=== PATIENT | female | born 1975 | race Caucasian/White ===

== ENCOUNTER 2017-10-25 08:17 | Emergency (ER) | payer OTHER ==
--- NOTE | 2017-10-25 08:56 | ED ---
General Adult HPI - General Chief complaint: Skin/Abscess/Foreign Body Stated complaint: Breast abscess Time Seen by Provider: 10/25/17 08:45 Source: patient, RN notes reviewed Mode of arrival: ambulatory Limitations: no limitations - History of Present Illness Initial comments: Patient's a 42-year-old female who presents emergency room today with a chief complaint of a right-sided breast abscess that began approximately 2 weeks ago. She states has become more swollen and painful. Denies any drainage or discharge. Does admit that she had something similar on the left breast. Years ago had to have it drained. Patient denies any other complaints or symptoms. Patient denies any recent fever, chills, shortness of breath, chest pain, back pain, abdominal pain, nausea or vomiting, headaches or visual changes , or any other complaints. - Related Data Home Medications Medication Instructions Recorded Confirmed Ibuprofen [Motrin Ib] 200 - 800 mg PO Q6H PRN 10/25/17 10/25/17 Melatonin 3 mg PO HS PRN 10/25/17 10/25/17 Previous Rx's Medication Instructions Recorded Sulfamethox-Tmp 800-160Mg [Bactrim 1 tab PO Q12HR #28 tab 10/25/17 DS 800-160 mg] Allergies Allergy/AdvReac Type Severity Reaction Status Date / Time cephalexin [From Keflex] Allergy Rash/Hives Verified 10/25/17 08:41 Review of Systems ROS Statement: Those systems with pertinent positive or pertinent negative responses have been documented in the HPI. ROS Other: All systems not noted in ROS Statement are negative. Past Medical History Past Medical History: No Reported History History of Any Multi-Drug Resistant Organisms: None Reported Past Surgical History: No Surgical Hx Reported Past Psychological History: No Psychological Hx Reported Smoking Status: Current every day smoker Past Alcohol Use History: Daily Past Drug Use History: None Reported General Exam - General Exam Comments Initial Comments: General: The patient is awake and alert, in no distress, and does not appear acutely ill. Eye: Pupils are equal, round and reactive to light, extra-ocular movements are intact. No nystagmus. There is normal conjunctiva bilaterally. No signs of icterus. Ears, nose, mouth and throat: There are moist mucous membranes and no oral lesions. Neck: The neck is supple, there is no tenderness or JVD. Musculoskeletal: Normal ROM, no tenderness. Strength 5/5. Sensation intact. Pulses equal bilaterally 2+. Neurological: A&O x 3. CN II-XII intact, There are no obvious motor or sensory deficits. Coordination appears grossly intact. Speech is normal. Skin: Patient does have large abscess to the right breast around the areola site. There is increased firmness on palpation and redness and erythema. Locally tender. Measures approximately 4-5 cm across. Psychiatric: Cooperative, appropriate mood & affect, normal judgment. Limitations: no limitations Course Vital Signs 10/25/17 10/25/17 08:30 11:05 Temperature 98.5 F 99.0 F Pulse Rate 105 H 100 Respiratory 18 20 Rate Blood Pressure 187/77 168/75 O2 Sat by Pulse 99 99 Oximetry Procedures - Procedures Initial comment: [employer] Noelle was present for procedure.Procedure: Incision and drainage The skin overlying the abscess was prepped with Betadine, and anesthetized with 1% lidocaine without epinephrine. A #11 scalpel was then used to incise the abscess. Large amount purulent material was then extracted from the lesion. Wound culture obtained. Small amount of iodoform packing gauze was placed. Gauze dressing placed on top, The patient tolerated the procedure well. Medical Decision Making - Medical Decision Making Patient's ultrasound did reveal a 3.5 cm abscess. It was discussed with the patient about draining here versus following up with a specialist tomorrow. Patient stated that she was comfortable with us performing this procedure here. Small incision was made and a large amount of purulent drainage was removed. Patient will be started on antibiotics. She is advised follow-up with the surgeon or return here to the emergency room if symptoms increase worsen. Advised to have packing gauze removed in 2 days. Patient states understanding and is in agreement. - Lab Data Result diagrams: 10/25/17 09:26 10/25/17 09:26 Lab Results 10/25/17 10/25/17 Range/Units 09:26 09:26 WBC 12.0 H (3.8-10.6) k/uL RBC 4.08 (3.80-5.40) m/uL Hgb 12.7 (11.4-16.0) gm/dL Hct 38.3 (34.0-46.0) % MCV 94.0 (80.0-100.0) fL MCH 31.1 (25.0-35.0) pg MCHC 33.1 (31.0-37.0) g/dL RDW 12.3 (11.5-15.5) % Plt Count 199 (150-450) k/uL Neutrophils % 79 % Lymphocytes % 16 % Monocytes % 3 % Eosinophils % 1 % Basophils % 0 % Neutrophils # 9.5 H (1.3-7.7) k/uL Lymphocytes # 1.9 (1.0-4.8) k/uL Monocytes # 0.3 (0-1.0) k/uL Eosinophils # 0.1 (0-0.7) k/uL Basophils # 0.0 (0-0.2) k/uL Sodium 137 (137-145) mmol/L Potassium 4.2 (3.5-5.1) mmol/L Chloride 105 (98-107) mmol/L Carbon Dioxide 24 (22-30) mmol/L Anion Gap 8 mmol/L BUN 14 (7-17) mg/dL Creatinine 0.66 (0.52-1.04) mg/dL Est GFR (MDRD) Af Amer >60 (>60 ml/min/1.73 sqM) Est GFR (MDRD) Non-Af >60 (>60 ml/min/1.73 sqM) Glucose 274 H (74-99) mg/dL Calcium 8.9 (8.4-10.2) mg/dL Total Bilirubin 0.3 (0.2-1.3) mg/dL AST 14 (14-36) U/L ALT 19 (9-52) U/L Alkaline Phosphatase 144 H (38-126) U/L Total Protein 6.2 L (6.3-8.2) g/dL Albumin 3.4 L (3.5-5.0) g/dL Disposition Clinical Impression: Breast abscess Disposition: HOME SELF-CARE Condition: Good Instructions: Abscess (ED) Additional Instructions: Please have packing gauze removed in 2 days as discussed. Please follow-up the surgeon or return here to the emergency room if any symptoms increase or worsen or for any other concerns. Please continue antibiotics as prescribed. Prescriptions: Sulfamethox-Tmp 800-160Mg [Bactrim DS 800-160 mg] 1 tab PO Q12HR #28 tab Referrals: None,Stated [Primary Care Provider] - 1-2 days Katy Dubois MD [STAFF PHYSICIAN] - 1-2 days Time of Disposition: 12:11
[2017-10-25 09:34] LABS: Basophils % (A) 0 %; Eosinophils # (A) 0.1 k/uL (0-0.7); Eosinophils % (A) 1 %; HCT 38.3 % (34.0-46.0); HGB 12.7 gm/dL (11.4-16.0); Lymphocytes # (A) 1.9 k/uL (1.0-4.8); Lymphocytes % (A) 16 %; MCH 31.1 pg (25.0-35.0); MCHC 33.1 g/dL (31.0-37.0); Mean Platelet Volume 8.9; Monocytes # (A) 0.3 k/uL (0-1.0); Monocytes % (A) 3 %; Neutrophils # (A) 9.5 k/uL (1.3-7.7); Neutrophils % (A) 79 %; Platelet Count 199 k/uL (150-450); RBC 4.08 m/uL (3.80-5.40); RDW 12.3 % (11.5-15.5)
[2017-10-25] MEDS ORDERED: SODIUM CHLORIDE 0.9% 1,000 ML IV STA (09:43)
[2017-10-25 09:45] LABS: ALT 19 U/L (9-52); AST 14 U/L (14-36); Albumin 3.4 g/dL (3.5-5.0); Alkaline Phosphatase 144 U/L (38-126); Anion Gap 8 mmol/L; Blood Urea Nitrogen 14 mg/dL (7-17); Calcium 8.9 mg/dL (8.4-10.2); Carbon Dioxide 24 mmol/L (22-30); Chloride 105 mmol/L (98-107); Glucose 274 mg/dL (74-99); Potassium 4.2 mmol/L (3.5-5.1); Sodium 137 mmol/L (137-145); Total Bilirubin 0.3 mg/dL (0.2-1.3); Total Protein 6.2 g/dL (6.3-8.2)
--- NOTE | 2017-10-25 10:50 | USB ---
Reason for exam: clinical finding. US Breast Limited RT Right breast ultrasound demonstrates a 5.2 x 5.3 x 3.4cm irregular, mixed lesion at 11 o'clock, complex area likely reflecting abscess. ASSESSMENT: Probably benign, BI-RAD 3 RECOMMENDATION: Clinical management of the right breast. (ultrasound guided drainage can be performed ; consider short term follow up US after treatment) GISSELD
[2017-10-25 11:07] VITALS: BP 168/75; PULSE 100; RESP 20; TEMP 99
== END 2017-10-25 12:29 | disposition home or self-care (01) ==
LOC: EC 08:17
DX: N61.1 Abscess of the breast and nipple (principal); F17.200 Nicotine dependence, unspecified, uncomplicated; Z88.1 Allergy status to other antibiotic agents
CPT/HCPCS: 10060; 36415; 80053; 85025; 87040; 87070; 87077; 87186; 87205; 96360; 99283

== ENCOUNTER 2019-04-15 18:27 | Emergency (ER) | payer OTHER ==
[2019-04-15 18:46] VITALS: RESP 18
[2019-04-15] MEDS ORDERED: MORPHINE SULFATE 4 MG/ML SYRINGE IV STA (19:17)
--- NOTE | 2019-04-15 19:24 | ED ---
Abdominal Pain HPI - General Chief Complaint: Abdominal Pain Stated Complaint: Left sided flank pain Time Seen by Provider: 04/15/19 18:50 Source: patient Mode of arrival: ambulatory Limitations: no limitations - History of Present Illness MD Complaint: abdominal pain Onset/Timin -: hour(s) Location: LUQ, LLQ Radiation: none Migration to: no migration Severity: severe Quality: other (twisting) Consistency: colicky Improves With: nothing Worsens With: nothing Associated Symptoms: denies other symptoms - Related Data LMP (females 10-50): last week Patient : No Home Medications Medication Instructions Recorded Confirmed Ibuprofen [Motrin Ib] 200 - 800 mg PO Q6H PRN 10/25/17 04/15/19 Previous Rx's Medication Instructions Recorded Levofloxacin 750 mg PO DAILY #5 tablet 04/15/19 metFORMIN HCL [Glucophage] 500 mg PO BID #14 tab 04/15/19 Allergies Allergy/AdvReac Type Severity Reaction Status Date / Time cephalexin [From Keflex] Allergy Rash/Hives Verified 04/15/19 19:28 Review of Systems ROS Statement: Those systems with pertinent positive or pertinent negative responses have been documented in the HPI. ROS Other: All systems not noted in ROS Statement are negative. Constitutional: Denies: fever, chills Respiratory: Denies: cough, dyspnea Cardiovascular: Denies: chest pain, palpitations, edema, syncope Gastrointestinal: Reports: abdominal pain. Denies: nausea, vomiting, diarrhea, constipation, melena, hematochezia Genitourinary: Denies: dysuria, frequency, hematuria, discharge, abnormal menses Musculoskeletal: Denies: back pain Skin: Denies: rash Neurological: Denies: headache Past Medical History Past Medical History: No Reported History History of Any Multi-Drug Resistant Organisms: None Reported Past Surgical History: No Surgical Hx Reported Past Psychological History: No Psychological Hx Reported Smoking Status: Current every day smoker Past Alcohol Use History: Daily Past Drug Use History: None Reported General Exam Limitations: no limitations General appearance: alert, in no apparent distress Head exam: Present: atraumatic, normocephalic Eye exam: Present: normal appearance. Absent: scleral icterus, conjunctival injection Respiratory exam: Present: normal lung sounds bilaterally. Absent: respiratory distress, wheezes, rales, rhonchi, stridor Cardiovascular Exam: Present: normal rhythm, tachycardia (Rate 104 bpm at my exam), normal heart sounds. Absent: systolic murmur, diastolic murmur, rubs, gallop GI/Abdominal exam: Present: soft, tenderness, hypoactive bowel sounds. Absent: distended, guarding, rebound, rigid, mass, pulsatile mass, hernia Extremities exam: Present: normal inspection, normal capillary refill. Absent: pedal edema, calf tenderness Back exam: Present: normal inspection. Absent: CVA tenderness (R), CVA tenderness (L) Neurological exam: Present: alert Skin exam: Present: warm, dry, intact, normal color. Absent: rash Course Vital Signs 04/15/19 04/15/19 04/15/19 18:44 19:55 20:47 Temperature 98.3 F 99.0 F Pulse Rate 110 H 115 H 116 H Respiratory 18 18 18 Rate Blood Pressure 163/74 184/92 166/83 O2 Sat by Pulse 99 99 98 Oximetry 04/15/19 04/15/19 04/15/19 22:13 23:10 23:12 Temperature 99.7 F H 102.9 F H 100.8 F H Pulse Rate 119 H 130 H Respiratory 18 18 Rate Blood Pressure 164/82 184/86 O2 Sat by Pulse 100 95 Oximetry Medical Decision Making - Medical Decision Making Patient's 43-year-old woman presenting with flank pain and found to have urinary tract infection. She also has hyperglycemia without history of diabetes in the past. She does have strong family history however. I discussed with the patient admission to have further course of antibiotics as well as diabetes training and treatment. Patient at this point is refusing to stay, stating that she definitely will return if she is not feeling better, or if her symptoms do not completely resolve. She does understand need for further follow-up related to her conditions - Lab Data Result diagrams: 04/15/19 18:55 04/15/19 18:55 Lab Results 04/15/19 04/15/19 04/15/19 Range/Units 18:55 18:55 18:55 WBC 10.5 (3.8-10.6) k/uL RBC 4.57 (3.80-5.40) m/uL Hgb 13.5 (11.4-16.0) gm/dL Hct 41.6 (34.0-46.0) % MCV 91.1 (80.0-100.0) fL MCH 29.5 (25.0-35.0) pg MCHC 32.4 (31.0-37.0) g/dL RDW 13.9 (11.5-15.5) % Plt Count 142 L (150-450) k/uL Neutrophils % 78 % Lymphocytes % 16 % Monocytes % 3 % Eosinophils % 1 % Basophils % 0 % Neutrophils # 8.3 H (1.3-7.7) k/uL Lymphocytes # 1.7 (1.0-4.8) k/uL Monocytes # 0.3 (0-1.0) k/uL Eosinophils # 0.1 (0-0.7) k/uL Basophils # 0.0 (0-0.2) k/uL Sodium 134 L (137-145) mmol/L Potassium 4.5 (3.5-5.1) mmol/L Chloride 102 (98-107) mmol/L Carbon Dioxide 17 L (22-30) mmol/L Anion Gap 15 mmol/L BUN 16 (7-17) mg/dL Creatinine 0.77 (0.52-1.04) mg/dL Est GFR (CKD-EPI)AfAm >90 (>60 ml/min/1.73 sqM) Est GFR (CKD-EPI)NonAf >90 (>60 ml/min/1.73 sqM) Glucose 326 H (74-99) mg/dL Calcium 9.0 (8.4-10.2) mg/dL Total Bilirubin 0.4 (0.2-1.3) mg/dL AST 18 (14-36) U/L ALT 18 (9-52) U/L Alkaline Phosphatase 129 H (38-126) U/L Total Protein 7.7 (6.3-8.2) g/dL Albumin 4.3 (3.5-5.0) g/dL Amylase 48 (30-110) U/L Lipase 80 (23-300) U/L Urine Color Urine Appearance (Clear) Urine pH (5.0-8.0) Ur Specific [place] (1.001-1.035) Urine Protein (Negative) Urine Glucose (UA) (Negative) Urine Ketones (Negative) Urine Blood (Negative) Urine Nitrite (Negative) Urine Bilirubin (Negative) Urine Urobilinogen (<2.0) mg/dL Ur Leukocyte Esterase (Negative) Urine RBC (0-5) /hpf Urine WBC (0-5) /hpf Ur Squamous Epith Cells (0-4) /hpf Urine Mucus (None) /hpf Urine HCG, Qual (Not Detectd) Acetone, Qual Negative (Negative) 04/15/19 04/15/19 Range/Units 19:38 19:38 WBC (3.8-10.6) k/uL RBC (3.80-5.40) m/uL Hgb (11.4-16.0) gm/dL Hct (34.0-46.0) % MCV (80.0-100.0) fL MCH (25.0-35.0) pg MCHC (31.0-37.0) g/dL RDW (11.5-15.5) % Plt Count (150-450) k/uL Neutrophils % % Lymphocytes % % Monocytes % % Eosinophils % % Basophils % % Neutrophils # (1.3-7.7) k/uL Lymphocytes # (1.0-4.8) k/uL Monocytes # (0-1.0) k/uL Eosinophils # (0-0.7) k/uL Basophils # (0-0.2) k/uL Sodium (137-145) mmol/L Potassium (3.5-5.1) mmol/L Chloride (98-107) mmol/L Carbon Dioxide (22-30) mmol/L Anion Gap mmol/L BUN (7-17) mg/dL Creatinine (0.52-1.04) mg/dL Est GFR (CKD-EPI)AfAm (>60 ml/min/1.73 sqM) Est GFR (CKD-EPI)NonAf (>60 ml/min/1.73 sqM) Glucose (74-99) mg/dL Calcium (8.4-10.2) mg/dL Total Bilirubin (0.2-1.3) mg/dL AST (14-36) U/L ALT (9-52) U/L Alkaline Phosphatase (38-126) U/L Total Protein (6.3-8.2) g/dL Albumin (3.5-5.0) g/dL Amylase (30-110) U/L Lipase (23-300) U/L Urine Color Light Yellow Urine Appearance Clear (Clear) Urine pH 6.0 (5.0-8.0) Ur Specific [place] 1.027 (1.001-1.035) Urine Protein Negative (Negative) Urine Glucose (UA) 4+ H (Negative) Urine Ketones Negative (Negative) Urine Blood Negative (Negative) Urine Nitrite Negative (Negative) Urine Bilirubin Negative (Negative) Urine Urobilinogen <2.0 (<2.0) mg/dL Ur Leukocyte Esterase Moderate H (Negative) Urine RBC 2 (0-5) /hpf Urine WBC 30 H (0-5) /hpf Ur Squamous Epith Cells 4 (0-4) /hpf Urine Mucus Rare H (None) /hpf Urine HCG, Qual Not Detected (Not Detectd) Acetone, Qual (Negative) Disposition Clinical Impression: Urinary tract infection, Hyperglycemia Disposition: Left Against Medical Advice Condition: Good Instructions (If sedation given, give patient instructions): Urinary Tract Infection in Women (ED), Diabetic Hyperglycemia (ED) Prescriptions: metFORMIN HCL [Glucophage] 500 mg PO BID #14 tab Levofloxacin 750 mg PO DAILY #5 tablet Is patient prescribed a controlled substance at d/c from ED?: No Referrals: None,Stated [Primary Care Provider] - 1-2 days Nhan Garcia MD [REFERRING] - 1-2 days
[2019-04-15 19:47] LABS: Basophils % (A) 0 %; Eosinophils # (A) 0.1 k/uL (0-0.7); Eosinophils % (A) 1 %; HCT 41.6 % (34.0-46.0); HGB 13.5 gm/dL (11.4-16.0); Lymphocytes # (A) 1.7 k/uL (1.0-4.8); Lymphocytes % (A) 16 %; MCH 29.5 pg (25.0-35.0); MCHC 32.4 g/dL (31.0-37.0); MCV 91.1 fL (80.0-100.0); Mean Platelet Volume 8.8; Monocytes # (A) 0.3 k/uL (0-1.0); Monocytes % (A) 3 %; Neutrophils # (A) 8.3 k/uL (1.3-7.7); Neutrophils % (A) 78 %; Platelet Count 142 k/uL (150-450); RBC 4.57 m/uL (3.80-5.40); RDW 13.9 % (11.5-15.5); WBC 10.5 k/uL (3.8-10.6)
[2019-04-15 19:56] LABS: ALT 18 U/L (9-52); AST 18 U/L (14-36); African American GFR (CKD) >90 (>60 ml/min/1.73 sqM); Albumin 4.3 g/dL (3.5-5.0); Alkaline Phosphatase 129 U/L (38-126); Amylase 48 U/L (30-110); Anion Gap 15 mmol/L; Blood Urea Nitrogen 16 mg/dL (7-17); Carbon Dioxide 17 mmol/L (22-30); Chloride 102 mmol/L (98-107); Glucose 326 mg/dL (74-99); Non-African American GFR(CKD) >90 (>60 ml/min/1.73 sqM); Potassium 4.5 mmol/L (3.5-5.1); Sodium 134 mmol/L (137-145); Total Bilirubin 0.4 mg/dL (0.2-1.3); Total Protein 7.7 g/dL (6.3-8.2)
[2019-04-15 19:58] LABS: Appearance,Urine Clear (Clear); Bilirubin,Urine Negative (Negative); Blood,Urine Negative (Negative); Color,Urine Light Yellow; Glucose,Urine (UA) 4+ (Negative); Ketones,Urine Negative (Negative); Leukocyte Esterase,Urine Moderate (Negative); Mucus,Urine Rare /hpf; Nitrite,Urine Negative (Negative); Protein,Urine Negative (Negative); RBC,Urine 2 /hpf (0-5); Specific Gravity,Urine 1.027 (1.001-1.035); Squamous Epithelial Cell,Urine 4 /hpf (0-4); Urobilinogen,Urine <2.0 mg/dL (<2.0); WBC,Urine 30 /hpf (0-5)
[2019-04-15] MEDS ORDERED: SODIUM CHLORIDE 0.9% 1,000 ML IV ONE ×2 (20:00→21:01)
--- NOTE | 2019-04-15 20:32 | CT ---
EXAMINATION TYPE: CT abdomen pelvis wo con DATE OF EXAM: 04/15/2019 COMPARISON: None HISTORY: Left flank pain. CT DLP: 455.3 mGycm Automated exposure control for dose reduction was used. TECHNIQUE: Helical acquisition of images was performed from the lung bases through the pelvis. FINDINGS: Lung bases are clear. There is no pleural effusion. There is diffuse fatty infiltration of the liver. Heart appears borderline enlarged. There is no pericardial effusion. Stomach appears normal. There i s no evidence of pancreatic mass. Bile ducts are not dilated. Kidneys have normal size. There is left-sided hydronephrosis and hydroureter. There is mild left-side d perinephric edema. There are phleboliths in the pelvis. I see no definite ureteral calculus. Bladde r is almost empty. Uterus is anteverted. There is no free fluid in the pelvis. There is no inguinal h ernia. There is no sign of thickened appendix. There is no mesenteric edema. There is no ascites or free air . Lumbar spine is intact. Bony pelvis is intact. IMPRESSION: LEFT-SIDED HYDRONEPHROSIS AND HYDROURETER. THIS COULD RELATE TO RECENTLY PASSED STONE. NO DEFINITE UR ETERAL CALCULUS SEEN. FATTY INFILTRATION OF THE LIVER.
[2019-04-15] MEDS ORDERED: LEVOFLOXACIN 750 MG TAB PO STA (21:00)
[2019-04-15] MEDS ORDERED: HYDROmorphone 0.5 MG/0.5 ML SYRINGE IVP STA (21:45)
[2019-04-15] MEDS ORDERED: ONDANSETRON 4 MG/2 ML VIAL IVP STA (23:13)
[2019-04-15 23:34] VITALS: PULSE 130
[2019-04-15 23:53] VITALS: BP 128/73; TEMP 101.9
[2019-04-15] MEDS ORDERED: ACETAMINOPHEN TAB 325 MG TAB PO STA (23:55)
== END 2019-04-16 00:05 | disposition left against medical advice (07) ==
LOC: EC 18:27
DX: N39.0 Urinary tract infection, site not specified (principal); R73.9 Hyperglycemia, unspecified; R00.0 Tachycardia, unspecified; F17.200 Nicotine dependence, unspecified, uncomplicated; Z88.1 Allergy status to other antibiotic agents; Z83.3 Family history of diabetes mellitus; Z53.20 Procedure and treatment not carried out because of patient's decision for unspecified reasons
CPT/HCPCS: 36415; 80053; 82150; 82009; 83690; 85025; 81001; 81025; 74176; 99284; 96374; 96375 ×2; 96361 ×4; J2270; J2405; J1170

== ENCOUNTER 2019-04-17 11:31 | Inpatient (IN) | payer OTHER ==
[2019-04-17] MEDS ORDERED: ONDANSETRON 4 MG/2 ML VIAL IVP STA (12:11)
--- NOTE | 2019-04-17 12:17 | ED ---
General Adult HPI - General Chief complaint: Recheck/Abnormal Lab/Rx Stated complaint: poss med reaction Time Seen by Provider: 04/17/19 12:03 Source: patient, family, RN notes reviewed, old records reviewed Mode of arrival: ambulatory Limitations: no limitations - History of Present Illness Initial comments: Patient is a pleasant 43-year-old female presenting to the emergency Department with complaints of nausea vomiting and not feeling well. Patient states onset of symptoms was yesterday after taking Levaquin. Patient has vomited 5 times today and probablyyesterday. Decreased oral intake. No constipation or diarrhea. No abdominal pain. Patient did have some side pain the other day and was diagnosed with urinary tract infection. Patient states blood sugar was elevated however this was a new thing for her. Patient does not monitor her blood sugar take medication for it. Patient has mild discomfort in her chest described as tightness and possibly some mild shortness of breath. No dysuria. No fevers. - Related Data Home Medications Medication Instructions Recorded Confirmed Ibuprofen [Motrin Ib] 200 - 800 mg PO Q6H PRN 10/25/17 04/17/19 Previous Rx's Medication Instructions Recorded Levofloxacin 750 mg PO DAILY #5 tablet 04/15/19 metFORMIN HCL [Glucophage] 500 mg PO BID #14 tab 04/15/19 Allergies Allergy/AdvReac Type Severity Reaction Status Date / Time cephalexin [From Keflex] Allergy Rash/Hives Verified 04/17/19 12:02 Review of Systems ROS Statement: Those systems with pertinent positive or pertinent negative responses have been documented in the HPI. ROS Other: All systems not noted in ROS Statement are negative. Constitutional: Denies: fever Eyes: Denies: eye pain ENT: Denies: ear pain Respiratory: Reports: as per HPI Cardiovascular: Reports: as per HPI Endocrine: Reports: fatigue Gastrointestinal: Reports: nausea, vomiting Genitourinary: Denies: dysuria Musculoskeletal: Denies: back pain Skin: Denies: rash Neurological: Denies: headache, confusion Past Medical History Past Medical History: No Reported History History of Any Multi-Drug Resistant Organisms: None Reported Past Surgical History: No Surgical Hx Reported Past Psychological History: No Psychological Hx Reported Smoking Status: Current every day smoker Past Alcohol Use History: Daily Past Drug Use History: None Reported General Exam Limitations: no limitations General appearance: alert Head exam: Present: atraumatic Eye exam: Present: normal appearance, PERRL ENT exam: Present: mucous membranes dry Neck exam: Present: normal inspection Respiratory exam: Present: normal lung sounds bilaterally Cardiovascular Exam: Present: tachycardia Expanded Peripheral pulses: 2+: Radial (R), Radial (L), Dorsalis Pedis (R), Dorsalis Pedis (L) GI/Abdominal exam: Present: soft. Absent: distended, tenderness, pulsatile mass Extremities exam: Present: normal inspection. Absent: pedal edema, calf tenderness Neurological exam: Present: alert Psychiatric exam: Present: normal affect, normal mood Skin exam: Present: normal color Course Vital Signs 04/17/19 04/17/19 04/17/19 11:39 11:51 12:00 Temperature 98.6 F Pulse Rate 140 H 124 H Respiratory 18 25 H Rate Blood Pressure 82/56 105/60 O2 Sat by Pulse 98 99 99 Oximetry 04/17/19 04/17/19 04/17/19 12:20 12:40 13:00 Temperature Pulse Rate 120 H 121 H 120 H Respiratory 20 26 H 20 Rate Blood Pressure 89/69 100/69 84/64 O2 Sat by Pulse 96 100 99 Oximetry 04/17/19 04/17/19 04/17/19 13:20 14:00 14:20 Temperature Pulse Rate 118 H 123 H 126 H Respiratory 20 21 18 Rate Blood Pressure 83/58 94/70 68/52 O2 Sat by Pulse 100 97 99 Oximetry 04/17/19 04/17/19 04/17/19 14:40 15:00 15:20 Temperature Pulse Rate 129 H 125 H 125 H Respiratory 18 19 22 Rate Blood Pressure 90/54 76/42 88/63 O2 Sat by Pulse 98 98 Oximetry - Reevaluation(s) Reevaluation #1: 04/17/19 14:19 There is concern for sepsis diagnosed at 1400. Patient has received IV fluid bolus and additional fluids have been ordered. Blood culture and lactic acid have been ordered. IV antibiotics will be added. 04/17/19 15:27 Case was discussed with Dr. Welch, who will admit. EKG Findings - EKG Comments: EKG Findings:: Sinus x-ray 132. NV 116. QRS 82. QT 328. QTC 485. Normal axis LVH. No acute ST change. Procedures - Sepsis Sepsis Focused Exam #1 Time Sepsis Criteria Met: 16:00 Sepsis Focused Exam Date: 04/17/19 Sepsis Focused Exam Time: 14:20 Sepsis Focused Exam Complete: Yes Vital Signs & RN Notes Reviewed: Yes Capillary Refill: < 2 Seconds: Fingers, Toes Peripheral Pulses: Normal: Radial (R), Radial (L) Skin Color: Normal for Patient Respiratory Exam: wheezes (Mild expiratory wheeze) Cardiovascular Exam: tachycardia Medical Decision Making - Medical Decision Making Patient reevaluated and resting in bed. Heart rate remains 123. Blood pressure 89 systolic. Patient updated on results and plan. Case was discussed in detail with Dr. Lomas who would like patient to come to the ICU and he will see her there. He does agree with holding on central line at this point secondary to thrombocytopenia and will consider this in the future if he Needs to. He does recommend starting peripheral pressor. He does recommend 2 more liters of IV fluid. - Lab Data Result diagrams: 04/17/19 11:58 04/17/19 11:58 Lab Results 04/17/19 04/17/19 04/17/19 Range/Units 11:58 11:58 11:58 WBC 5.2 (3.8-10.6) k/uL RBC 4.86 (3.80-5.40) m/uL Hgb 14.2 (11.4-16.0) gm/dL Hct 43.9 (34.0-46.0) % MCV 90.4 (80.0-100.0) fL MCH 29.3 (25.0-35.0) pg MCHC 32.4 (31.0-37.0) g/dL RDW 14.1 (11.5-15.5) % Plt Count 62 L D (150-450) k/uL Neutrophils % Not Reportable Neutrophils % (Manual) 65 % Band Neutrophils % 27 % Lymphocytes % Not Reportable Lymphocytes % (Manual) 6 % Monocytes % Not Reportable Monocytes % (Manual) 2 % Eosinophils % Not Reportable Basophils % Not Reportable Metamyelocytes % 1 % Myelocytes % 1 % Neutrophils # Not Reportable Neutrophils # (Manual) 4.70 (1.3-7.7) k/uL Lymphocytes # Not Reportable Lymphocytes # (Manual) 0.31 L (1.0-4.8) k/uL Monocytes # Not Reportable Monocytes # (Manual) 0.10 (0-1.0) k/uL Eosinophils # Not Reportable Basophils # Not Reportable Metamyelocytes # (Man) 0.05 H (0) k/uL Myelocytes # (Manual) 0.05 H (0) k/uL Nucleated RBCs 0 (0-0) /100 WBC Manual Slide Review Performed Toxic Granulation Present Toxic Vacuolation Present Dohle Bodies Present RBC Morphology Normal PT (9.0-12.0) sec INR (<1.2) APTT (22.0-30.0) sec Sodium 137 (137-145) mmol/L Potassium 3.5 (3.5-5.1) mmol/L Chloride 103 (98-107) mmol/L Carbon Dioxide 16 L (22-30) mmol/L Anion Gap 18 mmol/L BUN 20 H (7-17) mg/dL Creatinine 1.73 H (0.52-1.04) mg/dL Est GFR (CKD-EPI)AfAm 41 (>60 ml/min/1.73 sqM) Est GFR (CKD-EPI)NonAf 36 (>60 ml/min/1.73 sqM) Glucose 233 H (74-99) mg/dL Plasma Lactic Acid Reji (0.7-2.0) mmol/L Calcium 8.2 L (8.4-10.2) mg/dL Total Bilirubin 1.1 (0.2-1.3) mg/dL AST 27 (14-36) U/L ALT 23 (9-52) U/L Alkaline Phosphatase 313 H (38-126) U/L Creatine Kinase 46 (30-135) U/L CK-MB (CK-2) 1.3 (0.0-2.4) ng/mL Troponin I 0.013 (0.000-0.034) ng/mL Total Protein 6.5 (6.3-8.2) g/dL Albumin 3.3 L (3.5-5.0) g/dL Urine Color Urine Appearance (Clear) Urine pH (5.0-8.0) Ur Specific Belen (1.001-1.035) Urine Protein (Negative) Urine Glucose (UA) (Negative) Urine Ketones (Negative) Urine Blood (Negative) Urine Nitrite (Negative) Urine Bilirubin (Negative) Urine Urobilinogen (<2.0) mg/dL Ur Leukocyte Esterase (Negative) Urine RBC (0-5) /hpf Urine WBC (0-5) /hpf Ur Squamous Epith Cells (0-4) /hpf Amorphous Sediment (None) /hpf Urine Bacteria (None) /hpf Hyaline Casts (0-2) /lpf Urine Mucus (None) /hpf Acetone, Qual Negative (Negative) 04/17/19 04/17/19 04/17/19 Range/Units 11:58 11:58 13:10 WBC (3.8-10.6) k/uL RBC (3.80-5.40) m/uL Hgb (11.4-16.0) gm/dL Hct (34.0-46.0) % MCV (80.0-100.0) fL MCH (25.0-35.0) pg MCHC (31.0-37.0) g/dL RDW (11.5-15.5) % Plt Count (150-450) k/uL Neutrophils % Neutrophils % (Manual) % Band Neutrophils % % Lymphocytes % Lymphocytes % (Manual) % Monocytes % Monocytes % (Manual) % Eosinophils % Basophils % Metamyelocytes % % Myelocytes % % Neutrophils # Neutrophils # (Manual) (1.3-7.7) k/uL Lymphocytes # Lymphocytes # (Manual) (1.0-4.8) k/uL Monocytes # Monocytes # (Manual) (0-1.0) k/uL Eosinophils # Basophils # Metamyelocytes # (Man) (0) k/uL Myelocytes # (Manual) (0) k/uL Nucleated RBCs (0-0) /100 WBC Manual Slide Review Toxic Granulation Toxic Vacuolation Dohle Bodies RBC Morphology PT 11.4 (9.0-12.0) sec INR 1.1 (<1.2) APTT 26.1 (22.0-30.0) sec Sodium (137-145) mmol/L Potassium (3.5-5.1) mmol/L Chloride (98-107) mmol/L Carbon Dioxide (22-30) mmol/L Anion Gap mmol/L BUN (7-17) mg/dL Creatinine (0.52-1.04) mg/dL Est GFR (CKD-EPI)AfAm (>60 ml/min/1.73 sqM) Est GFR (CKD-EPI)NonAf (>60 ml/min/1.73 sqM) Glucose (74-99) mg/dL Plasma Lactic Acid Reji 4.7 H* (0.7-2.0) mmol/L Calcium (8.4-10.2) mg/dL Total Bilirubin (0.2-1.3) mg/dL AST (14-36) U/L ALT (9-52) U/L Alkaline Phosphatase (38-126) U/L Creatine Kinase (30-135) U/L CK-MB (CK-2) (0.0-2.4) ng/mL Troponin I (0.000-0.034) ng/mL Total Protein (6.3-8.2) g/dL Albumin (3.5-5.0) g/dL Urine Color Dark Brown Urine Appearance Turbid H (Clear) Urine pH 5.5 (5.0-8.0) Ur Specific Bel[place] 1.024 (1.001-1.035) Urine Protein 2+ H (Negative) Urine Glucose (UA) Trace H (Negative) Urine Ketones Negative (Negative) Urine Blood Moderate H (Negative) Urine Nitrite Positive H (Negative) Urine Bilirubin 1+ H (Negative) Urine Urobilinogen 3.0 (<2.0) mg/dL Ur Leukocyte Esterase Large H (Negative) Urine RBC 18 H (0-5) /hpf Urine WBC 27 H (0-5) /hpf Ur Squamous Epith Cells 45 H (0-4) /hpf Amorphous Sediment Rare H (None) /hpf Urine Bacteria Many H (None) /hpf Hyaline Casts 103 H (0-2) /lpf Urine Mucus Occasional H (None) /hpf Acetone, Qual (Negative) - Radiology Data Radiology results: image reviewed (Chest x-ray shows no acute process) Critical Care Time Critical Care Time: Yes Total Critical Care Time: 36 Disposition Clinical Impression: Septic shock, Urinary tract infection, Hyperglycemia, Thrombocytopenia Disposition: ADMITTED IP TO THIS HOSP Condition: Critical Is patient prescribed a controlled substance at d/c from ED?: No Referrals: None,Stated [Primary Care Provider] - 1-2 days Decision Time: 15:05
[2019-04-17] MEDS: SODIUM CHLORIDE 0.9% 500 ML 500 ML IV SCH ×4 (12:30→14:00)
[2019-04-17 12:33] LABS: ALT 23 U/L (9-52); AST 27 U/L (14-36); African American GFR (CKD) 41 (>60 ml/min/1.73 sqM); Albumin 3.3 g/dL (3.5-5.0); Alkaline Phosphatase 313 U/L (38-126); Anion Gap 18 mmol/L; Blood Urea Nitrogen 20 mg/dL (7-17); Calcium 8.2 mg/dL (8.4-10.2); Carbon Dioxide 16 mmol/L (22-30); Chloride 103 mmol/L (98-107); Creatine Kinase 46 U/L (30-135); Glucose 233 mg/dL (74-99); Non-African American GFR(CKD) 36 (>60 ml/min/1.73 sqM); Potassium 3.5 mmol/L (3.5-5.1); Sodium 137 mmol/L (137-145); Total Bilirubin 1.1 mg/dL (0.2-1.3); Total Protein 6.5 g/dL (6.3-8.2)
--- NOTE | 2019-04-17 12:35 | XR ---
EXAMINATION TYPE: XR chest 2V DATE OF EXAM: 04/17/2019 COMPARISON: NONE TECHNIQUE: PA and lateral views submitted. HISTORY: Weakness FINDINGS: The lungs are clear and there is no pneumothorax, pleural effusion, or focal pneumonia. Hypertrophi c change of the spine. IMPRESSION: 1. No acute process.
[2019-04-17 12:37] LABS: INR 1.1 (<1.2); Partial Thromboplastin Time 26.1 sec (22.0-30.0); Prothrombin Time 11.4 sec (9.0-12.0)
[2019-04-17 12:47] LABS: HCT 43.9 % (34.0-46.0); HGB 14.2 gm/dL (11.4-16.0); MCH 29.3 pg (25.0-35.0); MCHC 32.4 g/dL (31.0-37.0); MCV 90.4 fL (80.0-100.0); Mean Platelet Volume 10.7; RBC 4.86 m/uL (3.80-5.40); RDW 14.1 % (11.5-15.5); WBC 5.2 k/uL (3.8-10.6)
[2019-04-17 12:57] LABS: Creatine Kinase MB 1.3 ng/mL (0.0-2.4); Troponin I 0.013 ng/mL (0.000-0.034)
[2019-04-17 13:09] LABS: Band Neutrophils % 27 %; Lymphocytes # (M) 0.31 k/uL (1.0-4.8); Metamyelocytes # (M) 0.05 k/uL (0); Metamyelocytes % 1 %; Myelocytes # (M) 0.05 k/uL (0); Myelocytes % 1 %; Neutrophils % (M) 65 %; Nucleated Red Blood Cells 0 /100 WBC (0-0); Total Cells Counted 200; Toxic Vacuolation Present
[2019-04-17 13:10] LABS: Dohle Bodies Present; Toxic Granulation Present
[2019-04-17 13:12] LABS: Platelet Count 62 k/uL (150-450)
[2019-04-17 13:38] LABS: Amorphous Sediment,Urine Rare /hpf; Appearance,Urine Turbid (Clear); Bacteria,Urine Many /hpf; Bilirubin,Urine 1+ (Negative); Blood,Urine Moderate (Negative); Color,Urine Dark Brown; Glucose,Urine (UA) Trace (Negative); Hyaline Casts,Urine 103 /lpf (0-2); Ketones,Urine Negative (Negative); Leukocyte Esterase,Urine Large (Negative); Mucus,Urine Occasional /hpf; Nitrite,Urine Positive (Negative); PH, Urine 5.5 (5.0-8.0); Protein,Urine 2+ (Negative); RBC,Urine 18 /hpf (0-5); Specific Gravity,Urine 1.024 (1.001-1.035); Squamous Epithelial Cell,Urine 45 /hpf (0-4); WBC,Urine 27 /hpf (0-5)
[2019-04-17] MEDS: SODIUM CHLORIDE 0.9% 500 ML 500 ML IV STA ×2 (14:00→15:46)
[2019-04-17] MEDS ORDERED: SODIUM CHLORIDE 0.9% 1,000 ML IV STA ×2 (14:19)
[2019-04-17] MEDS ORDERED: PIPERACILLIN-TAZOBACTAM 3.375 GM in SODIUM CHLORIDE 0.9% 100 ML IVPB STA (14:20)
[2019-04-17] MEDS ORDERED: NALOXONE 0.4 MG/ML 1 ML VIAL IV PRN (14:21)
[2019-04-17] MEDS ORDERED: IPRATROPIUM-ALBUTEROL 3 ML NEB INHALATION STA (14:23)
[2019-04-17] MEDS: NOREPINEPHRINE 4 MG in SODIUM CHLORIDE 0.9% 250 ML IV SCH (15:10)
[2019-04-17 16:32] LABS: Glucose,Whole Blood 221 mg/dL (75-99)
--- NOTE | 2019-04-17 16:34 | P.CNPUL ---
History of Present Illness Consult date: 04/17/19 Requesting physician: Brian Landers Reason for consult: other (Critical care management) Chief complaint: Nausea, vomiting, abdominal pain History of present illness: This a very pleasant 43-year-old female patient with a history of chronic and ongoing tobacco dependence, daily alcohol use. She was recently or in the emergency room diagnosed with a urinary tract infection and found to have chana vated blood sugars. She was initiated on Levaquin and metformin on 04/15/2019. Computed tomography scan of the abdomen and pelvis at that time revealed a left- sided hydronephrosis and hydroureter with suspected recently passed stone. No definite ureteral calculus seen. Fatty infiltrate of the liver. She returned to the emergency room today with complaints of abdominal discomfort and nausea and vomiting. Chest x-ray shows no acute pulmonary process. Results revealed WBC 5.2. Hemoglobin 14.2. Platelet count 62,000. Creatinine 1.73. Bicarb 16. Lactic acid 4.7. Alk phos 313. Urine is turbid and dark brown with 2+ protein, positive nitrates and large WBCs. Acetone negative. Temperature 99.5 she is tachycardic in the 120s. Blood pressure 101/70. 100% O2 on room air. Follow- up lactic tone to 3.4. She has received 3 L of fluid resuscitation. Initiated on Zosyn. Requiring norepinephrine at 0.1 mcg/kg/m. She is seen today in consultation upon arrival in the intensive care unit. She is currently awake and alert in no acute distress. She does have some residual left-sided flank pain. Review of Systems Constitutional: Reports fever, Reports poor appetite, Reports weakness Eyes: denies blurred vision, denies decreased vision Ears: deny: decreased hearing Ears, nose, mouth and throat: Denies headache, Denies sore throat Cardiovascular: Reports rapid heart beat, Reports shortness of breath Respiratory: Reports dyspnea Gastrointestinal: Reports abdominal pain, Reports nausea, Reports vomiting Genitourinary: Reports as per HPI Musculoskeletal: Reports as per HPI Integumentary: Denies pruritus, Denies rash Neurological: Denies numbness, Denies weakness Psychiatric: Denies anxiety, Denies depression Endocrine: Reports high blood sugars Hematologic/Lymphatic: Reports as per HPI Allergic/Immunologic: Reports as per HPI Past Medical History Past Medical History: No Reported History History of Any Multi-Drug Resistant Organisms: None Reported Past Surgical History: No Surgical Hx Reported Past Psychological History: No Psychological Hx Reported Smoking Status: Current every day smoker Past Alcohol Use History: Daily Past Drug Use History: None Reported Medications and Allergies Home Medications Medication Instructions Recorded Confirmed Type Ibuprofen [Motrin Ib] 200 - 800 mg PO Q6H PRN 10/25/17 04/17/19 History Levofloxacin 750 mg PO DAILY #5 tablet 04/15/19 04/17/19 Rx metFORMIN HCL [Glucophage] 500 mg PO BID #14 tab 04/15/19 04/17/19 Rx Allergies Allergy/AdvReac Type Severity Reaction Status Date / Time cephalexin [From Keflex] Allergy Rash/Hives Verified 04/17/19 12:02 Physical Exam Vitals: Vital Signs Temp Pulse Resp BP Pulse Ox 04/17/19 16:04 120/74 04/17/19 16:02 126 H 16 04/17/19 15:55 129 H 20 04/17/19 15:35 99.5 F 126 H 17 101/70 100 04/17/19 15:20 125 H 22 88/63 98 04/17/19 15:00 125 H 19 76/42 04/17/19 14:40 129 H 18 90/54 98 04/17/19 14:20 126 H 18 68/52 99 04/17/19 14:00 123 H 21 94/70 97 04/17/19 13:20 118 H 20 83/58 100 04/17/19 13:00 120 H 20 84/64 99 04/17/19 12:40 121 H 26 H 100/69 100 04/17/19 12:20 120 H 20 89/69 96 04/17/19 12:00 124 H 25 H 105/60 99 04/17/19 11:51 99 04/17/19 11:39 98.6 F 140 H 18 82/56 98 Intake and Output 04/17/19 04/17/19 04/17/19 06:59 14:59 22:59 Intake Total 8.065 Balance 8.065 Intake: Intake, IV Titration 8.065 Amount Norepinephrine 4 mg In 8.065 Sodium Chloride 0.9% 250 ml @ 0.05 MCG/KG/MIN 12. 097 mls/hr IV .Q[facility] Rx#:[id number] Other: Weight 63.503 kg GENERAL EXAM: Alert, pleasant 43-year-old female patient, fairly comfortable in no apparent distress. On room air. HEAD: Normocephalic. EYES: Normal reaction of pupils, equal size. NOSE: Clear with pink turbinates. THROAT: No erythema or exudates. NECK: No masses, no JVD. CHEST: No chest wall deformity. LUNGS: Equal air entry with no crackles, wheeze, rhonchi or dullness. CVS: S1 and S2 normal with no audible murmur, regular rhythm. ABDOMEN: No hepatosplenomegaly, normal bowel sounds, no guarding or rigidity. SPINE: No scoliosis or deformity SKIN: No rashes CENTRAL NERVOUS SYSTEM: No focal deficits, tone is normal in all 4 extremities. EXTREMITIES: There is no peripheral edema. No clubbing, no cyanosis. Peripheral pulses are intact. Results - Laboratory Findings CBC and BMP: 04/17/19 11:58 04/17/19 11:58 PT/INR, D-dimer PT 11.4 sec (9.0-12.0) 04/17/19 11:58 INR 1.1 (<1.2) 04/17/19 11:58 Abnormal lab findings: Abnormal Labs 04/17/19 04/17/19 04/17/19 11:58 11:58 11:58 Plt Count 62 L D Lymphocytes # (Manual) 0.31 L Metamyelocytes # (Man) 0.05 H Myelocytes # (Manual) 0.05 H Carbon Dioxide 16 L BUN 20 H Creatinine 1.73 H Glucose 233 H Plasma Lactic Acid Reji 4.7 H* Calcium 8.2 L Alkaline Phosphatase 313 H Albumin 3.3 L Urine Appearance Urine Protein Urine Glucose (UA) Urine Blood Urine Nitrite Urine Bilirubin Ur Leukocyte Esterase Urine RBC Urine WBC Ur Squamous Epith Cells Amorphous Sediment Urine Bacteria Hyaline Casts Urine Mucus 04/17/19 13:10 Plt Count Lymphocytes # (Manual) Metamyelocytes # (Man) Myelocytes # (Manual) Carbon Dioxide BUN Creatinine Glucose Plasma Lactic Acid Reji Calcium Alkaline Phosphatase Albumin Urine Appearance Turbid H Urine Protein 2+ H Urine Glucose (UA) Trace H Urine Blood Moderate H Urine Nitrite Positive H Urine Bilirubin 1+ H Ur Leukocyte Esterase Large H Urine RBC 18 H Urine WBC 27 H Ur Squamous Epith Cells 45 H Amorphous Sediment Rare H Urine Bacteria Many H Hyaline Casts 103 H Urine Mucus Occasional H - Diagnostic Findings Chest x-ray: image reviewed (No acute pulmonary process) Assessment and Plan Assessment: Impression: #1 Acute urinary tract infection with secondary sepsis with lactic acidosis. Treated 2 days ago with Levaquin. #2 Hypotension secondary to above requiring pressor support. #3 Febrile illness secondary to above. #4 Tachycardia secondary to above. #5 Thrombocytopenia, suspect consumption. #6 Acute renal failure, creatinine 1.73. #7 Recent diagnosis of diabetes mellitus. Initiated on metformin 2 days ago. #8 Chronic and ongoing tobacco dependence. #9 Daily alcohol use. Plan: The patient was seen and evaluated by Dr. oLmas. Chest x-ray and labs reviewed. Repeat non contrast abdominal and pelvis CT with stone protocol. Await cultures. We'll provide adequate fluid resuscitation. Titrate down norepinephrine as tolerated. Continue antibiotics in the form of Zosyn. Blood cultures pending. IV Protonix. We will continue to monitor her closely here in the intensive care unit for now. I, the cosigning physician, performed a history & physical examination of the patient. Lungs sounds are clear. Maintaining good O2 saturations in the 90s on room air. I discussed the assessment and plan of care with my nurse practitioner, Grace Correa. I attest to the above note as dictated by her. Time with Patient: Greater than 30
[2019-04-17] MEDS ORDERED: SODIUM CHLORIDE 0.9% 1,000 ML IV SCH (16:45)
[2019-04-17] MEDS: PIPERACILLIN-TAZOBACTAM 3.375 GM in SODIUM CHLORIDE 0.9% 100 ML IVPB SCH (17:14)
--- NOTE | 2019-04-17 17:18 | P.HPIM ---
History of Present Illness H&P Date: 04/17/19 Chief Complaint: Generalized weakness 43-year-old female with no significant past medical history presents to the ED for generalized weakness and feeling unwell. Patient was recently seen to [facility] ED on 04/15/2019 for left-sided back pain and flank pain. CT of the abdomen and pelvis this was performed at that time showed left-sided hydronephrosis and hydroureter, possibly related to a passed stone. Patient left AMA on Levaquin for concerns of UTI with UA showing moderate leukocyte esterase. Patient states that she attempted to take the antibiotic the day after discharge. Patient reports multiple episodes of nonbilious nonbloody nausea and vomiting yesterday and today. Patient actually states that her left flank pain has gotten better, has no pain at this time. She has also experienced chills and 2 episodes of watery diarrhea this morning. Patient currently endorses a frontal headache. Patient denies any lower extremity edema, cough, chest pain, shortness of breath. Patient reports difficulty urinating but no dysuria, states that this is because she has not consumed too much water. She reports a decreased appetite. She denies any dizziness, numbness/weakness/tingling of the extremities. In the ED, patient was found to be septic with a heart rate at 140, T-max 99.5. CBC showed a low platelet count of 62. Coagulation panel was negative. CMP showed a bicarbonate of 16, BUN of 20, creatinine 1.73, glucose 233. Lactic ac id was 4.7. Urinalysis showed positive nitrite, large leukocyte esterase. Her blood pressure was as low as 68/52. Patient was started on pressors and was admitted to ICU for management of sepsis due to UTI, pulmonology consulted. Review of Systems Pertinent positives and negatives as discussed in HPI, a complete review of systems was performed and all other systems are negative. Past Medical History Past Medical History: No Reported History History of Any Multi-Drug Resistant Organisms: None Reported Past Surgical History: No Surgical Hx Reported Past Psychological History: No Psychological Hx Reported Smoking Status: Current every day smoker Past Alcohol Use History: Daily Past Drug Use History: None Reported Medications and Allergies Home Medications Medication Instructions Recorded Confirmed Type Ibuprofen [Motrin Ib] 200 - 800 mg PO Q6H PRN 10/25/17 04/17/19 History Levofloxacin 750 mg PO DAILY #5 tablet 04/15/19 04/17/19 Rx metFORMIN HCL [Glucophage] 500 mg PO BID #14 tab 04/15/19 04/17/19 Rx Allergies Allergy/AdvReac Type Severity Reaction Status Date / Time cephalexin [[facility] Allergy Rash/Hives Verified 04/17/19 12:02 Physical Exam Vitals: Vital Signs Temp Pulse Resp BP Pulse Ox 04/17/19 16:04 120/74 04/17/19 16:02 126 H 16 04/17/19 15:55 129 H 20 04/17/19 15:35 99.5 F 126 H 17 101/70 100 04/17/19 15:20 125 H 22 88/63 98 04/17/19 15:00 125 H 19 76/42 04/17/19 14:40 129 H 18 90/54 98 04/17/19 14:20 126 H 18 68/52 99 04/17/19 14:00 123 H 21 94/70 97 04/17/19 13:20 118 H 20 83/58 100 04/17/19 13:00 120 H 20 84/64 99 04/17/19 12:40 121 H 26 H 100/69 100 04/17/19 12:20 120 H 20 89/69 96 04/17/19 12:00 124 H 25 H 105/60 99 04/17/19 11:51 99 04/17/19 11:39 98.6 F 140 H 18 82/56 98 Intake and Output 04/17/19 04/17/19 04/17/19 06:59 14:59 22:59 Intake Total 8.065 Balance 8.065 Intake: Intake, IV Titration 8.065 Amount Norepinephrine 4 mg In 8.065 Sodium Chloride 0.9% 250 ml @ 0.05 MCG/KG/MIN 12. 097 mls/hr IV .Q21H [facility] Rx#:[id number] Other: Weight 63.503 kg General: [Appears toxic], [appears fatigued], [appears at stated age] Derm: [warm], [dry] Head: [atraumatic], [normocephalic], [symmetric] Eyes: [EOMI], [no lid lag], [anicteric sclera] Mouth: [no lip lesion], [mucus membranes moist] Cardiovascular: [S1S2 reg], [tachycardia], [positive DP pulse bilateral], Lungs: [CTA bilateral], [no rhonchi, no rales] , [no accessory muscle use] Abdominal: [soft], [ nontender to palpation], [no guarding], [no appreciable organomegaly] Ext: [no gross muscle atrophy], [no edema], [no contractures] Neuro: [ CN II-XI grossly intact], [no focal neuro deficits] Psych: [Alert], [oriented], [appropriate affect] Results CBC & Chem 7: 04/17/19 11:58 04/17/19 11:58 Labs: Abnormal Lab Results - Last 24 Hours (Table) 04/17/19 04/17/19 04/17/19 Range/Units 11:58 11:58 11:58 Plt Count 62 L D (150-450) k/uL Lymphocytes # (Manual) 0.31 L (1.0-4.8) k/uL Metamyelocytes # (Man) 0.05 H (0) k/uL Myelocytes # (Manual) 0.05 H (0) k/uL Carbon Dioxide 16 L (22-30) mmol/L BUN 20 H (7-17) mg/dL Creatinine 1.73 H (0.52-1.04) mg/dL Glucose 233 H (74-99) mg/dL Plasma Lactic Acid Reji 4.7 H* (0.7-2.0) mmol/L Calcium 8.2 L (8.4-10.2) mg/dL Alkaline Phosphatase 313 H (38-126) U/L Albumin 3.3 L (3.5-5.0) g/dL Urine Appearance (Clear) Urine Protein (Negative) Urine Glucose (UA) (Negative) Urine Blood (Negative) Urine Nitrite (Negative) Urine Bilirubin (Negative) Ur Leukocyte Esterase (Negative) Urine RBC (0-5) /hpf Urine WBC (0-5) /hpf Ur Squamous Epith Cells (0-4) /hpf Amorphous Sediment (None) /hpf Urine Bacteria (None) /hpf Hyaline Casts (0-2) /lpf Urine Mucus (None) /hpf 04/17/19 04/17/19 Range/Units 13:10 15:42 Plt Count (150-450) k/uL Lymphocytes # (Manual) (1.0-4.8) k/uL Metamyelocytes # (Man) (0) k/uL Myelocytes # (Manual) (0) k/uL Carbon Dioxide (22-30) mmol/L BUN (7-17) mg/dL Creatinine (0.52-1.04) mg/dL Glucose (74-99) mg/dL Plasma Lactic Acid Reji 3.4 H* (0.7-2.0) mmol/L Calcium (8.4-10.2) mg/dL Alkaline Phosphatase (38-126) U/L Albumin (3.5-5.0) g/dL Urine Appearance Turbid H (Clear) Urine Protein 2+ H (Negative) Urine Glucose (UA) Trace H (Negative) Urine Blood Moderate H (Negative) Urine Nitrite Positive H (Negative) Urine Bilirubin 1+ H (Negative) Ur Leukocyte Esterase Large H (Negative) Urine RBC 18 H (0-5) /hpf Urine WBC 27 H (0-5) /hpf Ur Squamous Epith Cells 45 H (0-4) /hpf Amorphous Sediment Rare H (None) /hpf Urine Bacteria Many H (None) /hpf Hyaline Casts 103 H (0-2) /lpf Urine Mucus Occasional H (None) /hpf Thrombosis Risk Factor Assmnt - Choose All That Apply Each Factor Represents 1 point: Age 41-60 years, Obesity (BMI >25) Thrombosis Risk Factor Assessment Total Risk Factor Score: 2 Thrombosis Risk Factor Assessment Level: Low Risk Assessment and Plan Assessment: Sepsis possibly secondary to UTI Lactic acidosis Acute kidney injury Thrombocytopenia Hyperglycemia T-max 99.5. Heart rate as high as 140. BP as low as 68/52. UA shows positive leukocyte esterase and nitrite. Lactic acid 3.4. Plans: Start Zosyn for broad- spectrum antibiotic. Tylenol as needed for fever. Levophed to maintain MAP greater than 65. Continue normal saline at 100 mL/h. Follow urine culture. Follow blood culture. Follow repeat lactic acid. Telemetry monitoring. Follow repeat computed tomography scan. Follow ICU consultation. Lactic acid 4.7 to 3.4. Possibly related to sepsis, also dehydration. Plans: Management as above. Follow repeat lactic acid. BUN 20, creatinine 1.73. Likely secondary to dehydration. Plans: Continue IVF as above. Repeat BMP in the AM. Platelet count 62. Platelet count was 142 on 04/15/2019. Unknown etiology. Plans: Monitor for signs of bleeding. Repeat CBC. Avoid anticoagulation. [id number] glucose 313. Plans: Insulin sliding scale. Regular Accu-Cheks. Hypoglycemic precautions. DVT prophylaxis: [SCD boots] Discussed with: [Patient and family] Anticipated discharge: [Home] Anticipated discharge place: [2-3 days] A total of [45] minutes was spent on the care of this complex patient more than 50% of the time was spent in counseling and care coordination. Patient names Jose Miguel the decision maker in the case that she can make decisions for herself. Patient reiterates wanting to remain full code at this time.
[2019-04-17] MEDS: SODIUM CHLORIDE 0.9% 1,000 ML IV SCH (17:29)
[2019-04-17] MEDS: INSULIN ASPART (NovoLOG) 100 UNIT/ML VIAL SQ SCH ×2 (17:29→20:00)
[2019-04-17] MEDS: POTASSIUM CHLORIDE 10 MEQ in WATER FOR INJECTION 1 100ML.BAG IVPB SCH ×4 (17:32→21:55)
--- NOTE | 2019-04-17 18:39 | CT ---
EXAMINATION TYPE: CT abdomen pelvis wo con DATE OF EXAM: 04/17/2019 COMPARISON: 04/15/2019 HISTORY: Abdominal pain CT DLP: 575.4 mGycm Automated exposure control for dose reduction was used. TECHNIQUE: Helical acquisition of images was performed from the lung bases through the pelvis. FINDINGS: There is mild interstitial density at the lung bases. There is no pleural effusion. Heart size is nor mal. There is low-attenuation throughout the liver. Spleen appears normal. There is no pancreatic mass. Bi le ducts are not dilated. Gallbladder has normal size. There is no adrenal mass. Kidneys have normal size. There is left side mild hydronephrosis. I see no definite ureteral calculus. There is no retroperitoneal adenopathy. There is minimal fluid in the paracolic gutters. Uterus is anteverted. There is no sign of a bowel ob struction. There is no free air. There is no mesenteric edema. Appendix is not seen. There is no sign of thickened appendix. Lumbar spine is intact. Bony pelvis is intact. IMPRESSION: FATTY INFILTRATION OF THE LIVER. THERE IS NEW MINIMAL SUBSEGMENTAL ATELECTASIS AND INTERSTITIAL INFIL TRATE AT THE LUNG BASES COMPARED TO LAST EXAM. THERE IS NEW MILD ASCITES FLUID COMPARED TO LAST EXAM. MILD LEFT-SIDED HYDRONEPHROSIS AND HYDROURETER UNCHANGED. NO DEFINITE URETERAL CALCULUS SEEN. LEFT S JAVED PERINEPHRIC MILD EDEMA UNCHANGED.
[2019-04-17] MEDS: IPRATROPIUM-ALBUTEROL 3 ML NEB INHALATION PRN (19:04)
[2019-04-17 19:55] LABS: Glucose,Whole Blood 234 mg/dL (75-99)
[2019-04-18] MEDS ORDERED: SODIUM CHLORIDE 0.9% 1,000 ML IV ONE (00:07)
[2019-04-18] MEDS: SODIUM CHLORIDE 0.9% 1,000 ML IV SCH ×2 (00:19→07:04)
[2019-04-18] MEDS: MORPHINE SULFATE 4 MG/ML SYRINGE IVP PRN ×2 (00:19→06:18)
[2019-04-18 04:29] LABS: Basophils # (A) 0.1 k/uL (0-0.2); Basophils % (A) 1 %; Eosinophils % (A) 0 %; HCT 39.4 % (34.0-46.0); HGB 12.1 gm/dL (11.4-16.0); Hypochromasia Moderate; Lymphocytes # (A) 0.7 k/uL (1.0-4.8); Lymphocytes % (A) 7 %; MCH 29.9 pg (25.0-35.0); MCHC 30.8 g/dL (31.0-37.0); MCV 96.9 fL (80.0-100.0); Mean Platelet Volume 12.4; Monocytes # (A) 0.3 k/uL (0-1.0); Monocytes % (A) 3 %; Neutrophils # (A) 9.2 k/uL (1.3-7.7); Neutrophils % (A) 88 %; Platelet Count 41 k/uL (150-450); RBC 4.07 m/uL (3.80-5.40); RDW 14.2 % (11.5-15.5); WBC 10.4 k/uL (3.8-10.6)
[2019-04-18 04:40] LABS: Albumin 2.7 g/dL (3.5-5.0); Potassium 5.7 mmol/L (3.5-5.1); Total Bilirubin 1.7 mg/dL (0.2-1.3); Total Protein 5.6 g/dL (6.3-8.2)
[2019-04-18 04:41] LABS: Large Platelets Present; Poikilocytosis (M) Present
[2019-04-18 05:11] LABS: Calcium 6.3 mg/dL (8.4-10.2)
[2019-04-18] MEDS: ONDANSETRON 4 MG/2 ML VIAL IVP PRN ×3 (06:18→20:49)
[2019-04-18] MEDS ORDERED: SODIUM CHLORIDE 0.45% 1,000 ML with SODIUM BICARB (1 MEQ/ML) 150 ML IV SCH ×2 (06:30)
[2019-04-18] MEDS ORDERED: VANCOMYCIN IV PER PHARMACY 1 EACH MISC MISCELLANE PRN (06:34)
[2019-04-18] MEDS ORDERED: SODIUM BICARB 8.4% 50 ML SYR (1 MEQ/ML) IV STA (06:38)
[2019-04-18 06:48] LABS: Glucose,Whole Blood 217 mg/dL (75-99)
[2019-04-18] MEDS: INSULIN ASPART (NovoLOG) 100 UNIT/ML VIAL SQ SCH ×4 (06:50→20:52)
[2019-04-18] MEDS ORDERED: VANCOMYCIN 1,500 MG in SODIUM CHLORIDE 0.9% 250 ML IVPB ONE (07:00)
[2019-04-18] MEDS: DEXTROSE 5% IN WATER 1,000 ML with SODIUM BICARB (1 MEQ/ML) 150 ML IV SCH ×3 (07:40→22:16)
--- NOTE | 2019-04-18 07:43 | P.PN ---
Subjective Progress Note Date: 04/18/19 This a very pleasant 43-year-old female patient with a history of chronic and ongoing tobacco dependence, daily alcohol use. She was recently or in the emergency room diagnosed with a urinary tract infection and found to have elevated blood sugars. She was initiated on Levaquin and metformin on 2018. Computed tomography scan of the abdomen and pelvis at that time revealed a left-sided hydronephrosis and hydroureter with suspected recently passed stone. No definite ureteral calculus seen. Fatty infiltrate of the liver. She returned to the emergency room today with complaints of abdominal discomfort and nausea and vomiting. Chest x-ray shows no acute pulmonary process. Results revealed WBC 5.2. Hemoglobin 14.2. Platelet count 62,000. Creatinine 1.73. Bicarb 16. Lactic acid 4.7. Alk phos 313. Urine is turbid and dark brown with 2+ protein, positive nitrates and large WBCs. Acetone negative. Temperature 99.5 she is tachycardic in the 120s. Blood pressure 101/70. 100% O2 on room air. Follow-up lactic tone to 3.4. She has received 3 L of fluid resuscitation. Initiated on Zosyn. Requiring norepinephrine at 0.1 mcg/kg/m. She is seen today in consultation upon arrival in the intensive care unit. She is currently awake and alert in no acute distress. She does have some residual left-sided flank pain. On 04/18/2019 the patient remains critically ill. I was concerned of an ongoing urine checked infection. I saw the patient ICU yesterday and I covered her with IV Zosyn. Cultures were sent. A repeat CAT scan of the abdomen was done along with the CAT scan of the pelvis without contrast. This was done utilizing the stone protocol. There was fatty infiltration of the liver. There was new minimal segment V changes in the lung bases bilaterally. There was a new mild ascites compared to the previous film and there was a mild left-sided hydronephrosis and hydroureter that was unchanged compared to the previous evaluation and a previous CAT scan that was done on 04/15/2019. There was no ureteric calculus seen. There was left-sided perinephric mild edema that remains unchanged. Overnight the patient continued to be hypotensive. She is still pressor dependent. She has developed worsening in acidosis. Serum bicarbonate this morning is down to 7. Lactic acid level peaked at 6.8 is currently down to 4.6. The patient was given additional liter of IV fluids and she has been more than 5 L positive over the past 24 hours. The UA was noted. Blood cultures of been sent. Urine cultures of been sent. She is developing a shock liver picture with elevation in the AST and ALP. Her creatinine is still abnormal with a creatinine level of 1.69. There is no further drop in the platelet count down to 1 and the patient's white cell count is at 10.4 with significant bandemia. As such the patient is still quite septic. Clinically she is cold and clammy with diminished pulses in all 4 extremities. She remains tachycardic and she is in sinus tachycardia with a heart rate of 120. She is still having some pain/tenderness in the left lower quadrant/left flank area. test from 2 days ago was within normal limits. Objective - Vital Signs Vital signs: Vital Signs Temp 98.5 F 04/18/19 04:00 Pulse 123 H 04/18/19 06:00 Resp 21 04/18/19 06:00 BP 98/80 04/18/19 06:00 Pulse Ox 97 04/18/19 06:00 Intake & Output 04/17/19 04/18/19 04/18/19 18:59 06:59 18:59 Intake Total 6989.853 0401.826 Output Total 203 245 Balance 3634.756 0452.826 Weight 63.503 kg 72.7 kg Intake: IV 2599 .9 2399 Potassium Chloride 10 meq 200 In Water For Injection 1 100ml.bag @ 100 mls/hr IVPB Q1HR [facility] Rx#: [id number] Intake, IV Titration 1377.424 57.826 Amount Norepinephrine 4 mg In 77.424 57.826 Sodium Chloride 0.9% 250 ml @ 0.05 MCG/KG/MIN 12. 097 mls/hr IV .Q21H [facility] Rx#:[id number] Piperacillin-Tazobactam 3 100 .375 gm In Sodium Chloride 0.9% 100 ml @ 25 mls/hr IVPB Q8HR [facility] Rx# :[id number] Potassium Chloride 10 meq 200 In Water For Injection 1 100ml.bag @ 100 mls/hr IVPB Q1HR [facility] Rx#: [id number] Sodium Chloride 0.9% 1, 1000 000 ml @ 150 mls/hr IV . Q6H40M [facility] Rx#:[id number] Oral 120 Output: Urine 200 245 Stool 3 Other: Voiding Method Toilet Bedside Commode - Exam GENERAL EXAM: Alert, pleasant 43-year-old female patient, fairly comfortable in no apparent distress. On room air. The patient is awake and alert and following commands and answering questions appropriately. HEAD: Normocephalic. EYES: Normal reaction of pupils, equal size. NOSE: Clear with pink turbinates. THROAT: No erythema or exudates. NECK: No masses, no JVD. CHEST: No chest wall deformity. LUNGS: Equal air entry with no crackles, wheeze, rhonchi or dullness. CVS: S1 and S2 normal with no audible murmur, regular rhythm. The patient diminished pulses in lower extremities bilaterally. She is quite cold and clammy. ABDOMEN: No hepatosplenomegaly, normal bowel sounds, no guarding or rigidity. The patient has ongoing tenderness in her left lower quadrant. There is also some tenderness in the left flank area. SPINE: No scoliosis or deformity SKIN: No rashes CENTRAL NERVOUS SYSTEM: No focal deficits, tone is normal in all 4 extremities. EXTREMITIES: There is no peripheral edema. No clubbing, no cyanosis. Peripheral pulses are are diminished bilaterally. - Labs CBC & Chem 7: 04/18/19 04:04 04/18/19 04:04 Labs: Abnormal Lab Results - Last 24 Hours (Table) 04/17/19 04/17/19 04/17/19 Range/Units 11:58 11:58 11:58 MCHC (31.0-37.0) g/dL Plt Count 62 L D (150-450) k/uL Neutrophils # (1.3-7.7) k/uL Lymphocytes # (1.0-4.8) k/uL Lymphocytes # (Manual) 0.31 L (1.0-4.8) k/uL Metamyelocytes # (Man) 0.05 H (0) k/uL Myelocytes # (Manual) 0.05 H (0) k/uL Sodium (137-145) mmol/L Potassium (3.5-5.1) mmol/L Chloride (98-107) mmol/L Carbon Dioxide 16 L (22-30) mmol/L BUN 20 H (7-17) mg/dL Creatinine 1.73 H (0.52-1.04) mg/dL Glucose 233 H (74-99) mg/dL POC Glucose (mg/dL) (75-99) mg/dL Plasma Lactic Acid Reji 4.7 H* (0.7-2.0) mmol/L Calcium 8.2 L (8.4-10.2) mg/dL Total Bilirubin (0.2-1.3) mg/dL AST (14-36) U/L ALT (9-52) U/L Alkaline Phosphatase 313 H (38-126) U/L Total Protein (6.3-8.2) g/dL Albumin 3.3 L (3.5-5.0) g/dL Urine Appearance (Clear) Urine Protein (Negative) Urine Glucose (UA) (Negative) Urine Blood (Negative) Urine Nitrite (Negative) Urine Bilirubin (Negative) Ur Leukocyte Esterase (Negative) Urine RBC (0-5) /hpf Urine WBC (0-5) /hpf Ur Squamous Epith Cells (0-4) /hpf Amorphous Sediment (None) /hpf Urine Bacteria (None) /hpf Hyaline Casts (0-2) /lpf Urine Mucus (None) /hpf 04/17/19 04/17/19 04/17/19 Range/Units 13:10 15:42 16:29 MCHC (31.0-37.0) g/dL Plt Count (150-450) k/uL Neutrophils # (1.3-7.7) k/uL Lymphocytes # (1.0-4.8) k/uL Lymphocytes # (Manual) (1.0-4.8) k/uL Metamyelocytes # (Man) (0) k/uL Myelocytes # (Manual) (0) k/uL Sodium (137-145) mmol/L Potassium (3.5-5.1) mmol/L Chloride (98-107) mmol/L Carbon Dioxide (22-30) mmol/L BUN (7-17) mg/dL Creatinine (0.52-1.04) mg/dL Glucose (74-99) mg/dL POC Glucose (mg/dL) 221 H (75-99) mg/dL Plasma Lactic Acid Reji 3.4 H* (0.7-2.0) mmol/L Calcium (8.4-10.2) mg/dL Total Bilirubin (0.2-1.3) mg/dL AST (14-36) U/L ALT (9-52) U/L Alkaline Phosphatase (38-126) U/L Total Protein (6.3-8.2) g/dL Albumin (3.5-5.0) g/dL Urine Appearance Turbid H (Clear) Urine Protein 2+ H (Negative) Urine Glucose (UA) Trace H (Negative) Urine Blood Moderate H (Negative) Urine Nitrite Positive H (Negative) Urine Bilirubin 1+ H (Negative) Ur Leukocyte Esterase Large H (Negative) Urine RBC 18 H (0-5) /hpf Urine WBC 27 H (0-5) /hpf Ur Squamous Epith Cells 45 H (0-4) /hpf Amorphous Sediment Rare H (None) /hpf Urine Bacteria Many H (None) /hpf Hyaline Casts 103 H (0-2) /lpf Urine Mucus Occasional H (None) /hpf 04/17/19 04/17/19 04/17/19 Range/Units 19:51 19:54 23:33 MCHC (31.0-37.0) g/dL Plt Count (150-450) k/uL Neutrophils # (1.3-7.7) k/uL Lymphocytes # (1.0-4.8) k/uL Lymphocytes # (Manual) (1.0-4.8) k/uL Metamyelocytes # (Man) (0) k/uL Myelocytes # (Manual) (0) k/uL Sodium (137-145) mmol/L Potassium (3.5-5.1) mmol/L Chloride (98-107) mmol/L Carbon Dioxide (22-30) mmol/L BUN (7-17) mg/dL Creatinine (0.52-1.04) mg/dL Glucose (74-99) mg/dL POC Glucose (mg/dL) 234 H (75-99) mg/dL Plasma Lactic Acid Reji 6.8 H* 6.7 H* (0.7-2.0) mmol/L Calcium (8.4-10.2) mg/dL Total Bilirubin (0.2-1.3) mg/dL AST (14-36) U/L ALT (9-52) U/L Alkaline Phosphatase (38-126) U/L Total Protein (6.3-8.2) g/dL Albumin (3.5-5.0) g/dL Urine Appearance (Clear) Urine Protein (Negative) Urine Glucose (UA) (Negative) Urine Blood (Negative) Urine Nitrite (Negative) Urine Bilirubin (Negative) Ur Leukocyte Esterase (Negative) Urine RBC (0-5) /hpf Urine WBC (0-5) /hpf Ur Squamous Epith Cells (0-4) /hpf Amorphous Sediment (None) /hpf Urine Bacteria (None) /hpf Hyaline Casts (0-2) /lpf Urine Mucus (None) /hpf 04/18/19 04/18/19 04/18/19 Range/Units 01:07 04:04 04:04 MCHC 30.8 L (31.0-37.0) g/dL Plt Count 41 L (150-450) k/uL Neutrophils # 9.2 H (1.3-7.7) k/uL Lymphocytes # 0.7 L (1.0-4.8) k/uL Lymphocytes # (Manual) (1.0-4.8) k/uL Metamyelocytes # (Man) (0) k/uL Myelocytes # (Manual) (0) k/uL Sodium 135 L (137-145) mmol/L Potassium 5.6 H 5.7 H (3.5-5.1) mmol/L Chloride 113 H (98-107) mmol/L Carbon Dioxide 7 L* (22-30) mmol/L BUN 23 H (7-17) mg/dL Creatinine 1.69 H (0.52-1.04) mg/dL Glucose 210 H (74-99) mg/dL POC Glucose (mg/dL) (75-99) mg/dL Plasma Lactic Acid Reji (0.7-2.0) mmol/L Calcium 6.3 L* (8.4-10.2) mg/dL Total Bilirubin 1.7 H (0.2-1.3) mg/dL AST 2384 H (14-36) U/L ALT 661 H (9-52) U/L Alkaline Phosphatase 155 H (38-126) U/L Total Protein 5.6 L (6.3-8.2) g/dL Albumin 2.7 L (3.5-5.0) g/dL Urine Appearance (Clear) Urine Protein (Negative) Urine Glucose (UA) (Negative) Urine Blood (Negative) Urine Nitrite (Negative) Urine Bilirubin (Negative) Ur Leukocyte Esterase (Negative) Urine RBC (0-5) /hpf Urine WBC (0-5) /hpf Ur Squamous Epith Cells (0-4) /hpf Amorphous Sediment (None) /hpf Urine Bacteria (None) /hpf Hyaline Casts (0-2) /lpf Urine Mucus (None) /hpf 04/18/19 04/18/19 Range/Units 04:04 06:35 MCHC (31.0-37.0) g/dL Plt Count (150-450) k/uL Neutrophils # (1.3-7.7) k/uL Lymphocytes # (1.0-4.8) k/uL Lymphocytes # (Manual) (1.0-4.8) k/uL Metamyelocytes # (Man) (0) k/uL Myelocytes # (Manual) (0) k/uL Sodium (137-145) mmol/L Potassium (3.5-5.1) mmol/L Chloride (98-107) mmol/L Carbon Dioxide (22-30) mmol/L BUN (7-17) mg/dL Creatinine (0.52-1.04) mg/dL Glucose (74-99) mg/dL POC Glucose (mg/dL) 217 H (75-99) mg/dL Plasma Lactic Acid Reji 4.6 H* (0.7-2.0) mmol/L Calcium (8.4-10.2) mg/dL Total Bilirubin (0.2-1.3) mg/dL AST (14-36) U/L ALT (9-52) U/L Alkaline Phosphatase (38-126) U/L Total Protein (6.3-8.2) g/dL Albumin (3.5-5.0) g/dL Urine Appearance (Clear) Urine Protein (Negative) Urine Glucose (UA) (Negative) Urine Blood (Negative) Urine Nitrite (Negative) Urine Bilirubin (Negative) Ur Leukocyte Esterase (Negative) Urine RBC (0-5) /hpf Urine WBC (0-5) /hpf Ur Squamous Epith Cells (0-4) /hpf Amorphous Sediment (None) /hpf Urine Bacteria (None) /hpf Hyaline Casts (0-2) /lpf Urine Mucus (None) /hpf Microbiology - Last 24 Hours (Table) 04/17/19 15:02 Blood Culture - Final Blood 04/17/19 13:10 Urine Culture - Preliminary Urine,Voided Assessment and Plan Plan: #1 septic shock which is still suspected to be related to an underlying urinary source. The patient has been treated with Levaquin on outpatient basis for 2 days without any improvement. The patient comes in with septic shock, leukocytosis, bandemia, hypotension and acute lactic acidosis. She is currently on pressors. She was being covered with IV Zosyn. Unfortunately not a whole lot of improvement over the past 24 hours. A repeat CAT scan of the abdomen and pelvis was done and showed ongoing hydronephrosis and hydroureter and some per inephric stranding involving left kidney. Suspect pyelonephritis. The patient continues to have tenderness in the left lower quadrant area. Cultures still negative for now. #2 septic shock with secondary Hypotension secondary to above requiring pressor support. #3 Febrile illness secondary to above. #4 Tachycardia secondary to above. #5 Thrombocytopenia, suspect consumption. No clear DIC type of picture. The patient's correlation profile was normal at a time of admission this needs to be repeated to rule out underlying DIC. Clearly there is TTP type of picture and the patient is not having any intravascular hemolysis and a drop in hemoglobin is most likely dilutional. #6 Acute renal failure, secondary to above. There is also component of hydroureter and hydronephrosis without evidence of any kidney stones. #7 Recent diagnosis of diabetes mellitus. #8 Chronic and ongoing tobacco dependence. #9 Daily alcohol use. #10 severe anion gap metabolic acidosis. #11 CVA lactic acidosis. #12 abnormal LFTs, consider shock liver secondary to sepsis/hypotension Plan The patient will be switched to a bicarb infusion. The bicarb will be started 150 mEq at the rate of 150 mL an hour. We'll give 2 A of sodium bicarbonate immediately special with an underlying hyperkalemia. We will going to monitor the hemodynamic state continue pressors. Consult urology. Continue Zosyn. Add vancomycin. Urine cultures. Blood cultures. Pressors for hemodynamic support. Ultrasound the kidneys. Ultrasound the gallbladder. Check amylase pH check lipase. Check LDH. Repeat coagulation profile. Keep the patient intensive care unit. The patient is critically ill. We'll consult with urology with we'll continue to follow make further recommendations based on her progress.
[2019-04-18] MEDS ORDERED: DEXTROSE 5% IN WATER 1,000 ML with SODIUM BICARB (1 MEQ/ML) 150 ML IV SCH (08:00)
--- NOTE | 2019-04-18 08:11 | US ---
EXAMINATION TYPE: US kidneys/renal and bladder DATE OF EXAM: 04/18/2019 COMPARISON: CT dated 04/17/2019 CLINICAL HISTORY: hydronephrosis. EXAM MEASUREMENTS: Right Kidney: 11.8 x 4.4 x 5.6 cm Left Kidney: 12.1 x 5.9 x 4.9 cm Right Kidney: No hydronephrosis or masses seen Left Kidney: lobular contour at upper pole as there is focal scarring and cortical retraction, mild h ydronephrosis noted. Bladder: not well distended Bilateral Jets seen: No There is no evidence for hydronephrosis on the right. No nephrolithiasis is seen. No masses are kai ntified. The urinary bladder is incompletely distended. Bilateral ureteral jets are not seen. Incidentally noted hyperechoic echotexture of the liver, likely related to hepatic steatosis. IMPRESSION: 1. Persistent mild left hydronephrosis. 2. Incidentally noted hepatic steatosis.
--- NOTE | 2019-04-18 08:13 | US ---
EXAMINATION TYPE: US gallbladder DATE OF EXAM: 04/18/2019 COMPARISON: CT dated 04/17/2019 CLINICAL HISTORY: abnormal LFT. EXAM MEASUREMENTS: Liver Length: 22.8 cm Gallbladder Wall: 0.4 cm CBD: 0.5 cm Right Kidney: 11.9 x 4.1 x 5.8 cm Pancreas: not seen due to midline bowel gas Liver: There is increased echogenicity of the hepatic parenchyma with diminished visualization of th e portal triads most commonly relating to hepatic steatosis and limiting evaluation for underlying he patic masses. There is possible focal fatty sparing around the gallbladder fossa with curvilinear are a of hypoechogenicity. Gallbladder: no stones seen, area around gallbladder appears hypoechoic and irregular. Evidence for sonographic Briones's sign: patient was tender all over CBD: wnl Right Kidney: No hydronephrosis or masses seen IMPRESSION: 1. Mild gallbladder wall thickening and abnormal echotexture of the adjacent liver likely related to focal fatty sparing or may be sequela of cholecystitis. HIDA scan and correlation with serum laborato ry values and clinical exam is recommended. 2. Sonographic findings most commonly related to hepatic steatosis. Correlate with liver function bailee t results.
[2019-04-18] MEDS ORDERED: SODIUM CHLORIDE 0.9% 500 ML 500 ML IV ONE ×3 (08:42→19:23)
[2019-04-18 08:45] LABS: INR 1.3 (<1.2); Partial Thromboplastin Time 29.2 sec (22.0-30.0)
[2019-04-18 09:02] LABS: Amylase 32 U/L (30-110)
[2019-04-18] MEDS: PIPERACILLIN-TAZOBACTAM 3.375 GM in SODIUM CHLORIDE 0.9% 100 ML IVPB SCH ×2 (09:12→15:27)
[2019-04-18] MEDS: PANTOPRAZOLE 40 MG/10 ML VIAL IV SCH (09:15)
[2019-04-18] MEDS: NOREPINEPHRINE 4 MG in SODIUM CHLORIDE 0.9% 250 ML IV SCH ×2 (09:32→17:57)
[2019-04-18 09:37] LABS: LDH 13555 U/L (313-618)
--- NOTE | 2019-04-18 09:58 | P.NPCON ---
History of Present Illness - Reason for Consult acute renal failure - History of Present Illness Reason for consultation: Acute kidney injury History of present illness: Patient is a 43-year-old female seen in consultation for acute kidney injury. Patient's baseline creatinine is near 1 and was 1.73 yesterday. It is stable at 1.69 today. Patient presented to the hospital with vomiting and diarrhea which began on Wednesday. Oral intake has been poor. Additionally the patient states she's been taking ibuprofen 2-3 times daily. Patient is noted to be extremely acidotic with a bicarb level of 7 today. She has received over 5 L of normal saline bolus for hypotension. She is also on about 7 mics of Levophed at this time. Urine output the last few hours has been minimal. Patient does have history of diabetes and is maintained on metformin. She is currently maintained on a sodium bicarbonate drip running at 150 mL an hour. She is on antibiotics for presumed UTI. Denies hematuria or dysuria. Denies family history of renal disease. Vital signs are stable. Currently on vasopressors. General: The patient appeared well nourished and normally developed. HEENT: Head exam is unremarkable. Neck is without jugular venous distension. LUNGS: Lungs are clear to auscultation and percussion. Breath sounds decreased. HEART: Rate and Rhythm are regular. First and second heart sounds normal. No murmurs, rubs or gallops. ABDOMEN: Abdominal exam reveals normal bowel sounds. Non-tender and non-d istended. No evidence of peritonitis. EXTREMITITES: No clubbing, cyanosis, or edema. Past Medical History Past Medical History: No Reported History History of Any Multi-Drug Resistant Organisms: None Reported Past Surgical History: No Surgical Hx Reported Past Psychological History: No Psychological Hx Reported Smoking Status: Current every day smoker Past Alcohol Use History: Daily Past Drug Use History: None Reported Medications and Allergies Home Medications Medication Instructions Recorded Confirmed Type Ibuprofen [Motrin Ib] 200 - 800 mg PO Q6H PRN 10/25/17 04/17/19 History Levofloxacin 750 mg PO DAILY #5 tablet 04/15/19 04/17/19 Rx metFORMIN HCL [Glucophage] 500 mg PO BID #14 tab 04/15/19 04/17/19 Rx Allergies Allergy/AdvReac Type Severity Reaction Status Date / Time cephalexin [From Keflex] Allergy Rash/Hives Verified 04/17/19 12:02 Physical Exam Vitals: Vital Signs Temp Pulse Resp BP Pulse Ox 04/18/19 09:15 116 H 28 H 104/67 04/18/19 09:00 114 H 24 84/50 93 L 04/18/19 08:45 87/71 94 L 04/18/19 08:30 120 H 28 H 75/37 93 L 04/18/19 08:15 121 H 0 L 150/139 96 04/18/19 08:00 118 H 28 H 81/63 94 L 04/18/19 07:45 118 H 25 H 87/65 95 04/18/19 07:41 96 04/18/19 07:30 123 H 20 80/42 86 L 04/18/19 07:15 122 H 22 92/71 96 04/18/19 07:00 122 H 25 H 80/66 98 04/18/19 06:45 118 H 23 96/62 94 L 04/18/19 06:30 120 H 23 105/69 96 04/18/19 06:15 122 H 23 97/70 96 04/18/19 06:00 123 H 21 98/80 97 04/18/19 05:45 124 H 20 96 04/18/19 05:30 121 H 16 92/76 95 04/18/19 05:15 120 H 30 H 94/74 96 04/18/19 05:00 120 H 28 H 101/69 96 04/18/19 04:45 123 H 20 96/57 95 04/18/19 04:30 123 H 21 84/61 95 04/18/19 04:15 124 H 20 94/77 97 04/18/19 04:00 98.5 F 124 H 25 H 89/66 93 L 04/18/19 03:45 124 H 23 90/70 95 04/18/19 03:30 124 H 22 87/69 94 L 04/18/19 03:15 124 H 24 89/55 96 04/18/19 03:00 129 H 22 85/72 95 04/18/19 02:45 126 H 23 89/65 93 L 04/18/19 02:30 126 H 20 89/68 94 L 04/18/19 02:15 125 H 22 97/65 94 L 04/18/19 02:00 125 H 20 90/55 91 L 04/18/19 01:45 126 H 24 94/64 93 L 04/18/19 01:30 126 H 23 88/65 92 L 04/18/19 01:15 128 H 20 100/70 95 04/18/19 01:00 129 H 24 96/73 93 L 04/18/19 00:45 130 H 22 91/67 92 L 04/18/19 00:30 128 H 20 91/75 97 04/18/19 00:15 137 H 20 98/76 97 04/18/19 00:00 98.4 F 130 H 22 101/74 96 04/17/19 23:56 135 H 16 101/74 96 04/17/19 23:45 141 H 22 117/68 96 04/17/19 23:30 135 H 27 H 107/65 95 04/17/19 23:15 135 H 16 128/87 96 04/17/19 23:00 142 H 14 119/90 96 04/17/19 22:45 138 H 22 111/78 97 04/17/19 22:30 137 H 14 109/80 96 04/17/19 22:15 137 H 18 94/82 97 04/17/19 22:00 140 H 22 114/68 98 04/17/19 21:45 137 H 23 96 04/17/19 21:30 141 H 20 94/82 97 04/17/19 21:15 134 H 17 94/73 98 04/17/19 21:00 137 H 22 96/67 04/17/19 20:45 134 H 10 L 95/76 97 04/17/19 20:30 138 H 27 H 95/76 04/17/19 20:15 135 H 12 95/76 97 04/17/19 20:00 134 H 30 H 109/83 96 04/17/19 19:45 138 H 22 110/58 04/17/19 19:30 138 H 33 H 110/58 04/17/19 19:15 131 H 24 110/58 97 04/17/19 19:14 126 H 04/17/19 19:04 124 H 98 04/17/19 19:00 129 H 33 H 103/75 95 04/17/19 18:30 135 H 11 L 103/75 04/17/19 18:00 134 H 20 114/77 04/17/19 17:30 129 H 22 114/77 96 04/17/19 17:00 129 H 32 H 127/81 96 04/17/19 16:30 125 H 30 H 116/82 99 04/17/19 16:04 120/74 04/17/19 16:02 126 H 16 04/17/19 16:00 98.9 F 124 H 25 H 88/68 100 04/17/19 15:55 129 H 20 04/17/19 15:35 99.5 F 126 H 17 101/70 100 04/17/19 15:30 129 H 22 84/66 04/17/19 15:20 125 H 22 88/63 98 04/17/19 15:00 125 H 19 76/42 04/17/19 14:40 129 H 18 90/54 98 04/17/19 14:20 126 H 18 68/52 99 04/17/19 14:00 123 H 21 94/70 97 04/17/19 13:20 118 H 20 83/58 100 04/17/19 13:00 120 H 20 84/64 99 04/17/19 12:40 121 H 26 H 100/69 100 04/17/19 12:20 120 H 20 89/69 96 04/17/19 12:00 124 H 25 H 105/60 99 04/17/19 11:51 99 04/17/19 11:39 98.6 F 140 H 18 82/56 98 Intake and Output 04/17/19 04/18/19 04/18/19 22:59 06:59 14:59 Intake Total 2181.055 6066.849 2455.75 Output Total 318 130 15 Balance 2666.678 1955.195 1053.75 Intake: IV 650 1949 850 Potassium Chloride 10 meq 200 In Water For Injection 1 100ml.bag @ 100 mls/hr IVPB Q1HR [facility] Rx#: [id number] Sodium Chloride 0.9% 1, 0 000 ml @ 999 mls/hr IV . Q1H1M [facility] Rx#:[id number] Sodium Chloride 0.9% 500 500 ml 500 ml @ 1000 mls/hr IV Q35M [facility] Rx#:[id number] bicarb 450 1949 350 Intake, IV Titration 1411.055 24.195 118.75 Amount Norepinephrine 4 mg In 111.055 24.195 118.75 Sodium Chloride 0.9% 250 ml @ 0.05 MCG/KG/MIN 12. 097 mls/hr IV .Q21H [facility] Rx#:[id number] Piperacillin-Tazobactam 3 100 .375 gm In Sodium Chloride 0.9% 100 ml @ 25 mls/hr IVPB Q8HR [facility] Rx# :[id number] Potassium Chloride 10 meq 200 In Water For Injection 1 100ml.bag @ 100 mls/hr IVPB Q1HR [facility] Rx#: [id number] Sodium Chloride 0.9% 1, 1000 000 ml @ 150 mls/hr IV . Q6H40M [facility] Rx#:[id number] Oral 120 Blood Product 100 Output: Urine 315 130 15 Stool 3 Other: Voiding Method Bedside Commode Bedside Commode Weight 72.7 kg 72.7 kg Results - Lab Results Most recent lab results Calcium 6.3 mg/dL (8.4-10.2) L* 04/18/19 04:04 04/18/19 04:04 04/18/19 04:04 Assessment and Plan Plan: Assessment: 1. Acute kidney injury secondary to ATN secondary to hypotension, nonsteroidals and sepsis. Baseline creatinine is 1 and is 1.69 today. Mild left-sided hydronephrosis noted on kidney ultrasound. 2. Hyperkalemia secondary to acute kidney injury and metabolic acidosis. 3. Metabolic acidosis secondary to acute kidney injury and IV fluids. 4. Septic shock most likely secondary to UTI. 5. Hypotension secondary to sepsis maintained on Levophed. Plan: Maintain D5 with 3 A of bicarb running at 150 mL an hour. 10 units of IV insulin with an amp of D50 now. Repeat potassium level this evening. Wean vasopressors. Avoid nephrotoxins. Follow-up cultures. Monitor vancomycin levels. Continue to monitor renal function and urine output. Thank you for the consultation. I will continue to follow the patient with you during her hospital stay.
[2019-04-18] MEDS ORDERED: INSULIN REGULAR 100 UNIT/ML VIAL IV ONE (10:09)
[2019-04-18 10:36] LABS: Glucose,Whole Blood 147 mg/dL (75-99)
[2019-04-18] MEDS ORDERED: DEXTROSE 50% SYRINGE 50 ML IVP STA (10:51)
[2019-04-18] MEDS: IPRATROPIUM-ALBUTEROL 3 ML NEB INHALATION PRN ×3 (11:10→19:15)
[2019-04-18 11:49] LABS: Glucose,Whole Blood 168 mg/dL (75-99)
[2019-04-18 12:46] LABS: Hemoglobin A1C 10.5 % (4.0-6.0)
[2019-04-18 12:49] LABS: Albumin 2.5 g/dL (3.5-5.0); Ammonia <9 umol/L (<30); Potassium 4.4 mmol/L (3.5-5.1); Total Bilirubin 2.2 mg/dL (0.2-1.3)
[2019-04-18] MEDS ORDERED: PROMETHAZINE INJ 6.25 MG in SODIUM CHLORIDE 0.9% 50 ML IVPB PRN (12:49)
[2019-04-18 13:07] LABS: Calcium 5.7 mg/dL (8.4-10.2); Potassium 4.7 mmol/L (3.5-5.1)
[2019-04-18 13:08] LABS: Lactic Acid, Venous 5.1 mmol/L (0.7-2.0)
--- NOTE | 2019-04-18 13:49 | P.PN ---
Subjective Progress Note Date: 04/18/19 (delayed charting seen at 10 am) Principal diagnosis: fatigue, nausea, or vomiting Patient is a 43-year-old female with no significant past medical history who presented to the ER with complaints of vomiting, diarrhea, and fatigue. She initially was seen in the ER on 04/15/19 for left sided back pain and flank pain. She is on have a urinary tract infection was started on Levaquin. She also was found to have left-sided hydronephrosis with hydroureter possibly related to past don't. It appears that the patient left AMA from the emergency department. On arrival to the emergency department on 04/17 she was found have a heart rate of 140 and a blood pressure of 82/56. Laboratory analysis showed no white blood cell count or platelet count of 62, creatinine of 1.73, glucose 233, lactic acid of 4.7, alk phos of 313. Her urine showed many hyaline casts as well as 27 white blood cell, was nitrate positive and had large leukocyte esterase. Her acetone was negative. C. diff was negative. She underwent a repeat CT abdomen and pelvis which were fatty infiltration of the liver with new minimal subsegmental atelectasis and interstitial infiltrate at the lung bases, mild ascites, mild left-sided hydronephrosis with hydroureter as well as left-sided perinephric edema. She was started on broad-spectrum antibiotics and IV fluids. Her blood pressure remained low and she required norepinephrine. She was subsequently admitted to the ICU. Critical care was c onsulted. On the morning after admission she had an elevated creatinine of 1.69 as well as an elevated potassium of 5.7. She continued to be significantly acidotic. She was given 2 amps of bicarbonate and started on a sodium bicarbonate drip. She was also found to have elevated liver enzymes. Patient seen and examined at bedside. She continues to be nauseous and has some vomiting. She has had diarrhea approximately once an hour overnight with no signs of blood. She denies any chest pain or shortness of breath. She is feeling slightly better than yesterday. She denies any travel to foreign countries, recent ill exposures, or any unusual behavior. She denies trying any unusual foods or eating out at a different restaurant. She denies any sick contacts. Objective - Vital Signs Vital signs: Vital Signs Temp 98.5 F 04/18/19 04:00 Pulse 116 H 04/18/19 13:00 Resp 12 04/18/19 13:00 BP 115/71 04/18/19 13:00 Pulse Ox 93 L 04/18/19 13:00 Intake & Output 04/17/19 04/18/19 04/18/19 18:59 06:59 18:59 Intake Total 7514.422 5600.826 2048.75 Output Total 203 245 45 Balance 4495.420 0069.826 2003.75 Weight 63.503 kg 72.7 kg 72.7 kg Intake: IV 2599 1830 Potassium Chloride 10 meq 200 In Water For Injection 1 100ml.bag @ 100 mls/hr IVPB Q1HR [facility] Rx#: [id number] Sodium Chloride 0.9% 1, 10 000 ml @ 999 mls/hr IV . Q1H1M [facility] Rx#:[id number] Sodium Chloride 0.9% 500 1020 ml 500 ml @ 1000 mls/hr IV Q35M [facility] Rx#:[id number] bicarb 2399 800 Intake, IV Titration 1377.424 57.826 118.75 Amount Norepinephrine 4 mg In 77.424 57.826 118.75 Sodium Chloride 0.9% 250 ml @ 0.05 MCG/KG/MIN 12. 097 mls/hr IV .Q21H [facility] Rx#:[id number] Piperacillin-Tazobactam 3 100 .375 gm In Sodium Chloride 0.9% 100 ml @ 25 mls/hr IVPB Q8HR [facility] Rx# :[id number] Potassium Chloride 10 meq 200 In Water For Injection 1 100ml.bag @ 100 mls/hr IVPB Q1HR [facility] Rx#: [id number] Sodium Chloride 0.9% 1, 1000 000 ml @ 150 mls/hr IV . Q6H40M [facility] Rx#:[id number] Oral 120 Blood Product 100 Output: Urine 200 245 45 Stool 3 Other: Voiding Method Toilet Bedside Commode Bedside Commode - Exam General: ill-appearing, mild distress, actively vomiting, appears at stated age Derm: warm, dry Head: atraumatic, normocephalic, symmetric Eyes: EOMI, no lid lag, anicteric sclera Mouth: no lip lesion, mucous membranes dry Cardiovascular: S1S2 tachycardia, no murmur, positive posterior tibial pulse bilateral, Lungs: CTA bilateral, no rhonchi, no rales , no accessory muscle use Abdominal: soft, nontender to palpation, no guarding, no appreciable organomegaly Ext: no gross muscle atrophy, no edema, no contractures Neuro: CN II-XI grossly intact, no focal neuro deficits Psych: Alert, oriented, appropriate affect - Labs CBC & Chem 7: 04/18/19 04:04 04/18/19 12:04 Labs: Abnormal Lab Results - Last 24 Hours (Table) 04/17/19 04/17/19 04/17/19 Range/Units 13:10 15:42 16:29 MCHC (31.0-37.0) g/dL Plt Count (150-450) k/uL Neutrophils # (1.3-7.7) k/uL Lymphocytes # (1.0-4.8) k/uL PT (9.0-12.0) sec INR (<1.2) Sodium (137-145) mmol/L Potassium (3.5-5.1) mmol/L Chloride (98-107) mmol/L Carbon Dioxide (22-30) mmol/L BUN (7-17) mg/dL Creatinine (0.52-1.04) mg/dL Glucose (74-99) mg/dL POC Glucose (mg/dL) 221 H (75-99) mg/dL Hemoglobin A1c (4.0-6.0) % Plasma Lactic Acid Reji 3.4 H* (0.7-2.0) mmol/L Calcium (8.4-10.2) mg/dL Total Bilirubin (0.2-1.3) mg/dL AST (14-36) U/L ALT (9-52) U/L Alkaline Phosphatase (38-126) U/L Lactate Dehydrogenase (313-618) U/L Total Protein (6.3-8.2) g/dL Albumin (3.5-5.0) g/dL Urine Appearance Turbid H (Clear) Urine Protein 2+ H (Negative) Urine Glucose (UA) Trace H (Negative) Urine Blood Moderate H (Negative) Urine Nitrite Positive H (Negative) Urine Bilirubin 1+ H (Negative) Ur Leukocyte Esterase Large H (Negative) Urine RBC 18 H (0-5) /hpf Urine WBC 27 H (0-5) /hpf Ur Squamous Epith Cells 45 H (0-4) /hpf Amorphous Sediment Rare H (None) /hpf Urine Bacteria Many H (None) /hpf Hyaline Casts 103 H (0-2) /lpf Urine Mucus Occasional H (None) /hpf 04/17/19 04/17/19 04/17/19 Range/Units 19:51 19:54 23:33 MCHC (31.0-37.0) g/dL Plt Count (150-450) k/uL Neutrophils # (1.3-7.7) k/uL Lymphocytes # (1.0-4.8) k/uL PT (9.0-12.0) sec INR (<1.2) Sodium (137-145) mmol/L Potassium (3.5-5.1) mmol/L Chloride (98-107) mmol/L Carbon Dioxide (22-30) mmol/L BUN (7-17) mg/dL Creatinine (0.52-1.04) mg/dL Glucose (74-99) mg/dL POC Glucose (mg/dL) 234 H (75-99) mg/dL Hemoglobin A1c (4.0-6.0) % Plasma Lactic Acid Reji 6.8 H* 6.7 H* (0.7-2.0) mmol/L Calcium (8.4-10.2) mg/dL Total Bilirubin (0.2-1.3) mg/dL AST (14-36) U/L ALT (9-52) U/L Alkaline Phosphatase (38-126) U/L Lactate Dehydrogenase (313-618) U/L Total Protein (6.3-8.2) g/dL Albumin (3.5-5.0) g/dL Urine Appearance (Clear) Urine Protein (Negative) Urine Glucose (UA) (Negative) Urine Blood (Negative) Urine Nitrite (Negative) Urine Bilirubin (Negative) Ur Leukocyte Esterase (Negative) Urine RBC (0-5) /hpf Urine WBC (0-5) /hpf Ur Squamous Epith Cells (0-4) /hpf Amorphous Sediment (None) /hpf Urine Bacteria (None) /hpf Hyaline Casts (0-2) /lpf Urine Mucus (None) /hpf 04/18/19 04/18/19 04/18/19 Range/Units 01:07 04:04 04:04 MCHC 30.8 L (31.0-37.0) g/dL Plt Count 41 L (150-450) k/uL Neutrophils # 9.2 H (1.3-7.7) k/uL Lymphocytes # 0.7 L (1.0-4.8) k/uL PT (9.0-12.0) sec INR (<1.2) Sodium 135 L (137-145) mmol/L Potassium 5.6 H 5.7 H (3.5-5.1) mmol/L Chloride 113 H (98-107) mmol/L Carbon Dioxide 7 L* (22-30) mmol/L BUN 23 H (7-17) mg/dL Creatinine 1.69 H (0.52-1.04) mg/dL Glucose 210 H (74-99) mg/dL POC Glucose (mg/dL) (75-99) mg/dL Hemoglobin A1c (4.0-6.0) % Plasma Lactic Acid Reji (0.7-2.0) mmol/L Calcium 6.3 L* (8.4-10.2) mg/dL Total Bilirubin 1.7 H (0.2-1.3) mg/dL AST 2384 H (14-36) U/L ALT 661 H (9-52) U/L Alkaline Phosphatase 155 H (38-126) U/L Lactate Dehydrogenase (313-618) U/L Total Protein 5.6 L (6.3-8.2) g/dL Albumin 2.7 L (3.5-5.0) g/dL Urine Appearance (Clear) Urine Protein (Negative) Urine Glucose (UA) (Negative) Urine Blood (Negative) Urine Nitrite (Negative) Urine Bilirubin (Negative) Ur Leukocyte Esterase (Negative) Urine RBC (0-5) /hpf Urine WBC (0-5) /hpf Ur Squamous Epith Cells (0-4) /hpf Amorphous Sediment (None) /hpf Urine Bacteria (None) /hpf Hyaline Casts (0-2) /lpf Urine Mucus (None) /hpf 04/18/19 04/18/19 04/18/19 Range/Units 04:04 04:04 06:35 MCHC (31.0-37.0) g/dL Plt Count (150-450) k/uL Neutrophils # (1.3-7.7) k/uL Lymphocytes # (1.0-4.8) k/uL PT (9.0-12.0) sec INR (<1.2) Sodium (137-145) mmol/L Potassium (3.5-5.1) mmol/L Chloride (98-107) mmol/L Carbon Dioxide (22-30) mmol/L BUN (7-17) mg/dL Creatinine (0.52-1.04) mg/dL Glucose (74-99) mg/dL POC Glucose (mg/dL) 217 H (75-99) mg/dL Hemoglobin A1c 10.5 H (4.0-6.0) % Plasma Lactic Acid Reji 4.6 H* (0.7-2.0) mmol/L Calcium (8.4-10.2) mg/dL Total Bilirubin (0.2-1.3) mg/dL AST (14-36) U/L ALT (9-52) U/L Alkaline Phosphatase (38-126) U/L Lactate Dehydrogenase (313-618) U/L Total Protein (6.3-8.2) g/dL Albumin (3.5-5.0) g/dL Urine Appearance (Clear) Urine Protein (Negative) Urine Glucose (UA) (Negative) Urine Blood (Negative) Urine Nitrite (Negative) Urine Bilirubin (Negative) Ur Leukocyte Esterase (Negative) Urine RBC (0-5) /hpf Urine WBC (0-5) /hpf Ur Squamous Epith Cells (0-4) /hpf Amorphous Sediment (None) /hpf Urine Bacteria (None) /hpf Hyaline Casts (0-2) /lpf Urine Mucus (None) /hpf 04/18/19 04/18/19 04/18/19 Range/Units 08:15 08:15 08:15 MCHC (31.0-37.0) g/dL Plt Count (150-450) k/uL Neutrophils # (1.3-7.7) k/uL Lymphocytes # (1.0-4.8) k/uL PT 13.0 H (9.0-12.0) sec INR 1.3 H (<1.2) Sodium (137-145) mmol/L Potassium (3.5-5.1) mmol/L Chloride (98-107) mmol/L Carbon Dioxide (22-30) mmol/L BUN (7-17) mg/dL Creatinine (0.52-1.04) mg/dL Glucose (74-99) mg/dL POC Glucose (mg/dL) (75-99) mg/dL Hemoglobin A1c (4.0-6.0) % Plasma Lactic Acid Reji 6.2 H* (0.7-2.0) mmol/L Calcium (8.4-10.2) mg/dL Total Bilirubin (0.2-1.3) mg/dL AST (14-36) U/L ALT (9-52) U/L Alkaline Phosphatase (38-126) U/L Lactate Dehydrogenase 43994 H (313-618) U/L Total Protein (6.3-8.2) g/dL Albumin (3.5-5.0) g/dL Urine Appearance (Clear) Urine Protein (Negative) Urine Glucose (UA) (Negative) Urine Blood (Negative) Urine Nitrite (Negative) Urine Bilirubin (Negative) Ur Leukocyte Esterase (Negative) Urine RBC (0-5) /hpf Urine WBC (0-5) /hpf Ur Squamous Epith Cells (0-4) /hpf Amorphous Sediment (None) /hpf Urine Bacteria (None) /hpf Hyaline Casts (0-2) /lpf Urine Mucus (None) /hpf 04/18/19 04/18/19 04/18/19 Range/Units 10:35 11:46 12:04 MCHC (31.0-37.0) g/dL Plt Count (150-450) k/uL Neutrophils # (1.3-7.7) k/uL Lymphocytes # (1.0-4.8) k/uL PT (9.0-12.0) sec INR (<1.2) Sodium (137-145) mmol/L Potassium (3.5-5.1) mmol/L Chloride 112 H (98-107) mmol/L Carbon Dioxide 15 L (22-30) mmol/L BUN 28 H (7-17) mg/dL Creatinine 1.87 H (0.52-1.04) mg/dL Glucose 136 H (74-99) mg/dL POC Glucose (mg/dL) 147 H 168 H (75-99) mg/dL Hemoglobin A1c (4.0-6.0) % Plasma Lactic Acid Reji (0.7-2.0) mmol/L Calcium 5.7 L* (8.4-10.2) mg/dL Total Bilirubin 2.2 H (0.2-1.3) mg/dL AST (14-36) U/L ALT 1520 H (9-52) U/L Alkaline Phosphatase 131 H (38-126) U/L Lactate Dehydrogenase (313-618) U/L Total Protein 5.0 L (6.3-8.2) g/dL Albumin 2.5 L (3.5-5.0) g/dL Urine Appearance (Clear) Urine Protein (Negative) Urine Glucose (UA) (Negative) Urine Blood (Negative) Urine Nitrite (Negative) Urine Bilirubin (Negative) Ur Leukocyte Esterase (Negative) Urine RBC (0-5) /hpf Urine WBC (0-5) /hpf Ur Squamous Epith Cells (0-4) /hpf Amorphous Sediment (None) /hpf Urine Bacteria (None) /hpf Hyaline Casts (0-2) /lpf Urine Mucus (None) /hpf 04/18/19 04/18/19 Range/Units 12:04 12:04 MCHC (31.0-37.0) g/dL Plt Count (150-450) k/uL Neutrophils # (1.3-7.7) k/uL Lymphocytes # (1.0-4.8) k/uL PT (9.0-12.0) sec INR (<1.2) Sodium (137-145) mmol/L Potassium (3.5-5.1) mmol/L Chloride 112 H (98-107) mmol/L Carbon Dioxide 14 L (22-30) mmol/L BUN 28 H (7-17) mg/dL Creatinine 1.82 H (0.52-1.04) mg/dL Glucose 135 H (74-99) mg/dL POC Glucose (mg/dL) (75-99) mg/dL Hemoglobin A1c (4.0-6.0) % Plasma Lactic Acid Reji 5.1 H* (0.7-2.0) mmol/L Calcium 5.7 L* (8.4-10.2) mg/dL Total Bilirubin (0.2-1.3) mg/dL AST (14-36) U/L ALT (9-52) U/L Alkaline Phosphatase (38-126) U/L Lactate Dehydrogenase (313-618) U/L Total Protein (6.3-8.2) g/dL Albumin (3.5-5.0) g/dL Urine Appearance (Clear) Urine Protein (Negative) Urine Glucose (UA) (Negative) Urine Blood (Negative) Urine Nitrite (Negative) Urine Bilirubin (Negative) Ur Leukocyte Esterase (Negative) Urine RBC (0-5) /hpf Urine WBC (0-5) /hpf Ur Squamous Epith Cells (0-4) /hpf Amorphous Sediment (None) /hpf Urine Bacteria (None) /hpf Hyaline Casts (0-2) /lpf Urine Mucus (None) /hpf Microbiology - Last 24 Hours (Table) 04/17/19 15:02 Blood Culture Gram Stain - Preliminary Blood Blood Culture - Preliminary Escherichia coli 04/17/19 15:02 Blood Culture - Final Blood 04/17/19 13:10 Urine Culture - Preliminary Urine,Voided Assessment and Plan Assessment: Pyelonephritis with hydronephrosis, E. coli bacteremia, and septic shock, present on admission, not catheter associated -Continue with Zosyn and IV fluids -Wean the Levophed as able -Await urine culture -Blood cultures with E. 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 Hyperglycemia -Undetermined if secondary to stress of infection or underlying diabetes -Await hemoglobin A1c -Continue with sliding scale insulin and blood sugars -Hold oral metformin DVT prophylaxis: Heparin Discussed with: Patient, family, nursing Anticipated discharge: 3-[address]: home A total of 35 minutes was spent on the care of this complex patient more than 50% of the time was spent in counseling and care coordination.
[2019-04-18 14:11] LABS: Calcium 5.7 mg/dL (8.4-10.2)
[2019-04-18] MEDS ORDERED: CALCIUM GLUCONATE 2 GM in SODIUM CHLORIDE 0.9% 100 ML IVPB ONE (15:00)
--- NOTE | 2019-04-18 15:12 | P.GSCN ---
History of Present Illness Consult date: 04/18/19 History of present illness: This is a pleasant 43-year-old female who I was asked to see for left hydronephrosis, mild. She is in the ICU with urinary tract infection with sepsis and hypotension. Her problem began last week and she wouldn't she developed significant left lower quadrant and low back pain. She was seen in the emergency room and suspected to have a kidney stone or have passed a kidney stone. It was recommended that she come in the hospital but she declined. She returned to the hospital 24 hours later febrile hypotensive and in a situation consistent with urinary tract infection with sepsis. A computed tomography scan which was done over the weekend did not identify any stones however she did have some hydronephrosis on the left side. It was suspected that she probably passed a stone. By the time I'm seeing her and her status is improved. Her pain is improving. Her lower urinary tract symptoms have disappeared. She has no history of stones. She denies gross hematuria. She did have an uncle with stones. There is no previous urologic or abdominal surgery. She was not on any medications prior to this hospitalization. Review of Systems All systems: negative - Constitutional Denies fever, Denies weight loss - EENT Eyes: denies blurred vision Ears, nose, mouth and throat: Denies dysphagia - Cardiovascular Denies chest pain, Denies shortness of breath - Respiratory Denies cough, Denies 7 - Gastrointestinal Reports as per HPI - Genitourinary Genitourinary: Denies dysuria, Denies hematuria - Integumentary Denies rash, Denies unusual bruising - Neurological Denies headaches, Denies syncope - Hematologic/Lymphatic Denies easy bleeding, Denies easy bruising Past Medical History Past Medical History: No Reported History History of Any Multi-Drug Resistant Organisms: None Reported Past Surgical History: No Surgical Hx Reported Past Psychological History: No Psychological Hx Reported Smoking Status: Current every day smoker Past Alcohol Use History: Daily Past Drug Use History: None Reported Medications and Allergies Home Medications Medication Instructions Recorded Confirmed Type Ibuprofen [Motrin Ib] 200 - 800 mg PO Q6H PRN 10/25/17 04/17/19 History Levofloxacin 750 mg PO DAILY #5 tablet 04/15/19 04/17/19 Rx metFORMIN HCL [Glucophage] 500 mg PO BID #14 tab 04/15/19 04/17/19 Rx Allergies Allergy/AdvReac Type Severity Reaction Status Date / Time cephalexin [From Keflex] Allergy Rash/Hives Verified 04/17/19 12:02 Surgical - Exam Vital Signs Temp Pulse Resp BP Pulse Ox 98.6 F 140 H 18 82/56 98 04/17/19 11:39 04/17/19 11:39 04/17/19 11:39 04/17/19 11:39 04/17/19 11:39 - General well developed, well nourished, no distress - Eyes PERRL - ENT no hearing loss - Neck trachea midline - Respiratory normal expansion, normal respiratory effort - Cardiovascular Rhythm: regular - Abdomen Abdomen: soft, non tender - Integumentary no rash, no growths - Neurologic normal coordination - Musculoskeletal normal posture - Psychiatric oriented to time, oriented to person, oriented to place, speech is normal, memory intact Results - Labs 04/18/19 04:04 04/18/19 12:04 Abnormal Lab Results - Last 24 Hours (Table) 04/17/19 04/17/19 04/17/19 Range/Units 15:42 16:29 19:51 MCHC (31.0-37.0) g/dL Plt Count (150-450) k/uL Neutrophils # (1.3-7.7) k/uL Lymphocytes # (1.0-4.8) k/uL PT (9.0-12.0) sec INR (<1.2) Sodium (137-145) mmol/L Potassium (3.5-5.1) mmol/L Chloride (98-107) mmol/L Carbon Dioxide (22-30) mmol/L BUN (7-17) mg/dL Creatinine (0.52-1.04) mg/dL Glucose (74-99) mg/dL POC Glucose (mg/dL) 221 H (75-99) mg/dL Hemoglobin A1c (4.0-6.0) % Plasma Lactic Acid Reji 3.4 H* 6.8 H* (0.7-2.0) mmol/L Calcium (8.4-10.2) mg/dL Total Bilirubin (0.2-1.3) mg/dL AST (14-36) U/L ALT (9-52) U/L Alkaline Phosphatase (38-126) U/L Lactate Dehydrogenase (313-618) U/L Total Protein (6.3-8.2) g/dL Albumin (3.5-5.0) g/dL 04/17/19 04/17/19 04/18/19 Range/Units 19:54 23:33 01:07 MCHC (31.0-37.0) g/dL Plt Count (150-450) k/uL Neutrophils # (1.3-7.7) k/uL Lymphocytes # (1.0-4.8) k/uL PT (9.0-12.0) sec INR (<1.2) Sodium (137-145) mmol/L Potassium 5.6 H (3.5-5.1) mmol/L Chloride (98-107) mmol/L Carbon Dioxide (22-30) mmol/L BUN (7-17) mg/dL Creatinine (0.52-1.04) mg/dL Glucose (74-99) mg/dL POC Glucose (mg/dL) 234 H (75-99) mg/dL Hemoglobin A1c (4.0-6.0) % Plasma Lactic Acid Reji 6.7 H* (0.7-2.0) mmol/L Calcium (8.4-10.2) mg/dL Total Bilirubin (0.2-1.3) mg/dL AST (14-36) U/L ALT (9-52) U/L Alkaline Phosphatase (38-126) U/L Lactate Dehydrogenase (313-618) U/L Total Protein (6.3-8.2) g/dL Albumin (3.5-5.0) g/dL 04/18/19 04/18/19 04/18/19 Range/Units 04:04 04:04 04:04 MCHC 30.8 L (31.0-37.0) g/dL Plt Count 41 L (150-450) k/uL Neutrophils # 9.2 H (1.3-7.7) k/uL Lymphocytes # 0.7 L (1.0-4.8) k/uL PT (9.0-12.0) sec INR (<1.2) Sodium 135 L (137-145) mmol/L Potassium 5.7 H (3.5-5.1) mmol/L Chloride 113 H (98-107) mmol/L Carbon Dioxide 7 L* (22-30) mmol/L BUN 23 H (7-17) mg/dL Creatinine 1.69 H (0.52-1.04) mg/dL Glucose 210 H (74-99) mg/dL POC Glucose (mg/dL) (75-99) mg/dL Hemoglobin A1c 10.5 H (4.0-6.0) % Plasma Lactic Acid Reji (0.7-2.0) mmol/L Calcium 6.3 L* (8.4-10.2) mg/dL Total Bilirubin 1.7 H (0.2-1.3) mg/dL AST 2384 H (14-36) U/L ALT 661 H (9-52) U/L Alkaline Phosphatase 155 H (38-126) U/L Lactate Dehydrogenase (313-618) U/L Total Protein 5.6 L (6.3-8.2) g/dL Albumin 2.7 L (3.5-5.0) g/dL 04/18/19 04/18/19 04/18/19 Range/Units 04:04 06:35 08:15 MCHC (31.0-37.0) g/dL Plt Count (150-450) k/uL Neutrophils # (1.3-7.7) k/uL Lymphocytes # (1.0-4.8) k/uL PT (9.0-12.0) sec INR (<1.2) Sodium (137-145) mmol/L Potassium (3.5-5.1) mmol/L Chloride (98-107) mmol/L Carbon Dioxide (22-30) mmol/L BUN (7-17) mg/dL Creatinine (0.52-1.04) mg/dL Glucose (74-99) mg/dL POC Glucose (mg/dL) 217 H (75-99) mg/dL Hemoglobin A1c (4.0-6.0) % Plasma Lactic Acid Reji 4.6 H* (0.7-2.0) mmol/L Calcium (8.4-10.2) mg/dL Total Bilirubin (0.2-1.3) mg/dL AST (14-36) U/L ALT (9-52) U/L Alkaline Phosphatase (38-126) U/L Lactate Dehydrogenase 86954 H (313-618) U/L Total Protein (6.3-8.2) g/dL Albumin (3.5-5.0) g/dL 04/18/19 04/18/19 04/18/19 Range/Units 08:15 08:15 10:35 MCHC (31.0-37.0) g/dL Plt Count (150-450) k/uL Neutrophils # (1.3-7.7) k/uL Lymphocytes # (1.0-4.8) k/uL PT 13.0 H (9.0-12.0) sec INR 1.3 H (<1.2) Sodium (137-145) mmol/L Potassium (3.5-5.1) mmol/L Chloride (98-107) mmol/L Carbon Dioxide (22-30) mmol/L BUN (7-17) mg/dL Creatinine (0.52-1.04) mg/dL Glucose (74-99) mg/dL POC Glucose (mg/dL) 147 H (75-99) mg/dL Hemoglobin A1c (4.0-6.0) % Plasma Lactic Acid Reji 6.2 H* (0.7-2.0) mmol/L Calcium (8.4-10.2) mg/dL Total Bilirubin (0.2-1.3) mg/dL AST (14-36) U/L ALT (9-52) U/L Alkaline Phosphatase (38-126) U/L Lactate Dehydrogenase (313-618) U/L Total Protein (6.3-8.2) g/dL Albumin (3.5-5.0) g/dL 04/18/19 04/18/19 04/18/19 Range/Units 11:46 12:04 12:04 MCHC (31.0-37.0) g/dL Plt Count (150-450) k/uL Neutrophils # (1.3-7.7) k/uL Lymphocytes # (1.0-4.8) k/uL PT (9.0-12.0) sec INR (<1.2) Sodium (137-145) mmol/L Potassium (3.5-5.1) mmol/L Chloride 112 H 112 H (98-107) mmol/L Carbon Dioxide 15 L 14 L (22-30) mmol/L BUN 28 H 28 H (7-17) mg/dL Creatinine 1.87 H 1.82 H (0.52-1.04) mg/dL Glucose 136 H 135 H (74-99) mg/dL POC Glucose (mg/dL) 168 H (75-99) mg/dL Hemoglobin A1c (4.0-6.0) % Plasma Lactic Acid Reji (0.7-2.0) mmol/L Calcium 5.7 L* 5.7 L* (8.4-10.2) mg/dL Total Bilirubin 2.2 H (0.2-1.3) mg/dL AST 5796 H (14-36) U/L ALT 1520 H (9-52) U/L Alkaline Phosphatase 131 H (38-126) U/L Lactate Dehydrogenase (313-618) U/L Total Protein 5.0 L (6.3-8.2) g/dL Albumin 2.5 L (3.5-5.0) g/dL 04/18/19 Range/Units 12:04 MCHC (31.0-37.0) g/dL Plt Count (150-450) k/uL Neutrophils # (1.3-7.7) k/uL Lymphocytes # (1.0-4.8) k/uL PT (9.0-12.0) sec INR (<1.2) Sodium (137-145) mmol/L Potassium (3.5-5.1) mmol/L Chloride (98-107) mmol/L Carbon Dioxide (22-30) mmol/L BUN (7-17) mg/dL Creatinine (0.52-1.04) mg/dL Glucose (74-99) mg/dL POC Glucose (mg/dL) (75-99) mg/dL Hemoglobin A1c (4.0-6.0) % Plasma Lactic Acid Reji 5.1 H* (0.7-2.0) mmol/L Calcium (8.4-10.2) mg/dL Total Bilirubin (0.2-1.3) mg/dL AST (14-36) U/L ALT (9-52) U/L Alkaline Phosphatase (38-126) U/L Lactate Dehydrogenase (313-618) U/L Total Protein (6.3-8.2) g/dL Albumin (3.5-5.0) g/dL Microbiology - Last 24 Hours (Table) 04/17/19 15:02 Blood Culture Gram Stain - Preliminary Blood Blood Culture - Preliminary Escherichia coli 04/17/19 15:02 Blood Culture - Final Blood 04/17/19 13:10 Urine Culture - Preliminary Urine,Voided Diabetes panel 04/18/19 04/18/19 04/18/19 Range/Units 01:07 04:04 04:04 Sodium 135 L (137-145) mmol/L Potassium 5.6 H 5.7 H (3.5-5.1) mmol/L Chloride 113 H (98-107) mmol/L Carbon Dioxide 7 L* (22-30) mmol/L BUN 23 H (7-17) mg/dL Creatinine 1.69 H (0.52-1.04) mg/dL Glucose 210 H (74-99) mg/dL Hemoglobin A1c 10.5 H (4.0-6.0) % Calcium 6.3 L* (8.4-10.2) mg/dL AST 2384 H (14-36) U/L ALT 661 H (9-52) U/L Alkaline Phosphatase 155 H (38-126) U/L Total Protein 5.6 L (6.3-8.2) g/dL Albumin 2.7 L (3.5-5.0) g/dL 04/18/19 04/18/19 Range/Units 12:04 12:04 Sodium 139 139 (137-145) mmol/L Potassium 4.4 4.7 (3.5-5.1) mmol/L Chloride 112 H 112 H (98-107) mmol/L Carbon Dioxide 15 L 14 L (22-30) mmol/L BUN 28 H 28 H (7-17) mg/dL Creatinine 1.87 H 1.82 H (0.52-1.04) mg/dL Glucose 136 H 135 H (74-99) mg/dL Hemoglobin A1c (4.0-6.0) % Calcium 5.7 L* 5.7 L* (8.4-10.2) mg/dL AST 5796 H (14-36) U/L ALT 1520 H (9-52) U/L Alkaline Phosphatase 131 H (38-126) U/L Total Protein 5.0 L (6.3-8.2) g/dL Albumin 2.5 L (3.5-5.0) g/dL Calcium panel 04/18/19 04/18/19 04/18/19 Range/Units 04:04 12:04 12:04 Calcium 6.3 L* 5.7 L* 5.7 L* (8.4-10.2) mg/dL Albumin 2.7 L 2.5 L (3.5-5.0) g/dL Pituitary panel 04/18/19 04/18/19 04/18/19 Range/Units 01:07 04:04 12:04 Sodium 135 L 139 (137-145) mmol/L Potassium 5.6 H 5.7 H 4.4 (3.5-5.1) mmol/L Chloride 113 H 112 H (98-107) mmol/L Carbon Dioxide 7 L* 15 L (22-30) mmol/L BUN 23 H 28 H (7-17) mg/dL Creatinine 1.69 H 1.87 H (0.52-1.04) mg/dL Glucose 210 H 136 H (74-99) mg/dL Calcium 6.3 L* 5.7 L* (8.4-10.2) mg/dL 04/18/19 Range/Units 12:04 Sodium 139 (137-145) mmol/L Potassium 4.7 (3.5-5.1) mmol/L Chloride 112 H (98-107) mmol/L Carbon Dioxide 14 L (22-30) mmol/L BUN 28 H (7-17) mg/dL Creatinine 1.82 H (0.52-1.04) mg/dL Glucose 135 H (74-99) mg/dL Calcium 5.7 L* (8.4-10.2) mg/dL Adrenal panel 04/18/19 04/18/19 04/18/19 Range/Units 01:07 04:04 12:04 Sodium 135 L 139 (137-145) mmol/L Potassium 5.6 H 5.7 H 4.4 (3.5-5.1) mmol/L Chloride 113 H 112 H (98-107) mmol/L Carbon Dioxide 7 L* 15 L (22-30) mmol/L BUN 23 H 28 H (7-17) mg/dL Creatinine 1.69 H 1.87 H (0.52-1.04) mg/dL Glucose 210 H 136 H (74-99) mg/dL Calcium 6.3 L* 5.7 L* (8.4-10.2) mg/dL Total Bilirubin 1.7 H 2.2 H (0.2-1.3) mg/dL AST 2384 H 5796 H (14-36) U/L ALT 661 H 1520 H (9-52) U/L Alkaline Phosphatase 155 H 131 H (38-126) U/L Total Protein 5.6 L 5.0 L (6.3-8.2) g/dL Albumin 2.7 L 2.5 L (3.5-5.0) g/dL 04/18/19 Range/Units 12:04 Sodium 139 (137-145) mmol/L Potassium 4.7 (3.5-5.1) mmol/L Chloride 112 H (98-107) mmol/L Carbon Dioxide 14 L (22-30) mmol/L BUN 28 H (7-17) mg/dL Creatinine 1.82 H (0.52-1.04) mg/dL Glucose 135 H (74-99) mg/dL Calcium 5.7 L* (8.4-10.2) mg/dL Total Bilirubin (0.2-1.3) mg/dL AST (14-36) U/L ALT (9-52) U/L Alkaline Phosphatase (38-126) U/L Total Protein (6.3-8.2) g/dL Albumin (3.5-5.0) g/dL - Imaging CT scan - abdomen: report reviewed, image reviewed CT scan - pelvis: report reviewed, image reviewed Assessment and Plan Assessment: Impression: Urinary tract infection with sepsis, hypotension. Mild left hydronephrosis probably secondary to passed ureteral calculus. Recommendations: From urologic standpoint there is nothing that I would do at this point in time. I would continue with IV antibiotics and ICU support. In the future as an outpatient she will need cystoscopy to rule out intravesical pathology however.
[2019-04-18] MEDS: HEPARIN SODIUM,PORCINE 5,000 UNIT/ML 1 ML VIAL SQ SCH (15:23)
--- NOTE | 2019-04-18 15:33 | P.PCN ---
Date of Procedure: 04/18/19 Preoperative Diagnosis: Urine retention Postoperative Diagnosis: Same secondary to urethral stricture Procedure(s) Performed: Dilation of urethral stricture with filiforms and followers, difficult catheterization Surgeon: Nito Sunshine Indications for Procedure: The patient is in the hospital frequent falls. He has not been able to urinate. His residuals over 365 mL over 2 hours ago. He still unable to urinate. The nursing staffs unable to pass a catheter. A TURP by Dr. Menchaca Description of Procedure: Patient is prepped and draped sterilely. I attempted pass a 16-Lao Cerrato catheter but meet resistance in the bulbar urethra. Attempt a 14-Lao coud- tip catheter and also meet resistance. I then used filiforms and followers. With a 4-Lao spiral filiform and followers [id number] unable to dilate the urethra. I cannot pass 18-Lao follower into the bladder. I remove the filiforms and followers and then pass a 14-Lao coud-tip catheter into the bladder with clear urine return other than some small clots created from the dilation. Catheter should remain in place for approximately one week.
[2019-04-18 16:18] LABS: Glucose,Whole Blood 129 mg/dL (75-99)
[2019-04-18] MEDS ORDERED: Magnesium Replacement Protocol 1 EACH MISC MISCELLANE PRN (18:59)
[2019-04-18 20:04] LABS: Hepatitis A Antibody IgM Non-Reactive (Non-Reactive); Hepatitis B Core IgM Non-Reactive (Non-Reactive); Hepatitis B Surface Antigen Non-Reactive (Non-Reactive); Hepatitis C IgG Antibody Non-Reactive (Non-Reactive)
[2019-04-18 20:14] LABS: Glucose,Whole Blood 157 mg/dL (75-99)
[2019-04-18] MEDS: MAGNESIUM SULFATE-D5W PMX 1 GM in DEXTROSE/WATER 1 100ML.BAG IVPB SCH ×2 (20:49→22:16)
[2019-04-19] MEDS: PIPERACILLIN-TAZOBACTAM 3.375 GM in SODIUM CHLORIDE 0.9% 100 ML IVPB SCH ×2 (01:08→08:06)
[2019-04-19] MEDS: HEPARIN SODIUM,PORCINE 5,000 UNIT/ML 1 ML VIAL SQ SCH ×4 (01:09→23:04)
[2019-04-19 03:25] LABS: Anisocytosis Slight; Basophils % (A) 0 %; Eosinophils # (A) 0.1 k/uL (0-0.7); Eosinophils % (A) 1 %; HCT 32.1 % (34.0-46.0); HGB 10.5 gm/dL (11.4-16.0); Lymphocytes # (A) 1.1 k/uL (1.0-4.8); Lymphocytes % (A) 13 %; MCH 30.5 pg (25.0-35.0); MCHC 32.6 g/dL (31.0-37.0); MCV 93.6 fL (80.0-100.0); Mean Platelet Volume 11.9; Monocytes # (A) 0.4 k/uL (0-1.0); Monocytes % (A) 4 %; Neutrophils # (A) 7.1 k/uL (1.3-7.7); Neutrophils % (A) 80 %; RBC 3.43 m/uL (3.80-5.40); RDW 16.1 % (11.5-15.5); WBC 8.8 k/uL (3.8-10.6)
[2019-04-19 03:26] LABS: Platelet Count 25 k/uL (150-450)
[2019-04-19 03:34] LABS: Ammonia <9 umol/L (<30)
[2019-04-19 03:35] LABS: Lactic Acid, Venous 4.8 mmol/L (0.7-2.0)
[2019-04-19 03:36] LABS: INR 1.3 (<1.2); Partial Thromboplastin Time 26.9 sec (22.0-30.0); Prothrombin Time 13.3 sec (9.0-12.0)
[2019-04-19 03:57] LABS: Large Platelets Present
[2019-04-19 04:11] LABS: Albumin 2.4 g/dL (3.5-5.0); Magnesium 1.8 mg/dL (1.6-2.3); Potassium 3.6 mmol/L (3.5-5.1); Total Protein 4.8 g/dL (6.3-8.2)
[2019-04-19] MEDS: MORPHINE SULFATE 4 MG/ML SYRINGE IVP PRN ×4 (06:01→22:18)
[2019-04-19] MEDS: ONDANSETRON 4 MG/2 ML VIAL IVP PRN (06:01)
[2019-04-19] MEDS ORDERED: CALCIUM GLUCONATE 2 GM in SODIUM CHLORIDE 0.9% 100 ML IVPB ONE (07:00)
[2019-04-19] MEDS ORDERED: VANCOMYCIN 1,500 MG in SODIUM CHLORIDE 0.9% 250 ML IVPB SCH (07:00)
[2019-04-19] MEDS: INSULIN ASPART (NovoLOG) 100 UNIT/ML VIAL SQ SCH ×4 (07:10→20:35)
[2019-04-19 07:12] LABS: Glucose,Whole Blood 289 mg/dL (75-99)
[2019-04-19] MEDS: IPRATROPIUM-ALBUTEROL 3 ML NEB INHALATION PRN ×2 (07:58→11:30)
[2019-04-19] MEDS: PANTOPRAZOLE 40 MG/10 ML VIAL IV SCH (08:05)
[2019-04-19] MEDS: DEXTROSE 5% IN WATER 1,000 ML with SODIUM BICARB (1 MEQ/ML) 150 ML IV SCH ×3 (08:07→23:08)
--- NOTE | 2019-04-19 09:56 | P.CONS ---
History of Present Illness - Reason for Consult Consult date: 04/19/19 E. coli bacteremia - History of Present Illness This is a 43-year-old female presented initially to [facility] emergency center on April 15 and was diagnosed with UTI and new diagnosis of diabetes and placed on metformin as well as Levaquin. She had presented with a fever of 102.9, tachycardia up to 1:30, blood pressure elevated. She did have a normal white count at that time but no platelet count was 142, blood sugar was 326, CO2 17. Urinalysis was clear leukoesterase moderate, wbc's 30. HCG not detected. CAT scan of the abdomen and pelvis without contrast showed a left- sided hydronephrosis and hydroureter could be related to recently passed stone. No definite ureteral calculus seen. Fatty infiltration of the liver. Patient was discharged home although it she was encouraged to stay in the hospital but she refused. She says currently developed nausea and vomiting and returned to [facility] emergency center on April 17. The patient was again tachycardic up to 140 with a blood pressure of 82/56. Patient was started on IV fluids and blood culture was ordered and patient was started on Zosyn. Repeat lab work revealed a normal white count of 5.2, platelet count of 62, CO2 16, BUN 20, creatinine 1.73, blood sugar 233. A repeat urinalysis was dark brown, turbid, blood moderate, nitrate positive, leukoesterase large, squamous cells 45. Chest x-ray showed no acute process. Patient was admitted into the intensive care unit for septic shock, UTI, hyperglycemia and thrombocytopenia and started on norepinephrine. Patient has had a significant rise in liver f unction tests with today's value of total bilirubin 3, AST 3371, ALT 1724, alkaline phosphatase 133. LDH came back 13,555, albumin 2.4. C. difficile toxin was negative. Acute hepatitis panel negative. Urine culture was not obtained on her initial ER visit on April 15. Urine culture from April 17 is been finalized with contamination. Blood culture is positive for E. coli and sensitivity is pending. Patient remains in the intensive care unit. She is off vasopressor. She states she feels better from yesterday. Pain is gone but she continues to have some nausea and vomiting. Patient is followed by Dr. Lomas for intensive care management and Dr. Sunshine for the mild left hydronephrosis probably secondary to passed ureteral calculus. No plan for any surgical interventions and continue IV antibiotics. Patient may need cystoscopy to rule out intravesical pathology as an outpatient. Dr. Brooks is following for acute kidney injury secondary to ATN secondary to hypotension nonsteroidals and sepsis along with hyperkalemia and metabolic acidosis. Patient is currently on a bicarb drip. Patient denies having any urinary tract infection in the past. Review of Systems Constitutional: Reports fatigue, Reports lethargy, Reports poor appetite, Reports weakness, Denies chills, Denies fever Ears, nose, mouth and throat: Denies dysphagia, Denies nasal congestion, Denies nasal discharge, Denies vertigo Cardiovascular: Denies dyspnea on exertion, Denies edema, Denies leg edema, Denies lightheadedness, Denies syncope Respiratory: Denies cough with sputum, Denies dyspnea, Denies excessive sputum, Denies hemoptysis, Denies home oxygen, Denies wheezing Gastrointestinal: Reports abdominal pain, Reports loss of appetite, Reports nausea, Reports vomiting Genitourinary: Reports dysuria, Denies urgency Musculoskeletal: Denies frequent falls, Denies gait dysfunction, Denies myalgias Integumentary: Denies pruritus, Denies rash, Denies wounds Neurological: Denies aphasia, Denies change in mentation, Denies gait dysfunction, Denies numbness, Denies seizures, Denies weakness Psychiatric: Denies anxiety, Denies depression Past Medical History Past Medical History: No Reported History, Diabetes Mellitus History of Any Multi-Drug Resistant Organisms: None Reported Past Surgical History: No Surgical Hx Reported Past Psychological History: No Psychological Hx Reported Smoking Status: Current every day smoker Past Alcohol Use History: Daily Additional Past Alcohol Use History / Comment(s): Patient is a smoker of 2 packs per day since she was 18 years of age. She uses marijuana occasionally. She drinks 3-4 cans of beer per day. She lives with her boyfriend and daughter. She denies any recent travel. 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 Past Drug Use History: None Reported Medications and Allergies Home Medications Medication Instructions Recorded Confirmed Type Ibuprofen [Motrin Ib] 200 - 800 mg PO Q6H PRN 10/25/17 04/17/19 History Levofloxacin 750 mg PO DAILY #5 tablet 04/15/19 04/17/19 Rx metFORMIN HCL [Glucophage] 500 mg PO BID #14 tab 04/15/19 04/17/19 Rx Allergies Allergy/AdvReac Type Severity Reaction Status Date / Time cephalexin [From Keflex] Allergy Rash/Hives Verified 04/17/19 12:02 Physical Exam Vitals: Vital Signs Temp Pulse Resp BP Pulse Ox 04/19/19 08:17 106 H 04/19/19 07:58 105 H 04/19/19 07:00 108 H 5 L 98/56 96 04/19/19 06:00 109 H 12 109/64 94 L 04/19/19 05:00 107 H 10 L 109/57 91 L 04/19/19 04:00 99.0 F 112 H 20 120/58 94 L 04/19/19 03:00 112 H 18 123/68 93 L 04/19/19 02:00 115 H 24 116/70 94 L 04/19/19 01:00 116 H 25 H 89/56 92 L 04/19/19 00:00 98.4 F 114 H 24 109/73 97 04/18/19 23:04 117 H 23 109/73 89 L 04/18/19 23:00 120 H 22 113/71 92 L 04/18/19 22:45 122 H 22 113/71 91 L 04/18/19 22:30 123 H 8 L 113/71 91 L 04/18/19 22:15 123 H 8 L 113/71 90 L 04/18/19 22:00 124 H 8 L 108/66 94 L 04/18/19 21:45 121 H 29 H 108/66 94 L 04/18/19 21:30 117 H 10 L 108/66 94 L 04/18/19 21:15 118 H 25 H 108/66 89 L 04/18/19 21:00 123 H 9 L 104/64 92 L 04/18/19 20:45 128 H 12 104/64 89 L 04/18/19 20:30 124 H 7 L 116/62 88 L 04/18/19 20:15 123 H 13 116/62 92 L 04/18/19 20:00 98.2 F 122 H 14 116/62 94 L 04/18/19 19:45 123 H 12 116/62 92 L 08/13/19 19:25 118 H 04/18/19 19:15 116 H 04/18/19 19:00 122 H 24 116/62 95 04/18/19 18:15 122 H 20 95 04/18/19 18:00 122 H 15 119/71 93 L 04/18/19 17:45 125 H 12 131/106 94 L 04/18/19 17:30 124 H 10 L 133/80 93 L 04/18/19 17:15 120 H 13 119/76 93 L 04/18/19 17:00 118 H 24 113/59 92 L 04/18/19 16:45 120 H 18 98/66 92 L 04/18/19 16:30 118 H 20 170/80 93 L 04/18/19 16:15 117 H 12 99/77 91 L 04/18/19 16:00 98.1 F 118 H 22 116/67 93 L 04/18/19 15:51 112 H 04/18/19 15:45 111 H 10 L 119/70 93 L 04/18/19 15:38 114 H 97 04/18/19 15:36 0 L 04/18/19 15:30 116 H 10 L 106/63 92 L 04/18/19 15:15 116 H 0 L 128/71 94 L 04/18/19 15:00 118 H 36 H 118/67 92 L 04/18/19 14:45 118 H 28 H 103/62 93 L 04/18/19 14:30 117 H 25 H 91/62 93 L 04/18/19 14:15 116 H 23 102/61 93 L 04/18/19 14:00 116 H 22 92/60 93 L 04/18/19 13:45 116 H 24 98/82 93 L 04/18/19 13:30 116 H 20 93 L 04/18/19 13:15 120 H 15 116/96 96 04/18/19 13:00 116 H 12 115/71 93 L 04/18/19 12:45 120 H 15 100/68 94 L 04/18/19 12:30 117 H 15 119/66 96 04/18/19 12:15 117 H 16 128/84 94 L 04/18/19 12:00 118 H 15 94/66 93 L 04/18/19 11:45 114 H 21 100/76 92 L 04/18/19 11:40 15 04/18/19 11:30 113 H 23 104/70 93 L 04/18/19 11:24 115 H 04/18/19 11:15 114 H 20 106/33 98 04/18/19 11:11 114 H 04/18/19 11:00 112 H 21 103/71 95 04/18/19 10:45 114 H 24 110/73 95 04/18/19 10:30 116 H 20 104/77 93 L 04/18/19 10:15 112 H 26 H 89/68 94 L 04/18/19 10:00 116 H 20 90/48 93 L 04/18/19 09:45 117 H 12 93 L 04/18/19 09:30 118 H 20 127/104 94 L 04/18/19 09:15 116 H 28 H 104/67 Intake and Output 04/18/19 04/19/19 04/19/19 22:59 06:59 14:59 Intake Total 0175.201 4492 150 Output Total 119 200 25 Balance 1774.153 950 125 Intake: IV 1640 1150 150 Calcium Gluconate 2 gm In 100 Sodium Chloride 0.9% 100 ml @ 100 mls/hr IVPB ONCE ONE Rx#:[id number] Piperacillin-Tazobactam 3 100 .375 gm In Sodium Chloride 0.9% 100 ml @ 25 mls/hr IVPB Q8HR REPLACED BY [facility] Rx# :[id number] Sodium Chloride 0.9% 10ml 40 hr Sodium Chloride 0.9% 500 500 ml 500 ml @ 1000 mls/hr IV Q35M REPLACED BY [facility] Rx#:[id number] bicarb 900 1150 150 Intake, IV Titration 153.153 Amount Norepinephrine 4 mg In 153.153 Sodium Chloride 0.9% 250 ml @ 0.05 MCG/KG/MIN 12. 097 mls/hr IV .Q21H REPLACED BY [facility] Rx#:[id number] Oral 100 Output: Urine 118 200 25 Stool 1 Other: Voiding Method Indwelling Catheter Indwelling Catheter Indwelling Catheter # Bowel Movements 1 Weight 82.2 kg Gen: This is a obese 43-year-old female. She is resting in the ICU bed and appears to be comfortable and in no acute distress. HEENT: Head is atraumatic, normocephalic. Pupils equal, round. Sclerae is anicteric. NECK: Supple. No JVD. No lymphadenopathy. No thyromegaly. LUNGS: Clear to auscultation. No wheezes or rhonchi. No intercostal retractions. HEART: Regular rate and rhythm. No murmur. ABDOMEN: Soft. Bowel sounds are present. No masses. Generalized tenderness most severe at the epigastric area. EXTREMITIES: No pedal edema. No calf tenderness. Dorsalis pedis +2 bilaterally. NEUROLOGICAL: Patient is awake, alert and oriented x3. Cranial nerves 2 through 12 are grossly intact. Results Results: Laboratory Results WBC 8.8 k/uL (3.8-10.6) 04/19/19 03:10 RBC 3.43 m/uL (3.80-5.40) L 04/19/19 03:10 Hgb 10.5 gm/dL (11.4-16.0) L 04/19/19 03:10 Hct 32.1 % (34.0-46.0) L 04/19/19 03:10 MCV 93.6 fL (80.0-100.0) 04/19/19 03:10 MCH 30.5 pg (25.0-35.0) 04/19/19 03:10 MCHC 32.6 g/dL (31.0-37.0) 04/19/19 03:10 RDW 16.1 % (11.5-15.5) H 04/19/19 03:10 Plt Count 25 k/uL (150-450) L 04/19/19 03:10 Neutrophils % 80 % 04/19/19 03:10 Neutrophils % (Manual) 65 % 04/17/19 11:58 Band Neutrophils % 27 % 04/17/19 11:58 Lymphocytes % 13 % 04/19/19 03:10 Lymphocytes % (Manual) 6 % 04/17/19 11:58 Monocytes % 4 % 04/19/19 03:10 Monocytes % (Manual) 2 % 04/17/19 11:58 Eosinophils % 1 % 04/19/19 03:10 Basophils % 0 % 04/19/19 03:10 Metamyelocytes % 1 % 04/17/19 11:58 Myelocytes % 1 % 04/17/19 11:58 Neutrophils # 7.1 k/uL (1.3-7.7) 04/19/19 03:10 Neutrophils # (Manual) 4.70 k/uL (1.3-7.7) 04/17/19 11:58 Lymphocytes # 1.1 k/uL (1.0-4.8) 04/19/19 03:10 Lymphocytes # (Manual) 0.31 k/uL (1.0-4.8) L 04/17/19 11:58 Monocytes # 0.4 k/uL (0-1.0) 04/19/19 03:10 Monocytes # (Manual) 0.10 k/uL (0-1.0) 04/17/19 11:58 Eosinophils # 0.1 k/uL (0-0.7) 04/19/19 03:10 Basophils # 0.0 k/uL (0-0.2) 04/19/19 03:10 Metamyelocytes # (Man) 0.05 k/uL (0) H 04/17/19 11:58 Myelocytes # (Manual) 0.05 k/uL (0) H 04/17/19 11:58 Nucleated RBCs 0 /100 WBC (0-0) 04/17/19 11:58 Manual Slide Review Performed 04/19/19 03:10 Toxic Granulation Present 04/17/19 11:58 Toxic Vacuolation Present 04/17/19 11:58 Dohle Bodies Present 04/17/19 11:58 Large Platelets Present 04/19/19 03:10 RBC Morphology Normal 04/17/19 11:58 Hypochromasia Moderate 04/18/19 04:04 Poikilocytosis (manual Present 04/18/19 04:04 Anisocytosis Slight 04/19/19 03:10 PT 13.3 sec (9.0-12.0) H 04/19/19 03:10 INR 1.3 (<1.2) H 04/19/19 03:10 APTT 26.9 sec (22.0-30.0) 04/19/19 03:10 Sodium 135 mmol/L (137-145) L 04/19/19 03:10 Potassium 3.6 mmol/L (3.5-5.1) 04/19/19 03:10 Chloride 102 mmol/L (98-107) 04/19/19 03:10 Carbon Dioxide 16 mmol/L (22-30) L 04/19/19 03:10 Anion Gap 17 mmol/L 04/19/19 03:10 BUN 33 mg/dL (7-17) H 04/19/19 03:10 Creatinine 2.11 mg/dL (0.52-1.04) H 04/19/19 03:10 Est GFR (CKD-EPI)AfAm 33 (>60 ml/min/1.73 sqM) 04/19/19 03:10 Est GFR (CKD-EPI)NonAf 28 (>60 ml/min/1.73 sqM) 04/19/19 03:10 Glucose 244 mg/dL (74-99) H 04/19/19 03:10 POC Glucose (mg/dL) 289 mg/dL (75-99) H 04/19/19 07:00 POC Glu [employer] ID Sindi Rhodes 04/19/19 07:[address] Glu mg/dL 255 04/18/19 04:04 Hemoglobin A1c 10.5 % (4.0-6.0) H 04/18/19 04:04 Lactic Ac Sepsis Rflx Y 04/19/19 03:36 Plasma Lactic Acid Reji 4.8 mmol/L (0.7-2.0) H* 04/19/19 03:10 Calcium 6.0 mg/dL (8.4-10.2) L* 04/19/19 03:10 Magnesium 1.8 mg/dL (1.6-2.3) 04/19/19 03:10 Total Bilirubin 3.0 mg/dL (0.2-1.3) H 04/19/19 03:10 AST 3371 U/L (14-36) H 04/19/19 03:10 ALT 1724 U/L (9-52) H 04/19/19 03:10 Alkaline Phosphatase 133 U/L (38-126) H 04/19/19 03:10 Ammonia <9 umol/L (<30) 04/19/19 03:10 Lactate Dehydrogenase 45284 U/L (313-618) H 04/18/19 08:15 Creatine Kinase 46 U/L (30-135) 04/17/19 11:58 CK-MB (CK-2) 1.3 ng/mL (0.0-2.4) 04/17/19 11:58 Troponin I 0.013 ng/mL (0.000-0.034) 04/17/19 11:58 Total Protein 4.8 g/dL (6.3-8.2) L 04/19/19 03:10 Albumin 2.4 g/dL (3.5-5.0) L 04/19/19 03:10 Amylase 32 U/L (30-110) 04/18/19 08:15 Lipase 60 U/L (23-300) 04/18/19 08:15 Urine Color Dark Brown 04/17/19 13:10 Urine Appearance Turbid (Clear) H 04/17/19 13:10 Urine pH 5.5 (5.0-8.0) 04/17/19 13:10 Ur Specific Tracy 1.024 (1.001-1.035) 04/17/19 13:10 Urine Protein 2+ (Negative) H 04/17/19 13:10 Urine Glucose (UA) Trace (Negative) H 04/17/19 13:10 Urine Ketones Negative (Negative) 04/17/19 13:10 Urine Blood Moderate (Negative) H 04/17/19 13:10 Urine Nitrite Positive (Negative) H 04/17/19 13:10 Urine Bilirubin 1+ (Negative) H 04/17/19 13:10 Urine Urobilinogen 3.0 mg/dL (<2.0) 04/17/19 13:10 Ur Leukocyte Esterase Large (Negative) H 04/17/19 13:10 Urine RBC 18 /hpf (0-5) H 04/17/19 13:10 Urine WBC 27 /hpf (0-5) H 04/17/19 13:10 Ur Squamous Epith Cells 45 /hpf (0-4) H 04/17/19 13:10 Amorphous Sediment Rare /hpf (None) H 04/17/19 13:10 Urine Bacteria Many /hpf (None) H 04/17/19 13:10 Hyaline Casts 103 /lpf (0-2) H 04/17/19 13:10 Urine Mucus Occasional /hpf (None) H 04/17/19 13:10 Acetone, Qual Negative (Negative) 04/17/19 11:58 C. difficile (EIA) Intrp Negative (Negative) 04/17/19 18:40 Hepatitis A IgM Ab Non-Reactive (Non-Reactive) 04/18/19 12:04 Hep Bs Antigen Non-Reactive (Non-Reactive) 04/18/19 12:04 Hep B Core IgM Ab Non-Reactive (Non-Reactive) 04/18/19 12:04 Hep C IgG Ab Non-Reactive (Non-Reactive) 04/18/19 12:04 CBC & Chem 7: 04/19/19 03:10 04/19/19 03:10 Labs: Abnormal Lab Results - Last 24 Hours (Table) 04/18/19 04/18/19 04/18/19 Range/Units 04:04 08:15 08:15 RBC (3.80-5.40) m/uL Hgb (11.4-16.0) gm/dL Hct (34.0-46.0) % RDW (11.5-15.5) % Plt Count (150-450) k/uL PT (9.0-12.0) sec INR (<1.2) Sodium (137-145) mmol/L Chloride (98-107) mmol/L Carbon Dioxide (22-30) mmol/L BUN (7-17) mg/dL Creatinine (0.52-1.04) mg/dL Glucose (74-99) mg/dL POC Glucose (mg/dL) (75-99) mg/dL Hemoglobin A1c 10.5 H (4.0-6.0) % Plasma Lactic Acid Reji 6.2 H* (0.7-2.0) mmol/L Calcium (8.4-10.2) mg/dL Magnesium (1.6-2.3) mg/dL Total Bilirubin (0.2-1.3) mg/dL AST (14-36) U/L ALT (9-52) U/L Alkaline Phosphatase (38-126) U/L Lactate Dehydrogenase 57877 H (313-618) U/L Total Protein (6.3-8.2) g/dL Albumin (3.5-5.0) g/dL 04/18/19 04/18/19 04/18/19 Range/Units 10:35 11:46 12:04 RBC (3.80-5.40) m/uL Hgb (11.4-16.0) gm/dL Hct (34.0-46.0) % RDW (11.5-15.5) % Plt Count (150-450) k/uL PT (9.0-12.0) sec INR (<1.2) Sodium (137-145) mmol/L Chloride 112 H (98-107) mmol/L Carbon Dioxide 15 L (22-30) mmol/L BUN 28 H (7-17) mg/dL Creatinine 1.87 H (0.52-1.04) mg/dL Glucose 136 H (74-99) mg/dL POC Glucose (mg/dL) 147 H 168 H (75-99) mg/dL Hemoglobin A1c (4.0-6.0) % Plasma Lactic Acid Reji (0.7-2.0) mmol/L Calcium 5.7 L* (8.4-10.2) mg/dL Magnesium (1.6-2.3) mg/dL Total Bilirubin 2.2 H (0.2-1.3) mg/dL AST 5796 H (14-36) U/L ALT 1520 H (9-52) U/L Alkaline Phosphatase 131 H (38-126) U/L Lactate Dehydrogenase (313-618) U/L Total Protein 5.0 L (6.3-8.2) g/dL Albumin 2.5 L (3.5-5.0) g/dL 04/18/19 04/18/19 04/18/19 Range/Units 12:04 12:04 14:05 RBC (3.80-5.40) m/uL Hgb (11.4-16.0) gm/dL Hct (34.0-46.0) % RDW (11.5-15.5) % Plt Count (150-450) k/uL PT (9.0-12.0) sec INR (<1.2) Sodium (137-145) mmol/L Chloride 112 H (98-107) mmol/L Carbon Dioxide 14 L (22-30) mmol/L BUN 28 H (7-17) mg/dL Creatinine 1.82 H (0.52-1.04) mg/dL Glucose 135 H (74-99) mg/dL POC Glucose (mg/dL) (75-99) mg/dL Hemoglobin A1c (4.0-6.0) % Plasma Lactic Acid Reji 5.1 H* (0.7-2.0) mmol/L Calcium 5.7 L* (8.4-10.2) mg/dL Magnesium 1.5 L (1.6-2.3) mg/dL Total Bilirubin (0.2-1.3) mg/dL AST (14-36) U/L ALT (9-52) U/L Alkaline Phosphatase (38-126) U/L Lactate Dehydrogenase (313-618) U/L Total Protein (6.3-8.2) g/dL Albumin (3.5-5.0) g/dL 04/18/19 04/18/19 04/18/19 Range/Units 16:06 18:05 20:13 RBC (3.80-5.40) m/uL Hgb (11.4-16.0) gm/dL Hct (34.0-46.0) % RDW (11.5-15.5) % Plt Count (150-450) k/uL PT (9.0-12.0) sec INR (<1.2) Sodium (137-145) mmol/L Chloride (98-107) mmol/L Carbon Dioxide (22-30) mmol/L BUN (7-17) mg/dL Creatinine (0.52-1.04) mg/dL Glucose (74-99) mg/dL POC Glucose (mg/dL) 129 H 157 H (75-99) mg/dL Hemoglobin A1c (4.0-6.0) % Plasma Lactic Acid Reji 7.2 H* (0.7-2.0) mmol/L Calcium (8.4-10.2) mg/dL Magnesium (1.6-2.3) mg/dL Total Bilirubin (0.2-1.3) mg/dL AST (14-36) U/L ALT (9-52) U/L Alkaline Phosphatase (38-126) U/L Lactate Dehydrogenase (313-618) U/L Total Protein (6.3-8.2) g/dL Albumin (3.5-5.0) g/dL 04/18/19 04/19/19 04/19/19 Range/Units 22:00 03:10 03:10 RBC 3.43 L (3.80-5.40) m/uL Hgb 10.5 L (11.4-16.0) gm/dL Hct 32.1 L (34.0-46.0) % RDW 16.1 H (11.5-15.5) % Plt Count 25 L (150-450) k/uL PT (9.0-12.0) sec INR (<1.2) Sodium 135 L (137-145) mmol/L Chloride (98-107) mmol/L Carbon Dioxide 16 L (22-30) mmol/L BUN 33 H (7-17) mg/dL Creatinine 2.11 H (0.52-1.04) mg/dL Glucose 244 H (74-99) mg/dL POC Glucose (mg/dL) (75-99) mg/dL Hemoglobin A1c (4.0-6.0) % Plasma Lactic Acid Reji 6.0 H* (0.7-2.0) mmol/L Calcium 6.0 L* (8.4-10.2) mg/dL Magnesium (1.6-2.3) mg/dL Total Bilirubin 3.0 H (0.2-1.3) mg/dL AST 3371 H (14-36) U/L ALT 1724 H (9-52) U/L Alkaline Phosphatase 133 H (38-126) U/L Lactate Dehydrogenase (313-618) U/L Total Protein 4.8 L (6.3-8.2) g/dL Albumin 2.4 L (3.5-5.0) g/dL 04/19/19 04/19/19 04/19/19 Range/Units 03:10 03:10 07:00 RBC (3.80-5.40) m/uL Hgb (11.4-16.0) gm/dL Hct (34.0-46.0) % RDW (11.5-15.5) % Plt Count (150-450) k/uL PT 13.3 H (9.0-12.0) sec INR 1.3 H (<1.2) Sodium (137-145) mmol/L Chloride (98-107) mmol/L Carbon Dioxide (22-30) mmol/L BUN (7-17) mg/dL Creatinine (0.52-1.04) mg/dL Glucose (74-99) mg/dL POC Glucose (mg/dL) 289 H (75-99) mg/dL Hemoglobin A1c (4.0-6.0) % Plasma Lactic Acid Reji 4.8 H* (0.7-2.0) mmol/L Calcium (8.4-10.2) mg/dL Magnesium (1.6-2.3) mg/dL Total Bilirubin (0.2-1.3) mg/dL AST (14-36) U/L ALT (9-52) U/L Alkaline Phosphatase (38-126) U/L Lactate Dehydrogenase (313-618) U/L Total Protein (6.3-8.2) g/dL Albumin (3.5-5.0) g/dL Microbiology - Last 24 Hours (Table) 04/17/19 13:10 Urine Culture - Final Urine,Voided 04/17/19 15:02 Blood Culture Gram Stain - Preliminary Blood Blood Culture - Preliminary Escherichia coli 04/17/19 15:02 Blood Culture - Final Blood Assessment and Plan Plan: This is a 43-year-old female who presented to the [facility] with sepsis, septic shock, urinary tract infection probably related to past kidney stone, mild hydronephrosis, lactic acidosis, thrombocytopenia, acute renal failure, shock liver. Patient is currently off vasopressors. She is on IV Zosyn and initial blood culture is positive for E. coli and sensitivity is pending. Urine culture has been finalized with skin contamination. Continue supportive care. Further recommendations as patient progresses. The above dictated assessment and findings were discussed with Dr. Alvarez. The impression and plan of care have been directed as dictated. Arlin Andrade nurse practitioner acting as scribe for Dr. Alvarez.
--- NOTE | 2019-04-19 10:45 | PN ---
PROGRESS NOTE Patient is seen for followup for acute kidney injury. Patient was admitted to the hospital for generalized weakness, history of vomiting and diarrhea. Patient was also quite hypotensive and severely acidotic on initial admission. She was on Levophed, which is now discontinued. She has received about 7 L of fluid. The patient was also recently started on metformin prior to admission. Her CO2 was 7 on initial admission. Urine output has been poor most of yesterday. However, it seems to have picked up now to about 30-40 mL/hour. Overall, patient states she is feeling better. She is maintained on a bicarb drip at 150 mL/hour. Serum creatinine is at 2.1, which is up from 1.8 yesterday. Prior creatinine on 04/15/2019 was 0.7 mg/dL. Patient was also found to have left hydronephrosis and hydroureter. She was evaluated by Urology and at this time, there is no plan for any surgical intervention. She is maintained on antibiotics. A Cerrato catheter was placed. Blood cultures were positive for E. coli. Urine culture showed mixed growth. Patient is maintained on ceftriaxone. PHYSICAL EXAMINATION: On examination today, blood pressure was 100/62, heart rate 108 per minute. She is afebrile. Examination of the heart S1, S2. Examination of the lungs, bilateral breath sounds are heard. Abdomen is soft, nontender. Examination of the lower extremities shows edema trace bilaterally, upper and lower extremities. [employer] exam grossly intact. LABS: Show sodium of 135, potassium 3.6, CO2 is 16, BUN 33, serum creatinine 2.1. Lactic acid was 4.8, calcium 6.0, hemoglobin 10.5 g/dL, ALT 1724, AST 3371, which are decreasing. ALT is actually higher. ASSESSMENT: 1. Acute kidney injury, acute tubular necrosis secondary to hypotension and sepsis, currently improving, although creatinine is higher today. Patient's urine output has picked up. I will hold off on renal replacement therapy for now. Continue with the IV bicarb. 2. Severe metabolic acidosis and anion gap which is multifactorial secondary to lactic acidosis, renal failure, as well as possibly a component of lactic acidosis from metformin. Lactic acid is down to 4.8. Continue with the bicarb drip for now. 3. Gram-negative bacteremia. Source is the urinary tract infection. Current urine culture did not grow any specific organism. However, patient was treated with Levaquin for about 2 days prior to admission. 4. Recent diagnosis of diabetes, started on metformin. 5. Thrombocytopenia, most likely consumptive from sepsis. 6. Left hydronephrosis, most likely related to recent passage of stone to be followed up as outpatient. Patient has been evaluated by Urology. PLAN: Continue IV antibiotics. Continue IV bicarb. Repeat labs in a.m. Avoid any nephrotoxic agents and encourage increased oral intake. MMODL / IJN: [id number] /
[2019-04-19] MEDS ORDERED: ACETAMINOPHEN IV (For NPO) 1,000 MG in EMPTY BAG 1 BAG IVPB PRN (11:43)
[2019-04-19] MEDS: NOREPINEPHRINE 4 MG in SODIUM CHLORIDE 0.9% 250 ML IV SCH (12:03)
[2019-04-19 12:09] LABS: Glucose,Whole Blood 317 mg/dL (75-99)
[2019-04-19] MEDS: INSULIN DETEMIR (LEVEMIR) 100 UNIT/ML SYR SQ SCH (15:02)
--- NOTE | 2019-04-19 15:20 | P.PN ---
Subjective Progress Note Date: 04/19/19 This a very pleasant 43-year-old female patient with a history of chronic and ongoing tobacco dependence, daily alcohol use. She was recently or in the emergency room diagnosed with a urinary tract infection and found to have elevated blood sugars. She was initiated on Levaquin and metformin on 2018. Computed tomography scan of the abdomen and pelvis at that time revealed a left-sided hydronephrosis and hydroureter with suspected recently passed stone. No definite ureteral calculus seen. Fatty infiltrate of the liver. She returned to the emergency room today with complaints of abdominal discomfort and nausea and vomiting. Chest x-ray shows no acute pulmonary process. Results revealed WBC 5.2. Hemoglobin 14.2. Platelet count 62,000. Creatinine 1.73. Bicarb 16. Lactic acid 4.7. Alk phos 313. Urine is turbid and dark brown with 2+ protein, positive nitrates and large WBCs. Acetone negative. Temperature 99.5 she is tachycardic in the 120s. Blood pressure 101/70. 100% O2 on room air. Follow-up lactic tone to 3.4. She has received 3 L of fluid resuscitation. Initiated on Zosyn. Requiring norepinephrine at 0.1 mcg/kg/m. She is seen today in consultation upon arrival in the intensive care unit. She is currently awake and alert in no acute distress. She does have some residual left-sided flank pain. On 04/18/2019 the patient remains critically ill. I was concerned of an ongoing urine checked infection. I saw the patient ICU yesterday and I covered her with IV Zosyn. Cultures were sent. A repeat CAT scan of the abdomen was done along with the CAT scan of the pelvis without contrast. This was done utilizing the stone protocol. There was fatty infiltration of the liver. There was new minimal segment V changes in the lung bases bilaterally. There was a new mild ascites compared to the previous film and there was a mild left-sided hydronephrosis and hydroureter that was unchanged compared to the previous evaluation and a previous CAT scan that was done on 04/15/2019. There was no ureteric calculus seen. There was left-sided perinephric mild edema that remains unchanged. Overnight the patient continued to be hypotensive. She is still pressor dependent. She has developed worsening in acidosis. Serum bicarbonate this morning is down to 7. Lactic acid level peaked at 6.8 is currently down to 4.6. The patient was given additional liter of IV fluids and she has been more than 5 L positive over the past 24 hours. The UA was noted. Blood cultures of been sent. Urine cultures of been sent. She is developing a shock liver picture with elevation in the AST and ALP. Her creatinine is still abnormal with a creatinine level of 1.69. There is no further drop in the platelet count down to 1 and the patient's white cell count is at 10.4 with significant bandemia. As such the patient is still quite septic. Clinically she is cold and clammy with diminished pulses in all 4 extremities. She remains tachycardic and she is in sinus tachycardia with a heart rate of 120. She is still having some pain/tenderness in the left lower quadrant/left flank area. test from 2 days ago was within normal limits. On 04/19/2019 the patient is still being seen on a follow-up. The patient is slightly better compared to yesterday. Patient this morning is awake and alert. The patient is off pressors. The blood culture came back positive for E. coli and the patient was switched to 2 g of Rocephin. She is producing adequate amount of urine output. She was seen by urology regarding the hydronephrosis and hydroureter. The advice was to do an outpatient cystoscopy at a later stage. Otherwise, the patient's metabolic acidosis improving. The serum bicarb is up to 16. She still has gap of 17. She has a lower lactic acid level of 4.8. She is in a shock liver and the LFTs are gradually improving. The patient has developed some increased edema both in upper and lower extremities as the patient is been aggressively resuscitated IV fluids. Total protein is lower at 4.8 with an albumin of 2.4. Glucose at 317 on today's evaluation. As for the platelet counts, it is up to 25 and the patient has a mild component of DIC with some mild coagulopathy. Creatinine is up to 2.1 and the patient has a net fluid balance of +5 L for yesterday and 3.7 L 4 the day before. Objective - Vital Signs Vital signs: Vital Signs Temp 97.6 F 04/19/19 12:00 Pulse 107 H 04/19/19 14:00 Resp 16 04/19/19 14:00 BP 103/59 08/14/19 14:00 Pulse Ox 91 L 04/19/19 14:00 Intake & Output 04/18/19 04/19/19 04/19/19 18:59 06:59 18:59 Intake Total 3301.903 2110 1850 Output Total 119 270 165 Balance 3182.903 1840 1685 Weight 72.7 kg 82.2 kg Intake: IV 2830 2110 1650 Calcium Gluconate 2 gm In 100 100 Sodium Chloride 0.9% 100 ml @ 100 mls/hr IVPB ONCE ONE Rx#:[id number] Piperacillin-Tazobactam 3 100 100 .375 gm In Sodium Chloride 0.9% 100 ml @ 25 mls/hr IVPB Q8HR [facility] Rx# :[id number] Sodium Chloride 0.9% 1, 10 000 ml @ 999 mls/hr IV . Q1H1M ONE Rx#:[id number] Sodium Chloride 0.9% 10ml 50 10 80 hr Sodium Chloride 0.9% 500 1020 500 ml 500 ml @ 1000 mls/hr IV Q35M [facility] Rx#:[id number] bicarb 1550 1600 1320 cefTRIAXone 2 gm In 50 Sodium Chloride 0.9% 50 ml @ 100 mls/hr IVPB Q24HR [facility] Rx#:[id number] Intake, IV Titration 271.903 Amount Norepinephrine 4 mg In 271.903 Sodium Chloride 0.9% 250 ml @ 0.05 MCG/KG/MIN 12. 097 mls/hr IV .Q21H [facility] Rx#:[id number] Oral 100 200 Blood Product 100 Output: Urine 118 270 165 Stool 1 Other: Voiding Method Indwelling Catheter Indwelling Catheter Indwelling Catheter # Bowel Movements 1 - Exam GENERAL EXAM: Alert, pleasant 43-year-old female patient, fairly comfortable in no apparent distress. On room air. The patient is awake and alert and following commands and answering questions appropriately. HEAD: Normocephalic. EYES: Normal reaction of pupils, equal size. NOSE: Clear with pink turbinates. THROAT: No erythema or exudates. NECK: No masses, no JVD. CHEST: No chest wall deformity. LUNGS: Equal air entry with no crackles, wheeze, rhonchi or dullness. There is diminished breath sounds at lung bases especially in the right lung base CVS: S1 and S2 normal with no audible murmur, regular rhythm. The patient diminished pulses in lower extremities bilaterally. She is quite cold and cl mckinley. ABDOMEN: No hepatosplenomegaly, normal bowel sounds, no guarding or rigidity. The patient has minimal tenderness in her left lower quadrant. There is also minimal tenderness in the left flank area. SPINE: No scoliosis or deformity SKIN: No rashes CENTRAL NERVOUS SYSTEM: No focal deficits, tone is normal in all 4 extremities. EXTREMITIES: There is increase in peripheral edema bilaterally. No clubbing, no cyanosis. Peripheral pulses are are diminished bilaterally. - Labs CBC & Chem 7: 04/19/19 03:10 04/19/19 03:10 Labs: Abnormal Lab Results - Last 24 Hours (Table) 04/18/19 04/18/19 04/18/19 Range/Units 14:05 16:06 18:05 RBC (3.80-5.40) m/uL Hgb (11.4-16.0) gm/dL Hct (34.0-46.0) % RDW (11.5-15.5) % Plt Count (150-450) k/uL PT (9.0-12.0) sec INR (<1.2) Sodium (137-145) mmol/L Carbon Dioxide (22-30) mmol/L BUN (7-17) mg/dL Creatinine (0.52-1.04) mg/dL Glucose (74-99) mg/dL POC Glucose (mg/dL) 129 H (75-99) mg/dL Plasma Lactic Acid Reji 7.2 H* (0.7-2.0) mmol/L Calcium (8.4-10.2) mg/dL Magnesium 1.5 L (1.6-2.3) mg/dL Total Bilirubin (0.2-1.3) mg/dL AST (14-36) U/L ALT (9-52) U/L Alkaline Phosphatase (38-126) U/L Total Protein (6.3-8.2) g/dL Albumin (3.5-5.0) g/dL 04/18/19 04/18/19 04/19/19 Range/Units 20:13 22:00 03:10 RBC 3.43 L (3.80-5.40) m/uL Hgb 10.5 L (11.4-16.0) gm/dL Hct 32.1 L (34.0-46.0) % RDW 16.1 H (11.5-15.5) % Plt Count 25 L (150-450) k/uL PT (9.0-12.0) sec INR (<1.2) Sodium (137-145) mmol/L Carbon Dioxide (22-30) mmol/L BUN (7-17) mg/dL Creatinine (0.52-1.04) mg/dL Glucose (74-99) mg/dL POC Glucose (mg/dL) 157 H (75-99) mg/dL Plasma Lactic Acid Reji 6.0 H* (0.7-2.0) mmol/L Calcium (8.4-10.2) mg/dL Magnesium (1.6-2.3) mg/dL Total Bilirubin (0.2-1.3) mg/dL AST (14-36) U/L ALT (9-52) U/L Alkaline Phosphatase (38-126) U/L Total Protein (6.3-8.2) g/dL Albumin (3.5-5.0) g/dL 04/19/19 04/19/19 04/19/19 Range/Units 03:10 03:10 03:10 RBC (3.80-5.40) m/uL Hgb (11.4-16.0) gm/dL Hct (34.0-46.0) % RDW (11.5-15.5) % Plt Count (150-450) k/uL PT 13.3 H (9.0-12.0) sec INR 1.3 H (<1.2) Sodium 135 L (137-145) mmol/L Carbon Dioxide 16 L (22-30) mmol/L BUN 33 H (7-17) mg/dL Creatinine 2.11 H (0.52-1.04) mg/dL Glucose 244 H (74-99) mg/dL POC Glucose (mg/dL) (75-99) mg/dL Plasma Lactic Acid Reji 4.8 H* (0.7-2.0) mmol/L Calcium 6.0 L* (8.4-10.2) mg/dL Magnesium (1.6-2.3) mg/dL Total Bilirubin 3.0 H (0.2-1.3) mg/dL AST 3371 H (14-36) U/L ALT 1724 H (9-52) U/L Alkaline Phosphatase 133 H (38-126) U/L Total Protein 4.8 L (6.3-8.2) g/dL Albumin 2.4 L (3.5-5.0) g/dL 04/19/19 04/19/19 Range/Units 07:00 11:57 RBC (3.80-5.40) m/uL Hgb (11.4-16.0) gm/dL Hct (34.0-46.0) % RDW (11.5-15.5) % Plt Count (150-450) k/uL PT (9.0-12.0) sec INR (<1.2) Sodium (137-145) mmol/L Carbon Dioxide (22-30) mmol/L BUN (7-17) mg/dL Creatinine (0.52-1.04) mg/dL Glucose (74-99) mg/dL POC Glucose (mg/dL) 289 H 317 H (75-99) mg/dL Plasma Lactic Acid Reji (0.7-2.0) mmol/L Calcium (8.4-10.2) mg/dL Magnesium (1.6-2.3) mg/dL Total Bilirubin (0.2-1.3) mg/dL AST (14-36) U/L ALT (9-52) U/L Alkaline Phosphatase (38-126) U/L Total Protein (6.3-8.2) g/dL Albumin (3.5-5.0) g/dL Microbiology - Last 24 Hours (Table) 04/17/19 15:02 Blood Culture Gram Stain - Final Blood Blood Culture - Final Escherichia coli 04/17/19 13:10 Urine Culture - Final Urine,Voided Assessment and Plan Plan: #1 septic shock which is still suspected to be related to an underlying urinary source. The patient has E. coli in the blood and the patient was switched to 2 g of Rocephin. Hemodynamically improved. Aggressively resuscitated IV fluids. Currently off pressors. #2 septic shock with secondary to above. #3 Febrile illness secondary to above. #4 Tachycardia secondary to above, improving #5 Thrombocytopenia, suspect consumption, with a mild DIC type of picture #6 Acute renal failure, secondary to above. There is also component of hydroureter and hydronephrosis without evidence of any kidney stones. Non oliguric renal failure the patient's creatinine is at 2.1 #7 Recent diagnosis of diabetes mellitus. The patient was started on Levemir 10 units on a daily basis along with a scale #8 Chronic and ongoing tobacco dependence. #9 Daily alcohol use. #10 severe anion gap metabolic acidosis, improving #11 lactic acidosis, improving #12 abnormal LFTs, consider shock liver secondary to sepsis/hypotension, improving Plan The patient is looking better. Continue IV antibiotics and switch to 2 g of Rocephin. No pressors for now. Continue IV fluids. Monitor LFTs. Monitor renal function. Monitor platelet count. Monitor metabolic acidosis. No pressors for now. Blood sugar should be under better control with initiation of Levemir. Continue bicarbonate infusion for 24 hours. We'll continue to follow. The patient will be kept in ICU. Use incentive spirometer. Deep breathing. Repeat chest x-ray in the morning. We'll follow.
[2019-04-19] MEDS: NICOTINE 21MG/24HR PATCH TRANSDERM SCH (15:34)
--- NOTE | 2019-04-19 16:12 | P.PN ---
Subjective Progress Note Date: 04/19/19 (Delayed charting Patient seen at 10 am) Principal diagnosis: fatigue, nausea, or vomiting Patient is a 43-year-old female with no significant past medical history who presented to the ER with complaints of vomiting, diarrhea, and fatigue. She initially was seen in the ER on 04/15/19 for left sided back pain and flank pain. She is on have a urinary tract infection was started on Levaquin. She also was found to have left-sided hydronephrosis with hydroureter possibly related to past don't. It appears that the patient left AMA from the emergency department. On arrival to the emergency department on 04/17 she was found have a heart rate of 140 and a blood pressure of 82/56. Laboratory analysis showed no white blood cell count or platelet count of 62, creatinine of 1.73, glucose 233, lactic acid of 4.7, alk phos of 313. Her urine showed many hyaline casts as well as 27 white blood cell, was nitrate positive and had large leukocyte esterase. Her acetone was negative. C. diff was negative. She underwent a repeat CT abdomen and pelvis which were fatty infiltration of the liver with new minimal subsegmental atelectasis and interstitial infiltrate at the lung bases, mild ascites, mild left-sided hydronephrosis with hydroureter as well as left-sided perinephric edema. She was started on broad-spectrum antibiotics and IV fluids. Her blood pressure remained low and she required norepinephrine. She was subsequently admitted to the ICU. Critical care was consulted. On the morning after admission she had an elevated creatinine of 1.69 as well as an elevated potassium of 5.7. She continued to be significantly acidotic. She was given 2 amps of bicarbonate and started on a sodium bicarbonate drip. She was also found to have elevated liver enzymes. Her levophed was able to be weaned on 04/18/19. She was found to have E coli bacteremia and antibiotics transitioned to rocephin. ID was consulted. Her platelets continued to decrease. Her Cr continued to worsen but liver enzymes started to improve. Her HgB dropped likely due to aggressive fluid resuscitation. Her vomiting resolved on 04/18 and she was started on a diet on 04/19. Patient seen and examined at bedside. No chest pain, SOB, nause or vomiting. Diarrhea had decreased. No abdominal pain. Fatigue is getting better. Objective - Vital Signs Vital signs: Vital Signs Temp 97.6 F 04/19/19 12:00 Pulse 109 H 04/19/19 15:00 Resp 12 04/19/19 15:00 BP 100/75 04/19/19 15:00 Pulse Ox 91 L 04/19/19 14:00 Intake & Output 04/18/19 04/19/19 04/19/19 18:59 06:59 18:59 Intake Total 3301.903 2110 1850 Output Total 119 270 255 Balance 3182.903 1840 1595 Weight 72.7 kg 82.2 kg Intake: IV 2830 2110 1650 Calcium Gluconate 2 gm In 100 100 Sodium Chloride 0.9% 100 ml @ 100 mls/hr IVPB ONCE ONE Rx#:[id number] Piperacillin-Tazobactam 3 100 100 .375 gm In Sodium Chloride 0.9% 100 ml @ 25 mls/hr IVPB Q8HR [facility] Rx# :[id number] Sodium Chloride 0.9% 1, 10 000 ml @ 999 mls/hr IV . Q1H1M ONE Rx#:[id number] Sodium Chloride 0.9% 10ml 50 10 80 hr Sodium Chloride 0.9% 500 1020 500 ml 500 ml @ 1000 mls/hr IV Q35M [facility] Rx#:[id number] bicarb 1550 1600 1320 cefTRIAXone 2 gm In 50 Sodium Chloride 0.9% 50 ml @ 100 mls/hr IVPB Q24HR [facility] Rx#:[id number] Intake, IV Titration 271.903 Amount Norepinephrine 4 mg In 271.903 Sodium Chloride 0.9% 250 ml @ 0.05 MCG/KG/MIN 12. 097 mls/hr IV .Q21H [facility] Rx#:[id number] Oral 100 200 Blood Product 100 Output: Urine 118 270 255 Stool 1 Other: Voiding Method Indwelling Catheter Indwelling Catheter Indwelling Catheter # Bowel Movements 1 - Exam General: ill-appearing, no distress, actively vomiting, appears at stated age Derm: warm, dry Head: atraumatic, normocephalic, symmetric Eyes: EOMI, no lid lag, anicteric sclera Mouth: no lip lesion, mucous membranes dry Cardiovascular: S1S2 tachycardia, no murmur, positive posterior tibial pulse bilateral, Lungs: decreased breath sounds bilateral, no rhonchi, no rales , no accessory muscle use Abdominal: soft, nontender to palpation, no guarding, no appreciable organomegaly Ext: no gross muscle atrophy, 1+ edema, no contractures Neuro: CN II-XI grossly intact, no focal neuro deficits Psych: Alert, oriented, appropriate affect - Labs CBC & Chem 7: 04/19/19 03:10 04/19/19 03:10 Labs: Abnormal Lab Results - Last 24 Hours (Table) 04/18/19 04/18/19 04/18/19 Range/Units 14:05 16:06 18:05 RBC (3.80-5.40) m/uL Hgb (11.4-16.0) gm/dL Hct (34.0-46.0) % RDW (11.5-15.5) % Plt Count (150-450) k/uL PT (9.0-12.0) sec INR (<1.2) Sodium (137-145) mmol/L Carbon Dioxide (22-30) mmol/L BUN (7-17) mg/dL Creatinine (0.52-1.04) mg/dL Glucose (74-99) mg/dL POC Glucose (mg/dL) 129 H (75-99) mg/dL Plasma Lactic Acid Reji 7.2 H* (0.7-2.0) mmol/L Calcium (8.4-10.2) mg/dL Magnesium 1.5 L (1.6-2.3) mg/dL Total Bilirubin (0.2-1.3) mg/dL AST (14-36) U/L ALT (9-52) U/L Alkaline Phosphatase (38-126) U/L Total Protein (6.3-8.2) g/dL Albumin (3.5-5.0) g/dL 04/18/19 04/18/19 04/19/19 Range/Units 20:13 22:00 03:10 RBC 3.43 L (3.80-5.40) m/uL Hgb 10.5 L (11.4-16.0) gm/dL Hct 32.1 L (34.0-46.0) % RDW 16.1 H (11.5-15.5) % Plt Count 25 L (150-450) k/uL PT (9.0-12.0) sec INR (<1.2) Sodium (137-145) mmol/L Carbon Dioxide (22-30) mmol/L BUN (7-17) mg/dL Creatinine (0.52-1.04) mg/dL Glucose (74-99) mg/dL POC Glucose (mg/dL) 157 H (75-99) mg/dL Plasma Lactic Acid Reji 6.0 H* (0.7-2.0) mmol/L Calcium (8.4-10.2) mg/dL Magnesium (1.6-2.3) mg/dL Total Bilirubin (0.2-1.3) mg/dL AST (14-36) U/L ALT (9-52) U/L Alkaline Phosphatase (38-126) U/L Total Protein (6.3-8.2) g/dL Albumin (3.5-5.0) g/dL 04/19/19 04/19/19 04/19/19 Range/Units 03:10 03:10 03:10 RBC (3.80-5.40) m/uL Hgb (11.4-16.0) gm/dL Hct (34.0-46.0) % RDW (11.5-15.5) % Plt Count (150-450) k/uL PT 13.3 H (9.0-12.0) sec INR 1.3 H (<1.2) Sodium 135 L (137-145) mmol/L Carbon Dioxide 16 L (22-30) mmol/L BUN 33 H (7-17) mg/dL Creatinine 2.11 H (0.52-1.04) mg/dL Glucose 244 H (74-99) mg/dL POC Glucose (mg/dL) (75-99) mg/dL Plasma Lactic Acid Reji 4.8 H* (0.7-2.0) mmol/L Calcium 6.0 L* (8.4-10.2) mg/dL Magnesium (1.6-2.3) mg/dL Total Bilirubin 3.0 H (0.2-1.3) mg/dL AST 3371 H (14-36) U/L ALT 1724 H (9-52) U/L Alkaline Phosphatase 133 H (38-126) U/L Total Protein 4.8 L (6.3-8.2) g/dL Albumin 2.4 L (3.5-5.0) g/dL 04/19/19 04/19/19 Range/Units 07:00 11:57 RBC (3.80-5.40) m/uL Hgb (11.4-16.0) gm/dL Hct (34.0-46.0) % RDW (11.5-15.5) % Plt Count (150-450) k/uL PT (9.0-12.0) sec INR (<1.2) Sodium (137-145) mmol/L Carbon Dioxide (22-30) mmol/L BUN (7-17) mg/dL Creatinine (0.52-1.04) mg/dL Glucose (74-99) mg/dL POC Glucose (mg/dL) 289 H 317 H (75-99) mg/dL Plasma Lactic Acid Reji (0.7-2.0) mmol/L Calcium (8.4-10.2) mg/dL Magnesium (1.6-2.3) mg/dL Total Bilirubin (0.2-1.3) mg/dL AST (14-36) U/L ALT (9-52) U/L Alkaline Phosphatase (38-126) U/L Total Protein (6.3-8.2) g/dL Albumin (3.5-5.0) g/dL Microbiology - Last 24 Hours (Table) 04/17/19 15:02 Blood Culture Gram Stain - Final Blood Blood Culture - Final Escherichia coli 04/17/19 13:10 Urine Culture - Final Urine,Voided Assessment and Plan Assessment: Pyelonephritis with hydronephrosis, E. coli bacteremia, and septic shock, present on admission, not catheter associated -Rocephin -IV fluids -Await urine culture -Blood cultures with E. 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 New onset diabetes with A1C 10.5 -Continue with sliding scale insulin add levemir - follow BS - Hold oral metformin - consult conservation educator, no insurance will start orals on discharge and will need free meter. Hyperkalemia, resolved DVT prophylaxis: Heparin Discussed with: Patient, family, nursing Anticipated discharge: 3-[address]: home A total of 35 minutes was spent on the care of this complex patient more than 50% of the time was spent in counseling and care coordination.
[2019-04-19 17:30] LABS: Glucose,Whole Blood 325 mg/dL (75-99)
[2019-04-19] MEDS ORDERED: INSULIN ASPART (NovoLOG) 100 UNIT/ML VIAL SQ ONE (18:19)
[2019-04-19 20:39] LABS: Glucose,Whole Blood 283 mg/dL (75-99)
[2019-04-19 21:29] LABS: Magnesium 1.8 mg/dL (1.6-2.3); Potassium 2.8 mmol/L (3.5-5.1)
[2019-04-19 22:17] LABS: Calcium 6.2 mg/dL (8.4-10.2)
--- NOTE | 2019-04-19 22:23 | P.CON ---
Consult Note - . Consult date: 04/19/19 Assessment/Plan:: This is a 43-year-old female presented initially to [facility] emergency center on April 15 and was diagnosed with UTI and new diagnosis of diabetes and placed on metformin as well as Levaquin. She had presented with a fever of 102.9, tachycardia up to 1:30, blood pressure elevated. She did have a normal white count at that time but no platelet count was 142, blood sugar was 326, CO2 17. Urinalysis was clear leukoesterase moderate, wbc's 30. HCG not detected. CAT scan of the abdomen and pelvis without contrast showed a left- sided hydronephrosis and hydroureter could be related to recently passed stone. No definite ureteral calculus seen. Fatty infiltration of the liver. Patient was discharged home although it she was encouraged to stay in the hospital but she refused. She says currently developed nausea and vomiting and returned to [facility] emergency center on April 17. The patient was again tachycardic up to 140 with a blood pressure of 82/56. Patient was started on IV fluids and blood culture was ordered and patient was started on Zosyn. Repeat lab work revealed a normal white count of 5.2, platelet count of 62, CO2 16, BUN 20, creatinine 1.73, blood sugar 233. A repeat urinalysis was dark brown, turbid, blood moderate, nitrate positive, leukoesterase large, squamous cells 45. Chest x-ray showed no acute process. Patient was admitted into the intensive care unit for septic shock, UTI, hyperglycemia and thrombocytopenia and started on norepinephrine. Patient has had a significant rise in liver function tests with today's value of total bilirubin 3, AST 3371, ALT 1724, alkaline phosphatase 133. LDH came back 13,555, albumin 2.4. C. difficile toxin was negative. Acute hepatitis panel negative. Urine culture was not obtained on her initial ER visit on April 15. Urine culture from April 17 is been finalized with contamination. Blood culture is positive for E. coli and sensitivity is pending. Patient remains in the intensive care unit. She is off vasopressor. She states she feels better from yesterday. Pain is gone but she continues to have some nausea and vomiting. Patient is followed by Dr. Lomas for intensive care management and Dr. Sunshine for the mild left hydronephrosis probably secondary to passed ureteral calculus. No plan for any surgical interventions and continue IV antibiotics. Patient may need cystoscopy to rule out intravesical pathology as an outpatient. Dr. Brooks is following for acute kidney injury secondary to ATN secondary to hypotension nonsteroidals and sepsis along with hyperkalemia and metabolic acidosis. Patient is currently on a bicarb drip. Patient denies having any urinary tract infection in the past. Please see the consult note as dictated by nurse practitioner Mrs. Arlin Andrade. 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 Presents to Hospital acutely ill with evidence of sepsis with evidence of the elevated lactic acid and source of infection from her urinary system with left-sided hydronephrosis and possible recently passed stone. As noted she has evidence the markedly elevated AST ALT and LDH. Gram-negative bacilli are found in the blood culture in with a significant thrombocytopenia antibiotic therapy is transitioned from piperacillin tazobactam to Rocephin. The sepsis is likely generating the significant thrombocytopenia is likely worsened by the piperacillin effect. There is concerns that her gallbladder is somewhat abnormal and this is discussed with the hospitalist and HIDA scan is requested. If this is markedly abnormal will consider some further alteration of antibiotic therapy. Fortunately the patient is having some improvement after her resuscitation. I with evaluation, assessment and plan as dictated by nurse practitioner Mrs. Arlin Andrade.
[2019-04-19] MEDS ORDERED: POTASSIUM CHLORIDE ER 20 MEQ TAB.ER PO STA (22:48)
[2019-04-19] MEDS ORDERED: CALCIUM GLUCONATE 1 GM in SODIUM CHLORIDE 0.9% 100 ML IVPB ONE (22:50)
[2019-04-19] MEDS: SODIUM CHLORIDE 0.9% 1,000 ML IV SCH (23:04)
[2019-04-20] MEDS: MORPHINE SULFATE 4 MG/ML SYRINGE IVP PRN (02:21)
[2019-04-20] MEDS: ONDANSETRON 4 MG/2 ML VIAL IVP PRN ×2 (02:23→11:04)
[2019-04-20 05:59] LABS: Basophils % (A) 0 %; Eosinophils # (A) 0.1 k/uL (0-0.7); Eosinophils % (A) 1 %; HCT 32.9 % (34.0-46.0); Lymphocytes # (A) 1.4 k/uL (1.0-4.8); Lymphocytes % (A) 15 %; MCH 30.2 pg (25.0-35.0); MCHC 33.3 g/dL (31.0-37.0); MCV 90.6 fL (80.0-100.0); Mean Platelet Volume 13.4; Monocytes # (A) 0.4 k/uL (0-1.0); Monocytes % (A) 5 %; Neutrophils # (A) 6.8 k/uL (1.3-7.7); Neutrophils % (A) 76 %; RBC 3.63 m/uL (3.80-5.40); RDW 15.5 % (11.5-15.5); WBC 8.9 k/uL (3.8-10.6)
[2019-04-20] MEDS: NOREPINEPHRINE 4 MG in SODIUM CHLORIDE 0.9% 250 ML IV SCH (06:00)
[2019-04-20 06:04] LABS: Platelet Count 25 k/uL (150-450)
[2019-04-20 06:12] LABS: Calcium 6.6 mg/dL (8.4-10.2); Magnesium 1.9 mg/dL (1.6-2.3); Potassium 3.4 mmol/L (3.5-5.1)
[2019-04-20] MEDS: INSULIN ASPART (NovoLOG) 100 UNIT/ML VIAL SQ SCH ×4 (06:59→21:05)
[2019-04-20 07:06] LABS: Glucose,Whole Blood 165 mg/dL (75-99)
[2019-04-20] MEDS: INSULIN DETEMIR (LEVEMIR) 100 UNIT/ML SYR SQ SCH (07:15)
[2019-04-20 08:06] LABS: Total Bilirubin 4.6 mg/dL (0.2-1.3)
[2019-04-20] MEDS: HEPARIN SODIUM,PORCINE 5,000 UNIT/ML 1 ML VIAL SQ SCH ×3 (08:48→19:51)
[2019-04-20] MEDS: NICOTINE 21MG/24HR PATCH TRANSDERM SCH (08:54)
[2019-04-20] MEDS: PANTOPRAZOLE 40 MG/10 ML VIAL IV SCH (08:54)
[2019-04-20] MEDS: SODIUM CHLORIDE 0.9% 1,000 ML IV SCH ×2 (08:55→20:00)
[2019-04-20] MEDS ORDERED: FUROSEMIDE 10 MG/ML 4 ML VIAL IV STA (10:18)
--- NOTE | 2019-04-20 10:40 | P.PN ---
Subjective Progress Note Date: 04/20/19 This a very pleasant 43-year-old female patient with a history of chronic and ongoing tobacco dependence, daily alcohol use. She was recently or in the emergency room diagnosed with a urinary tract infection and found to have elevated blood sugars. She was initiated on Levaquin and metformin on 2018. Computed tomography scan of the abdomen and pelvis at that time revealed a left-sided hydronephrosis and hydroureter with suspected recently passed stone. No definite ureteral calculus seen. Fatty infiltrate of the liver. She returned to the emergency room today with complaints of abdominal discomfort and nausea and vomiting. Chest x-ray shows no acute pulmonary process. Results revealed WBC 5.2. Hemoglobin 14.2. Platelet count 62,000. Creatinine 1.73. Bicarb 16. Lactic acid 4.7. Alk phos 313. Urine is turbid and dark brown with 2+ protein, positive nitrates and large WBCs. Acetone negative. Temperature 99.5 she is tachycardic in the 120s. Blood pressure 101/70. 100% O2 on room air. Follow-up lactic tone to 3.4. She has received 3 L of fluid resuscitation. Initiated on Zosyn. Requiring norepinephrine at 0.1 mcg/kg/m. She is seen today in consultation upon arrival in the intensive care unit. She is currently awake and alert in no acute distress. She does have some residual left-sided flank pain. On 04/18/2019 the patient remains critically ill. I was concerned of an ongoing urine checked infection. I saw the patient ICU yesterday and I covered her with IV Zosyn. Cultures were sent. A repeat CAT scan of the abdomen was done along with the CAT scan of the pelvis without contrast. This was done utilizing the stone protocol. There was fatty infiltration of the liver. There was new minimal segment V changes in the lung bases bilaterally. There was a new mild ascites compared to the previous film and there was a mild left-sided hydronephrosis and hydroureter that was unchanged compared to the previous evaluation and a previous CAT scan that was done on 04/15/2019. There was no ureteric calculus seen. There was left-sided perinephric mild edema that remains unchanged. Overnight the patient continued to be hypotensive. She is still pressor dependent. She has developed worsening in acidosis. Serum bicarbonate this morning is down to 7. Lactic acid level peaked at 6.8 is currently down to 4.6. The patient was given additional liter of IV fluids and she has been more than 5 L positive over the past 24 hours. The UA was noted. Blood cultures of been sent. Urine cultures of been sent. She is developing a shock liver picture with elevation in the AST and ALP. Her creatinine is still abnormal with a creatinine level of 1.69. There is no further drop in the platelet count down to 1 and the patient's white cell count is at 10.4 with significant bandemia. As such the patient is still quite septic. Clinically she is cold and clammy with diminished pulses in all 4 extremities. She remains tachycardic and she is in sinus tachycardia with a heart rate of 120. She is still having some pain/tenderness in the left lower quadrant/left flank area. test from 2 days ago was within normal limits. On 04/19/2019 the patient is still being seen on a follow-up. The patient is slightly better compared to yesterday. Patient this morning is awake and alert. The patient is off pressors. The blood culture came back positive for E. coli and the patient was switched to 2 g of Rocephin. She is producing adequate amount of urine output. She was seen by urology regarding the hydronephrosis and hydroureter. The advice was to do an outpatient cystoscopy at a later stage. Otherwise, the patient's metabolic acidosis improving. The serum bicarb is up to 16. She still has gap of 17. She has a lower lactic acid level of 4.8. She is in a shock liver and the LFTs are gradually improving. The patient has developed some increased edema both in upper and lower extremities as the patient is been aggressively resuscitated IV fluids. Total protein is lower at 4.8 with an albumin of 2.4. Glucose at 317 on today's evaluation. As for the platelet counts, it is up to 25 and the patient has a mild component of DIC with some mild coagulopathy. Creatinine is up to 2.1 and the patient has a net fluid balance of +5 L for yesterday and 3.7 L 4 the day before. On 04/20/2019 I'm seeing this patient for a follow-up in the intensive care unit. The patient is looking well. She is able to sit up on a chair. She is hemodynamically stable. She is on IV Rocephin regarding the E. coli septicemia. Abdominal pain is pretty much subsided. There is a concern for cholecystitis and a HIDA scan will be ordered within next 24 hours. LFTs are essentially improving. She is developing some increased edema in the upper and lower extremities. She'll be given a dose of Lasix on today's evaluation. The patient otherwise is doing well. No altered mentation. Platelet counts are still low. She shows no signs of any bleeding. She is afebrile. She is hemodynamically stable. Kidney function is improving and the creatinine is down to 1.85. Patient was taken off the bicarb drip and the patient was restrained normal state rate of 100 mL an hour. She was also placed on today's of oxygen by nasal cannula to maintain a saturation above 90%. Objective - Vital Signs Vital signs: Vital Signs Temp 98.2 F 04/20/19 08:00 Pulse 99 04/20/19 09:00 Resp 18 04/20/19 09:00 BP 106/69 04/20/19 09:00 Pulse Ox 92 L 04/20/19 09:00 Intake & Output 04/19/19 04/20/19 04/20/19 18:59 06:59 18:59 Intake Total 2320 1450 350 Output Total 320 245 65 Balance 2000 1205 285 Weight 84.4 kg Intake: IV 2120 1350 350 0.9 @100 900 300 Calcium Gluconate 2 gm In 100 Sodium Chloride 0.9% 100 ml @ 100 mls/hr IVPB ONCE ONE Rx#:[id number] Piperacillin-Tazobactam 3 100 .375 gm In Sodium Chloride 0.9% 100 ml @ 25 mls/hr IVPB Q8HR [facility] Rx# :[id number] Sodium Chloride 0.9% 10ml 100 hr bicarb 1770 450 cefTRIAXone 2 gm In 50 50 Sodium Chloride 0.9% 50 ml @ 100 mls/hr IVPB Q24HR [facility] Rx#:[id number] Oral 200 100 Output: Urine 320 245 65 Other: Voiding Method Indwelling Catheter Indwelling Catheter Indwelling Catheter - Exam GENERAL EXAM: Alert, pleasant 43-year-old female patient, fairly comfortable in no apparent distress. On room air. The patient is awake and alert and following commands and answering questions appropriately. HEAD: Normocephalic. EYES: Normal reaction of pupils, equal size. NOSE: Clear with pink turbinates. THROAT: No erythema or exudates. NECK: No masses, no JVD. CHEST: No chest wall deformity. LUNGS: Equal air entry with no crackles, wheeze, rhonchi or dullness. There is diminished breath sounds at lung bases especially in the right lung base CVS: S1 and S2 normal with no audible murmur, regular rhythm. The patient diminished pulses in lower extremities bilaterally. She is quite cold and clammy. ABDOMEN: No hepatosplenomegaly, normal bowel sounds, no guarding or rigidity. The patient has minimal tenderness in her left lower quadrant. There is also minimal tenderness in the left flank area. SPINE: No scoliosis or deformity SKIN: No rashes CENTRAL NERVOUS SYSTEM: No focal deficits, tone is normal in all 4 extremities. EXTREMITIES: There is increase in peripheral edema bilaterally. No clubbing, no cyanosis. Peripheral pulses are are diminished bilaterally. - Labs CBC & Chem 7: 04/20/19 05:44 04/20/19 05:44 Labs: Abnormal Lab Results - Last 24 Hours (Table) 04/19/19 04/19/19 04/19/19 Range/Units 11:57 17:18 20:23 RBC (3.80-5.40) m/uL Hgb (11.4-16.0) gm/dL Hct (34.0-46.0) % Plt Count (150-450) k/uL Sodium 131 L (137-145) mmol/L Potassium 2.8 L (3.5-5.1) mmol/L Chloride 95 L (98-107) mmol/L BUN 33 H (7-17) mg/dL Creatinine 1.96 H (0.52-1.04) mg/dL Glucose 275 H (74-99) mg/dL POC Glucose (mg/dL) 317 H 325 H (75-99) mg/dL Calcium 6.2 L* (8.4-10.2) mg/dL Total Bilirubin (0.2-1.3) mg/dL AST (14-36) U/L ALT (9-52) U/L Alkaline Phosphatase (38-126) U/L 04/19/19 04/20/19 04/20/19 Range/Units 20:28 05:44 05:44 RBC 3.63 L (3.80-5.40) m/uL Hgb 11.0 L (11.4-16.0) gm/dL Hct 32.9 L (34.0-46.0) % Plt Count 25 L (150-450) k/uL Sodium 134 L (137-145) mmol/L Potassium 3.4 L (3.5-5.1) mmol/L Chloride (98-107) mmol/L BUN 31 H (7-17) mg/dL Creatinine 1.85 H (0.52-1.04) mg/dL Glucose 160 H (74-99) mg/dL POC Glucose (mg/dL) 283 H (75-99) mg/dL Calcium 6.6 L (8.4-10.2) mg/dL Total Bilirubin (0.2-1.3) mg/dL AST (14-36) U/L ALT (9-52) U/L Alkaline Phosphatase (38-126) U/L 04/20/19 04/20/19 Range/Units 05:45 06:56 RBC (3.80-5.40) m/uL Hgb (11.4-16.0) gm/dL Hct (34.0-46.0) % Plt Count (150-450) k/uL Sodium (137-145) mmol/L Potassium (3.5-5.1) mmol/L Chloride (98-107) mmol/L BUN (7-17) mg/dL Creatinine (0.52-1.04) mg/dL Glucose (74-99) mg/dL POC Glucose (mg/dL) 165 H (75-99) mg/dL Calcium (8.4-10.2) mg/dL Total Bilirubin 4.6 H (0.2-1.3) mg/dL AST 1224 H (14-36) U/L ALT 1209 H (9-52) U/L Alkaline Phosphatase 131 H (38-126) U/L Microbiology - Last 24 Hours (Table) 04/17/19 15:02 Blood Culture Gram Stain - Final Blood Blood Culture - Final Escherichia coli Assessment and Plan Plan: #1 septic shock which is still suspected to be related to an underlying urinary source. The patient has E. coli in the blood and the patient was switched to 2 g of Rocephin. Hemodynamically improved. Aggressively resuscitated IV fluids. Currently off pressors. There is concern of acute cholecystitis based on the previous imaging and a HIDA scan has been ordered. #2 septic shock with secondary to above. The patient is currently hemodynamically stable. #3 Febrile illness secondary to above. #4 Tachycardia secondary to above, improving #5 Thrombocytopenia, suspect consumption, with a mild DIC type of picture. The platelet count is stable for now. #6 Acute renal failure, secondary to above. There is also component of hydroureter and hydronephrosis without evidence of any kidney stones. Nonoliguric renal failure the patient's creatinine is improving for now. #7 Recent diagnosis of diabetes mellitus. The patient was started on Levemir 10 units on a daily basis along with a scale #8 Chronic and ongoing tobacco dependence. #9 Daily alcohol use. #10 severe anion gap metabolic acidosis, improving #11 lactic acidosis, improving #12 abnormal LFTs, consider shock liver secondary to sepsis/hypotension, improving Plan Continue IV Rocephin. Switch this patient to a normal saline infusion. Stop the bicarb infusion. Proceed with a HIDA scan. Given a dose of Lasix 40 mg IV push. Continue normal saline infusion. Keep the patient ICU for 24 hours. Diabetic education. She is on Levemir 10 units along with ascites Coverage. ID is on the case. We'll follow.
[2019-04-20] MEDS ORDERED: POTASSIUM CHLORIDE ER 10 MEQ TAB.ER.PRT PO STA (11:27)
[2019-04-20 12:10] LABS: Glucose,Whole Blood 135 mg/dL (75-99)
--- NOTE | 2019-04-20 16:37 | PN ---
PROGRESS NOTE Patient is seen for followup for acute kidney injury. She has had good urine output, which is now at about 40 to 70 mL/hour. Patient received IV Lasix this morning. She is maintained on IV fluids at about 150 mL/hour. IV bicarb was discontinued yesterday and currently she is on normal saline. Overall, patient states she is feeling slightly better today. On examination this morning, blood pressure was 104/72, heart rate 101 per minute. She is afebrile. EXAMINATION OF THE HEART: S1 and S2. EXAMINATION OF LUNGS: Bilateral breath sounds are heard. ABDOMEN: Soft, non-tender. Examination of lower extremities shows edema 1+, upper and lower extremities. PIPE CHANGER exam is grossly intact. Labs show sodium 134, potassium 3.4, chloride 98, BUN 31, serum creatinine 1.85. ALT 1209, AST 1224, which is decreasing. Hemoglobin of 11.0 g/dL. ASSESSMENT: 1. Acute kidney injury, acute tubular necrosis, slowly improving. 2. Hypokalemia, status post cautious replacement, slightly improved today. Will replace again cautiously. 3. Metabolic acidosis, currently resolved. Patient is off of bicarb. 4. Third spacing and interstitial edema, status post IV Lasix today. We will likely repeat another dose of Lasix in a.m. I will also decrease the IV fluids. Patient is encouraged to increase oral intake as well. 5. Hypocalcemia with severe nutrition vitamin D deficiency. Start patient on vitamin D supplementation. PLAN: Start vitamin D. Decrease IV fluids. Agree with Lasix. Repeat labs in a.m. Continue to avoid nephrotoxic agents. MMODL / IJN: [id number] /
[2019-04-20 17:08] LABS: Glucose,Whole Blood 148 mg/dL (75-99)
--- NOTE | 2019-04-20 17:16 | P.PN ---
Subjective Progress Note Date: 04/20/19 (dealyed charting patient seen at 0900) Principal diagnosis: fatigue, nausea, and vomiting Patient is a 43-year-old female with no significant past medical history who presented to the ER with complaints of vomiting, diarrhea, and fatigue. She initially was seen in the ER on 04/15/19 for left sided back pain and flank pain. She is on have a urinary tract infection was started on Levaquin. She also was found to have left-sided hydronephrosis with hydroureter possibly related to recently passed stone. It appears that the patient left AMA from the emergency department. On arrival to the emergency department on 04/17 she was found have a heart rate of 140 and a blood pressure of 82/56. Laboratory analysis showed no white blood cell count or platelet count of 62, creatinine of 1.73, glucose 233, lactic acid of 4.7, alk phos of 313. Her urine showed many hyaline casts as well as 27 white blood cell, was nitrate positive and had large leukocyte esterase. Her acetone was negative. C. diff was negative. She underwent a repeat CT abdomen and pelvis which were fatty infiltration of the liver with new minimal subsegmental atelectasis and interstitial infiltrate at the lung bases, mild ascites, mild left-sided hydronephrosis with hydroureter as well as left-sided perinephric edema. She was started on broad-spectrum antibiotics and IV fluids. Her blood pressure remained low and she required norepinephrine. She was subsequently admitted to the ICU. Critical care was consulted. On the morning after admission she had an elevated creatinine of 1.69 as well as an elevated potassium of 5.7. She continued to be significantly acidotic. She was given 2 amps of bicarbonate and started on a sodium bicarbonate drip. She was also found to have elevated liver enzymes. Her levophed was able to be weaned on 04/18/19. She was found to have E coli bacteremia and antibiotics transitioned to rocephin. ID was consulted. Her platelets continued to decrease. Her Cr continued to worsen but liver enzymes started to improve. Her HgB dropped likely due to aggressive fluid resuscitation. Her vomiting resolved on 04/18 and she was started on a diet on 04/19. She continued to slowly improve. Patient seen and examined at bedside. Feeling tired today. No nausea or vomiting. No additional diarrhea. No chest pain or shortness of breath. Having significant lower extremity edema. Objective - Vital Signs Vital signs: Vital Signs Temp 98.2 F 04/20/19 16:00 Pulse 112 H 04/20/19 16:00 Resp 24 04/20/19 16:00 BP 114/77 04/20/19 16:00 Pulse Ox 95 04/20/19 16:00 Intake & Output 04/19/19 04/20/19 04/20/19 18:59 06:59 18:59 Intake Total 2320 1450 850 Output Total 320 245 540 Balance 1999 1205 310 Weight 84.4 kg 84.4 kg Intake: IV 2120 1350 850 0.9 @60 900 800 Calcium Gluconate 2 gm In 100 Sodium Chloride 0.9% 100 ml @ 100 mls/hr IVPB ONCE ONE Rx#:[id number] Piperacillin-Tazobactam 3 100 .375 gm In Sodium Chloride 0.9% 100 ml @ 25 mls/hr IVPB Q8HR [facility] Rx# :[id number] Sodium Chloride 0.9% 10ml 100 hr bicarb 1770 450 cefTRIAXone 2 gm In 50 50 Sodium Chloride 0.9% 50 ml @ 100 mls/hr IVPB Q24HR [facility] Rx#:[id number] Oral 200 100 Output: Urine 320 245 540 Other: Voiding Method Indwelling Catheter Indwelling Catheter Indwelling Catheter - Exam General: ill-appearing, no distress, actively vomiting, appears at stated age Derm: warm, dry Head: atraumatic, normocephalic, symmetric Eyes: EOMI, no lid lag, anicteric sclera Mouth: no lip lesion, mucous membranes dry Cardiovascular: S1S2 tachycardia, no murmur, positive posterior tibial pulse bilateral, Lungs: musical wheeze bilateral base, no rhonchi, no rales , no accessory muscle use Abdominal: soft, nontender to palpation, no guarding, no appreciable organomegaly Ext: no gross muscle atrophy, 2+ edema, no contractures Neuro: CN II-XI grossly intact, no focal neuro deficits Psych: Alert, oriented, appropriate affect - Labs CBC & Chem 7: 04/20/19 05:44 04/20/19 05:44 Labs: Abnormal Lab Results - Last 24 Hours (Table) 04/19/19 04/19/19 04/19/19 Range/Units 17:18 20:23 20:28 RBC (3.80-5.40) m/uL Hgb (11.4-16.0) gm/dL Hct (34.0-46.0) % Plt Count (150-450) k/uL Sodium 131 L (137-145) mmol/L Potassium 2.8 L (3.5-5.1) mmol/L Chloride 95 L (98-107) mmol/L BUN 33 H (7-17) mg/dL Creatinine 1.96 H (0.52-1.04) mg/dL Glucose 275 H (74-99) mg/dL POC Glucose (mg/dL) 325 H 283 H (75-99) mg/dL Calcium 6.2 L* (8.4-10.2) mg/dL Total Bilirubin (0.2-1.3) mg/dL AST (14-36) U/L ALT (9-52) U/L Alkaline Phosphatase (38-126) U/L Vitamin D 25-Hydroxy (30.0-100.0) ng/mL 04/20/19 04/20/19 04/20/19 Range/Units 05:44 05:44 05:44 RBC 3.63 L (3.80-5.40) m/uL Hgb 11.0 L (11.4-16.0) gm/dL Hct 32.9 L (34.0-46.0) % Plt Count 25 L (150-450) k/uL Sodium 134 L (137-145) mmol/L Potassium 3.4 L (3.5-5.1) mmol/L Chloride (98-107) mmol/L BUN 31 H (7-17) mg/dL Creatinine 1.85 H (0.52-1.04) mg/dL Glucose 160 H (74-99) mg/dL POC Glucose (mg/dL) (75-99) mg/dL Calcium 6.6 L (8.4-10.2) mg/dL Total Bilirubin (0.2-1.3) mg/dL AST (14-36) U/L ALT (9-52) U/L Alkaline Phosphatase (38-126) U/L Vitamin D 25-Hydroxy 6.5 L (30.0-100.0) ng/mL 08/15/19 08/15/19 08/15/19 Range/Units 05:45 06:56 12:00 RBC (3.80-5.40) m/uL Hgb (11.4-16.0) gm/dL Hct (34.0-46.0) % Plt Count (150-450) k/uL Sodium (137-145) mmol/L Potassium (3.5-5.1) mmol/L Chloride (98-107) mmol/L BUN (7-17) mg/dL Creatinine (0.52-1.04) mg/dL Glucose (74-99) mg/dL POC Glucose (mg/dL) 165 H 135 H (75-99) mg/dL Calcium (8.4-10.2) mg/dL Total Bilirubin 4.6 H (0.2-1.3) mg/dL AST 1224 H (14-36) U/L ALT 1209 H (9-52) U/L Alkaline Phosphatase 131 H (38-126) U/L Vitamin D 25-Hydroxy (30.0-100.0) ng/mL Microbiology - Last 24 Hours (Table) 04/19/19 08:45 Blood Culture - Preliminary Blood No Growth after 24 hours Assessment and Plan Assessment: Pyelonephritis with hydronephrosis, E. coli bacteremia, present on admission, not catheter associated -Rocephin -IV fluids -urine culture skin js -Blood cultures with E. 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 New onset diabetes with A1C 10.5 -Continue with sliding scale insulin, levemir - follow BS - Hold oral metformin - seen by dietitian and packaging associate, given free meter Hyperkalemia, resolved septic shock, resolved DVT prophylaxis: Heparin Discussed with: Patient, Dr. Lomas, nursing Anticipated discharge: 3-[address]: home A total of 30 minutes was spent on the care of this complex patient more than 50% of the time was spent in counseling and care coordination.
[2019-04-20] MEDS ORDERED: BENZONATATE 100 MG CAP PO PRN (18:16)
[2019-04-20] MEDS: IPRATROPIUM-ALBUTEROL 3 ML NEB INHALATION PRN (19:50)
[2019-04-20 20:49] LABS: Glucose,Whole Blood 125 mg/dL (75-99)
--- NOTE | 2019-04-20 23:33 | P.PN ---
Subjective Progress Note Date: 04/20/19 This is a 43-year-old female presented initially to [facility] emergency center on April 15 and was diagnosed with UTI and new diagnosis of diabetes and placed on metformin as well as Levaquin. She had presented with a fever of 102.9, tachycardia up to 1:30, blood pressure elevated. She did have a normal white count at that time but no platelet count was 142, blood sugar was 326, CO2 17. Urinalysis was clear leukoesterase moderate, wbc's 30. HCG not detected. CAT scan of the abdomen and pelvis without contrast showed a left- sided hydronephrosis and hydroureter could be related to recently passed stone. No definite ureteral calculus seen. Fatty infiltration of the liver. Patient was discharged home although it she was encouraged to stay in the hospital but she refused. She says currently developed nausea and vomiting and returned to [facility] emergency center on April 17. The patient was again tachycardic up to 140 with a blood pressure of 82/56. Patient was started on IV fluids and blood culture was ordered and patient was started on Zosyn. Repeat lab work revealed a normal white count of 5.2, platelet count of 62, CO2 16, BUN 20, creatinine 1.73, blood sugar 233. A repeat urinalysis was dark brown, turbid, blood moderate, nitrate positive, leukoesterase large, squamous cells 45. Chest x-ray showed no acute process. Patient was admitted into the intensive care unit for septic shock, UTI, hyperglycemia and thrombocytopenia and started on norepinephrine. Patient has had a significant rise in liver function tests with today's value of total bilirubin 3, AST 3371, ALT 1724, alkaline phosphatase 133. LDH came back 13,555, albumin 2.4. C. difficile toxin was negative. Acute hepatitis panel negative. Urine culture was not obta ined on her initial ER visit on April 15. Urine culture from April 17 is been finalized with contamination. Blood culture is positive for E. coli and sensitivity is pending. Patient remains in the intensive care unit. She is off vasopressor. She states she feels better from yesterday. Pain is gone but she continues to have some nausea and vomiting. Patient is followed by Dr. Lomas for intensive care management and Dr. Sunshine for the mild left hydronephrosis probably secondary to passed ureteral calculus. No plan for any surgical interventions and continue IV antibiotics. Patient may need cystoscopy to rule out intravesical pathology as an outpatient. Dr. Brooks is following for acute kidney injury secondary to ATN secondary to hypotension nonsteroidals and sepsis along with hyperkalemia and metabolic acidosis. Patient is currently on a bicarb drip. Patient denies having any urinary tract infection in the past. 04/20/2019 the patient continues to feel poorly with nausea, has had about 3 bouts of the small emesis throughout the day. She's been able to eat some food. Abdominal pain seems to be improved. She is still very uncomfortable Objective - Vital Signs Vital signs: Vital Signs Temp 99.1 F 04/20/19 20:00 Pulse 104 H 04/20/19 22:00 Resp 12 04/20/19 22:00 BP 106/69 04/20/19 22:00 Pulse Ox 89 L 04/20/19 22:00 Intake & Output 04/20/19 04/20/19 04/21/19 06:59 18:59 06:59 Intake Total 1450 970 240 Output Total 245 640 145 Balance 1205 330 95 Weight 84.4 kg 84.4 kg Intake: IV 1350 970 240 0.9 @60 900 920 240 bicarb 450 cefTRIAXone 2 gm In 50 Sodium Chloride 0.9% 50 ml @ 100 mls/hr IVPB Q24HR [facility] Rx#:[id number] Oral 100 Output: Urine 245 640 145 Other: Voiding Method Indwelling Catheter Indwelling Catheter Indwelling Catheter # Voids 30 - Exam Gen: This is a obese 43-year-old female. She is resting in the ICU bed and appears somewhat uncomfortable HEENT: Head is atraumatic, normocephalic. Pupils equal, round. Sclerae is icteric today. NECK: Supple. No JVD. No lymphadenopathy. No thyromegaly. LUNGS: Clear to auscultation. No wheezes or rhonchi. No intercostal retractions. HEART: Regular rate and rhythm. No murmur. ABDOMEN: Soft. Bowel sounds are present. No masses. Generalized tenderness most severe at the epigastric area. EXTREMITIES: No pedal edema. No calf tenderness. Dorsalis pedis +2 bilaterally. NEUROLOGICAL: Patient is awake, alert and oriented x3. - Labs CBC & Chem 7: 04/20/19 05:44 04/20/19 05:44 Labs: Abnormal Lab Results - Last 24 Hours (Table) 04/20/19 04/20/19 04/20/19 Range/Units 05:44 05:44 05:44 RBC 3.63 L (3.80-5.40) m/uL Hgb 11.0 L (11.4-16.0) gm/dL Hct 32.9 L (34.0-46.0) % Plt Count 25 L (150-450) k/uL Sodium 134 L (137-145) mmol/L Potassium 3.4 L (3.5-5.1) mmol/L BUN 31 H (7-17) mg/dL Creatinine 1.85 H (0.52-1.04) mg/dL Glucose 160 H (74-99) mg/dL POC Glucose (mg/dL) (75-99) mg/dL Calcium 6.6 L (8.4-10.2) mg/dL Total Bilirubin (0.2-1.3) mg/dL AST (14-36) U/L ALT (9-52) U/L Alkaline Phosphatase (38-126) U/L Vitamin D 25-Hydroxy 6.5 L (30.0-100.0) ng/mL 04/20/19 04/20/19 04/20/19 Range/Units 05:45 06:56 12:00 RBC (3.80-5.40) m/uL Hgb (11.4-16.0) gm/dL Hct (34.0-46.0) % Plt Count (150-450) k/uL Sodium (137-145) mmol/L Potassium (3.5-5.1) mmol/L BUN (7-17) mg/dL Creatinine (0.52-1.04) mg/dL Glucose (74-99) mg/dL POC Glucose (mg/dL) 165 H 135 H (75-99) mg/dL Calcium (8.4-10.2) mg/dL Total Bilirubin 4.6 H (0.2-1.3) mg/dL AST 1224 H (14-36) U/L ALT 1209 H (9-52) U/L Alkaline Phosphatase 131 H (38-126) U/L Vitamin D 25-Hydroxy (30.0-100.0) ng/mL 04/20/19 04/20/19 Range/Units 16:57 20:38 RBC (3.80-5.40) m/uL Hgb (11.4-16.0) gm/dL Hct (34.0-46.0) % Plt Count (150-450) k/uL Sodium (137-145) mmol/L Potassium (3.5-5.1) mmol/L BUN (7-17) mg/dL Creatinine (0.52-1.04) mg/dL Glucose (74-99) mg/dL POC Glucose (mg/dL) 148 H 125 H (75-99) mg/dL Calcium (8.4-10.2) mg/dL Total Bilirubin (0.2-1.3) mg/dL AST (14-36) U/L ALT (9-52) U/L Alkaline Phosphatase (38-126) U/L Vitamin D 25-Hydroxy (30.0-100.0) ng/mL Microbiology - Last 24 Hours (Table) 04/19/19 08:45 Blood Culture - Preliminary Blood No Growth after 24 hours Assessment and Plan (1) Urinary tract infection Narrative/Plan: This 43-year-old woman has a very significant past medical history in that 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 Presents to Hospital acutely ill with evidence of sepsis with evidence of the elevated lactic acid and source of infection from her urinary system with left-sided hydronephrosis and possible recently passed stone. As noted she has evidence the markedly elevated AST ALT and LDH. Gram-negative bacilli are found in the blood culture in with a significant thrombocytopenia antibiotic therapy is transitioned from piperacillin tazobactam to Rocephin. The sepsis is likely generating the significant thrombocytopenia is likely worsened by the piperacillin effect. There is concerns that her gallbladder is somewhat abnormal and this is discussed with the hospitalist and HIDA scan is requested. If this is markedly abnormal will consider some further alteration of antibiotic therapy. Fortunately the patient is having some improvement after her resuscitation. 04/20/2018 the patient is still feeling poorly. Nausea seems to be slightly improved condition able to ingest some food. The shock liver remains problematic. Bilirubin has increased and she is not having a mild level of jaundice. The patient's sepsis is being treated with Rocephin and seems to be responding well. Liver enzymes have decreased although bilirubin is still increasing hopefully peak and started coming down soon. No other sources of sepsis are seen in the urinary system at this time. She is off vasopressor therapy. HIDA scan is to be performed to evaluate cholecystitis, it could be acalculus cholecystitis . continue Rocephin for E. coli bacteremia from kidney source. Current Visit: Yes Status: Acute Code(s): N39.0 - URINARY TRACT INFECTION, SITE NOT SPECIFIED SNOMED Code(s): 95929167 (2) Septic shock Current Visit: Yes Status: Acute Code(s): A41.9 - SEPSIS, UNSPECIFIED ORGANISM; R65.21 - SEVERE SEPSIS WITH SEPTIC SHOCK SNOMED Code(s): 33264134 (3) Sepsis with acute liver failure and septic shock without hepatic coma Current Visit: Yes Status: Acute Code(s): A41.9 - SEPSIS, UNSPECIFIED ORGANISM; R65.21 - SEVERE SEPSIS WITH SEPTIC SHOCK; K72.00 - ACUTE AND SUBACUTE HEPATIC FAILURE WITHOUT COMA SNOMED Code(s): 144890386
[2019-04-21] MEDS: NOREPINEPHRINE 4 MG in SODIUM CHLORIDE 0.9% 250 ML IV SCH (03:02)
[2019-04-21 05:24] LABS: HCT 31.8 % (34.0-46.0); HGB 10.5 gm/dL (11.4-16.0); MCH 30.2 pg (25.0-35.0); MCV 91.7 fL (80.0-100.0); Mean Platelet Volume 13.5; RBC 3.47 m/uL (3.80-5.40); RDW 15.7 % (11.5-15.5); WBC 10.1 k/uL (3.8-10.6)
[2019-04-21 05:27] LABS: Platelet Count 36 k/uL (150-450)
[2019-04-21 05:45] LABS: Albumin 2.4 g/dL (3.5-5.0); Calcium 6.7 mg/dL (8.4-10.2); Potassium 3.2 mmol/L (3.5-5.1); Total Bilirubin 7.5 mg/dL (0.2-1.3); Total Protein 5.1 g/dL (6.3-8.2)
[2019-04-21 05:57] LABS: Band Neutrophils % 3 %; Lymphocytes # (M) 2.42 k/uL (1.0-4.8); Monocytes # (M) 0.61 k/uL (0-1.0); Neutrophils % (M) 67 %; Nucleated Red Blood Cells 0 /100 WBC (0-0); Total Cells Counted 100
[2019-04-21 05:58] LABS: Large Platelets Present
[2019-04-21] MEDS ORDERED: Potassium Replacement Protocol 1 EACH MISC MISCELLANE PRN (06:44)
[2019-04-21] MEDS: INSULIN ASPART (NovoLOG) 100 UNIT/ML VIAL SQ SCH ×4 (06:48→21:54)
[2019-04-21] MEDS: INSULIN DETEMIR (LEVEMIR) 100 UNIT/ML SYR SQ SCH (06:51)
[2019-04-21] MEDS: POTASSIUM CHLORIDE 10 MEQ in WATER FOR INJECTION 1 100ML.BAG IVPB SCH ×4 (06:51→13:08)
[2019-04-21 06:59] LABS: Glucose,Whole Blood 126 mg/dL (75-99)
--- NOTE | 2019-04-21 08:17 | XR ---
EXAMINATION TYPE: XR chest 1V portable DATE OF EXAM: 04/21/2019 COMPARISON: Prior chest x-ray 04/17/2019 HISTORY: Shortness of breath TECHNIQUE: Single frontal view of the chest is obtained. FINDINGS: The heart is enlarged. There are overlying cardiac leads. There is no pneumothorax or evid ent effusion. Patient is rotated. Questionable prominence of interstitium. IMPRESSION: Suspect cardiomegaly, correlate to exclude early interstitial edema
[2019-04-21] MEDS: NICOTINE 21MG/24HR PATCH TRANSDERM SCH (08:19)
[2019-04-21] MEDS: PANTOPRAZOLE 40 MG/10 ML VIAL IV SCH (08:20)
[2019-04-21] MEDS: HEPARIN SODIUM,PORCINE 5,000 UNIT/ML 1 ML VIAL SQ SCH ×2 (08:33→17:24)
--- NOTE | 2019-04-21 09:29 | P.PN ---
Subjective Progress Note Date: 04/21/19 This a very pleasant 43-year-old female patient with a history of chronic and ongoing tobacco dependence, daily alcohol use. She was recently or in the emergency room diagnosed with a urinary tract infection and found to have elevated blood sugars. She was initiated on Levaquin and metformin on 2018. Computed tomography scan of the abdomen and pelvis at that time revealed a left-sided hydronephrosis and hydroureter with suspected recently passed stone. No definite ureteral calculus seen. Fatty infiltrate of the liver. She returned to the emergency room today with complaints of abdominal discomfort and nausea and vomiting. Chest x-ray shows no acute pulmonary process. Results revealed WBC 5.2. Hemoglobin 14.2. Platelet count 62,000. Creatinine 1.73. Bicarb 16. Lactic acid 4.7. Alk phos 313. Urine is turbid and dark brown with 2+ protein, positive nitrates and large WBCs. Acetone negative. Temperature 99.5 she is tachycardic in the 120s. Blood pressure 101/70. 100% O2 on room air. Follow-up lactic tone to 3.4. She has received 3 L of fluid resuscitation. Initiated on Zosyn. Requiring norepinephrine at 0.1 mcg/kg/m. She is seen today in consultation upon arrival in the intensive care unit. She is currently awake and alert in no acute distress. She does have some residual left-sided flank pain. On 04/18/2019 the patient remains critically ill. I was concerned of an ongoing urine checked infection. I saw the patient ICU yesterday and I covered her with IV Zosyn. Cultures were sent. A repeat CAT scan of the abdomen was done along with the CAT scan of the pelvis without contrast. This was done utilizing the stone protocol. There was fatty infiltration of the liver. There was new minimal segment V changes in the lung bases bilaterally. There was a new mild ascites compared to the previous film and there was a mild left-sided hydronephrosis and hydroureter that was unchanged compared to the previous evaluation and a previous CAT scan that was done on 04/15/2019. There was no ureteric calculus seen. There was left-sided perinephric mild edema that remains unchanged. Overnight the patient continued to be hypotensive. She is still pressor dependent. She has developed worsening in acidosis. Serum bicarbonate this morning is down to 7. Lactic acid level peaked at 6.8 is currently down to 4.6. The patient was given additional liter of IV fluids and she has been more than 5 L positive over the past 24 hours. The UA was noted. Blood cultures of been sent. Urine cultures of been sent. She is developing a shock liver picture with elevation in the AST and ALP. Her creatinine is still abnormal with a creatinine level of 1.69. There is no further drop in the platelet count down to 1 and the patient's white cell count is at 10.4 with significant bandemia. As such the patient is still quite septic. Clinically she is cold and clammy with diminished pulses in all 4 extremities. She remains tachycardic and she is in sinus tachycardia with a heart rate of 120. She is still having some pain/tenderness in the left lower quadrant/left flank area. test from 2 days ago was within normal limits. On 04/19/2019 the patient is still being seen on a follow-up. The patient is slightly better compared to yesterday. Patient this morning is awake and alert. The patient is off pressors. The blood culture came back positive for E. coli and the patient was switched to 2 g of Rocephin. She is producing adequate amount of urine output. She was seen by urology regarding the hydronephrosis and hydroureter. The advice was to do an outpatient cystoscopy at a later stage. Otherwise, the patient's metabolic acidosis improving. The serum bicarb is up to 16. She still has gap of 17. She has a lower lactic acid level of 4.8. She is in a shock liver and the LFTs are gradually improving. The patient has developed some increased edema both in upper and lower extremities as the patient is been aggressively resuscitated IV fluids. Total protein is lower at 4.8 with an albumin of 2.4. Glucose at 317 on today's evaluation. As for the platelet counts, it is up to 25 and the patient has a mild component of DIC with some mild coagulopathy. Creatinine is up to 2.1 and the patient has a net fluid balance of +5 L for yesterday and 3.7 L 4 the day before. On 04/20/2019 I'm seeing this patient for a follow-up in the intensive care unit. The patient is looking well. She is able to sit up on a chair. She is hemodynamically stable. She is on IV Rocephin regarding the E. coli septicemia. Abdominal pain is pretty much subsided. There is a concern for cholecystitis and a HIDA scan will be ordered within next 24 hours. LFTs are essentially improving. She is developing some increased edema in the upper and lower extremities. She'll be given a dose of Lasix on today's evaluation. The patient otherwise is doing well. No altered mentation. Platelet counts are still low. She shows no signs of any bleeding. She is afebrile. She is hemodynamically stable. Kidney function is improving and the creatinine is down to 1.85. Patient was taken off the bicarb drip and the patient was restrained normal state rate of 100 mL an hour. She was also placed on today's of oxygen by nasal cannula to maintain a saturation above 90%. 04/21/2019, I'm seeing this patient for a follow-up. The patient is looking well. IV fluids have been cut down to 50 mL's an hour of normal saline. She is producing adequate urine output. She will benefit from another dose of diuretics as the patient remains quite swollen both in upper and lower extremity. No nausea. No vomiting. No abdominal pain. HIDA scan is to follow. Still on Rocephin regarding E. coli septicemia. No abdominal pain. Platelet counts are improving. Kidney function is improving. She is tolerating oral intake. She is still weak although her strength is gradually improving. There has been no other significant events overnight. Chest x-ray showing some mild four-vessel congestion. She is on 2 L of oxygen by nasal cannula. She is using incentive spirometer. Blood sugars under better control for now with Levemir 10 units and NovoLog sliding scale coverage. As for the liver function tests, there also improving. Potassium needs to be replaced at 3.2. Objective - Vital Signs Vital signs: Vital Signs Temp 98.2 F 04/21/19 04:00 Pulse 98 04/21/19 07:00 Resp 16 04/21/19 07:00 BP 110/71 04/21/19 07:00 Pulse Ox 91 L 04/21/19 07:00 Intake & Output 04/20/19 04/21/19 04/21/19 18:59 06:59 18:59 Intake Total 970 720 160 Output Total 640 423 Balance 330 297 160 Weight 84.4 kg 86.2 kg Intake: IV 970 720 60 0.9 @60 920 720 60 cefTRIAXone 2 gm In 50 Sodium Chloride 0.9% 50 ml @ 100 mls/hr IVPB Q24HR [facility] Rx#:[id number] Intake, IV Titration 100 Amount Potassium Chloride 10 meq 100 In Water For Injection 1 100ml.bag @ 100 mls/hr IVPB Q1HR [facility] Rx#: [id number] Output: Urine 640 420 Stool 3 Other: Voiding Method Indwelling Catheter Indwelling Catheter # Voids 40 - Exam GENERAL EXAM: Alert, pleasant 43-year-old female patient, fairly comfortable in no apparent distress. 2 L of oxygen nasal cannula. The patient is awake and alert and following commands and answering questions appropriately. HEAD: Normocephalic. EYES: Normal reaction of pupils, equal size. NOSE: Clear with pink turbinates. THROAT: No erythema or exudates. NECK: No masses, no JVD. CHEST: No chest wall deformity. LUNGS: Equal air entry with no crackles, wheeze, rhonchi or dullness. There is diminished breath sounds at lung bases especially in the right lung base CVS: S1 and S2 normal with no audible murmur, regular rhythm. The patient diminished pulses in lower extremities bilaterally. She is quite cold and clammy. ABDOMEN: No hepatosplenomegaly, normal bowel sounds, no guarding or rigidity. Abdominal exam revealed normal bowel sounds. The abdomen was soft, non-tender, and without masses, organomegaly, or appreciable enlargement of the abdominal aorta. SPINE: No scoliosis or deformity SKIN: No rashes CENTRAL NERVOUS SYSTEM: No focal deficits, tone is normal in all 4 extremities. EXTREMITIES: There is increase in peripheral edema bilaterally. No clubbing, no cyanosis. Peripheral pulses are are diminished bilaterally. - Labs CBC & Chem 7: 04/21/19 05:13 04/21/19 05:13 Labs: Abnormal Lab Results - Last 24 Hours (Table) 04/20/19 04/20/19 04/20/19 Range/Units 05:44 12:00 16:57 RBC (3.80-5.40) m/uL Hgb (11.4-16.0) gm/dL Hct (34.0-46.0) % RDW (11.5-15.5) % Plt Count (150-450) k/uL Sodium (137-145) mmol/L Potassium (3.5-5.1) mmol/L BUN (7-17) mg/dL Creatinine (0.52-1.04) mg/dL Glucose (74-99) mg/dL POC Glucose (mg/dL) 135 H 148 H (75-99) mg/dL Calcium (8.4-10.2) mg/dL Total Bilirubin (0.2-1.3) mg/dL AST (14-36) U/L ALT (9-52) U/L Alkaline Phosphatase (38-126) U/L Total Protein (6.3-8.2) g/dL Albumin (3.5-5.0) g/dL Vitamin D 25-Hydroxy 6.5 L (30.0-100.0) ng/mL 04/20/19 04/21/19 04/21/19 Range/Units 20:38 05:13 05:13 RBC 3.47 L (3.80-5.40) m/uL Hgb 10.5 L (11.4-16.0) gm/dL Hct 31.8 L (34.0-46.0) % RDW 15.7 H (11.5-15.5) % Plt Count 36 L (150-450) k/uL Sodium 134 L (137-145) mmol/L Potassium 3.2 L (3.5-5.1) mmol/L BUN 30 H (7-17) mg/dL Creatinine 1.60 H (0.52-1.04) mg/dL Glucose 131 H (74-99) mg/dL POC Glucose (mg/dL) 125 H (75-99) mg/dL Calcium 6.7 L (8.4-10.2) mg/dL Total Bilirubin 7.5 H (0.2-1.3) mg/dL AST 715 H (14-36) U/L ALT 887 H (9-52) U/L Alkaline Phosphatase 159 H (38-126) U/L Total Protein 5.1 L (6.3-8.2) g/dL Albumin 2.4 L (3.5-5.0) g/dL Vitamin D 25-Hydroxy (30.0-100.0) ng/mL 04/21/19 Range/Units 06:48 RBC (3.80-5.40) m/uL Hgb (11.4-16.0) gm/dL Hct (34.0-46.0) % RDW (11.5-15.5) % Plt Count (150-450) k/uL Sodium (137-145) mmol/L Potassium (3.5-5.1) mmol/L BUN (7-17) mg/dL Creatinine (0.52-1.04) mg/dL Glucose (74-99) mg/dL POC Glucose (mg/dL) 126 H (75-99) mg/dL Calcium (8.4-10.2) mg/dL Total Bilirubin (0.2-1.3) mg/dL AST (14-36) U/L ALT (9-52) U/L Alkaline Phosphatase (38-126) U/L Total Protein (6.3-8.2) g/dL Albumin (3.5-5.0) g/dL Vitamin D 25-Hydroxy (30.0-100.0) ng/mL Microbiology - Last 24 Hours (Table) 04/19/19 08:45 Blood Culture - Preliminary Blood No Growth after 24 hours Assessment and Plan Plan: #1 septic shock which is still suspected to be related to an underlying urinary source. The patient has E. coli in the blood and the patient was switched to 2 g of Rocephin. Hemodynamically improved. Aggressively resuscitated IV fluids. Currently off pressors. There is concern of acute cholecystitis based on the previous imaging and a HIDA scan has been ordered. The patient remains hemodynamically stable. HIDA scan is to follow. The patient remains still on R ocephin. #2 septic shock with secondary to above. The patient is currently hemodynamically stable. The patient is currently off pressors. #3 Febrile illness secondary to above. #4 Tachycardia secondary to above, improving #5 Thrombocytopenia, suspect consumption, with a mild DIC type of picture. The platelet count is improving #6 Acute renal failure, secondary to above. There is also component of hydroureter and hydronephrosis without evidence of any kidney stones. Nonoliguric renal failure the patient's creatinine is improving for now. #7 Recent diagnosis of diabetes mellitus. The patient was started on Levemir 10 units on a daily basis along with a scale #8 Chronic and ongoing tobacco dependence. #9 Daily alcohol use. #10 severe anion gap metabolic acidosis, improving #11 lactic acidosis, improving #12 abnormal LFTs, consider shock liver secondary to sepsis/hypotension, improving Plan Continue IV Rocephin. Switch this patient to a normal saline infusion. Manzanares running at 60 mL an hour. Given a dose of Lasix 40 mg IV push. Monitor renal function. Monitor LFTs. Monitor platelet count. Transfer this patient to the medical floor with telemetry. HIDA scan is to follow. This will be needed to complete the workup.
[2019-04-21] MEDS ORDERED: FUROSEMIDE 10 MG/ML 4 ML VIAL IV STA ×2 (09:30→09:36)
[2019-04-21 13:33] LABS: Glucose,Whole Blood 110 mg/dL (75-99)
--- NOTE | 2019-04-21 15:15 | NM ---
EXAMINATION TYPE: NM hepatobiliary wo EF DATE OF EXAM: 04/21/2019 COMPARISON: Ultrasound gallbladder 04/18/2019, CT abdomen pelvis 04/17/2019 HISTORY: Abdominal pain, abnormal ultrasound TECHNIQUE: After the intravenous administration of 4.28 mCi Tc 99m Mebrofenin hepatobiliary scintigra phy is performed. Immediate images post injection. FINDINGS: Immediate uptake is noted within the liver, persistent delayed uptake also present. Gallbladder is no t visualized despite delayed imaging to 2 hours. Small bowel uptake is noted on delayed imaging. IMPRESSION: Findings compatible with cholecystitis. There may be a component of underlying hepatocell ular disease.
[2019-04-21 16:47] LABS: Glucose,Whole Blood 95 mg/dL (75-99)
--- NOTE | 2019-04-21 18:01 | P.PN ---
Subjective Progress Note Date: 04/21/19 (Delayed charting seen at 2 PM) Principal diagnosis: fatigue, nausea, and vomiting Patient is a 43-year-old female with no significant past medical history who presented to the ER with complaints of vomiting, diarrhea, and fatigue. She initially was seen in the ER on 04/15/19 for left sided back pain and flank pain. She is on have a urinary tract infection was started on Levaquin. She also was found to have left-sided hydronephrosis with hydroureter possibly related to recently passed stone. It appears that the patient left AMA from the emergency department. On arrival to the emergency department on 04/17 she was found have a heart rate of 140 and a blood pressure of 82/56. Laboratory analysis showed no white blood cell count or platelet count of 62, creatinine of 1.73, glucose 233, lactic acid of 4.7, alk phos of 313. Her urine showed many hyaline casts as well as 27 white blood cell, was nitrate positive and had large leukocyte esterase. Her acetone was negative. C. diff was negative. She underwent a repeat CT abdomen and pelvis which were fatty infiltration of the liver with new minimal subsegmental atelectasis and interstitial infiltrate at the lung bases, mild ascites, mild left-sided hydronephrosis with hydroureter as well as left-sided perinephric edema. She was started on broad-spectrum antibiotics and IV fluids. Her blood pressure remained low and she required norepinephrine. She was subsequently admitted to the ICU. Critical care was consulted. On the morning after admission she had an elevated creatinine of 1.69 as well as an elevated potassium of 5.7. She continued to be significantly acidotic. She was given 2 amps of bicarbonate and started on a sodium bicarbonate drip. She was also found to have elevated liver enzymes. Her levophed was able to be weaned on 04/18/19. She was found to have E coli bacteremia and antibiotics transitioned to rocephin. ID was consulted. Her platelets continued to decrease. Her Cr continued to worsen but liver enzymes started to improve. Her HgB dropped likely due to aggressive fluid resuscitation. Her vomiting resolved on 04/18 and she was started on a diet on 04/19. She continued to slowly improve. Patient underwent a HIDA scan as "possible cholecystitis. He was seen by surgery who felt this was a false positive due to her acute illness. Patient seen and examined at bedside. Feeling overwhelmed with everything that is going on during her hospital stay. Still having lots lower extremity edema. No shortness of breath. No nausea. No vomiting. No continued diarrhea. Overall still feeling fatigued. Objective - Vital Signs Vital signs: Vital Signs Temp 97.9 F 04/21/19 15:00 Pulse 101 H 04/21/19 15:00 Resp 18 04/21/19 15:00 BP 129/77 04/21/19 15:00 Pulse Ox 93 L 04/21/19 15:00 Intake & Output 04/20/19 04/21/19 04/21/19 18:59 06:59 18:59 Intake Total 970 720 700 Output Total 201 020 5777 Balance 330 297 -1101 Weight 84.4 kg 86.2 kg Intake: IV 970 720 600 0.9 @60 920 720 600 cefTRIAXone 2 gm In 50 Sodium Chloride 0.9% 50 ml @ 100 mls/hr IVPB Q24HR [facility] Rx#:[id number] Intake, IV Titration 100 Amount Potassium Chloride 10 meq 100 In Water For Injection 1 100ml.bag @ 100 mls/hr IVPB Q1HR [facility] Rx#: [id number] Output: Urine 846 459 3368 Stool 3 1 Other: Voiding Method Indwelling Catheter Indwelling Catheter Indwelling Catheter # Voids 40 - Exam General: non toxic, no distress, actively vomiting, appears at stated age Derm: warm, dry Head: atraumatic, normocephalic, symmetric Eyes: EOMI, no lid lag, anicteric sclera Mouth: no lip lesion, mucous membranes dry Cardiovascular: S1S2 tachycardia, no murmur, positive posterior tibial pulse bilateral, Lungs: course bs b/l, no rhonchi, no rales , no accessory muscle use Abdominal: soft, nontender to palpation, no guarding, no appreciable organomegaly Ext: no gross muscle atrophy, 3+ edema, no contractures Neuro: CN II-XI grossly intact, no focal neuro deficits Psych: Alert, oriented, appropriate affect - Labs CBC & Chem 7: 04/21/19 05:13 04/21/19 05:13 Labs: Abnormal Lab Results - Last 24 Hours (Table) 04/20/19 04/21/19 04/21/19 Range/Units 20:38 05:13 05:13 RBC 3.47 L (3.80-5.40) m/uL Hgb 10.5 L (11.4-16.0) gm/dL Hct 31.8 L (34.0-46.0) % RDW 15.7 H (11.5-15.5) % Plt Count 36 L (150-450) k/uL Sodium 134 L (137-145) mmol/L Potassium 3.2 L (3.5-5.1) mmol/L BUN 30 H (7-17) mg/dL Creatinine 1.60 H (0.52-1.04) mg/dL Glucose 131 H (74-99) mg/dL POC Glucose (mg/dL) 125 H (75-99) mg/dL Calcium 6.7 L (8.4-10.2) mg/dL Total Bilirubin 7.5 H (0.2-1.3) mg/dL AST 715 H (14-36) U/L ALT 887 H (9-52) U/L Alkaline Phosphatase 159 H (38-126) U/L Total Protein 5.1 L (6.3-8.2) g/dL Albumin 2.4 L (3.5-5.0) g/dL 04/21/19 04/21/19 Range/Units 06:48 13:20 RBC (3.80-5.40) m/uL Hgb (11.4-16.0) gm/dL Hct (34.0-46.0) % RDW (11.5-15.5) % Plt Count (150-450) k/uL Sodium (137-145) mmol/L Potassium (3.5-5.1) mmol/L BUN (7-17) mg/dL Creatinine (0.52-1.04) mg/dL Glucose (74-99) mg/dL POC Glucose (mg/dL) 126 H 110 H (75-99) mg/dL Calcium (8.4-10.2) mg/dL Total Bilirubin (0.2-1.3) mg/dL AST (14-36) U/L ALT (9-52) U/L Alkaline Phosphatase (38-126) U/L Total Protein (6.3-8.2) g/dL Albumin (3.5-5.0) g/dL Microbiology - Last 24 Hours (Table) 04/19/19 08:45 Blood Culture - Preliminary Blood No Growth after 48 hours Assessment and Plan Assessment: Pyelonephritis with hydronephrosis, E. coli bacteremia, present on admission, not catheter associated -Rocephin -IV fluids completed -urine culture skin js -Blood cultures with E. 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 New onset diabetes with A1C 10.5 -Continue with sliding scale insulin, levemir - follow BS - Hold oral metformin - seen by dietitian and operations general agent, given free meter - likley metformin and glimiperide on discharge if liver/renal function improves. Hyperkalemia, resolved septic shock, resolved DVT prophylaxis: Heparin on hold due to low platelets Discussed with: Patient, Dr. Lomas, nursing Anticipated discharge: 2-[address]: home A total of 30 minutes was spent on the care of this complex patient more than 50% of the time was spent in counseling and care coordination.
--- NOTE | 2019-04-21 21:26 | P.GSCN ---
History of Present Illness Consult date: 04/21/19 History of present illness: This is a 43-year-old female initially presented to the hospital with urosepsis. She was treated in the ICU for septic shock. She was on pressors for an extended period of time. She also recently was diagnosed with diabetes. She states that her pain was on the left lower quadrant and it was a cramping pain. She states that pain is sense improved however she does still complain of some left lower quadrant pain. She denies any right upper quadrant pain she denies any midepigastric pain she denies any history of this before in the past. Patient had elevated LFTs and bilirubin and underwent HIDA scan which did not visualize gallbladder surgery was consulted secondary to concern for cholecystitis. Past Medical History Past Medical History: No Reported History, Diabetes Mellitus History of Any Multi-Drug Resistant Organisms: None Reported Past Surgical History: No Surgical Hx Reported Past Psychological History: No Psychological Hx Reported Smoking Status: Current every day smoker Past Alcohol Use History: Daily Additional Past Alcohol Use History / Comment(s): Patient is a smoker of 2 packs per day since she was 18 years of age. She uses marijuana occasionally. She drinks 3-4 cans of beer per day. She lives with her boyfriend and daughter. She denies any recent travel. 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 Past Drug Use History: None Reported Medications and Allergies Home Medications Medication Instructions Recorded Confirmed Type Ibuprofen [Motrin Ib] 200 - 800 mg PO Q6H PRN 10/25/17 04/17/19 History Levofloxacin 750 mg PO DAILY #5 tablet 04/15/19 04/17/19 Rx metFORMIN HCL [Glucophage] 500 mg PO BID #14 tab 04/15/19 04/17/19 Rx Allergies Allergy/AdvReac Type Severity Reaction Status Date / Time cephalexin [From Keflex] Allergy Rash/Hives Verified 04/17/19 12:02 Surgical - Exam Osteopathic Statement: *. No significant issues noted on an osteopathic structural exam other than those noted in the History and Physical/Consult. Vital Signs Temp Pulse Resp BP Pulse Ox 98.6 F 140 H 18 82/56 98 04/17/19 11:39 04/17/19 11:39 04/17/19 11:39 04/17/19 11:39 04/17/19 11:39 - General well developed, no distress - Eyes PERRL - Neck no masses, trachea midline - Respiratory normal expansion, normal respiratory effort - Cardiovascular Rhythm: regular - Abdomen No tenderness palpation negative Briones sign. No rebound rigidity or guarding Abdomen: soft, non tender - Neurologic normal coordination, normal sensation - Musculoskeletal normal gait - Psychiatric oriented to time, oriented to person, oriented to place Results - Labs 04/21/19 05:13 04/21/19 05:13 Abnormal Lab Results - Last 24 Hours (Table) 04/21/19 04/21/19 04/21/19 Range/Units 05:13 05:13 06:48 RBC 3.47 L (3.80-5.40) m/uL Hgb 10.5 L (11.4-16.0) gm/dL Hct 31.8 L (34.0-46.0) % RDW 15.7 H (11.5-15.5) % Plt Count 36 L (150-450) k/uL Sodium 134 L (137-145) mmol/L Potassium 3.2 L (3.5-5.1) mmol/L BUN 30 H (7-17) mg/dL Creatinine 1.60 H (0.52-1.04) mg/dL Glucose 131 H (74-99) mg/dL POC Glucose (mg/dL) 126 H (75-99) mg/dL Calcium 6.7 L (8.4-10.2) mg/dL Total Bilirubin 7.5 H (0.2-1.3) mg/dL AST 715 H (14-36) U/L ALT 887 H (9-52) U/L Alkaline Phosphatase 159 H (38-126) U/L Total Protein 5.1 L (6.3-8.2) g/dL Albumin 2.4 L (3.5-5.0) g/dL 04/21/19 Range/Units 13:20 RBC (3.80-5.40) m/uL Hgb (11.4-16.0) gm/dL Hct (34.0-46.0) % RDW (11.5-15.5) % Plt Count (150-450) k/uL Sodium (137-145) mmol/L Potassium (3.5-5.1) mmol/L BUN (7-17) mg/dL Creatinine (0.52-1.04) mg/dL Glucose (74-99) mg/dL POC Glucose (mg/dL) 110 H (75-99) mg/dL Calcium (8.4-10.2) mg/dL Total Bilirubin (0.2-1.3) mg/dL AST (14-36) U/L ALT (9-52) U/L Alkaline Phosphatase (38-126) U/L Total Protein (6.3-8.2) g/dL Albumin (3.5-5.0) g/dL Microbiology - Last 24 Hours (Table) 04/19/19 08:45 Blood Culture - Preliminary Blood No Growth after 48 hours Diabetes panel 04/21/19 Range/Units 05:13 Sodium 134 L (137-145) mmol/L Potassium 3.2 L (3.5-5.1) mmol/L Chloride 99 (98-107) mmol/L Carbon Dioxide 26 (22-30) mmol/L BUN 30 H (7-17) mg/dL Creatinine 1.60 H (0.52-1.04) mg/dL Glucose 131 H (74-99) mg/dL Calcium 6.7 L (8.4-10.2) mg/dL AST 715 H (14-36) U/L ALT 887 H (9-52) U/L Alkaline Phosphatase 159 H (38-126) U/L Total Protein 5.1 L (6.3-8.2) g/dL Albumin 2.4 L (3.5-5.0) g/dL Calcium panel 04/21/19 Range/Units 05:13 Calcium 6.7 L (8.4-10.2) mg/dL Albumin 2.4 L (3.5-5.0) g/dL Pituitary panel 04/21/19 Range/Units 05:13 Sodium 134 L (137-145) mmol/L Potassium 3.2 L (3.5-5.1) mmol/L Chloride 99 (98-107) mmol/L Carbon Dioxide 26 (22-30) mmol/L BUN 30 H (7-17) mg/dL Creatinine 1.60 H (0.52-1.04) mg/dL Glucose 131 H (74-99) mg/dL Calcium 6.7 L (8.4-10.2) mg/dL Adrenal panel 04/21/19 Range/Units 05:13 Sodium 134 L (137-145) mmol/L Potassium 3.2 L (3.5-5.1) mmol/L Chloride 99 (98-107) mmol/L Carbon Dioxide 26 (22-30) mmol/L BUN 30 H (7-17) mg/dL Creatinine 1.60 H (0.52-1.04) mg/dL Glucose 131 H (74-99) mg/dL Calcium 6.7 L (8.4-10.2) mg/dL Total Bilirubin 7.5 H (0.2-1.3) mg/dL AST 715 H (14-36) U/L ALT 887 H (9-52) U/L Alkaline Phosphatase 159 H (38-126) U/L Total Protein 5.1 L (6.3-8.2) g/dL Albumin 2.4 L (3.5-5.0) g/dL Assessment and Plan Assessment: Acute liver failure likely secondary to shock liver. Hyperbilirubinemia. Plan: Patient has markedly elevated bilirubin. She does not clinically have any symptoms consistent with acute cholecystitis. She denies any abdominal pain. Patient does have liver failure this is likely multifactorial. She does not routinely see a doctor she states that she drinks every day. She also likely has a component of shock liver. HIDA scan showed cholestasis likely secondary to her critical illness. Patient is a very poor surgical candidate with her liver failure. I recommend GI consultation secondary to hyperbilirubinemia and LFTs. No plans for acute surgical intervention at this time.
[2019-04-21 21:54] LABS: Glucose,Whole Blood 106 mg/dL (75-99)
[2019-04-21] MEDS: SODIUM CHLORIDE 0.9% 1,000 ML IV SCH (22:40)
--- NOTE | 2019-04-21 23:57 | P.PN ---
Subjective Progress Note Date: 04/21/19 This is a 43-year-old female presented initially to [facility] emergency center on April 15 and was diagnosed with UTI and new diagnosis of diabetes and placed on metformin as well as Levaquin. She had presented with a fever of 102.9, tachycardia up to 1:30, blood pressure elevated. She did have a normal white count at that time but no platelet count was 142, blood sugar was 326, CO2 17. Urinalysis was clear leukoesterase moderate, wbc's 30. HCG not detected. CAT scan of the abdomen and pelvis without contrast showed a left- sided hydronephrosis and hydroureter could be related to recently passed stone. No definite ureteral calculus seen. Fatty infiltration of the liver. Patient was discharged home although it she was encouraged to stay in the hospital but she refused. She says currently developed nausea and vomiting and returned to [facility] emergency center on April 17. The patient was again tachycardic up to 140 with a blood pressure of 82/56. Patient was started on IV fluids and blood culture was ordered and patient was started on Zosyn. Repeat lab work revealed a normal white count of 5.2, platelet count of 62, CO2 16, BUN 20, creatinine 1.73, blood sugar 233. A repeat urinalysis was dark brown, turbid, blood moderate, nitrate positive, leukoesterase large, squamous cells 45. Chest x-ray showed no acute process. Patient was admitted into the intensive care unit for septic shock, UTI, hyperglycemia and thrombocytopenia and started on norepinephrine. Patient has had a significant rise in liver function tests with today's value of total bilirubin 3, AST 3371, ALT 1724, alkaline phosphatase 133. LDH came back 13,555, albumin 2.4. C. difficile toxin was negative. Acute hepatitis panel negative. Urine culture was not obta ined on her initial ER visit on April 15. Urine culture from April 17 is been finalized with contamination. Blood culture is positive for E. coli and sensitivity is pending. Patient remains in the intensive care unit. She is off vasopressor. She states she feels better from yesterday. Pain is gone but she continues to have some nausea and vomiting. Patient is followed by Dr. Lomas for intensive care management and Dr. Sunshine for the mild left hydronephrosis probably secondary to passed ureteral calculus. No plan for any surgical interventions and continue IV antibiotics. Patient may need cystoscopy to rule out intravesical pathology as an outpatient. Dr. Brooks is following for acute kidney injury secondary to ATN secondary to hypotension nonsteroidals and sepsis along with hyperkalemia and metabolic acidosis. Patient is currently on a bicarb drip. Patient denies having any urinary tract infection in the past. 04/20/2019 the patient continues to feel poorly with nausea, has had about 3 bouts of the small emesis throughout the day. She's been able to eat some food. Abdominal pain seems to be improved. She is still very uncomfortable 04/21/2019 patient remains quite miserable. Some ongoing abdominal pain. More jaundiced with her bilirubin up to 7.5. Liver function tests are improving and creatinine is improved. Objective - Vital Signs Vital signs: Vital Signs Temp 97.7 F 04/21/19 21:00 Pulse 105 H 04/21/19 21:00 Resp 16 04/21/19 21:00 BP 124/82 04/21/19 21:00 Pulse Ox 96 04/21/19 21:00 Intake & Output 04/21/19 04/21/19 04/22/19 06:59 18:59 06:59 Intake Total 720 700 Output Total 423 1801 Balance 297 -1101 Weight 86.2 kg Intake: IV 720 600 0.9 @60 720 600 Intake, IV Titration 100 Amount Potassium Chloride 10 meq 100 In Water For Injection 1 100ml.bag @ 100 mls/hr IVPB [facility] Rx#: [id number] Output: Urine 420 1800 Stool 3 1 Other: Voiding Method Indwelling Catheter Indwelling Catheter # Voids 40 - Exam Gen: This is a obese 43-year-old female. She is resting in the ICU bed and appears somewhat uncomfortable HEENT: Head is atraumatic, normocephalic. Pupils equal, round. Sclerae is icteric today. NECK: Supple. No JVD. No lymphadenopathy. No thyromegaly. LUNGS: Clear to auscultation. No wheezes or rhonchi. No intercostal retractions. HEART: Regular rate and rhythm. No murmur. ABDOMEN: Soft. Bowel sounds are present. No masses. Generalized tenderness most severe at the epigastric area. EXTREMITIES: No pedal edema. No calf tenderness. Dorsalis pedis +2 bilaterally. NEUROLOGICAL: Patient is awake, alert and oriented x3. - Labs CBC & Chem 7: 04/21/19 05:13 04/21/19 05:13 Labs: Abnormal Lab Results - Last 24 Hours (Table) 04/21/19 04/21/19 04/21/19 Range/Units 05:13 05:13 06:48 RBC 3.47 L (3.80-5.40) m/uL Hgb 10.5 L (11.4-16.0) gm/dL Hct 31.8 L (34.0-46.0) % RDW 15.7 H (11.5-15.5) % Plt Count 36 L (150-450) k/uL Sodium 134 L (137-145) mmol/L Potassium 3.2 L (3.5-5.1) mmol/L BUN 30 H (7-17) mg/dL Creatinine 1.60 H (0.52-1.04) mg/dL Glucose 131 H (74-99) mg/dL POC Glucose (mg/dL) 126 H (75-99) mg/dL Calcium 6.7 L (8.4-10.2) mg/dL Total Bilirubin 7.5 H (0.2-1.3) mg/dL AST 715 H (14-36) U/L ALT 887 H (9-52) U/L Alkaline Phosphatase 159 H (38-126) U/L Total Protein 5.1 L (6.3-8.2) g/dL Albumin 2.4 L (3.5-5.0) g/dL 04/21/19 04/21/19 Range/Units 13:20 21:53 RBC (3.80-5.40) m/uL Hgb (11.4-16.0) gm/dL Hct (34.0-46.0) % RDW (11.5-15.5) % Plt Count (150-450) k/uL Sodium (137-145) mmol/L Potassium (3.5-5.1) mmol/L BUN (7-17) mg/dL Creatinine (0.52-1.04) mg/dL Glucose (74-99) mg/dL POC Glucose (mg/dL) 110 H 106 H (75-99) mg/dL Calcium (8.4-10.2) mg/dL Total Bilirubin (0.2-1.3) mg/dL AST (14-36) U/L ALT (9-52) U/L Alkaline Phosphatase (38-126) U/L Total Protein (6.3-8.2) g/dL Albumin (3.5-5.0) g/dL Microbiology - Last 24 Hours (Table) 04/19/19 08:45 Blood Culture - Preliminary Blood No Growth after 48 hours Laboratory Results WBC 10.1 k/uL (3.8-10.6) 04/21/19 05:13 RBC 3.47 m/uL (3.80-5.40) L 04/21/19 05:13 Hgb 10.5 gm/dL (11.4-16.0) L 04/21/19 05:13 Hct 31.8 % (34.0-46.0) L 04/21/19 05:13 MCV 91.7 fL (80.0-100.0) 04/21/19 05:13 MCH 30.2 pg (25.0-35.0) 04/21/19 05:13 MCHC 33.0 g/dL (31.0-37.0) 04/21/19 05:13 RDW 15.7 % (11.5-15.5) H 04/21/19 05:13 Plt Count 36 k/uL (150-450) L 04/21/19 05:13 Neutrophils % 76 % 04/20/19 05:44 Neutrophils % (Manual) 67 % 04/21/19 05:13 Band Neutrophils % 3 % 04/21/19 05:13 Lymphocytes % 15 % 04/20/19 05:44 Lymphocytes % (Manual) 24 % 04/21/19 05:13 Monocytes % 5 % 04/20/19 05:44 Monocytes % (Manual) 6 % 04/21/19 05:13 Eosinophils % 1 % 04/20/19 05:44 Basophils % 0 % 04/20/19 05:44 Metamyelocytes % 1 % 04/17/19 11:58 Myelocytes % 1 % 04/17/19 11:58 Neutrophils # 6.8 k/uL (1.3-7.7) 04/20/19 05:44 Neutrophils # (Manual) 7.00 k/uL (1.3-7.7) 04/21/19 05:13 Lymphocytes # 1.4 k/uL (1.0-4.8) 04/20/19 05:44 Lymphocytes # (Manual) 2.42 k/uL (1.0-4.8) 04/21/19 05:13 Monocytes # 0.4 k/uL (0-1.0) 04/20/19 05:44 Monocytes # (Manual) 0.61 k/uL (0-1.0) 04/21/19 05:13 Eosinophils # 0.1 k/uL (0-0.7) 04/20/19 05:44 Basophils # 0.0 k/uL (0-0.2) 04/20/19 05:44 Metamyelocytes # (Man) 0.05 k/uL (0) H 04/17/19 11:58 Myelocytes # (Manual) 0.05 k/uL (0) H 04/17/19 11:58 Nucleated RBCs 0 /100 WBC (0-0) 04/21/19 05:13 Manual Slide Review Performed 04/21/19 05:13 Toxic Granulation Present 04/17/19 11:58 Toxic Vacuolation Present 04/17/19 11:58 Dohle Bodies Present 04/17/19 11:58 Large Platelets Present 04/21/19 05:13 RBC Morphology Normal 04/17/19 11:58 Hypochromasia Moderate 04/18/19 04:04 Poikilocytosis (manual Present 04/18/19 04:04 Anisocytosis Slight 04/19/19 03:10 PT 13.3 sec (9.0-12.0) H 04/19/19 03:10 INR 1.3 (<1.2) H 04/19/19 03:10 APTT 26.9 sec (22.0-30.0) 04/19/19 03:10 Sodium 134 mmol/L (137-145) L 04/21/19 05:13 Potassium 3.2 mmol/L (3.5-5.1) L 04/21/19 05:13 Chloride 99 mmol/L (98-107) 04/21/19 05:13 Carbon Dioxide 26 mmol/L (22-30) 04/21/19 05:13 Anion Gap 9 mmol/L 04/21/19 05:13 BUN 30 mg/dL (7-17) H 04/21/19 05:13 Creatinine 1.60 mg/dL (0.52-1.04) H 04/21/19 05:13 Est GFR (CKD-EPI)AfAm 46 (>60 ml/min/1.73 sqM) 04/21/19 05:13 Est GFR (CKD-EPI)NonAf 40 (>60 ml/min/1.73 sqM) 04/21/19 05:13 Glucose 131 mg/dL (74-99) H 04/21/19 05:13 POC Glucose (mg/dL) 106 mg/dL (75-99) H 04/21/19 21:53 POC Glu Spa Coordinator ID Linnea Fernández 04/21/19 21:[address] Glu mg/dL 255 04/18/19 04:04 Hemoglobin A1c 10.5 % (4.0-6.0) H 04/18/19 04:04 Lactic Ac Sepsis Rflx Y 04/19/19 03:36 Plasma Lactic Acid Reji 4.8 mmol/L (0.7-2.0) H* 04/19/19 03:10 Calcium 6.7 mg/dL (8.4-10.2) L 04/21/19 05:13 Magnesium 1.9 mg/dL (1.6-2.3) 04/20/19 05:44 Total Bilirubin 7.5 mg/dL (0.2-1.3) H 04/21/19 05:13 AST 715 U/L (14-36) H 04/21/19 05:13 ALT 887 U/L (9-52) H 04/21/19 05:13 Alkaline Phosphatase 159 U/L (38-126) H 04/21/19 05:13 Ammonia <9 umol/L (<30) 04/19/19 03:10 Lactate Dehydrogenase 12797 U/L (313-618) H 04/18/19 08:15 Creatine Kinase 46 U/L (30-135) 04/17/19 11:58 CK-MB (CK-2) 1.3 ng/mL (0.0-2.4) 04/17/19 11:58 Troponin I 0.013 ng/mL (0.000-0.034) 04/17/19 11:58 Total Protein 5.1 g/dL (6.3-8.2) L 04/21/19 05:13 Albumin 2.4 g/dL (3.5-5.0) L 04/21/19 05:13 Amylase 32 U/L (30-110) 04/18/19 08:15 Lipase 60 U/L (23-300) 04/18/19 08:15 Vitamin D 25-Hydroxy 6.5 ng/mL (30.0-100.0) L 04/20/19 05:44 Urine Color Dark Brown 04/17/19 13:10 Urine Appearance Turbid (Clear) H 04/17/19 13:10 Urine pH 5.5 (5.0-8.0) 04/17/19 13:10 Ur Specific [place] 1.024 (1.001-1.035) 04/17/19 13:10 Urine Protein 2+ (Negative) H 04/17/19 13:10 Urine Glucose (UA) Trace (Negative) H 04/17/19 13:10 Urine Ketones Negative (Negative) 04/17/19 13:10 Urine Blood Moderate (Negative) H 04/17/19 13:10 Urine Nitrite Positive (Negative) H 04/17/19 13:10 Urine Bilirubin 1+ (Negative) H 04/17/19 13:10 Urine Urobilinogen 3.0 mg/dL (<2.0) 04/17/19 13:10 Ur Leukocyte Esterase Large (Negative) H 04/17/19 13:10 Urine RBC 18 /hpf (0-5) H 04/17/19 13:10 Urine WBC 27 /hpf (0-5) H 04/17/19 13:10 Ur Squamous Epith Cells 45 /hpf (0-4) H 04/17/19 13:10 Amorphous Sediment Rare /hpf (None) H 04/17/19 13:10 Urine Bacteria Many /hpf (None) H 04/17/19 13:10 Hyaline Casts 103 /lpf (0-2) H 04/17/19 13:10 Urine Mucus Occasional /hpf (None) H 04/17/19 13:10 Acetone, Qual Negative (Negative) 04/17/19 11:58 C. difficile (EIA) Intrp Negative (Negative) 04/17/19 18:40 Hepatitis A IgM Ab Non-Reactive (Non-Reactive) 04/18/19 12:04 Hep Bs Antigen Non-Reactive (Non-Reactive) 04/18/19 12:04 Hep B Core IgM Ab Non-Reactive (Non-Reactive) 04/18/19 12:04 Hep C IgG Ab Non-Reactive (Non-Reactive) 04/18/19 12:04 Microbiology 04/19/19 08:45 Blood Blood Culture - Preliminary No Growth after 48 hours 04/17/19 15:02 Blood Blood Culture Gram Stain - Final 04/17/19 15:02 Blood Blood Culture - Final Escherichia coli 04/17/19 13:10 Urine,Voided Urine Culture - Final 04/17/19 15:02 Blood Blood Culture - Final Assessment and Plan (1) Urinary tract infection Narrative/Plan: This 43-year-old woman has a very significant past medical history in that 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 Presents to Hospital acutely ill with evidence of sepsis with evidence of the elevated lactic acid and source of infection from her urinary system with left-sided hydronephrosis and possible recently passed stone. As noted she has evidence the markedly elevated AST ALT and LDH. Gram-negative bacilli are found in the blood culture in with a significant thrombocytopenia antibiotic therapy is transitioned from piperacillin tazobactam to Rocephin. The sepsis is likely generating the significant thrombocytopenia is likely worsened by the piperacillin effect. There is concerns that her gallbladder is somewhat abnormal and this is discussed with the hospitalist and HIDA scan is requested. If this is markedly abnormal will consider some further alteration of antibiotic therapy. Fortunately the patient is having some improvement after her resuscitation. 04/20/2018 the patient is still feeling poorly. Nausea seems to be slightly improved condition able to ingest some food. The shock liver remains problematic. Bilirubin has increased and she is not having a mild level of jaundice. The patient's sepsis is being treated with Rocephin and seems to be responding well. Liver enzymes have decreased although bilirubin is still increasing hopefully peak and started coming down soon. No other sources of sepsis are seen in the urinary system at this time. She is off vasopressor therapy. HIDA scan is to be performed to evaluate cholecystitis, it could be acalculus cholecystitis . continue Rocephin for E. coli bacteremia from kidney source. 04/21/2019 the patient remains ill, more jaundice with increasing total bilirubin. She has developed what appears to be in acute shock liver. HIDA scan has been performed as an abnormal and surgical consultation will be in process. The patient may require GI evaluation and evaluation of her biliary tract before any further surgical intervention is possible. Nausea persists but is improved. We will continue current antibiotic therapy monitoring for clearan ce of the E. coli bacteremia. Renal source of the bacteremia remains most probable however cannot completely rule out a biliary tract source. Continue current interventions prognosis remains somewhat poor. Current Visit: Yes Status: Acute Code(s): N39.0 - URINARY TRACT INFECTION, SITE NOT SPECIFIED SNOMED Code(s): 42874651 (2) Septic shock Current Visit: Yes Status: Acute Code(s): A41.9 - SEPSIS, UNSPECIFIED ORGANISM; R65.21 - SEVERE SEPSIS WITH SEPTIC SHOCK SNOMED Code(s): 62057821 (3) Sepsis with acute liver failure and septic shock without hepatic coma Current Visit: Yes Status: Acute Code(s): A41.9 - SEPSIS, UNSPECIFIED ORGANISM; R65.21 - SEVERE SEPSIS WITH SEPTIC SHOCK; K72.00 - ACUTE AND SUBACUTE HEPATIC FAILURE WITHOUT COMA SNOMED Code(s): 206469925
[2019-04-22] MEDS: MORPHINE SULFATE 2 MG/ML SYRINGE IVP PRN (03:09)
[2019-04-22 07:05] LABS: Glucose,Whole Blood 95 mg/dL (75-99)
[2019-04-22] MEDS: FUROSEMIDE 10 MG/ML 4 ML VIAL IV SCH (08:56)
[2019-04-22] MEDS: INSULIN DETEMIR (LEVEMIR) 100 UNIT/ML SYR SQ SCH (08:56)
[2019-04-22] MEDS: NICOTINE 21MG/24HR PATCH TRANSDERM SCH (08:57)
[2019-04-22] MEDS: INSULIN ASPART (NovoLOG) 100 UNIT/ML VIAL SQ SCH ×4 (08:57→21:08)
[2019-04-22] MEDS: PANTOPRAZOLE 40 MG/10 ML VIAL IV SCH (08:58)
--- NOTE | 2019-04-22 09:11 | P.PN ---
Subjective Patient is seen in follow for acute kidney injury. Creatinine peaked at 2.11 this admission and was down to 1.6 as of yesterday. Diet will be started today. No vomiting. Admits to good urine output. Complaining of swelling in her extremities. Vital signs are stable. General: The patient appeared well nourished and normally developed. HEENT: Head exam is unremarkable. Neck is without jugular venous distension. LUNGS: Lungs are clear to auscultation and percussion. Breath sounds decreased. HEART: Rate and Rhythm are regular. First and second heart sounds normal. No murmurs, rubs or gallops. ABDOMEN: Abdominal exam reveals normal bowel sounds. Non-tender and non- distended. No evidence of peritonitis. EXTREMITITES: 1+ edema. Objective - Vital Signs Vital signs: Vital Signs Temp 98.1 F 04/22/19 04:52 Pulse 101 H 04/22/19 04:52 Resp 16 04/22/19 04:52 BP 132/79 04/22/19 04:52 Pulse Ox 92 L 04/22/19 04:52 Intake & Output 04/21/19 04/22/19 04/22/19 18:59 06:59 18:59 Intake Total 700 480 Output Total 1801 Balance -1101 480 Intake: IV 600 480 0.9 @60 600 480 Intake, IV Titration 100 Amount Potassium Chloride 10 meq 100 In Water For Injection 1 100ml.bag @ 100 mls/hr IVPB Q[facility]HR [facility] Rx#: [id number] Output: Urine 1800 Stool 1 Other: Voiding Method Indwelling Catheter Toilet # Voids 40 2 1 - Labs CBC & Chem 7: 04/21/19 05:13 04/21/19 05:13 Labs: Abnormal Lab Results - Last 24 Hours (Table) 04/21/19 04/21/19 Range/Units 13:20 21:53 POC Glucose (mg/dL) 110 H 106 H (75-99) mg/dL Microbiology - Last 24 Hours (Table) 04/19/19 08:45 Blood Culture - Preliminary Blood No Growth after 48 hours Assessment and Plan Plan: Assessment: 1. Acute kidney injury secondary to ATN secondary to hypotension, nonsteroidals and sepsis. Baseline creatinine is 1 and peaked at 2.1 on this admission - 1.6 as of yesterday. Mild left-sided hydronephrosis noted on kidney ultrasound. 2. Hyperkalemia secondary to acute kidney injury and metabolic acidosis. Resolved. Patient was actually hypokalemic as of yesterday. 3. Metabolic acidosis secondary to acute kidney injury and IV fluids. Resolved. 4. E. coli bacteremia maintained on IV antibiotics. 5. Insulin-dependent diabetes mellitus. Plan: Hep-Lock IV fluids. Maintain Lasix 40 mg IV daily. Continue to monitor renal function and urine output. Repeat electrolytes in the morning.
[2019-04-22 09:25] LABS: Albumin 2.8 g/dL (3.5-5.0); Calcium 7.1 mg/dL (8.4-10.2); Potassium 5.9 mmol/L (3.5-5.1); Total Bilirubin 9.9 mg/dL (0.2-1.3); Total Protein 6.3 g/dL (6.3-8.2)
[2019-04-22 09:31] LABS: INR 1.3 (<1.2); Prothrombin Time 13.5 sec (9.0-12.0)
[2019-04-22 09:33] LABS: HCT 32.5 % (34.0-46.0); HGB 10.9 gm/dL (11.4-16.0); MCH 30.2 pg (25.0-35.0); MCHC 33.4 g/dL (31.0-37.0); MCV 90.5 fL (80.0-100.0); Mean Platelet Volume 14.5; RBC 3.59 m/uL (3.80-5.40); RDW 15.8 % (11.5-15.5); WBC 15.1 k/uL (3.8-10.6)
--- NOTE | 2019-04-22 10:24 | P.PN ---
Subjective Progress Note Date: 04/22/19 Principal diagnosis: Septic shock secondary to underlying urinary tract infection. This a very pleasant 43-year-old female patient with a history of chronic and ongoing tobacco dependence, daily alcohol use. She was recently or in the emergency room diagnosed with a urinary tract infection and found to have elevated blood sugars. She was initiated on Levaquin and metformin on 04/15/2019. Computed tomography scan of the abdomen and pelvis at that time revealed a left-sided hydronephrosis and hydroureter with suspected recently passed stone. No definite ureteral calculus seen. Fatty infiltrate of the liver. She returned to the emergency room today with complaints of abdominal discomfort and nausea and vomiting. Chest x-ray shows no acute pulmonary process. Results revealed WBC 5.2. Hemoglobin 14.2. Platelet count 62,000. Creatinine 1.73. Bicarb 16. Lactic acid 4.7. Alk phos 313. Urine is turbid and dark brown with 2+ protein, positive nitrates and large WBCs. Acetone negative. Temperature 99.5 she is tachycardic in the 120s. Blood pressure 101/70. 100% O2 on room air. Follow-up lactic tone to 3.4. She has received 3 L of fluid resuscitation. Initiated on Zosyn. Requiring norepinephrine at 0.1 mcg/kg/m. She is seen today in consultation upon arrival in the intensive care unit. She is currently awake and alert in no acute distress. She does have some residual left-sided flank pain. On 04/18/2019 the patient remains critically ill. I was concerned of an ongoing urine checked infection. I saw the patient ICU yesterday and I covered her with IV Zosyn. Cultures were sent. A repeat CAT scan of the abdomen was done along with the CAT scan of the pelvis without contrast. This was done utilizing the stone protocol. There was fatty infiltration of the liver. There was new minimal segment V changes in the lung bases bilaterally. There was a new mild ascites compared to the previous film and there was a mild left-sided hydrone phrosis and hydroureter that was unchanged compared to the previous evaluation and a previous CAT scan that was done on 04/15/2019. There was no ureteric calculus seen. There was left-sided perinephric mild edema that remains unchanged. Overnight the patient continued to be hypotensive. She is still pressor dependent. She has developed worsening in acidosis. Serum bicarbonate this morning is down to 7. Lactic acid level peaked at 6.8 is currently down to 4.6. The patient was given additional liter of IV fluids and she has been more than 5 L positive over the past 24 hours. The UA was noted. Blood cultures of been sent. Urine cultures of been sent. She is developing a shock liver picture with elevation in the AST and ALP. Her creatinine is still abnormal with a creatinine level of 1.69. There is no further drop in the platelet count down to 1 and the patient's white cell count is at 10.4 with significant bandemia. As such the patient is still quite septic. Clinically she is cold and clammy with diminished pulses in all 4 extremities. She remains tachycardic and she is in sinus tachycardia with a heart rate of 120. She is still having some pain/tenderness in the left lower quadrant/left flank area. test from 2 days ago was within normal limits. On 04/19/2019 the patient is still being seen on a follow-up. The patient is slightly better compared to yesterday. Patient this morning is awake and alert. The patient is off pressors. The blood culture came back positive for E. coli and the patient was switched to 2 g of Rocephin. She is producing adequate amount of urine output. She was seen by urology regarding the hydronephrosis and hydroureter. The advice was to do an outpatient cystoscopy at a later stage. Otherwise, the patient's metabolic acidosis improving. The serum bicarb is up to 16. She still has gap of 17. She has a lower lactic acid level of 4.8. She is in a shock liver and the LFTs are gradually improving. The patient has developed some increased edema both in upper and lower extremities as the patient is been aggressively resuscitated IV fluids. Total protein is lower at 4.8 with an albumin of 2.4. Glucose at 317 on today's evaluation. As for the platelet counts, it is up to 25 and the patient has a mild component of DIC with some mild coagulopathy. Creatinine is up to 2.1 and the patient has a net fluid balance of +5 L for yesterday and 3.7 L 4 the day before. On 04/20/2019 I'm seeing this patient for a follow-up in the intensive care unit. The patient is looking well. She is able to sit up on a chair. She is hemodynamically stable. She is on IV Rocephin regarding the E. coli septicemia. Abdominal pain is pretty much subsided. There is a concern for cholecystitis and a HIDA scan will be ordered within next 24 hours. LFTs are essentially improving. She is developing some increased edema in the upper and lower extremities. She'll be given a dose of Lasix on today's evaluation. The jh coronel otherwise is doing well. No altered mentation. Platelet counts are still low. She shows no signs of any bleeding. She is afebrile. She is hemodynamically stable. Kidney function is improving and the creatinine is down to 1.85. Patient was taken off the bicarb drip and the patient was restrained normal state rate of 100 mL an hour. She was also placed on today's of oxygen by nasal cannula to maintain a saturation above 90%. 04/21/2019, I'm seeing this patient for a follow-up. The patient is looking well. IV fluids have been cut down to 50 mL's an hour of normal saline. She is producing adequate urine output. She will benefit from another dose of diuretics as the patient remains quite swollen both in upper and lower extremity. No nausea. No vomiting. No abdominal pain. HIDA scan is to follow. Still on Rocephin regarding E. coli septicemia. No abdominal pain. Platelet counts are improving. Kidney function is improving. She is tolerating oral intake. She is still weak although her strength is gradually improving. There has been no other significant events overnight. Chest x-ray showing some mild four-vessel congestion. She is on 2 L of oxygen by nasal cannula. She is using incentive spirometer. Blood sugars under better control for now with Levemir 10 units and NovoLog sliding scale coverage. As for the liver function tests, there also improving. Potassium needs to be replaced at 3.2. The patient is seen today 04/22/2019 in follow-up on the regular medical floor. She is currently awake and alert in no acute distress. She's been up ambulating in her room without any worsening shortness of breath. She is maintaining good O2 saturations in the 90s on room air. She's been afebrile. Hemodynamically stable. Her lower extremity edema is improving. No nausea, vomiting. Soft bowel movements. Follow-up blood culture revealing no growth to date. White count 15.1. Sodium 134. Potassium 5.9. Creatinine 0.97. AST 512. ALT 581. Remains on ceftriaxone. Continued on IV diuretics. Objective - Vital Signs Vital signs: Vital Signs Temp 98.1 F 04/22/19 04:52 Pulse 101 H 04/22/19 04:52 Resp 16 04/22/19 04:52 BP 132/79 04/22/19 04:52 Pulse Ox 92 L 04/22/19 04:52 Intake & Output 04/21/19 04/22/19 04/22/19 18:59 06:59 18:59 Intake Total 700 480 Output Total 1801 Balance -1101 480 Intake: IV 600 480 0.9 @60 600 480 Intake, IV Titration 100 Amount Potassium Chloride 10 meq 100 In Water For Injection 1 100ml.bag @ 100 mls/hr IVPB Q1HR [facility] Rx#: [id number] Output: Urine 1800 Stool 1 Other: Voiding Method Indwelling Catheter Toilet # Voids 40 2 1 - Exam GENERAL EXAM: Alert, pleasant 43-year-old female patient, comfortable in no apparent distress. On room air. HEAD: Normocephalic. EYES: Normal reaction of pupils, equal size. NOSE: Clear with pink turbinates. THROAT: No erythema or exudates. NECK: No masses, no JVD. CHEST: No chest wall deformity. LUNGS: Equal air entry with no crackles, wheeze, rhonchi or dullness. There is diminished breath sounds at lung bases especially in the right lung base CVS: S1 and S2 normal with no audible murmur, regular rhythm. ABDOMEN: No hepatosplenomegaly, normal bowel sounds, no guarding or rigidity. Abdominal exam revealed normal bowel sounds. The abdomen was soft, non-tender, and without masses, organomegaly, or appreciable enlargement of the abdominal aorta. SPINE: No scoliosis or deformity SKIN: No rashes CENTRAL NERVOUS SYSTEM: No focal deficits, tone is normal in all 4 extremities. EXTREMITIES: There is increase in peripheral edema bilaterally. No clubbing, no cyanosis. Peripheral pulses are present bilaterally. - Labs CBC & Chem 7: 04/22/19 07:44 04/22/19 07:44 Labs: Abnormal Lab Results - Last 24 Hours (Table) 04/21/19 04/21/19 04/22/19 Range/Units 13:20 21:53 07:44 WBC (3.8-10.6) k/uL RBC (3.80-5.40) m/uL Hgb (11.4-16.0) gm/dL Hct (34.0-46.0) % RDW (11.5-15.5) % PT (9.0-12.0) sec INR (<1.2) Sodium 134 L (137-145) mmol/L Potassium 5.9 H (3.5-5.1) mmol/L BUN 25 H (7-17) mg/dL POC Glucose (mg/dL) 110 H 106 H (75-99) mg/dL Calcium 7.1 L (8.4-10.2) mg/dL Total Bilirubin 9.9 H (0.2-1.3) mg/dL AST 512 H (14-36) U/L ALT 581 H (9-52) U/L Alkaline Phosphatase 236 H (38-126) U/L Albumin 2.8 L (3.5-5.0) g/dL 04/22/19 04/22/19 Range/Units 07:44 07:44 WBC 15.1 H (3.8-10.6) k/uL RBC 3.59 L (3.80-5.40) m/uL Hgb 10.9 L (11.4-16.0) gm/dL Hct 32.5 L (34.0-46.0) % RDW 15.8 H (11.5-15.5) % PT 13.5 H (9.0-12.0) sec INR 1.3 H (<1.2) Sodium (137-145) mmol/L Potassium (3.5-5.1) mmol/L BUN (7-17) mg/dL POC Glucose (mg/dL) (75-99) mg/dL Calcium (8.4-10.2) mg/dL Total Bilirubin (0.2-1.3) mg/dL AST (14-36) U/L ALT (9-52) U/L Alkaline Phosphatase (38-126) U/L Albumin (3.5-5.0) g/dL Microbiology - Last 24 Hours (Table) 04/19/19 08:45 Blood Culture - Preliminary Blood No Growth after 48 hours Assessment and Plan Assessment: Impression: #1 Septic shock which is suspected to be related to an underlying urinary source. The patient has E. coli in the blood and the patient was switched to 2 g of Rocephin. #2 Hypotension secondary to above requiring pressor support. Recovered. #3 Febrile illness secondary to above. Recovered. #4 Tachycardia secondary to above. #5 Thrombocytopenia, suspect consumption. Improving. #6 Acute renal failure, creatinine 1.73. #7 Recent diagnosis of diabetes mellitus. Initiated on metformin 2 days ago. #8 Chronic and ongoing tobacco dependence. #9 Daily alcohol use. Plan: The patient was seen and evaluated by Dr. Lomas. She is currently stable from the pulmonary and critical care standpoint. Continue with her current treatment plan. Increase her activity as tolerated. We'll continue to follow. I, the cosigning physician, performed a history & physical examination of the patient. Lungs sounds diminished in the posterior bases. Maintaining good O2 saturations in the 90s on room air. I discussed the assessment and plan of care with my nurse practitioner, Grace Correa. I attest to the above note as dictated by her.
[2019-04-22] MEDS: SODIUM CHLORIDE 0.9% 1,000 ML IV SCH (10:49)
[2019-04-22 11:25] LABS: Glucose,Whole Blood 136 mg/dL (75-99)
[2019-04-22 12:02] LABS: Platelet Count 54 k/uL (150-450)
[2019-04-22 12:39] LABS: Bilirubin, Conjugated 5.2 mg/dL (0.0-0.3); Bilirubin, Delta 2.9 mg/dL (0.0-0.2); Bilirubin,Unconjugated 1.8 mg/dL (0.0-1.1)
--- NOTE | 2019-04-22 12:54 | P.PN ---
Subjective Progress Note Date: 04/22/19 Patient states she's feeling well today no complaints of abdominal pain no nausea vomiting she's tolerating a diet Objective - Vital Signs Vital signs: Vital Signs Temp 98.1 F 04/22/19 11:22 Pulse 99 04/22/19 11:22 Resp 20 04/22/19 11:22 BP 145/78 04/22/19 11:22 Pulse Ox 92 L 04/22/19 11:22 Intake & Output 04/21/19 04/22/19 04/22/19 18:59 06:59 18:59 Intake Total 700 480 Output Total 1801 Balance -1101 480 Intake: IV 600 480 0.9 @60 600 480 Intake, IV Titration 100 Amount Potassium Chloride 10 meq 100 In Water For Injection 1 100ml.bag @ 100 mls/hr IVPB Q1HR [facility] Rx#: [id number] Output: Urine 1800 Stool 1 Other: Voiding Method Indwelling Catheter Toilet Toilet # Voids 40 2 1 - Constitutional General appearance: Present: cooperative - Respiratory Details: Nonlabored - Cardiovascular Rhythm: regular - Gastrointestinal Gastrointestinal Comment(s): Soft nondistended nontender - Psychiatric Psychiatric: Present: A&O x's 3 - Labs CBC & Chem 7: 04/22/19 07:44 04/22/19 07:44 Labs: Abnormal Lab Results - Last 24 Hours (Table) 04/21/19 04/21/19 04/22/19 Range/Units 13:20 21:53 07:44 WBC (3.8-10.6) k/uL RBC (3.80-5.40) m/uL Hgb (11.4-16.0) gm/dL Hct (34.0-46.0) % RDW (11.5-15.5) % Plt Count (150-450) k/uL PT (9.0-12.0) sec INR (<1.2) Sodium 134 L (137-145) mmol/L Potassium 5.9 H (3.5-5.1) mmol/L BUN 25 H (7-17) mg/dL POC Glucose (mg/dL) 110 H 106 H (75-99) mg/dL Calcium 7.1 L (8.4-10.2) mg/dL Total Bilirubin 9.9 H (0.2-1.3) mg/dL Conjugated Bilirubin 5.2 H (0.0-0.3) mg/dL Unconjugated Bilirubin 1.8 H (0.0-1.1) mg/dL Delta Bilirubin 2.9 H (0.0-0.2) mg/dL AST 512 H (14-36) U/L ALT 581 H (9-52) U/L Alkaline Phosphatase 236 H (38-126) U/L Albumin 2.8 L (3.5-5.0) g/dL 04/22/19 04/22/19 04/22/19 Range/Units 07:44 07:44 11:24 WBC 15.1 H (3.8-10.6) k/uL RBC 3.59 L (3.80-5.40) m/uL Hgb 10.9 L (11.4-16.0) gm/dL Hct 32.5 L (34.0-46.0) % RDW 15.8 H (11.5-15.5) % Plt Count 54 L (150-450) k/uL PT 13.5 H (9.0-12.0) sec INR 1.3 H (<1.2) Sodium (137-145) mmol/L Potassium (3.5-5.1) mmol/L BUN (7-17) mg/dL POC Glucose (mg/dL) 136 H (75-99) mg/dL Calcium (8.4-10.2) mg/dL Total Bilirubin (0.2-1.3) mg/dL Conjugated Bilirubin (0.0-0.3) mg/dL Unconjugated Bilirubin (0.0-1.1) mg/dL Delta Bilirubin (0.0-0.2) mg/dL AST (14-36) U/L ALT (9-52) U/L Alkaline Phosphatase (38-126) U/L Albumin (3.5-5.0) g/dL Microbiology - Last 24 Hours (Table) 04/19/19 08:45 Blood Culture - Preliminary Blood No Growth after 72 hours Assessment and Plan Assessment: Acute liver failure likely secondary to shock liver. Hyperbilirubinemia. Plan: Patient starting a diet not complaining of any abdominal pain at this time. Her bilirubin continues to elevate this could be lagging behind as a component of shock liver and multifactorial liver failure. His bilirubin does not improve I would recommend GI consult for further evaluation.
[2019-04-22 14:00] LABS: Calcium 7.4 mg/dL (8.4-10.2); Potassium 3.9 mmol/L (3.5-5.1)
--- NOTE | 2019-04-22 16:03 | P.PN ---
Subjective Progress Note Date: 04/22/19 (dealyed charting patient seen at 1330) Principal diagnosis: fatigue, nausea, and vomiting Patient is a 43-year-old female with no significant past medical history who presented to the ER with complaints of vomiting, diarrhea, and fatigue. She initially was seen in the ER on 04/15/19 for left sided back pain and flank pain. She is on have a urinary tract infection was started on Levaquin. She also was found to have left-sided hydronephrosis with hydroureter possibly related to recently passed stone. It appears that the patient left AMA from the emergency department. On arrival to the emergency department on 04/17 she was found have a heart rate of 140 and a blood pressure of 82/56. Laboratory analysis showed no white blood cell count or platelet count of 62, creatinine of 1.73, glucose 233, lactic acid of 4.7, alk phos of 313. Her urine showed many hyaline casts as well as 27 white blood cell, was nitrate positive and had large leukocyte esterase. Her acetone was negative. C. diff was negative. She underwent a repeat CT abdomen and pelvis which were fatty infiltration of the liver with new minimal subsegmental atelectasis and interstitial infiltrate at the lung bases, mild ascites, mild left-sided hydronephrosis with hydroureter as well as left-sided perinephric edema. She was started on broad-spectrum antibiotics and IV fluids. Her blood pressure remained low and she required norepinephrine. She was subsequently admitted to the ICU. Critical care was consulted. On the morning after admission she had an elevated creatinine of 1.69 as well as an elevated potassium of 5.7. She continued to be significantly acidotic. She was given 2 amps of bicarbonate and started on a sodium bicarbonate drip. She was also found to have elevated liver enzymes. Her levophed was able to be weaned on 04/18/19. She was found to have E coli bacteremia and antibiotics transitioned to rocephin. ID was consulted. Her platelets continued to decrease. Her Cr continued to worsen but liver enzymes started to improve. Her HgB dropped likely due to aggressive fluid resuscitation. Her vomiting resolved on 04/18 and she was started on a diet on 04/19. She continued to slowly improve. Patient underwent a HIDA scan as "possible cholecystitis". He was seen by surgery who felt this was a false positive due to her acute illness. Her bilirubin continues to rise but liver enzymes are decreasing. Renal function improving. Patient seen and examined at bedside. Feeling a bit better today, walked around the halls this morning, swelling improving, no nausea, loose stool, no vomiting. Objective - Vital Signs Vital signs: Vital Signs Temp 98.1 F 04/22/19 11:22 Pulse 99 04/22/19 11:22 Resp 20 04/22/19 11:22 BP 145/78 04/22/19 11:22 Pulse Ox 92 L 04/22/19 11:22 Intake & Output 04/21/19 04/22/19 04/22/19 18:59 06:59 18:59 Intake Total 700 480 Output Total 1801 Balance -1101 480 Intake: IV 600 480 0.9 @60 600 480 Intake, IV Titration 100 Amount Potassium Chloride 10 meq 100 In Water For Injection 1 100ml.bag @ 100 mls/hr IVPB Q1HR [facility] Rx#: [id number] Output: Urine 1800 Stool 1 Other: Voiding Method Indwelling Catheter Toilet Toilet # Voids 40 2 2 - Exam General: non toxic, no distress, appears at stated age, obese Derm: warm, dry Head: atraumatic, normocephalic, symmetric Eyes: EOMI, no lid lag, anicteric sclera Mouth: no lip lesion, mucous membranes dry Cardiovascular: S1S2 tachycardia, no murmur, positive posterior tibial pulse bilateral, Lungs: Decreased bs bilateral, no rhonchi, no rales , no accessory muscle use Abdominal: soft, nontender to palpation, no guarding, no appreciable organomegaly Ext: no gross muscle atrophy, 2+ edema, no contractures Neuro: CN II-XI grossly intact, no focal neuro deficits Psych: Alert, oriented, appropriate affect - Labs CBC & Chem 7: 04/22/19 07:44 04/22/19 13:25 Labs: Abnormal Lab Results - Last 24 Hours (Table) 04/21/19 04/22/19 04/22/19 Range/Units 21:53 07:44 07:44 WBC (3.8-10.6) k/uL RBC (3.80-5.40) m/uL Hgb (11.4-16.0) gm/dL Hct (34.0-46.0) % RDW (11.5-15.5) % Plt Count (150-450) k/uL PT 13.5 H (9.0-12.0) sec INR 1.3 H (<1.2) Sodium 134 L (137-145) mmol/L Potassium 5.9 H (3.5-5.1) mmol/L BUN 25 H (7-17) mg/dL Glucose (74-99) mg/dL POC Glucose (mg/dL) 106 H (75-99) mg/dL Calcium 7.1 L (8.4-10.2) mg/dL Total Bilirubin 9.9 H (0.2-1.3) mg/dL Conjugated Bilirubin 5.2 H (0.0-0.3) mg/dL Unconjugated Bilirubin 1.8 H (0.0-1.1) mg/dL Delta Bilirubin 2.9 H (0.0-0.2) mg/dL AST 512 H (14-36) U/L ALT 581 H (9-52) U/L Alkaline Phosphatase 236 H (38-126) U/L Albumin 2.8 L (3.5-5.0) g/dL 04/22/19 04/22/19 04/22/19 Range/Units 07:44 11:24 13:25 WBC 15.1 H (3.8-10.6) k/uL RBC 3.59 L (3.80-5.40) m/uL Hgb 10.9 L (11.4-16.0) gm/dL Hct 32.5 L (34.0-46.0) % RDW 15.8 H (11.5-15.5) % Plt Count 54 L (150-450) k/uL PT (9.0-12.0) sec INR (<1.2) Sodium 133 L (137-145) mmol/L Potassium (3.5-5.1) mmol/L BUN 25 H (7-17) mg/dL Glucose 157 H (74-99) mg/dL POC Glucose (mg/dL) 136 H (75-99) mg/dL Calcium 7.4 L (8.4-10.2) mg/dL Total Bilirubin (0.2-1.3) mg/dL Conjugated Bilirubin (0.0-0.3) mg/dL Unconjugated Bilirubin (0.0-1.1) mg/dL Delta Bilirubin (0.0-0.2) mg/dL AST (14-36) U/L ALT (9-52) U/L Alkaline Phosphatase (38-126) U/L Albumin (3.5-5.0) g/dL Microbiology - Last 24 Hours (Table) 04/19/19 08:45 Blood Culture - Preliminary Blood No Growth after 72 hours Assessment and Plan Assessment: Pyelonephritis with hydronephrosis, E. coli bacteremia, present on admission, not catheter associated -Rocephin -IV fluids completed -urine culture skin js -Blood cultures with E. 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 - if bili increases again tomorrow consult GI Pulm edema due to need for IV fluids -lasix Acute kidney injury, likely secondary to ATN and hydronephrosis, improving -IV fluids completed -Avoid additional nephrotoxic agents -Nephrology recs appreciated -Renal ultrasound with persistent left sided hydronephrosis Thrombocytopenia, likely sepsis mediated with liver damage -Continue to follow CBC -improving slowly New onset diabetes with A1C 10.5 -Continue with sliding scale insulin, levemir - follow BS - Hold oral metformin - seen by dietitian and software educator, given free meter - likely metformin and glimiperide on discharge if liver/renal function improves. Hyperkalemia, resolved septic shock, resolved Lactic acidosis, secondary to sepsis, resolved Hypocalcemia with vit D deficiency, improved DVT prophylaxis: Heparin on hold due to low platelets Discussed with: Patient, nursing Anticipated discharge: 2-[address]: home A total of 30 minutes was spent on the care of this complex patient more than 50% of the time was spent in counseling and care coordination.
[2019-04-22] MEDS: HYDROcodone/APAP 5-325MG 1 EACH TAB PO PRN ×2 (17:06→23:21)
[2019-04-22 17:14] LABS: Glucose,Whole Blood 109 mg/dL (75-99)
[2019-04-22 21:07] LABS: Glucose,Whole Blood 127 mg/dL (75-99)
[2019-04-23 07:05] LABS: Glucose,Whole Blood 93 mg/dL (75-99)
[2019-04-23] MEDS: INSULIN ASPART (NovoLOG) 100 UNIT/ML VIAL SQ SCH ×4 (07:11→21:00)
[2019-04-23 07:53] LABS: ALT 420 U/L (9-52); AST 263 U/L (14-36); African American GFR (CKD) >90 (>60 ml/min/1.73 sqM); Albumin 2.4 g/dL (3.5-5.0); Alkaline Phosphatase 303 U/L (38-126); Anion Gap 10 mmol/L; Blood Urea Nitrogen 22 mg/dL (7-17); Calcium 7.3 mg/dL (8.4-10.2); Carbon Dioxide 25 mmol/L (22-30); Chloride 100 mmol/L (98-107); Glucose 96 mg/dL (74-99); Magnesium 1.7 mg/dL (1.6-2.3); Non-African American GFR(CKD) 83 (>60 ml/min/1.73 sqM); Potassium 3.4 mmol/L (3.5-5.1); Sodium 135 mmol/L (137-145); Total Bilirubin 8.8 mg/dL (0.2-1.3); Total Protein 5.5 g/dL (6.3-8.2)
[2019-04-23] MEDS: NICOTINE 21MG/24HR PATCH TRANSDERM SCH (08:01)
[2019-04-23] MEDS: INSULIN DETEMIR (LEVEMIR) 100 UNIT/ML SYR SQ SCH (08:01)
[2019-04-23] MEDS: PANTOPRAZOLE 40 MG TABLET PO SCH (08:01)
[2019-04-23] MEDS: FUROSEMIDE 10 MG/ML 4 ML VIAL IV SCH (08:01)
[2019-04-23 09:17] LABS: HCT 34.3 % (34.0-46.0); HGB 11.4 gm/dL (11.4-16.0); MCHC 33.3 g/dL (31.0-37.0); Mean Platelet Volume 13.7; RBC 3.81 m/uL (3.80-5.40); RDW 15.5 % (11.5-15.5); WBC 14.6 k/uL (3.8-10.6)
[2019-04-23 09:19] LABS: Platelet Count 58 k/uL (150-450)
--- NOTE | 2019-04-23 09:26 | P.PN ---
Subjective Patient is seen in follow for acute kidney injury. Creatinine peaked at 2.11 this admission and is now back to baseline. Edema improving. Maintain on IV Lasix. Vital signs are stable. General: The patient appeared well nourished and normally developed. HEENT: Head exam is unremarkable. Neck is without jugular venous distension. LUNGS: Lungs are clear to auscultation and percussion. Breath sounds decreased. HEART: Rate and Rhythm are regular. First and second heart sounds normal. No murmurs, rubs or gallops. ABDOMEN: Abdominal exam reveals normal bowel sounds. Non-tender and non- distended. No evidence of peritonitis. EXTREMITITES: 1+ edema. Objective - Vital Signs Vital signs: Vital Signs Temp 97.7 F 04/23/19 04:50 Pulse 95 04/23/19 04:50 Resp 16 04/23/19 04:50 BP 124/77 04/23/19 04:50 Pulse Ox 94 L 04/23/19 04:50 Intake & Output 04/22/19 04/23/19 04/23/19 18:59 06:59 18:59 Intake Total 590 Output Total 2 Balance 588 Intake: Oral 590 Output: Stool 2 Other: Voiding Method Toilet Toilet # Voids 2 3 - Labs CBC & Chem 7: 04/23/19 07:13 04/23/19 07:13 Labs: Abnormal Lab Results - Last 24 Hours (Table) 04/22/19 04/22/19 04/22/19 Range/Units 07:44 07:44 07:44 WBC 15.1 H (3.8-10.6) k/uL RBC 3.59 L (3.80-5.40) m/uL Hgb 10.9 L (11.4-16.0) gm/dL Hct 32.5 L (34.0-46.0) % RDW 15.8 H (11.5-15.5) % Plt Count 54 L (150-450) k/uL PT 13.5 H (9.0-12.0) sec INR 1.3 H (<1.2) Sodium 134 L (137-145) mmol/L Potassium 5.9 H (3.5-5.1) mmol/L BUN 25 H (7-17) mg/dL Glucose (74-99) mg/dL POC Glucose (mg/dL) (75-99) mg/dL Calcium 7.1 L (8.4-10.2) mg/dL Total Bilirubin 9.9 H (0.2-1.3) mg/dL Conjugated Bilirubin 5.2 H (0.0-0.3) mg/dL Unconjugated Bilirubin 1.8 H (0.0-1.1) mg/dL Delta Bilirubin 2.9 H (0.0-0.2) mg/dL AST 512 H (14-36) U/L ALT 581 H (9-52) U/L Alkaline Phosphatase 236 H (38-126) U/L Total Protein (6.3-8.2) g/dL Albumin 2.8 L (3.5-5.0) g/dL 04/22/19 04/22/19 04/22/19 Range/Units 11:24 13:25 17:13 WBC (3.8-10.6) k/uL RBC (3.80-5.40) m/uL Hgb (11.4-16.0) gm/dL Hct (34.0-46.0) % RDW (11.5-15.5) % Plt Count (150-450) k/uL PT (9.0-12.0) sec INR (<1.2) Sodium 133 L (137-145) mmol/L Potassium (3.5-5.1) mmol/L BUN 25 H (7-17) mg/dL Glucose 157 H (74-99) mg/dL POC Glucose (mg/dL) 136 H 109 H (75-99) mg/dL Calcium 7.4 L (8.4-10.2) mg/dL Total Bilirubin (0.2-1.3) mg/dL Conjugated Bilirubin (0.0-0.3) mg/dL Unconjugated Bilirubin (0.0-1.1) mg/dL Delta Bilirubin (0.0-0.2) mg/dL AST (14-36) U/L ALT (9-52) U/L Alkaline Phosphatase (38-126) U/L Total Protein (6.3-8.2) g/dL Albumin (3.5-5.0) g/dL 04/22/19 04/23/19 04/23/19 Range/Units 21:06 07:13 07:13 WBC 14.6 H (3.8-10.6) k/uL RBC (3.80-5.40) m/uL Hgb (11.4-16.0) gm/dL Hct (34.0-46.0) % RDW (11.5-15.5) % Plt Count 58 L (150-450) k/uL PT (9.0-12.0) sec INR (<1.2) Sodium 135 L (137-145) mmol/L Potassium 3.4 L (3.5-5.1) mmol/L BUN 22 H (7-17) mg/dL Glucose (74-99) mg/dL POC Glucose (mg/dL) 127 H (75-99) mg/dL Calcium 7.3 L (8.4-10.2) mg/dL Total Bilirubin 8.8 H (0.2-1.3) mg/dL Conjugated Bilirubin (0.0-0.3) mg/dL Unconjugated Bilirubin (0.0-1.1) mg/dL Delta Bilirubin (0.0-0.2) mg/dL AST 263 H (14-36) U/L ALT 420 H (9-52) U/L Alkaline Phosphatase 303 H (38-126) U/L Total Protein 5.5 L (6.3-8.2) g/dL Albumin 2.4 L (3.5-5.0) g/dL Microbiology - Last 24 Hours (Table) 04/19/19 08:45 Blood Culture - Preliminary Blood No Growth after 72 hours Assessment and Plan Plan: Assessment: 1. Acute kidney injury secondary to ATN secondary to hypotension, nonsteroidals and sepsis. Baseline creatinine is 1 and peaked at 2.11 this admission - 0.87 today. Mild left-sided hydronephrosis noted on kidney ultrasound. 2. Hyperkalemia secondary to acute kidney injury and metabolic acidosis. Resolved. Now hypokalemic from diuresis. 3. Metabolic acidosis secondary to acute kidney injury and IV fluids. Resolved. 4. E. coli bacteremia maintained on IV antibiotics. 5. Insulin-dependent diabetes mellitus. Plan: Maintain Lasix 40 mg IV daily. I will give her an additional dose this afternoon. Replace potassium. Continue to monitor renal function and urine output. Repeat electrolytes in the morning.
[2019-04-23] MEDS: POTASSIUM CHLORIDE ER 20 MEQ TAB.ER PO SCH ×6 (09:34→21:59)
[2019-04-23 09:51] VITALS: BMI 39.6
[2019-04-23] MEDS ORDERED: MAGNESIUM SULFATE-D5W PMX 1 GM in DEXTROSE/WATER 1 100ML.BAG IVPB ONE (10:00)
[2019-04-23 11:11] LABS: Glucose,Whole Blood 123 mg/dL (75-99)
--- NOTE | 2019-04-23 11:15 | P.PN ---
Subjective Progress Note Date: 04/23/19 Patient states she's feeling well today no complaints of abdominal pain no nausea vomiting she's tolerating a diet Objective - Vital Signs Vital signs: Vital Signs Temp 97.7 F 04/23/19 04:50 Pulse 95 04/23/19 04:50 Resp 16 04/23/19 04:50 BP 124/77 04/23/19 04:50 Pulse Ox 94 L 04/23/19 04:50 Intake & Output 04/22/19 04/23/19 04/23/19 18:59 06:59 18:59 Intake Total 590 Output Total 2 Balance 588 Weight 86.2 kg Intake: Oral 590 Output: Stool 2 Other: Voiding Method Toilet Toilet # Voids 2 3 - Constitutional General appearance: Present: cooperative - Respiratory Details: nonlabored - Cardiovascular Rhythm: regular - Gastrointestinal Gastrointestinal Comment(s): S/NT/ND - Psychiatric Psychiatric: Present: A&O x's 3 - Labs CBC & Chem 7: 04/23/19 07:13 04/23/19 07:13 Labs: Abnormal Lab Results - Last 24 Hours (Table) 04/22/19 04/22/19 04/22/19 Range/Units 07:44 07:44 11:24 WBC (3.8-10.6) k/uL Plt Count 54 L (150-450) k/uL Sodium 134 L (137-145) mmol/L Potassium 5.9 H (3.5-5.1) mmol/L BUN 25 H (7-17) mg/dL Glucose (74-99) mg/dL POC Glucose (mg/dL) 136 H (75-99) mg/dL Calcium 7.1 L (8.4-10.2) mg/dL Total Bilirubin 9.9 H (0.2-1.3) mg/dL Conjugated Bilirubin 5.2 H (0.0-0.3) mg/dL Unconjugated Bilirubin 1.8 H (0.0-1.1) mg/dL Delta Bilirubin 2.9 H (0.0-0.2) mg/dL AST 512 H (14-36) U/L ALT 581 H (9-52) U/L Alkaline Phosphatase 236 H (38-126) U/L Total Protein (6.3-8.2) g/dL Albumin 2.8 L (3.5-5.0) g/dL 04/22/19 04/22/19 04/22/19 Range/Units 13:25 17:13 21:06 WBC (3.8-10.6) k/uL Plt Count (150-450) k/uL Sodium 133 L (137-145) mmol/L Potassium (3.5-5.1) mmol/L BUN 25 H (7-17) mg/dL Glucose 157 H (74-99) mg/dL POC Glucose (mg/dL) 109 H 127 H (75-99) mg/dL Calcium 7.4 L (8.4-10.2) mg/dL Total Bilirubin (0.2-1.3) mg/dL Conjugated Bilirubin (0.0-0.3) mg/dL Unconjugated Bilirubin (0.0-1.1) mg/dL Delta Bilirubin (0.0-0.2) mg/dL AST (14-36) U/L ALT (9-52) U/L Alkaline Phosphatase (38-126) U/L Total Protein (6.3-8.2) g/dL Albumin (3.5-5.0) g/dL 04/23/19 04/23/19 04/23/19 Range/Units 07:13 07:13 11:07 WBC 14.6 H (3.8-10.6) k/uL Plt Count 58 L (150-450) k/uL Sodium 135 L (137-145) mmol/L Potassium 3.4 L (3.5-5.1) mmol/L BUN 22 H (7-17) mg/dL Glucose (74-99) mg/dL POC Glucose (mg/dL) 123 H (75-99) mg/dL Calcium 7.3 L (8.4-10.2) mg/dL Total Bilirubin 8.8 H (0.2-1.3) mg/dL Conjugated Bilirubin (0.0-0.3) mg/dL Unconjugated Bilirubin (0.0-1.1) mg/dL Delta Bilirubin (0.0-0.2) mg/dL AST 263 H (14-36) U/L ALT 420 H (9-52) U/L Alkaline Phosphatase 303 H (38-126) U/L Total Protein 5.5 L (6.3-8.2) g/dL Albumin 2.4 L (3.5-5.0) g/dL Microbiology - Last 24 Hours (Table) 04/19/19 08:45 Blood Culture - Preliminary Blood No Growth after 96 hours Assessment and Plan Assessment: Acute liver failure likely secondary to shock liver. Hyperbilirubinemia. Plan: Patient without abdominal pain. Tolerating diet. No plans for surgical intervention. Please contact me directly with any further concerns. If concerns about liver enzymes and biliruben persist I would recommend GI consultation.
--- NOTE | 2019-04-23 12:33 | P.PN ---
Subjective Progress Note Date: 04/23/19 This a very pleasant 43-year-old female patient with a history of chronic and ongoing tobacco dependence, daily alcohol use. She was recently or in the emergency room diagnosed with a urinary tract infection and found to have elevated blood sugars. She was initiated on Levaquin and metformin on 019. Computed tomography scan of the abdomen and pelvis at that time revealed a left-sided hydronephrosis and hydroureter with suspected recently passed stone. No definite ureteral calculus seen. Fatty infiltrate of the liver. She returned to the emergency room today with complaints of abdominal discomfort and nausea and vomiting. Chest x-ray shows no acute pulmonary process. Results revealed WBC 5.2. Hemoglobin 14.2. Platelet count 62,000. Creatinine 1.73. Bicarb 16. Lactic acid 4.7. Alk phos 313. Urine is turbid and dark brown with 2+ protein, positive nitrates and large WBCs. Acetone negative. Temperature 99.5 she is tachycardic in the 120s. Blood pressure 101/70. 100% O2 on room air. Follow-up lactic tone to 3.4. She has received 3 L of fluid resuscitation. Initiated on Zosyn. Requiring norepinephrine at 0.1 mcg/kg/m. She is seen today in consultation upon arrival in the intensive care unit. She is currently awake and alert in no acute distress. She does have some residual left-sided flank pain. On 04/18/2019 the patient remains critically ill. I was concerned of an ongoing urine checked infection. I saw the patient ICU yesterday and I covered her with IV Zosyn. Cultures were sent. A repeat CAT scan of the abdomen was done along with the CAT scan of the pelvis without contrast. This was done utilizing the stone protocol. There was fatty infiltration of the liver. There was new minimal segment V changes in the lung bases bilaterally. There was a new mild ascites compared to the previous film and there was a mild left-sided hydronephrosis and hydroureter that was unchanged compared to the previous evaluation and a previous CAT scan that was done on 04/15/2019. There was no ureteric calculus seen. There was left-sided perinephric mild edema that remains unchanged. Overnight the patient continued to be hypotensive. She is still pressor dependent. She has developed worsening in acidosis. Serum bicarbonate this morning is down to 7. Lactic acid level peaked at 6.8 is currently down to 4.6. The patient was given additional liter of IV fluids and she has been more than 5 L positive over the past 24 hours. The UA was noted. Blood cultures of been sent. Urine cultures of been sent. She is developing a shock liver picture with elevation in the AST and ALP. Her creatinine is still abnormal with a creatinine level of 1.69. There is no further drop in the platelet count down to 1 and the patient's white cell count is at 10.4 with significant bandemia. As such the patient is still quite septic. Clinically she is cold and clammy with diminished pulses in all 4 extremities. She remains tachycardic and she is in sinus tachycardia with a heart rate of 120. She is still having some pain/tenderness in the left lower quadrant/left flank area. test from 2 days ago was within normal limits. On 04/19/2019 the patient is still being seen on a follow-up. The patient is slightly better compared to yesterday. Patient this morning is awake and alert. The patient is off pressors. The blood culture came back positive for E. coli and the patient was switched to 2 g of Rocephin. She is producing adequate amount of urine output. She was seen by urology regarding the hydronephrosis and hydroureter. The advice was to do an outpatient cystoscopy at a later stage. Otherwise, the patient's metabolic acidosis improving. The serum bicarb is up to 16. She still has gap of 17. She has a lower lactic acid level of 4.8. She is in a shock liver and the LFTs are gradually improving. The patient has developed some increased edema both in upper and lower extremities as the patient is been aggressively resuscitated IV fluids. Total protein is lower at 4.8 with an albumin of 2.4. Glucose at 317 on today's evaluation. As for the platelet counts, it is up to 25 and the patient has a mild component of DIC with some mild coagulopathy. Creatinine is up to 2.1 and the patient has a net fluid balance of +5 L for yesterday and 3.7 L 4 the day before. On 04/20/2019 I'm seeing this patient for a follow-up in the intensive care unit. The patient is looking well. She is able to sit up on a chair. She is hemodynamically stable. She is on IV Rocephin regarding the E. coli septicemia. Abdominal pain is pretty much subsided. There is a concern for cholecystitis and a HIDA scan will be ordered within next 24 hours. LFTs are essentially improving. She is developing some increased edema in the upper and lower extremities. She'll be given a dose of Lasix on today's evaluation. The patient otherwise is doing well. No altered mentation. Platelet counts are still low. She shows no signs of any bleeding. She is afebrile. She is hemodynamically stable. Kidney function is improving and the creatinine is down to 1.85. Patient was taken off the bicarb drip and the patient was restrained normal state rate of 100 mL an hour. She was also placed on today's of oxygen by nasal cannula to maintain a saturation above 90%. 04/21/2019, I'm seeing this patient for a follow-up. The patient is looking well. IV fluids have been cut down to 50 mL's an hour of normal saline. She is producing adequate urine output. She will benefit from another dose of diuretics as the patient remains quite swollen both in upper and lower extremity. No nausea. No vomiting. No abdominal pain. HIDA scan is to follow. Still on Rocephin regarding E. coli septicemia. No abdominal pain. Platelet counts are improving. Kidney function is improving. She is tolerating oral intake. She is still weak although her strength is gradually improving. There has been no other significant events overnight. Chest x-ray showing some mild four-vessel congestion. She is on 2 L of oxygen by nasal cannula. She is using incentive spirometer. Blood sugars under better control for now with Levemir 10 units and NovoLog sliding scale coverage. As for the liver function tests, there also improving. Potassium needs to be replaced at 3.2. The patient is seen today 04/22/2019 in follow-up on the regular medical floor. She is currently awake and alert in no acute distress. She's been up ambulating in her room without any worsening shortness of breath. She is maintaining good O2 saturations in the 90s on room air. She's been afebrile. Hemodynamically stable. Her lower extremity edema is improving. No nausea, vomiting. Soft bowel movements. Follow-up blood culture revealing no growth to date. White count 15.1. Sodium 134. Potassium 5.9. Creatinine 0.97. AST 512. ALT 581. Remains on ceftriaxone. Continued on IV diuretics. On 04/23/2019, the patient is doing well. No complaints. She is improving. Hemodynamically stable on room air with pulse ox of 94%. Afebrile. The creatinine peaked at 2.1 is currently normalized down to 0.8. White cell count is at 14.6. Platelet count is up to 58,000. The patient is producing adequate amount of urine output. The patient is improving in terms of her edema in the patient is on IV Lasix. She was seen by general surgery. She has no nausea or vomiting. A HIDA scan was canceled. Sure enough, no plans for any surgical intervention as the patient's liver functions is also improving. The follow-up cultures are negative and the patient remains on IV Rocephin. Objective - Vital Signs Vital signs: Vital Signs Temp 98.0 F 04/23/19 11:42 Pulse 98 04/23/19 11:42 Resp 16 04/23/19 11:42 BP 145/83 04/23/19 11:42 Pulse Ox 93 L 04/23/19 11:42 Intake & Output 04/22/19 04/23/19 04/23/19 18:59 06:59 18:59 Intake Total 590 Output Total 2 Balance 588 Weight 86.2 kg Intake: Oral 590 Output: Stool 2 Other: Voiding Method Toilet Toilet # Voids 2 3 - Exam GENERAL EXAM: Alert, pleasant 43-year-old female patient, fairly comfortable in no apparent distress. The patient is awake and alert and following commands and answering questions appropriately. HEAD: Normocephalic. EYES: Normal reaction of pupils, equal size. NOSE: Clear with pink turbinates. THROAT: No erythema or exudates. NECK: No masses, no JVD. CHEST: No chest wall deformity. LUNGS: Equal air entry with no crackles, wheeze, rhonchi or dullness. There is diminished breath sounds at lung bases especially in the right lung base CVS: S1 and S2 normal with no audible murmur, regular rhythm. The patient diminished pulses in lower extremities bilaterally. She is quite cold and clammy. ABDOMEN: No hepatosplenomegaly, normal bowel sounds, no guarding or rigidity. Abdominal exam revealed normal bowel sounds. The abdomen was soft, non-tender, and without masses, organomegaly, or appreciable enlargement of the abdominal aorta. SPINE: No scoliosis or deformity SKIN: No rashes CENTRAL NERVOUS SYSTEM: No focal deficits, tone is normal in all 4 extremities. EXTREMITIES: There is increase in peripheral edema bilaterally. No clubbing, no cyanosis. Peripheral pulses are are diminished bilaterally. - Labs CBC & Chem 7: 04/23/19 07:13 04/23/19 07:13 Labs: Abnormal Lab Results - Last 24 Hours (Table) 04/22/19 04/22/19 04/22/19 Range/Units 07:44 13:25 17:13 WBC (3.8-10.6) k/uL Plt Count (150-450) k/uL Sodium 133 L (137-145) mmol/L Potassium (3.5-5.1) mmol/L BUN 25 H (7-17) mg/dL Glucose 157 H (74-99) mg/dL POC Glucose (mg/dL) 109 H (75-99) mg/dL Calcium 7.4 L (8.4-10.2) mg/dL Total Bilirubin (0.2-1.3) mg/dL Conjugated Bilirubin 5.2 H (0.0-0.3) mg/dL Unconjugated Bilirubin 1.8 H (0.0-1.1) mg/dL Delta Bilirubin 2.9 H (0.0-0.2) mg/dL AST (14-36) U/L ALT (9-52) U/L Alkaline Phosphatase (38-126) U/L Total Protein (6.3-8.2) g/dL Albumin (3.5-5.0) g/dL 04/22/19 04/23/19 04/23/19 Range/Units 21:06 07:13 07:13 WBC 14.6 H (3.8-10.6) k/uL Plt Count 58 L (150-450) k/uL Sodium 135 L (137-145) mmol/L Potassium 3.4 L (3.5-5.1) mmol/L BUN 22 H (7-17) mg/dL Glucose (74-99) mg/dL POC Glucose (mg/dL) 127 H (75-99) mg/dL Calcium 7.3 L (8.4-10.2) mg/dL Total Bilirubin 8.8 H (0.2-1.3) mg/dL Conjugated Bilirubin (0.0-0.3) mg/dL Unconjugated Bilirubin (0.0-1.1) mg/dL Delta Bilirubin (0.0-0.2) mg/dL AST 263 H (14-36) U/L ALT 420 H (9-52) U/L Alkaline Phosphatase 303 H (38-126) U/L Total Protein 5.5 L (6.3-8.2) g/dL Albumin 2.4 L (3.5-5.0) g/dL 04/23/19 Range/Units 11:07 WBC (3.8-10.6) k/uL Plt Count (150-450) k/uL Sodium (137-145) mmol/L Potassium (3.5-5.1) mmol/L BUN (7-17) mg/dL Glucose (74-99) mg/dL POC Glucose (mg/dL) 123 H (75-99) mg/dL Calcium (8.4-10.2) mg/dL Total Bilirubin (0.2-1.3) mg/dL Conjugated Bilirubin (0.0-0.3) mg/dL Unconjugated Bilirubin (0.0-1.1) mg/dL Delta Bilirubin (0.0-0.2) mg/dL AST (14-36) U/L ALT (9-52) U/L Alkaline Phosphatase (38-126) U/L Total Protein (6.3-8.2) g/dL Albumin (3.5-5.0) g/dL Microbiology - Last 24 Hours (Table) 04/19/19 08:45 Blood Culture - Preliminary Blood No Growth after 96 hours Assessment and Plan Plan: #1 septic shock which is still suspected to be related to an underlying urinary source. The patient has E. coli in the blood and the patient was switched to 2 g of Rocephin. Hemodynamically improved. #2 septic shock with secondary to above. The patient is currently hemodynamically stable. The patient is currently off pressors. #3 Febrile illness secondary to above. #4 Tachycardia secondary to above, improving and the patient's tachycardia is improved considerably. #5 Thrombocytopenia, suspect consumption, with a mild DIC type of picture. The platelet count is improving and the plated count is up to 58,000 #6 Acute renal failure, secondary to above. Renal function is normalized #7 Recent diagnosis of diabetes mellitus. The patient was started on Levemir 10 units on a daily basis along with a scale #8 Chronic and ongoing tobacco dependence. #9 Daily alcohol use. #10 severe anion gap metabolic acidosis, improving #11 lactic acidosis, improving #12 abnormal LFTs, consider shock liver secondary to sepsis/hypotension, improving Plan Continue IV Rocephin. Give the patient daily IV Lasix. Kept on IV fluids. Ambulate in the hallway. Monitor blood sugar. She is on Levemir insulin. Surgical input is appreciated.
--- NOTE | 2019-04-23 13:55 | P.PN ---
Subjective Progress Note Date: 04/23/19 (Delayed charting patient seen at 11:30) Principal diagnosis: fatigue, nausea, and vomiting Patient is a 43-year-old female with no significant past medical history who presented to the ER with complaints of vomiting, diarrhea, and fatigue. She initially was seen in the ER on 04/15/19 for left sided back pain and flank pain. She is on have a urinary tract infection was started on Levaquin. She also was found to have left-sided hydronephrosis with hydroureter possibly related to recently passed stone. It appears that the patient left AMA from the emergency department. On arrival to the emergency department on 04/17 she was found have a heart rate of 140 and a blood pressure of 82/56. Laboratory analysis showed no white blood cell count or platelet count of 62, creatinine of 1.73, glucose 233, lactic acid of 4.7, alk phos of 313. Her urine showed many hyaline casts as well as 27 white blood cell, was nitrate positive and had large leukocyte esterase. Her acetone was negative. C. diff was negative. She underwent a repeat CT abdomen and pelvis which were fatty infiltration of the liver with new minimal subsegmental atelectasis and interstitial infiltrate at the lung bases, mild ascites, mild left-sided hydronephrosis with hydroureter as well as left-sided perinephric edema. She was started on broad-spectrum antibiotics and IV fluids. Her blood pressure remained low and she required norepinephrine. She was subsequently admitted to the ICU. Critical care was consulted. On the morning after admission she had an elevated creatinine of 1.69 as well as an elevated potassium of 5.7. She continued to be significantly acidotic. She was given 2 amps of bicarbonate and started on a sodium bicarbonate drip. She was also found to have elevated liver enzymes. Her levophed was able to be weaned on 04/18/19. She was found to have E coli bacteremia and antibiotics transitioned to rocephin. ID was consulted. Her platelets continued to decrease. Her Cr continued to worsen but liver enzymes started to improve. Her HgB dropped likely due to aggressive fluid resuscitation. Her vomiting resolved on 04/18 and she was started on a diet on 04/19. She continued to slowly improve. Patient underwent a HIDA scan as "possible cholecystitis". He was seen by surgery who felt this was a false positive due to her acute illness. Her bilirubin continues to rise but liver enzymes are decreasing. Renal function improving. Patient is feeling better on a daily basis. However her white blood cell count has been increasing. Patient seen and examined at bedside. Feeling much better today. Still having some shortness of breath and lower extremity edema but improving. Known nausea or vomiting. Still some loose stools but no gean diarrhea. No chest pain. Having some belly pain. Objective - Vital Signs Vital signs: Vital Signs Temp 98.0 F 04/23/19 11:42 Pulse 98 04/23/19 11:42 Resp 16 04/23/19 11:42 BP 145/83 04/23/19 11:42 Pulse Ox 93 L 04/23/19 11:42 Intake & Output 04/22/19 04/23/19 04/23/19 18:59 06:59 18:59 Intake Total 590 Output Total 2 Balance 588 Weight 86.2 kg Intake: Oral 590 Output: Stool 2 Other: Voiding Method Toilet Toilet # Voids 2 3 - Exam General: non toxic, no distress, appears at stated age, obese Derm: Scleral icterus and jaundice, warm, dry Head: atraumatic, normocephalic, symmetric Eyes: EOMI, no lid lag, + icteric sclera Mouth: no lip lesion, mucous membranes dry Cardiovascular: S1S2 tachycardia, no murmur, positive posterior tibial pulse bilateral, Lungs: Decreased bs bilateral, no rhonchi, no rales , no accessory muscle use Abdominal: soft, + tender to palpation right upper quadrant, no guarding, no appreciable organomegaly Ext: no gross muscle atrophy, 2+ edema, no contractures Neuro: CN II-XI grossly intact, no focal neuro deficits Psych: Alert, oriented, appropriate affect - Labs CBC & Chem 7: 04/23/19 07:13 04/23/19 12:54 Labs: Abnormal Lab Results - Last 24 Hours (Table) 04/22/19 04/22/19 04/22/19 Range/Units 13:25 17:13 21:06 WBC (3.8-10.6) k/uL Plt Count (150-450) k/uL Sodium 133 L (137-145) mmol/L Potassium (3.5-5.1) mmol/L BUN 25 H (7-17) mg/dL Glucose 157 H (74-99) mg/dL POC Glucose (mg/dL) 109 H 127 H (75-99) mg/dL Calcium 7.4 L (8.4-10.2) mg/dL Total Bilirubin (0.2-1.3) mg/dL AST (14-36) U/L ALT (9-52) U/L Alkaline Phosphatase (38-126) U/L Total Protein (6.3-8.2) g/dL Albumin (3.5-5.0) g/dL 04/23/19 04/23/19 04/23/19 Range/Units 07:13 07:13 11:07 WBC 14.6 H (3.8-10.6) k/uL Plt Count 58 L (150-450) k/uL Sodium 135 L (137-145) mmol/L Potassium 3.4 L (3.5-5.1) mmol/L BUN 22 H (7-17) mg/dL Glucose (74-99) mg/dL POC Glucose (mg/dL) 123 H (75-99) mg/dL Calcium 7.3 L (8.4-10.2) mg/dL Total Bilirubin 8.8 H (0.2-1.3) mg/dL AST 263 H (14-36) U/L ALT 420 H (9-52) U/L Alkaline Phosphatase 303 H (38-126) U/L Total Protein 5.5 L (6.3-8.2) g/dL Albumin 2.4 L (3.5-5.0) g/dL Microbiology - Last 24 Hours (Table) 04/19/19 08:45 Blood Culture - Preliminary Blood No Growth after 96 hours Assessment and Plan Assessment: Pyelonephritis with hydronephrosis, E. coli bacteremia, present on admission, not catheter associated -Rocephin -IV fluids completed -urine culture skin js -Blood cultures with E. coli, repeat negative to date -ID recs appreciated -Urology recommendations appreciated: cystoscopy as outpatient Leukocytosis, worsening -Repeat blood cultures -Check urine -Check chest x-ray -Repeat CBC in a.m. Shock liver - improving as anticipated with increasing bili. Some concern that there could possibly be component of bile duct blockage. We'll consult GI. 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 Pulm edema due to need for IV fluids -Lasix daily -Monitor fluid status Thrombocytopenia, likely sepsis mediated with liver damage -Continue to follow CBC -improving slowly New onset diabetes with A1C 10.5 -Continue with sliding scale insulin, levemir - follow BS - Hold oral metformin - seen by dietitian and perinatal educator, given free meter - likely metformin and glimiperide on discharge if liver/renal function impro ves. Hyperkalemia, resolved septic shock, resolved Lactic acidosis, secondary to sepsis, resolved Hypocalcemia with vit D deficiency, improved Acute kidney injury, likely secondary to ATN and hydronephrosis, resolved DVT prophylaxis: Heparin on hold due to low platelets Discussed with: Patient, nursing Anticipated discharge: 2-[address]: home A total of 30 minutes was spent on the care of this complex patient more than 50% of the time was spent in counseling and care coordination.
[2019-04-23] MEDS ORDERED: FUROSEMIDE 10 MG/ML 4 ML VIAL IV ONE (15:00)
[2019-04-23 16:52] LABS: Appearance,Urine Clear (Clear); Bilirubin,Urine 1+ (Negative); Blood,Urine Moderate (Negative); Color,Urine Yellow; Glucose,Urine (UA) Negative (Negative); Hyaline Casts,Urine 3 /lpf (0-2); Ketones,Urine Negative (Negative); Leukocyte Esterase,Urine Moderate (Negative); Mucus,Urine Rare /hpf; Nitrite,Urine Negative (Negative); Protein,Urine Negative (Negative); RBC,Urine 21 /hpf (0-5); Squamous Epithelial Cell,Urine 7 /hpf (0-4); Urobilinogen,Urine <2.0 mg/dL (<2.0); WBC,Urine 34 /hpf (0-5)
[2019-04-23 17:11] LABS: Glucose,Whole Blood 88 mg/dL (75-99)
[2019-04-23] MEDS: HYDROcodone/APAP 5-325MG 1 EACH TAB PO PRN (18:19)
[2019-04-23 20:12] LABS: Glucose,Whole Blood 96 mg/dL (75-99)
[2019-04-24] MEDS: ONDANSETRON 4 MG/2 ML VIAL IVP PRN (00:13)
[2019-04-24] MEDS: MORPHINE SULFATE 2 MG/ML SYRINGE IVP PRN (00:17)
[2019-04-24 07:10] LABS: Glucose,Whole Blood 80 mg/dL (75-99)
--- NOTE | 2019-04-24 07:49 | P.CONS ---
History of Present Illness - Reason for Consult Consult date: 04/24/19 shock liver Requesting physician: Bernadette Nobles - Chief Complaint Weakness - History of Present Illness 43-year-old female newly diagnosed diabetic, admitted with generalized weakness nausea and nonbloody emesis with recent flank pain. Patient was evaluated in the emergency room earlier this month with left-sided back pain and flank pain CT report of left-sided hydronephrosis and hydroureter she left AMA on antibiotics in the form of Levaquin for possible UTI. Readmitted with continued complaints as before with decreased appetite and difficulty urinating. Admiss ion vital signs blood pressure systolic 60s. Heart rate 140. Platelet 62,000. White count 5.2. Hemoglobin 14.2. LFTs total bilirubin 1.1. AST 27. ALT 23. AP 313. Hepatitis screen nonreactive. C. diff negative. Serum acetone negative. Blood cultures E. coli. Prior to admission patient reports no history of known liver disorders however she does have a history of Tylenol induced hepatic injury greater than 10 years ago. The last few years she drinks 3-4 beers 3-4 days a week. Total bilirubin started to increase on 04/18/2019 at 1.7 and peaked at 9.9 2 days ago. Yesterday total bilirubin 8.8. AST as high as 5796 yesterday 263. ALT as high as 1724 yesterday 420. AP peaked at 303 yesterday. Lactic acid on admission 4.7 increased to 6.7 on 04/17/2019 most recent 4.8 on 04/19/2019. CT abdomen 04/17/2019 fatty infiltration of liver. Mild left-sided hydronephrosis and hydroureter unchanged. No definite ureteral calculus. Left side. Nephrotic mild edema unchanged. Gallbladder normal size. No pancreatic mass. Bile ducts nondilated. Spleen normal. Gallbladder ultrasound mild gallbladder wall thickening abnormal echotexture of the adjacent liver likely related to focal fatty sparing or may be a sequelae of cholecystitis. Hepatic steatosis. CBD 0.5 cm. No gallstones mentioned. HIDA scan findings compatible cholecystitis there may be a component of underl lakia hepatocellular disease. Patient has been evaluated by general surgery no surgical plans at this time. Review of Systems Constitutional: Denies fever, chills, sweats, weight gain, or loss. Generalized weakness. HEENT: Negative for migraines, blurred vision or loss, earaches, drainage, tinnitus, oral mucosal lesions, dysphagia, or odynophagia. CARDIAC: Negative for chest pain, arrhythmias, or palpitation. RESPIRATORY: Negative for shortness of breath, hemoptysis, cough, or sputum production. GI: See HPI for pertinent findings. : Negative for hematuria, urgency, frequency, polyuria, or dysuria. GYNc: Denies possibility of . Negative vaginal discharge. MUSCULOSKELETAL: Negative for muscle aches, swelling, arthritis, and arthralgias. NEUROLOGIC: Negative for stroke or TIA. ENDOCRINE: Negative for thyroid problems. SKIN: Negative for rash or itching. PSYCHIATRIC: Negative history for depression and anxiety Past Medical History Past Medical History: No Reported History, Diabetes Mellitus History of Any Multi-Drug Resistant Organisms: None Reported Past Surgical History: No Surgical Hx Reported Past Psychological History: No Psychological Hx Reported Smoking Status: Current every day smoker Past Alcohol Use History: Daily Additional Past Alcohol Use History / Comment(s): Patient is a smoker of 2 packs per day since she was 18 years of age. She uses marijuana occasionally. She drinks 3-4 cans of beer per day. She lives with her boyfriend and daughter. She denies any recent travel. She does [employer] mostly at [employer]. Past Drug Use History: None Reported Medications and Allergies Home Medications Medication Instructions Recorded Confirmed Type Ibuprofen [Motrin Ib] 200 - 800 mg PO Q6H PRN 10/25/17 04/17/19 History Levofloxacin 750 mg PO DAILY #5 tablet 04/15/19 04/17/19 Rx metFORMIN HCL [Glucophage] 500 mg PO BID #14 tab 04/15/19 04/17/19 Rx Allergies Allergy/AdvReac Type Severity Reaction Status Date / Time cephalexin [From Keflex] Allergy Rash/Hives Verified 04/17/19 12:02 Physical Exam Vitals: Vital Signs Temp Pulse Resp BP Pulse Ox 04/24/19 05:00 98.0 F 91 16 113/74 96 04/24/19 00:10 16 04/23/19 21:00 97.6 F 101 H 16 139/68 92 L 04/23/19 11:42 98.0 F 98 16 145/83 93 L Intake and Output 08/18/19 08/19/19 08/19/19 22:59 06:59 14:59 Intake Total 1420 590 Balance 1420 590 Intake: Oral 1420 590 Other: Voiding Method Toilet # Voids 1 2 General appearance: The patient is alert, oriented, in no acute distress. HET: Head is normocephalic and atraumatic. Pupils are equal and reactive. Oropharynx is clear without lesions. Neck: Supple without lymphadenopathy. Trachea midline. Heart: S1 S2. Regular rate and rhythm. Lungs: No crackles or wheezes are heard. Abdomen: Soft, nontender, nondistended with bowel sounds. No peritoneal signs. No palpable organomegaly or masses. Extremities: Normal skin color and turgor. No cyanosis, rash, ulceration, clubbing, or edema. Radial and pedal pulses are 2/4 bilaterally. Neurological: No focal deficits. Strength and sensation are grossly intact. Results CBC & Chem 7: 04/24/19 07:08 04/24/19 07:08 Labs: Abnormal Lab Results - Last 24 Hours (Table) 04/23/19 04/23/19 04/23/19 Range/Units 07:13 07:13 11:07 WBC 14.6 H (3.8-10.6) k/uL Plt Count 58 L (150-450) k/uL Sodium 135 L (137-145) mmol/L Potassium 3.4 L (3.5-5.1) mmol/L BUN 22 H (7-17) mg/dL POC Glucose (mg/dL) 123 H (75-99) mg/dL Calcium 7.3 L (8.4-10.2) mg/dL Total Bilirubin 8.8 H (0.2-1.3) mg/dL AST 263 H (14-36) U/L ALT 420 H (9-52) U/L Alkaline Phosphatase 303 H (38-126) U/L Total Protein 5.5 L (6.3-8.2) g/dL Albumin 2.4 L (3.5-5.0) g/dL Urine Blood (Negative) Urine Bilirubin (Negative) Ur Leukocyte Esterase (Negative) Urine RBC (0-5) /hpf Urine WBC (0-5) /hpf Ur Squamous Epith Cells (0-4) /hpf Hyaline Casts (0-2) /lpf Urine Mucus (None) /hpf 04/23/19 04/23/19 Range/Units 16:04 18:10 WBC (3.8-10.6) k/uL Plt Count (150-450) k/uL Sodium (137-145) mmol/L Potassium 3.3 L (3.5-5.1) mmol/L BUN (7-17) mg/dL POC Glucose (mg/dL) (75-99) mg/dL Calcium (8.4-10.2) mg/dL Total Bilirubin (0.2-1.3) mg/dL AST (14-36) U/L ALT (9-52) U/L Alkaline Phosphatase (38-126) U/L Total Protein (6.3-8.2) g/dL Albumin (3.5-5.0) g/dL Urine Blood Moderate H (Negative) Urine Bilirubin 1+ H (Negative) Ur Leukocyte Esterase Moderate H (Negative) Urine RBC 21 H (0-5) /hpf Urine WBC 34 H (0-5) /hpf Ur Squamous Epith Cells 7 H (0-4) /hpf Hyaline Casts 3 H (0-2) /lpf Urine Mucus Rare H (None) /hpf Microbiology - Last 24 Hours (Table) 04/23/19 16:04 Urine Culture - Preliminary Urine,Clean Catch 04/19/19 08:45 Blood Culture - Preliminary Blood No Growth after 96 hours Comments: HIDA scan report result reviewed by Dr. Alvarez CT scan - abdomen: report reviewed (Dr. Alvarez) US - abdomen: report reviewed (Dr. Alvarez) Assessment and Plan (1) Shock liver Narrative/Plan: 43-year-old female admitted with acute septic shock pyelonephritis sepsis E. coli bacteremia with hypotension elevated liver enzymes consistent with shock liver biochemically improving. Underlying hepatic steatosis with a history of alcohol consumption 3-4 days a week for the last few years. Current Visit: Yes Status: Acute Code(s): K72.00 - ACUTE AND SUBACUTE HEPATIC FAILURE WITHOUT COMA SNOMED Code(s): 844154376 (2) Septic shock Current Visit: Yes Status: Acute Code(s): A41.9 - SEPSIS, UNSPECIFIED ORGANISM; R65.21 - SEVERE SEPSIS WITH SEPTIC SHOCK SNOMED Code(s): 12022391 (3) Hepatic steatosis Current Visit: Yes Status: Acute Code(s): K76.0 - FATTY (CHANGE OF) LIVER, NOT ELSEWHERE CLASSIFIED SNOMED Code(s): 382654437 (4) Diabetes mellitus, new onset Current Visit: Yes Status: Acute Code(s): E11.9 - TYPE 2 DIABETES MELLITUS WITHOUT COMPLICATIONS SNOMED Code(s): 979657131 Plan: 1. Continue with present medical therapy discharge per medicine and cons ultants. From a GI standpoint recommend repeat CMP 7-10 days after discharge. Alcohol abstinence was advised and/or to minimize her alcohol intake as much as possible. Thank you for this kind referral and the opportunity to participate in the care of your patient. This consultation was discussed with Dr. Alvarez. The impression and plan of care have been directed as dictated.
[2019-04-24 07:56] LABS: INR 1.2 (<1.2); Prothrombin Time 12.5 sec (9.0-12.0)
[2019-04-24 08:01] LABS: Anisocytosis Slight; HCT 35.4 % (34.0-46.0); HGB 11.3 gm/dL (11.4-16.0); Hypochromasia Slight; MCH 29.6 pg (25.0-35.0); MCHC 31.8 g/dL (31.0-37.0); MCV 93.1 fL (80.0-100.0); Mean Platelet Volume 11.8; RDW 17.1 % (11.5-15.5); WBC 16.1 k/uL (3.8-10.6)
[2019-04-24 08:04] LABS: ALT 329 U/L (9-52); AST 213 U/L (14-36); African American GFR (CKD) >90 (>60 ml/min/1.73 sqM); Albumin 2.7 g/dL (3.5-5.0); Alkaline Phosphatase 396 U/L (38-126); Anion Gap 14 mmol/L; Blood Urea Nitrogen 18 mg/dL (7-17); Calcium 7.6 mg/dL (8.4-10.2); Carbon Dioxide 24 mmol/L (22-30); Chloride 98 mmol/L (98-107); Glucose 88 mg/dL (74-99); Magnesium 1.7 mg/dL (1.6-2.3); Non-African American GFR(CKD) 84 (>60 ml/min/1.73 sqM); Potassium 3.9 mmol/L (3.5-5.1); Sodium 136 mmol/L (137-145); Total Bilirubin 5.5 mg/dL (0.2-1.3); Total Protein 5.9 g/dL (6.3-8.2)
--- NOTE | 2019-04-24 08:08 | XR ---
EXAMINATION TYPE: XR chest 1V portable DATE OF EXAM: 04/24/2019 COMPARISON: Prior chest x-ray 04/21/2019 HISTORY: Shortness of breath TECHNIQUE: Single frontal view of the chest is obtained. FINDINGS: The heart is enlarged. There is no pneumothorax or evident effusion. Interstitium appears prominently. IMPRESSION: Findings are similar to prior exam. Correlate for possible interstitial edema.
[2019-04-24] MEDS: NICOTINE 21MG/24HR PATCH TRANSDERM SCH (08:29)
[2019-04-24] MEDS: FUROSEMIDE 10 MG/ML 4 ML VIAL IV SCH (08:29)
[2019-04-24] MEDS: PANTOPRAZOLE 40 MG TABLET PO SCH (08:29)
[2019-04-24] MEDS: INSULIN DETEMIR (LEVEMIR) 100 UNIT/ML SYR SQ SCH (08:29)
[2019-04-24] MEDS: INSULIN ASPART (NovoLOG) 100 UNIT/ML VIAL SQ SCH ×4 (08:30→20:26)
[2019-04-24 08:49] LABS: Platelet Count 82 k/uL (150-450)
--- NOTE | 2019-04-24 09:59 | P.PN ---
Subjective Patient is seen in follow for acute kidney injury. Creatinine peaked at 2.11 this admission and is now back to baseline. Edema improving. Maintained on IV Lasix. Oral intake is good. No other complaints at this time. Vital signs are stable. General: The patient appeared well nourished and normally developed. HEENT: Head exam is unremarkable. Neck is without jugular venous distension. LUNGS: Lungs are clear to auscultation and percussion. Breath sounds decreased. HEART: Rate and Rhythm are regular. First and second heart sounds normal. No murmurs, rubs or gallops. ABDOMEN: Abdominal exam reveals normal bowel sounds. Non-tender and non- distended. No evidence of peritonitis. EXTREMITITES: 1+ edema. Objective - Vital Signs Vital signs: Vital Signs Temp 98.0 F 04/24/19 05:00 Pulse 91 04/24/19 05:00 Resp 16 04/24/19 05:00 BP 113/74 04/24/19 05:00 Pulse Ox 96 04/24/19 05:00 Intake & Output 04/23/19 04/24/19 04/24/19 18:59 06:59 18:59 Intake Total 50 2009 Balance 50 2009 Weight 86.2 kg Intake: IV 50 cefTRIAXone 2 gm In 50 Sodium Chloride 0.9% 50 ml @ 100 mls/hr IVPB Q24HR [facility] Rx#:[id number] Oral 2009 Other: Voiding Method Toilet # Voids 2 2 # Bowel Movements 1 - Labs CBC & Chem 7: 04/24/19 07:08 04/24/19 07:08 Labs: Abnormal Lab Results - Last 24 Hours (Table) 04/23/19 04/23/19 04/23/19 Range/Units 11:07 16:04 18:10 WBC (3.8-10.6) k/uL Hgb (11.4-16.0) gm/dL RDW (11.5-15.5) % Plt Count (150-450) k/uL PT (9.0-12.0) sec INR (<1.2) Sodium (137-145) mmol/L Potassium 3.3 L (3.5-5.1) mmol/L BUN (7-17) mg/dL POC Glucose (mg/dL) 123 H (75-99) mg/dL Calcium (8.4-10.2) mg/dL Total Bilirubin (0.2-1.3) mg/dL AST (14-36) U/L ALT (9-52) U/L Alkaline Phosphatase (38-126) U/L Total Protein (6.3-8.2) g/dL Albumin (3.5-5.0) g/dL Urine Blood Moderate H (Negative) Urine Bilirubin 1+ H (Negative) Ur Leukocyte Esterase Moderate H (Negative) Urine RBC 21 H (0-5) /hpf Urine WBC 34 H (0-5) /hpf Ur Squamous Epith Cells 7 H (0-4) /hpf Hyaline Casts 3 H (0-2) /lpf Urine Mucus Rare H (None) /hpf 04/24/19 04/24/19 04/24/19 Range/Units 07:08 07:08 07:08 WBC 16.1 H (3.8-10.6) k/uL Hgb 11.3 L (11.4-16.0) gm/dL RDW 17.1 H (11.5-15.5) % Plt Count 82 L (150-450) k/uL PT 12.5 H (9.0-12.0) sec INR 1.2 H (<1.2) Sodium 136 L (137-145) mmol/L Potassium (3.5-5.1) mmol/L BUN 18 H (7-17) mg/dL POC Glucose (mg/dL) (75-99) mg/dL Calcium 7.6 L (8.4-10.2) mg/dL Total Bilirubin 5.5 H (0.2-1.3) mg/dL AST 213 H (14-36) U/L ALT 329 H (9-52) U/L Alkaline Phosphatase 396 H (38-126) U/L Total Protein 5.9 L (6.3-8.2) g/dL Albumin 2.7 L (3.5-5.0) g/dL Urine Blood (Negative) Urine Bilirubin (Negative) Ur Leukocyte Esterase (Negative) Urine RBC (0-5) /hpf Urine WBC (0-5) /hpf Ur Squamous Epith Cells (0-4) /hpf Hyaline Casts (0-2) /lpf Urine Mucus (None) /hpf Microbiology - Last 24 Hours (Table) 04/23/19 16:04 Urine Culture - Preliminary Urine,Clean Catch 04/19/19 08:45 Blood Culture - Preliminary Blood No Growth after 96 hours Assessment and Plan Plan: Assessment: 1. Acute kidney injury secondary to ATN secondary to hypotension, nonsteroidals and sepsis. Baseline creatinine is 1 and peaked at 2.11 this admission - 0.86 today. Mild left-sided hydronephrosis noted on kidney ultrasound. 2. Hyperkalemia secondary to acute kidney injury and metabolic acidosis. Resolved. Now hypokalemic from diuresis. 3. Metabolic acidosis secondary to acute kidney injury and IV fluids. Resolved. 4. E. coli bacteremia maintained on IV antibiotics. 5. Insulin-dependent diabetes mellitus. Plan: Maintain Lasix 40 mg IV daily. I will give her an additional dose this afternoon. Continue to monitor renal function and urine output. Stable to be discharged home from nephrology standpoint on Lasix 40 mg orally once daily. BMP, magnesium 2-3 days post discharge. Follow up outpatient in the next 2-3 weeks.
[2019-04-24 11:46] LABS: Glucose,Whole Blood 206 mg/dL (75-99)
[2019-04-24 12:28] VITALS: RESP 18
[2019-04-24] MEDS ORDERED: FUROSEMIDE 10 MG/ML 4 ML VIAL IV ONE (15:00)
--- NOTE | 2019-04-24 15:03 | P.PN ---
Subjective Progress Note Date: 04/24/19 Principal diagnosis: Leukocytosis Patient was seen and examined. No acute events overnight. Patient denies any chest pain, shortness of breath or palpitations. No nausea or vomiting. No fever or chills. States that her lower extremity swelling is gradually improving. Objective - Vital Signs Vital signs: Vital Signs Temp 97.8 F 04/24/19 12:27 Pulse 93 04/24/19 12:27 Resp 18 04/24/19 12:27 BP 120/77 04/24/19 12:27 Pulse Ox 96 04/24/19 12:27 Intake & Output 04/23/19 04/24/19 04/24/19 18:59 06:59 18:59 Intake Total 50 2009 Balance 50 2009 Weight 86.2 kg Intake: IV 50 cefTRIAXone 2 gm In 50 Sodium Chloride 0.9% 50 ml @ 100 mls/hr IVPB Q24HR [facility] Rx#:[id number] Oral 2009 Other: Voiding Method Toilet # Voids 2 2 # Bowel Movements 1 - Exam General: [non toxic], [no distress], [appears at stated age] Derm: [warm], [dry] Head: [atraumatic], [normocephalic], [symmetric] Eyes: [EOMI], [no lid lag], [anicteric sclera] Mouth: [no lip lesion], [mucus membranes moist] Cardiovascular: [S1S2 reg], [no murmur], [positive posterior tibial pulse b ilateral], Lungs: [CTA bilateral], [no rhonchi, no rales] , [no accessory muscle use] Abdominal: [soft], [ nontender to palpation], [no guarding], [no appreciable organomegaly] Ext: [no gross muscle atrophy], [no edema], [no contractures] Neuro: [ CN II-XI grossly intact], [no focal neuro deficits] Psych: [Alert], [oriented], [appropriate affect] - Labs CBC & Chem 7: 04/24/19 07:08 04/24/19 07:08 Labs: Abnormal Lab Results - Last 24 Hours (Table) 04/23/19 04/23/19 04/24/19 Range/Units 16:04 18:10 07:08 WBC (3.8-10.6) k/uL Hgb (11.4-16.0) gm/dL RDW (11.5-15.5) % Plt Count (150-450) k/uL PT (9.0-12.0) sec INR (<1.2) Sodium 136 L (137-145) mmol/L Potassium 3.3 L (3.5-5.1) mmol/L BUN 18 H (7-17) mg/dL POC Glucose (mg/dL) (75-99) mg/dL Calcium 7.6 L (8.4-10.2) mg/dL Total Bilirubin 5.5 H (0.2-1.3) mg/dL AST 213 H (14-36) U/L ALT 329 H (9-52) U/L Alkaline Phosphatase 396 H (38-126) U/L Total Protein 5.9 L (6.3-8.2) g/dL Albumin 2.7 L (3.5-5.0) g/dL Urine Blood Moderate H (Negative) Urine Bilirubin 1+ H (Negative) Ur Leukocyte Esterase Moderate H (Negative) Urine RBC 21 H (0-5) /hpf Urine WBC 34 H (0-5) /hpf Ur Squamous Epith Cells 7 H (0-4) /hpf Hyaline Casts 3 H (0-2) /lpf Urine Mucus Rare H (None) /hpf 04/24/19 04/24/19 04/24/19 Range/Units 07:08 07:08 11:40 WBC 16.1 H (3.8-10.6) k/uL Hgb 11.3 L (11.4-16.0) gm/dL RDW 17.1 H (11.5-15.5) % Plt Count 82 L (150-450) k/uL PT 12.5 H (9.0-12.0) sec INR 1.2 H (<1.2) Sodium (137-145) mmol/L Potassium (3.5-5.1) mmol/L BUN (7-17) mg/dL POC Glucose (mg/dL) 206 H (75-99) mg/dL Calcium (8.4-10.2) mg/dL Total Bilirubin (0.2-1.3) mg/dL AST (14-36) U/L ALT (9-52) U/L Alkaline Phosphatase (38-126) U/L Total Protein (6.3-8.2) g/dL Albumin (3.5-5.0) g/dL Urine Blood (Negative) Urine Bilirubin (Negative) Ur Leukocyte Esterase (Negative) Urine RBC (0-5) /hpf Urine WBC (0-5) /hpf Ur Squamous Epith Cells (0-4) /hpf Hyaline Casts (0-2) /lpf Urine Mucus (None) /hpf Microbiology - Last 24 Hours (Table) 04/19/19 08:45 Blood Culture - Preliminary Blood No Growth after 120 hours 04/23/19 16:04 Urine Culture - Preliminary Urine,Clean Catch Assessment and Plan Assessment: Pyelonephritis with hydronephrosis, E. coli bacteremiapresent on admission not catheter related Leukocytosis Shock liver Thrombocytopenia Diabetes mellitus, new onset, A1c 10.5 Blood culture initially positive for E. coli. Evaluated by urology, recommends outpatient cystoscopy with nothing to do inpatient. Repeat blood culture negative at 120 hours. Initial urine culture negative. Plans: Continue IV Rocephin. Follow repeat blood cultures. Follow ID consultation. Leukocytosis worsening from 15.1-6.1 today. Urinalysis shows moderate leukocyte esterase. Plans: Daily CBC. Follow urine culture. Follow repeat blood cultures. Follow ID recommendations. Liver enzymes have been progressively trending down. Plans: Repeat CMP in 3 days after discharge. Follow GI in the outpatient setting. Platelet count 82. Likely secondary to sepsis. Plans: Slowly resolving. Daily CBC. Mieyn-nw-corc glucose 206. Plans: Insulin sliding scale. Levemir 10 units at bedtime. Regular Accu-Cheks. Hypoglycemic precautions. [Patient likely fluid overloaded over large amounts of infused IVF. Started on Lasix 40 mg IV daily. Follow ID recommendations for discharge antibiotic choice and worsening leukocytosis. Likely DC in 1-2 days.]
[2019-04-24 17:20] LABS: Glucose,Whole Blood 105 mg/dL (75-99)
[2019-04-24] MEDS: HYDROcodone/APAP 5-325MG 1 EACH TAB PO PRN (19:07)
[2019-04-24 19:55] LABS: Glucose,Whole Blood 167 mg/dL (75-99)
--- NOTE | 2019-04-24 22:49 | P.PN ---
Subjective Progress Note Date: 04/24/19 This is a 43-year-old female presented initially to [facility] emergency [facility] on April 15 and was diagnosed with UTI and new diagnosis of diabetes and placed on metformin as well as Levaquin. She had presented with a fever of 102.9, tachycardia up to 1:30, blood pressure elevated. She did have a normal white count at that time but no platelet count was 142, blood sugar was 326, CO2 17. Urinalysis was clear leukoesterase moderate, wbc's 30. HCG not detected. CAT scan of the abdomen and pelvis without contrast showed a left- sided hydronephrosis and hydroureter could be related to recently passed stone. No definite ureteral calculus seen. Fatty infiltration of the liver. Patient was discharged home although it she was encouraged to stay in the hospital but she refused. She says currently developed nausea and vomiting and returned to [facility] emergency [facility] on April 17. The patient was again tachycardic up to 140 with a blood pressure of 82/56. Patient was started on IV fluids and blood culture was ordered and patient was started on Zosyn. Repeat lab work revealed a normal white count of 5.2, platelet count of 62, CO2 16, BUN 20, creatinine 1.73, blood sugar 233. A repeat urinalysis was dark brown, turbid, blood moderate, nitrate positive, leukoesterase large, squamous cells 45. Chest x-ray showed no acute process. Patient was admitted into the intensive care unit for septic shock, UTI, hyperglycemia and thrombocytopenia and started on norepinephrine. Patient has had a significant rise in liver function tests with today's value of total bilirubin 3, AST 3371, ALT 1724, alkaline phosphatase 133. LDH came back 13,555, albumin 2.4. C. difficile toxin was negative. Acute hepatitis panel negative. Urine culture was not obta ined on her initial ER visit on April 15. Urine culture from April 17 is been finalized with contamination. Blood culture is positive for E. coli and sensitivity is pending. Patient remains in the intensive care unit. She is off vasopressor. She states she feels better from yesterday. Pain is gone but she continues to have some nausea and vomiting. Patient is followed by Dr. Lomas for intensive care management and Dr. Sunshine for the mild left hydronephrosis probably secondary to passed ureteral calculus. No plan for any surgical interventions and continue IV antibiotics. Patient may need cystoscopy to rule out intravesical pathology as an outpatient. Dr. Brooks is following for acute kidney injury secondary to ATN secondary to hypotension nonsteroidals and sepsis along with hyperkalemia and metabolic acidosis. Patient is currently on a bicarb drip. Patient denies having any urinary tract infection in the past. 04/20/2019 the patient continues to feel poorly with nausea, has had about 3 bouts of the small emesis throughout the day. She's been able to eat some food. Abdominal pain seems to be improved. She is still very uncomfortable 04/21/2019 patient remains quite miserable. Some ongoing abdominal pain. More jaundiced with her bilirubin up to 7.5. Liver function tests are improving and creatinine is improved. 04/24/19 patient feels much better,less jaundiced and appetite has improved. Objective - Vital Signs Vital signs: Vital Signs Temp 98.3 F 04/24/19 19:55 Pulse 103 H 04/24/19 19:55 Resp 18 04/24/19 19:55 BP 138/79 04/24/19 19:55 Pulse Ox 94 L 04/24/19 19:55 Intake & Output 04/24/19 04/24/19 04/25/19 06:59 18:59 06:59 Intake Total 2009 50 Balance 2009 50 Intake: IV 50 cefTRIAXone 2 gm In 50 Sodium Chloride 0.9% 50 ml @ 100 mls/hr IVPB Q24HR [facility] Rx#:[id number] Oral 2009 Other: Voiding Method Toilet # Voids 2 6 - Exam Gen: This is a obese 43-year-old female. She is resting and appears comfortable HEENT: Head is atraumatic, normocephalic. Pupils equal, round. Sclerae is less icteric today. NECK: Supple. No JVD. No lymphadenopathy. No thyromegaly. LUNGS: Clear to auscultation. No wheezes or rhonchi. No intercostal retractions. HEART: Regular rate and rhythm. No murmur. ABDOMEN: Soft. Bowel sounds are present. No masses. Generalized tenderness most severe at the epigastric area. EXTREMITIES: No pedal edema. No calf tenderness. Dorsalis pedis +2 bilaterally. NEUROLOGICAL: Patient is awake, alert and oriented x3. - Labs CBC & Chem 7: 04/24/19 07:08 04/24/19 07:08 Labs: Abnormal Lab Results - Last 24 Hours (Table) 04/24/19 04/24/19 04/24/19 Range/Units 07:08 07:08 07:08 WBC 16.1 H (3.8-10.6) k/uL Hgb 11.3 L (11.4-16.0) gm/dL RDW 17.1 H (11.5-15.5) % Plt Count 82 L (150-450) k/uL PT 12.5 H (9.0-12.0) sec INR 1.2 H (<1.2) Sodium 136 L (137-145) mmol/L BUN 18 H (7-17) mg/dL POC Glucose (mg/dL) (75-99) mg/dL Calcium 7.6 L (8.4-10.2) mg/dL Total Bilirubin 5.5 H (0.2-1.3) mg/dL AST 213 H (14-36) U/L ALT 329 H (9-52) U/L Alkaline Phosphatase 396 H (38-126) U/L Total Protein 5.9 L (6.3-8.2) g/dL Albumin 2.7 L (3.5-5.0) g/dL 04/24/19 04/24/19 04/24/19 Range/Units 11:40 17:19 19:54 WBC (3.8-10.6) k/uL Hgb (11.4-16.0) gm/dL RDW (11.5-15.5) % Plt Count (150-450) k/uL PT (9.0-12.0) sec INR (<1.2) Sodium (137-145) mmol/L BUN (7-17) mg/dL POC Glucose (mg/dL) 206 H 105 H 167 H (75-99) mg/dL Calcium (8.4-10.2) mg/dL Total Bilirubin (0.2-1.3) mg/dL AST (14-36) U/L ALT (9-52) U/L Alkaline Phosphatase (38-126) U/L Total Protein (6.3-8.2) g/dL Albumin (3.5-5.0) g/dL Microbiology - Last 24 Hours (Table) 04/23/19 16:04 Urine Culture - Final Urine,Clean Catch 04/23/19 14:05 Blood Culture - Preliminary Blood No Growth after 24 hours 04/19/19 08:45 Blood Culture - Preliminary Blood No Growth after 120 hours Laboratory Results WBC 16.1 k/uL (3.8-10.6) H 04/24/19 07:08 RBC 3.80 m/uL (3.80-5.40) 04/24/19 07:08 Hgb 11.3 gm/dL (11.4-16.0) L 04/24/19 07:08 Hct 35.4 % (34.0-46.0) 04/24/19 07:08 MCV 93.1 fL (80.0-100.0) 04/24/19 07:08 MCH 29.6 pg (25.0-35.0) 04/24/19 07:08 MCHC 31.8 g/dL (31.0-37.0) 04/24/19 07:08 RDW 17.1 % (11.5-15.5) H 04/24/19 07:08 Plt Count 82 k/uL (150-450) L 04/24/19 07:08 Neutrophils % 76 % 04/20/19 05:44 Neutrophils % (Manual) 67 % 04/21/19 05:13 Band Neutrophils % 3 % 04/21/19 05:13 Lymphocytes % 15 % 04/20/19 05:44 Lymphocytes % (Manual) 24 % 04/21/19 05:13 Monocytes % 5 % 04/20/19 05:44 Monocytes % (Manual) 6 % 04/21/19 05:13 Eosinophils % 1 % 04/20/19 05:44 Basophils % 0 % 04/20/19 05:44 Metamyelocytes % 1 % 04/17/19 11:58 Myelocytes % 1 % 04/17/19 11:58 Neutrophils # 6.8 k/uL (1.3-7.7) 04/20/19 05:44 Neutrophils # (Manual) 7.00 k/uL (1.3-7.7) 04/21/19 05:13 Lymphocytes # 1.4 k/uL (1.0-4.8) 04/20/19 05:44 Lymphocytes # (Manual) 2.42 k/uL (1.0-4.8) 04/21/19 05:13 Monocytes # 0.4 k/uL (0-1.0) 04/20/19 05:44 Monocytes # (Manual) 0.61 k/uL (0-1.0) 04/21/19 05:13 Eosinophils # 0.1 k/uL (0-0.7) 04/20/19 05:44 Basophils # 0.0 k/uL (0-0.2) 04/20/19 05:44 Metamyelocytes # (Man) 0.05 k/uL (0) H 04/17/19 11:58 Myelocytes # (Manual) 0.05 k/uL (0) H 04/17/19 11:58 Nucleated RBCs 0 /100 WBC (0-0) 04/21/19 05:13 Manual Slide Review Performed 04/21/19 05:13 Toxic Granulation Present 04/17/19 11:58 Toxic Vacuolation Present 04/17/19 11:58 Dohle Bodies Present 04/17/19 11:58 Large Platelets Present 04/21/19 05:13 RBC Morphology Normal 04/17/19 11:58 Hypochromasia Slight 04/24/19 07:08 Poikilocytosis (manual Present 04/18/19 04:04 Anisocytosis Slight 04/24/19 07:08 PT 12.5 sec (9.0-12.0) H 04/24/19 07:08 INR 1.2 (<1.2) H 04/24/19 07:08 APTT 26.9 sec (22.0-30.0) 04/19/19 03:10 Sodium 136 mmol/L (137-145) L 04/24/19 07:08 Potassium 3.9 mmol/L (3.5-5.1) 04/24/19 07:08 Chloride 98 mmol/L (98-107) 04/24/19 07:08 Carbon Dioxide 24 mmol/L (22-30) 04/24/19 07:08 Anion Gap 14 mmol/L 04/24/19 07:08 BUN 18 mg/dL (7-17) H 04/24/19 07:08 Creatinine 0.86 mg/dL (0.52-1.04) 04/24/19 07:08 Est GFR (CKD-EPI)AfAm >90 (>60 ml/min/1.73 sqM) 04/24/19 07:08 Est GFR (CKD-EPI)NonAf 84 (>60 ml/min/1.73 sqM) 04/24/19 07:08 Glucose 88 mg/dL (74-99) 04/24/19 07:08 POC Glucose (mg/dL) 167 mg/dL (75-99) H 04/24/19 19:54 POC Glu Brush Machine Setter ID 04/24/19 19:[address] Glu mg/dL 255 04/18/19 04:04 Hemoglobin A1c 10.5 % (4.0-6.0) H 04/18/19 04:04 Lactic Ac Sepsis Rflx Y 04/19/19 03:36 Plasma Lactic Acid Reji 4.8 mmol/L (0.7-2.0) H* 04/19/19 03:10 Calcium 7.6 mg/dL (8.4-10.2) L 04/24/19 07:08 Magnesium 1.7 mg/dL (1.6-2.3) 04/24/19 07:08 Total Bilirubin 5.5 mg/dL (0.2-1.3) H 04/24/19 07:08 Conjugated Bilirubin 5.2 mg/dL (0.0-0.3) H 04/22/19 07:44 Unconjugated Bilirubin 1.8 mg/dL (0.0-1.1) H 04/22/19 07:44 Delta Bilirubin 2.9 mg/dL (0.0-0.2) H 04/22/19 07:44 AST 213 U/L (14-36) H 04/24/19 07:08 ALT 329 U/L (9-52) H 04/24/19 07:08 Alkaline Phosphatase 396 U/L (38-126) H 04/24/19 07:08 Ammonia <9 umol/L (<30) 04/19/19 03:10 Lactate Dehydrogenase 69168 U/L (313-618) H 04/18/19 08:15 Creatine Kinase 46 U/L (30-135) 04/17/19 11:58 CK-MB (CK-2) 1.3 ng/mL (0.0-2.4) 04/17/19 11:58 Troponin I 0.013 ng/mL (0.000-0.034) 04/17/19 11:58 Total Protein 5.9 g/dL (6.3-8.2) L 04/24/19 07:08 Albumin 2.7 g/dL (3.5-5.0) L 04/24/19 07:08 Amylase 32 U/L (30-110) 04/18/19 08:15 Lipase 60 U/L (23-300) 04/18/19 08:15 Vitamin D 25-Hydroxy 6.5 ng/mL (30.0-100.0) L 04/20/19 05:44 Urine Color Yellow 04/23/19 16:04 Urine Appearance Clear (Clear) 04/23/19 16:04 Urine pH 7.0 (5.0-8.0) 04/23/19 16:04 Ur Specific [place] 1.010 (1.001-1.035) 04/23/19 16:04 Urine Protein Negative (Negative) 04/23/19 16:04 Urine Glucose (UA) Negative (Negative) 04/23/19 16:04 Urine Ketones Negative (Negative) 04/23/19 16:04 Urine Blood Moderate (Negative) H 04/23/19 16:04 Urine Nitrite Negative (Negative) 04/23/19 16:04 Urine Bilirubin 1+ (Negative) H 04/23/19 16:04 Urine Urobilinogen <2.0 mg/dL (<2.0) 04/23/19 16:04 Ur Leukocyte Esterase Moderate (Negative) H 04/23/19 16:04 Urine RBC 21 /hpf (0-5) H 04/23/19 16:04 Urine WBC 34 /hpf (0-5) H 04/23/19 16:04 Ur Squamous Epith Cells 7 /hpf (0-4) H 04/23/19 16:04 Amorphous Sediment Rare /hpf (None) H 04/17/19 13:10 Urine Bacteria Many /hpf (None) H 04/17/19 13:10 Hyaline Casts 3 /lpf (0-2) H 04/23/19 16:04 Urine Mucus Rare /hpf (None) H 04/23/19 16:04 Acetone, Qual Negative (Negative) 04/17/19 11:58 C. difficile (EIA) Intrp Negative (Negative) 04/17/19 18:40 Hepatitis A IgM Ab Non-Reactive (Non-Reactive) 04/18/19 12:04 Hep Bs Antigen Non-Reactive (Non-Reactive) 04/18/19 12:04 Hep B Core IgM Ab Non-Reactive (Non-Reactive) 04/18/19 12:04 Hep C IgG Ab Non-Reactive (Non-Reactive) 04/18/19 12:04 Microbiology 04/23/19 16:04 Urine,Clean Catch Urine Culture - Final 04/23/19 14:05 Blood Blood Culture - Preliminary No Growth after 24 hours 04/19/19 08:45 Blood Blood Culture - Preliminary No Growth after 120 hours 04/17/19 15:02 Blood Blood Culture Gram Stain - Final 04/17/19 15:02 Blood Blood Culture - Final Escherichia coli 04/17/19 13:10 Urine,Voided Urine Culture - Final 04/17/19 15:02 Blood Blood Culture - Final Laboratory Results WBC 16.1 k/uL (3.8-10.6) H 04/24/19 07:08 RBC 3.80 m/uL (3.80-5.40) 04/24/19 07:08 Hgb 11.3 gm/dL (11.4-16.0) L 04/24/19 07:08 Hct 35.4 % (34.0-46.0) 04/24/19 07:08 MCV 93.1 fL (80.0-100.0) 04/24/19 07:08 MCH 29.6 pg (25.0-35.0) 04/24/19 07:08 MCHC 31.8 g/dL (31.0-37.0) 04/24/19 07:08 RDW 17.1 % (11.5-15.5) H 04/24/19 07:08 Plt Count 82 k/uL (150-450) L 04/24/19 07:08 Neutrophils % 76 % 04/20/19 05:44 Neutrophils % (Manual) 67 % 04/21/19 05:13 Band Neutrophils % 3 % 04/21/19 05:13 Lymphocytes % 15 % 04/20/19 05:44 Lymphocytes % (Manual) 24 % 04/21/19 05:13 Monocytes % 5 % 04/20/19 05:44 Monocytes % (Manual) 6 % 04/21/19 05:13 Eosinophils % 1 % 04/20/19 05:44 Basophils % 0 % 04/20/19 05:44 Metamyelocytes % 1 % 04/17/19 11:58 Myelocytes % 1 % 04/17/19 11:58 Neutrophils # 6.8 k/uL (1.3-7.7) 04/20/19 05:44 Neutrophils # (Manual) 7.00 k/uL (1.3-7.7) 04/21/19 05:13 Lymphocytes # 1.4 k/uL (1.0-4.8) 04/20/19 05:44 Lymphocytes # (Manual) 2.42 k/uL (1.0-4.8) 04/21/19 05:13 Monocytes # 0.4 k/uL (0-1.0) 04/20/19 05:44 Monocytes # (Manual) 0.61 k/uL (0-1.0) 04/21/19 05:13 Eosinophils # 0.1 k/uL (0-0.7) 04/20/19 05:44 Basophils # 0.0 k/uL (0-0.2) 04/20/19 05:44 Metamyelocytes # (Man) 0.05 k/uL (0) H 04/17/19 11:58 Myelocytes # (Manual) 0.05 k/uL (0) H 04/17/19 11:58 Nucleated RBCs 0 /100 WBC (0-0) 04/21/19 05:13 Manual Slide Review Performed 04/21/19 05:13 Toxic Granulation Present 04/17/19 11:58 Toxic Vacuolation Present 04/17/19 11:58 Dohle Bodies Present 04/17/19 11:58 Large Platelets Present 04/21/19 05:13 RBC Morphology Normal 04/17/19 11:58 Hypochromasia Slight 04/24/19 07:08 Poikilocytosis (manual Present 04/18/19 04:04 Anisocytosis Slight 04/24/19 07:08 PT 12.5 sec (9.0-12.0) H 04/24/19 07:08 INR 1.2 (<1.2) H 04/24/19 07:08 APTT 26.9 sec (22.0-30.0) 04/19/19 03:10 Sodium 136 mmol/L (137-145) L 04/24/19 07:08 Potassium 3.9 mmol/L (3.5-5.1) 04/24/19 07:08 Chloride 98 mmol/L (98-107) 04/24/19 07:08 Carbon Dioxide 24 mmol/L (22-30) 04/24/19 07:08 Anion Gap 14 mmol/L 04/24/19 07:08 BUN 18 mg/dL (7-17) H 04/24/19 07:08 Creatinine 0.86 mg/dL (0.52-1.04) 04/24/19 07:08 Est GFR (CKD-EPI)AfAm >90 (>60 ml/min/1.73 sqM) 04/24/19 07:08 Est GFR (CKD-EPI)NonAf 84 (>60 ml/min/1.73 sqM) 04/24/19 07:08 Glucose 88 mg/dL (74-99) 04/24/19 07:08 POC Glucose (mg/dL) 167 mg/dL (75-99) H 04/24/19 19:54 POC Glu Brush Machine Setter ID 04/24/19 19:[address] Glu mg/dL 255 04/18/19 04:04 Hemoglobin A1c 10.5 % (4.0-6.0) H 04/18/19 04:04 Lactic Ac Sepsis Rflx Y 04/19/19 03:36 Plasma Lactic Acid Reji 4.8 mmol/L (0.7-2.0) H* 04/19/19 03:10 Calcium 7.6 mg/dL (8.4-10.2) L 04/24/19 07:08 Magnesium 1.7 mg/dL (1.6-2.3) 04/24/19 07:08 Total Bilirubin 5.5 mg/dL (0.2-1.3) H 04/24/19 07:08 Conjugated Bilirubin 5.2 mg/dL (0.0-0.3) H 04/22/19 07:44 Unconjugated Bilirubin 1.8 mg/dL (0.0-1.1) H 04/22/19 07:44 Delta Bilirubin 2.9 mg/dL (0.0-0.2) H 04/22/19 07:44 AST 213 U/L (14-36) H 04/24/19 07:08 ALT 329 U/L (9-52) H 04/24/19 07:08 Alkaline Phosphatase 396 U/L (38-126) H 04/24/19 07:08 Ammonia <9 umol/L (<30) 04/19/19 03:10 Lactate Dehydrogenase 84017 U/L (313-618) H 04/18/19 08:15 Creatine Kinase 46 U/L (30-135) 04/17/19 11:58 CK-MB (CK-2) 1.3 ng/mL (0.0-2.4) 04/17/19 11:58 Troponin I 0.013 ng/mL (0.000-0.034) 04/17/19 11:58 Total Protein 5.9 g/dL (6.3-8.2) L 04/24/19 07:08 Albumin 2.7 g/dL (3.5-5.0) L 04/24/19 07:08 Amylase 32 U/L (30-110) 04/18/19 08:15 Lipase 60 U/L (23-300) 04/18/19 08:15 Vitamin D 25-Hydroxy 6.5 ng/mL (30.0-100.0) L 04/20/19 05:44 Urine Color Yellow 04/23/19 16:04 Urine Appearance Clear (Clear) 04/23/19 16:04 Urine pH 7.0 (5.0-8.0) 04/23/19 16:04 Ur Specific [place] 1.010 (1.001-1.035) 04/23/19 16:04 Urine Protein Negative (Negative) 04/23/19 16:04 Urine Glucose (UA) Negative (Negative) 04/23/19 16:04 Urine Ketones Negative (Negative) 04/23/19 16:04 Urine Blood Moderate (Negative) H 04/23/19 16:04 Urine Nitrite Negative (Negative) 04/23/19 16:04 Urine Bilirubin 1+ (Negative) H 04/23/19 16:04 Urine Urobilinogen <2.0 mg/dL (<2.0) 04/23/19 16:04 Ur Leukocyte Esterase Moderate (Negative) H 04/23/19 16:04 Urine RBC 21 /hpf (0-5) H 04/23/19 16:04 Urine WBC 34 /hpf (0-5) H 04/23/19 16:04 Ur Squamous Epith Cells 7 /hpf (0-4) H 04/23/19 16:04 Amorphous Sediment Rare /hpf (None) H 04/17/19 13:10 Urine Bacteria Many /hpf (None) H 04/17/19 13:10 Hyaline Casts 3 /lpf (0-2) H 04/23/19 16:04 Urine Mucus Rare /hpf (None) H 04/23/19 16:04 Acetone, Qual Negative (Negative) 04/17/19 11:58 C. difficile (EIA) Intrp Negative (Negative) 04/17/19 18:40 Hepatitis A IgM Ab Non-Reactive (Non-Reactive) 04/18/19 12:04 Hep Bs Antigen Non-Reactive (Non-Reactive) 04/18/19 12:04 Hep B Core IgM Ab Non-Reactive (Non-Reactive) 04/18/19 12:04 Hep C IgG Ab Non-Reactive (Non-Reactive) 04/18/19 12:04 Laboratory Results WBC 16.1 k/uL (3.8-10.6) H 04/24/19 07:08 RBC 3.80 m/uL (3.80-5.40) 04/24/19 07:08 Hgb 11.3 gm/dL (11.4-16.0) L 04/24/19 07:08 Hct 35.4 % (34.0-46.0) 04/24/19 07:08 MCV 93.1 fL (80.0-100.0) 04/24/19 07:08 MCH 29.6 pg (25.0-35.0) 04/24/19 07:08 MCHC 31.8 g/dL (31.0-37.0) 04/24/19 07:08 RDW 17.1 % (11.5-15.5) H 04/24/19 07:08 Plt Count 82 k/uL (150-450) L 04/24/19 07:08 Neutrophils % 76 % 04/20/19 05:44 Neutrophils % (Manual) 67 % 04/21/19 05:13 Band Neutrophils % 3 % 04/21/19 05:13 Lymphocytes % 15 % 04/20/19 05:44 Lymphocytes % (Manual) 24 % 04/21/19 05:13 Monocytes % 5 % 04/20/19 05:44 Monocytes % (Manual) 6 % 04/21/19 05:13 Eosinophils % 1 % 04/20/19 05:44 Basophils % 0 % 04/20/19 05:44 Metamyelocytes % 1 % 04/17/19 11:58 Myelocytes % 1 % 04/17/19 11:58 Neutrophils # 6.8 k/uL (1.3-7.7) 04/20/19 05:44 Neutrophils # (Manual) 7.00 k/uL (1.3-7.7) 04/21/19 05:13 Lymphocytes # 1.4 k/uL (1.0-4.8) 04/20/19 05:44 Lymphocytes # (Manual) 2.42 k/uL (1.0-4.8) 04/21/19 05:13 Monocytes # 0.4 k/uL (0-1.0) 04/20/19 05:44 Monocytes # (Manual) 0.61 k/uL (0-1.0) 04/21/19 05:13 Eosinophils # 0.1 k/uL (0-0.7) 04/20/19 05:44 Basophils # 0.0 k/uL (0-0.2) 04/20/19 05:44 Metamyelocytes # (Man) 0.05 k/uL (0) H 04/17/19 11:58 Myelocytes # (Manual) 0.05 k/uL (0) H 04/17/19 11:58 Nucleated RBCs 0 /100 WBC (0-0) 04/21/19 05:13 Manual Slide Review Performed 04/21/19 05:13 Toxic Granulation Present 04/17/19 11:58 Toxic Vacuolation Present 04/17/19 11:58 Dohle Bodies Present 04/17/19 11:58 Large Platelets Present 04/21/19 05:13 RBC Morphology Normal 04/17/19 11:58 Hypochromasia Slight 04/24/19 07:08 Poikilocytosis (manual Present 04/18/19 04:04 Anisocytosis Slight 04/24/19 07:08 PT 12.5 sec (9.0-12.0) H 04/24/19 07:08 INR 1.2 (<1.2) H 04/24/19 07:08 APTT 26.9 sec (22.0-30.0) 04/19/19 03:10 Sodium 136 mmol/L (137-145) L 04/24/19 07:08 Potassium 3.9 mmol/L (3.5-5.1) 04/24/19 07:08 Chloride 98 mmol/L (98-107) 04/24/19 07:08 Carbon Dioxide 24 mmol/L (22-30) 04/24/19 07:08 Anion Gap 14 mmol/L 04/24/19 07:08 BUN 18 mg/dL (7-17) H 04/24/19 07:08 Creatinine 0.86 mg/dL (0.52-1.04) 04/24/19 07:08 Est GFR (CKD-EPI)AfAm >90 (>60 ml/min/1.73 sqM) 04/24/19 07:08 Est GFR (CKD-EPI)NonAf 84 (>60 ml/min/1.73 sqM) 04/24/19 07:08 Glucose 88 mg/dL (74-99) 04/24/19 07:08 POC Glucose (mg/dL) 167 mg/dL (75-99) H 04/24/19 19:54 POC Glu Brush Machine Setter ID 04/24/19 19:[address] Glu mg/dL 255 04/18/19 04:04 Hemoglobin A1c 10.5 % (4.0-6.0) H 04/18/19 04:04 Lactic Ac Sepsis Rflx Y 04/19/19 03:36 Plasma Lactic Acid Reji 4.8 mmol/L (0.7-2.0) H* 04/19/19 03:10 Calcium 7.6 mg/dL (8.4-10.2) L 04/24/19 07:08 Magnesium 1.7 mg/dL (1.6-2.3) 04/24/19 07:08 Total Bilirubin 5.5 mg/dL (0.2-1.3) H 04/24/19 07:08 Conjugated Bilirubin 5.2 mg/dL (0.0-0.3) H 04/22/19 07:44 Unconjugated Bilirubin 1.8 mg/dL (0.0-1.1) H 04/22/19 07:44 Delta Bilirubin 2.9 mg/dL (0.0-0.2) H 04/22/19 07:44 AST 213 U/L (14-36) H 04/24/19 07:08 ALT 329 U/L (9-52) H 04/24/19 07:08 Alkaline Phosphatase 396 U/L (38-126) H 04/24/19 07:08 Ammonia <9 umol/L (<30) 04/19/19 03:10 Lactate Dehydrogenase 11273 U/L (313-618) H 04/18/19 08:15 Creatine Kinase 46 U/L (30-135) 04/17/19 11:58 CK-MB (CK-2) 1.3 ng/mL (0.0-2.4) 04/17/19 11:58 Troponin I 0.013 ng/mL (0.000-0.034) 04/17/19 11:58 Total Protein 5.9 g/dL (6.3-8.2) L 04/24/19 07:08 Albumin 2.7 g/dL (3.5-5.0) L 04/24/19 07:08 Amylase 32 U/L (30-110) 04/18/19 08:15 Lipase 60 U/L (23-300) 04/18/19 08:15 Vitamin D 25-Hydroxy 6.5 ng/mL (30.0-100.0) L 04/20/19 05:44 Urine Color Yellow 04/23/19 16:04 Urine Appearance Clear (Clear) 04/23/19 16:04 Urine pH 7.0 (5.0-8.0) 04/23/19 16:04 Ur Specific [place] 1.010 (1.001-1.035) 04/23/19 16:04 Urine Protein Negative (Negative) 04/23/19 16:04 Urine Glucose (UA) Negative (Negative) 04/23/19 16:04 Urine Ketones Negative (Negative) 04/23/19 16:04 Urine Blood Moderate (Negative) H 04/23/19 16:04 Urine Nitrite Negative (Negative) 04/23/19 16:04 Urine Bilirubin 1+ (Negative) H 04/23/19 16:04 Urine Urobilinogen <2.0 mg/dL (<2.0) 04/23/19 16:04 Ur Leukocyte Esterase Moderate (Negative) H 04/23/19 16:04 Urine RBC 21 /hpf (0-5) H 04/23/19 16:04 Urine WBC 34 /hpf (0-5) H 04/23/19 16:04 Ur Squamous Epith Cells 7 /hpf (0-4) H 04/23/19 16:04 Amorphous Sediment Rare /hpf (None) H 04/17/19 13:10 Urine Bacteria Many /hpf (None) H 04/17/19 13:10 Hyaline Casts 3 /lpf (0-2) H 04/23/19 16:04 Urine Mucus Rare /hpf (None) H 04/23/19 16:04 Acetone, Qual Negative (Negative) 04/17/19 11:58 C. 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 Presents to Hospital acutely ill with evidence of sepsis with evidence of the elevated lactic acid and source of infection from her urinary system with left-sided hydronephrosis and possible recently passed stone. As noted she has evidence the markedly elevated AST ALT and LDH. Gram-negative bacilli are found in the blood culture in with a significant thrombocytopenia antibiotic therapy is transitioned from piperacillin tazobactam to Rocephin. The sepsis is likely generating the significant thrombocytopenia is likely worsened by the piperacillin effect. There is concerns that her gallbladder is somewhat abnormal and this is discussed with the hospitalist and HIDA scan is requested. If this is markedly abnormal will consider some further alteration of antibiotic therapy. Fortunately the patient is having some improvement after her resuscitation. 04/20/2018 the patient is still feeling poorly. Nausea seems to be slightly improved condition able to ingest some food. The shock liver remains problematic. Bilirubin has increased and she is not having a mild level of jaundice. The patient's sepsis is being treated with Rocephin and seems to be responding well. Liver enzymes have decreased although bilirubin is still increasing hopefully peak and started coming down soon. No other sources of sepsis are seen in the urinary system at this time. She is off vasopressor therapy. HIDA scan is to be performed to evaluate cholecystitis, it could be acalculus cholecystitis . continue Rocephin for E. coli bacteremia from kidney source. 04/21/2019 the patient remains ill, more jaundice with increasing total bilirubin. She has developed what appears to be in acute shock liver. HIDA scan has been performed as an abnormal and surgical consultation will be in process. The patient may require GI evaluation and evaluation of her biliary tract before any further surgical intervention is possible. Nausea persists but is improved. We will continue current antibiotic therapy monitoring for clearance of the E. coli bacteremia. Renal source of the bacteremia remains most probable however cannot completely rule out a biliary tract source. Continue current interventions prognosis remains somewhat poor. 04/24/2019 the patient is feeling considerably better. HIDA scan was abnormal and she's been seen by surgery as well as by gastroenterology. The patient apparently has shock liver is etiology of the markedly abnormal liver enzymes and bilirubin which are starting to improve as she is having some recovery of her septic shock.if she center approval likely transitiprofloxacin 500 mg twice a day to complete 7 days of antibiotic therapy for E. coli from admission. Current Visit: Yes Status: Acute Code(s): N39.0 - URINARY TRACT INFECTION, SITE NOT SPECIFIED SNOMED Code(s): 30512951 (2) Septic shock Current Visit: Yes Status: Acute Code(s): A41.9 - SEPSIS, UNSPECIFIED ORGANISM; R65.21 - SEVERE SEPSIS WITH SEPTIC SHOCK SNOMED Code(s): 94772364 (3) Sepsis with acute liver failure and septic shock without hepatic coma Current Visit: Yes Status: Acute Code(s): A41.9 - SEPSIS, UNSPECIFIED ORGANISM; R65.21 - SEVERE SEPSIS WITH SEPTIC SHOCK; K72.00 - ACUTE AND SUBACUTE HEPATIC FAILURE WITHOUT COMA SNOMED Code(s): 822481127
[2019-04-25 05:13] VITALS: BP 148/78; PULSE 95; TEMP 98.1
[2019-04-25 06:54] LABS: Glucose,Whole Blood 161 mg/dL (75-99)
[2019-04-25 07:39] LABS: Anisocytosis Slight; Basophils # (A) 0.1 k/uL (0-0.2); Basophils % (A) 0 %; Eosinophils # (A) 0.2 k/uL (0-0.7); Eosinophils % (A) 1 %; HCT 31.9 % (34.0-46.0); HGB 10.4 gm/dL (11.4-16.0); Lymphocytes # (A) 2.6 k/uL (1.0-4.8); Lymphocytes % (A) 23 %; MCH 30.3 pg (25.0-35.0); MCHC 32.7 g/dL (31.0-37.0); MCV 92.4 fL (80.0-100.0); Monocytes # (A) 0.4 k/uL (0-1.0); Monocytes % (A) 3 %; Neutrophils # (A) 7.9 k/uL (1.3-7.7); Neutrophils % (A) 70 %; Platelet Count 101 k/uL (150-450); RBC 3.45 m/uL (3.80-5.40); RDW 18.1 % (11.5-15.5); WBC 11.4 k/uL (3.8-10.6)
[2019-04-25 07:45] LABS: Mean Platelet Volume 11.3
[2019-04-25 07:58] LABS: African American GFR (CKD) >90 (>60 ml/min/1.73 sqM); Anion Gap 10 mmol/L; Blood Urea Nitrogen 17 mg/dL (7-17); Calcium 7.5 mg/dL (8.4-10.2); Carbon Dioxide 28 mmol/L (22-30); Chloride 95 mmol/L (98-107); Glucose 160 mg/dL (74-99); Magnesium 1.5 mg/dL (1.6-2.3); Non-African American GFR(CKD) >90 (>60 ml/min/1.73 sqM); Potassium 3.6 mmol/L (3.5-5.1); Sodium 133 mmol/L (137-145)
[2019-04-25] MEDS: FUROSEMIDE 10 MG/ML 4 ML VIAL IV SCH (08:12)
[2019-04-25] MEDS: NICOTINE 21MG/24HR PATCH TRANSDERM SCH (08:12)
[2019-04-25] MEDS: INSULIN ASPART (NovoLOG) 100 UNIT/ML VIAL SQ SCH ×2 (08:12→13:15)
[2019-04-25] MEDS: INSULIN DETEMIR (LEVEMIR) 100 UNIT/ML SYR SQ SCH (08:12)
[2019-04-25] MEDS: PANTOPRAZOLE 40 MG TABLET PO SCH (08:12)
--- NOTE | 2019-04-25 09:55 | P.DS ---
Providers Date of admission: 04/17/19 14:21 Expected date of discharge: 04/25/19 Attending physician: Brian Landers MD Consults: 04/17/19 14:21 Consult Physician Stat Consulting Provider: Tobias Lomas Consult Reason/Comments: Critical care Do you want consulting provider notified?: Already Contacted 04/18/19 06:29 Consult Physician Routine Consulting Provider: Dario Santiago Consult Reason/Comments: hydronephrosis Do you want consulting provider notified?: Yes 04/18/19 07:41 Consult Physician Routine Consulting Provider: Brandon Brooks Consult Reason/Comments: MARU Do you want consulting provider notified?: Yes 04/19/19 07:41 Consult Physician Routine Consulting Provider: Pavan Alvarez Consult Reason/Comments: E coli bacteremia Do you want consulting provider notified?: Yes 04/20/19 19:35 Consult Physician Routine Consulting Provider: Viri Gonzalez Consult Reason/Comments: maru Do you want consulting provider notified?: Already Contacted 04/21/19 15:40 Consult Physician Routine Consulting Provider: Eric Giang Consult Reason/Comments: cholecystitis Do you want consulting provider notified?: Yes 04/23/19 13:48 Consult Physician Routine Consulting Provider: Yusef Alvarez Consult Reason/Comments: shock liver Do you want consulting provider notified?: Yes Primary care physician: Stated None Hospital Course: 43-year-old female with no significant past medical history presents to the ED for generalized weakness and feeling unwell. Patient was recently seen to [facility] ED on 04/15/2019 for left-sided back pain and flank pain. CT of the abdomen and pelvis this was performed at that time showed left-sided hydronephrosis and hydroureter, possibly related to a passed stone. Patient left AMA on Levaquin for concerns of UTI with UA showing moderate leukocyte esterase. Patient states that she attempted to take the antibiotic the day after discharge. Patient reports multiple episodes of nonbilious nonbloody nausea and vomiting yesterday and today. Patient actually states that her left flank pain has gotten better, has no pain at this time. She has also experienced chills and 2 episodes of watery diarrhea this morning. Patient currently endorses a frontal headache. In the ED, patient was found to be septic with a heart rate at 140, T-max 99.5. CBC showed a low platelet count of 62. Coagulation panel was negative. CMP showed a bicarbonate of 16, BUN of 20, creatinine 1.73, glucose 233. Lactic acid was 4.7. Urinalysis showed positive nitrite, large leukocyte esterase. Her blood pressure was as low as 68/52. Patient was started on pressors and was admitted to ICU for management of sepsis due to UTI, with MICU being consulted. She underwent a repeat CT abdomen and pelvis which were fatty infiltration of the liver with new minimal subsegmental atelectasis and interstitial infiltrate at the lung bases, mild ascites, mild left-sided hydronephrosis with hydroureter as well as left-sided perinephric edema. She was started on broad-spectrum antibiotics and IV fluids. Her blood pressure remained low and she required norepinephrine. On the morning after admission she had an elevated creatinine of 1.69 as well as an elevated potassium of 5.7. She continued to be significantly acidotic. She was given 2 amps of bicarbonate and started on a sodium bicarbonate drip. She was also found to have elevated liver enzymes. Patient underwent a HIDA scan as "possible cholecystitis". He was seen by surgery and GI who felt this was a false positive due to her acute illness, and diagnosed her shock liver. Her liver enzymes continued to down trend at the time of discharge. Her levophed was able to be weaned on 04/18/19. She was found to have E coli bacteremia and antibiotics transitioned to rocephin with ID being consulted. Patient was advised 7 days of ciprofloxacin on discharge. Patient was noted to have an elevate leukocytosis of 15.1 on 04/22/2019 which downtrended to 11.4 on discharge. Patient was seen and examined. No acute events overnight. Patient looking forward to going home. She denies any chest pain, shortness of breath or palpitations. General: [non toxic], [no distress], [appears at stated age] Derm: [warm], [dry] Head: [atraumatic], [normocephalic], [symmetric] Eyes: [EOMI], [no lid lag], [anicteric sclera] Mouth: [no lip lesion], [mucus membranes moist] Cardiovascular: [S1S2 reg], [no murmur], [positive posterior tibial pulse bilateral], Lungs: [CTA bilateral], [no rhonchi, no rales] , [no accessory muscle use] Abdominal: [soft], [ nontender to palpation], [no guarding], [no appreciable organomegaly] Ext: [no gross muscle atrophy], [no edema], [no contractures] Neuro: [ CN II-XI grossly intact], [no focal neuro deficits] Psych: [Alert], [oriented], [appropriate affect] Pyelonephritis with hydronephrosis, E. coli bacteremiapresent on admission not catheter related Leukocytosis Shock liver Thrombocytopenia Diabetes mellitus, new onset, A1c 10.5 Blood culture initially positive for E. coli. Evaluated by urology, recommends outpatient cystoscopy with nothing to do inpatient. Repeat blood culture negative at 120 hours and at 24 hours. Initial urine culture negative. Plans: Continue IV Rocephin, transition to Ciprofloxacin on discharge as per ID. Follow repeat blood cultures. Follow ID consultation. Leukocytosis improving from 16.1 to 11.4 today. Urinalysis shows moderate leukocyte esterase, urine culture negative. Plans: Daily CBC. Follow repeat blood cultures. Follow ID recommendations. Liver enzymes have been progressively trending down. Plans: Repeat CMP in 7 days after discharge. Follow GI in the outpatient setting. Platelet count 101. Likely secondary to sepsis. Plans: Slowly resolving. Daily CBC. Vvezl-el-hqqx glucose 160. Plans: Insulin sliding scale. Levemir 10 units at bedtime. Regular Accu-Cheks. Hypoglycemic precautions. [Patient to be discharged today to complete 7 days of Ciprofloxacin. Needs outpatient PCP follow up. Repeat CBC and CMP in 3 days. Follow GI, ID and Urology in the outpatient setting.] Pertinent Studies: chest x-ray, HIDA scan, gallbladder ultrasound, abdominal and bladder ultrasound, CT ABDOMEN AND PELVIS Patient Condition at Discharge: Stable Plan - Discharge Summary Discharge Rx Participant: No New Discharge Prescriptions: New Ciprofloxacin HCl [Cipro] 500 mg PO Q12H 7 Days #14 tab HYDROcodone/APAP 5-325MG [Montrose 5-325] 1 each PO Q6HR PRN #12 tab PRN Reason: Pain Pantoprazole [Protonix] 40 mg PO AC-BRKFST #30 tablet. Furosemide [Lasix] 40 mg PO DAILY #30 tablet Continue metFORMIN HCL [Glucophage] 500 mg PO BID #14 tab Discontinued Ibuprofen [Motrin Ib] 200 - 800 mg PO Q6H PRN PRN Reason: pain/headache Levofloxacin 750 mg PO DAILY #5 tablet Discharge Medication List metFORMIN HCL [Glucophage] 500 mg PO BID #14 tab 04/15/19 [Rx] Ciprofloxacin HCl [Cipro] 500 mg PO Q12H 7 Days #14 tab 04/25/19 [Rx] Furosemide [Lasix] 40 mg PO DAILY #30 tablet 04/25/19 [Rx] HYDROcodone/APAP 5-325MG [Montrose 5-325] 1 each PO Q6HR PRN #12 tab 04/25/19 [Rx] Pantoprazole [Protonix] 40 mg PO AC-BRKFST #30 tablet. 04/25/19 [Rx] Follow up Appointment(s)/Referral(s): [facility] [NON-STAFF] - 1 Week Brandon Brooks DO [STAFF PHYSICIAN] - 2 Weeks Nito Sunshine MD [STAFF PHYSICIAN] - 1 Week Yusef Alvarez MD [STAFF PHYSICIAN] - 1 Week Pavan Alvarez MD [STAFF PHYSICIAN] - 1 Week Activity/Diet/Wound Care/Special Instructions: Avoid aspirin, ibuprofen, aleve, naproxen after discharge Per Dr. Brooks on 04/24/19- OK from his standpoint for discharge - Mag NAN in a few days - follow up with Dr. Brooks in 2 weeks. Patient needs to go home on Lasix 40mg PO daily. Discharge Disposition: HOME SELF-CARE
[2019-04-25] MEDS ORDERED: POTASSIUM CHLORIDE ER 20 MEQ TAB.ER PO STA (11:05)
--- NOTE | 2019-04-25 11:51 | P.PN ---
Subjective Patient is seen in follow for acute kidney injury. Creatinine peaked at 2.11 this admission and is now back to baseline. Edema improving. Maintained on IV Lasix. Oral intake is good. No other complaints at this time. Potential discharge today. Vital signs are stable. General: The patient appeared well nourished and normally developed. HEENT: Head exam is unremarkable. Neck is without jugular venous distension. LUNGS: Lungs are clear to auscultation and percussion. Breath sounds decreased. HEART: Rate and Rhythm are regular. First and second heart sounds normal. No murmurs, rubs or gallops. ABDOMEN: Abdominal exam reveals normal bowel sounds. Non-tender and non- distended. No evidence of peritonitis. EXTREMITITES: 1+ edema. Objective - Vital Signs Vital signs: Vital Signs Temp 98.1 F 04/25/19 05:00 Pulse 95 04/25/19 05:00 Resp 18 04/25/19 05:00 BP 148/78 04/25/19 05:00 Pulse Ox 95 04/25/19 08:00 Intake & Output 04/24/19 04/25/19 04/25/19 18:59 06:59 18:59 Intake Total 50 360 240 Balance 50 360 240 Intake: IV 50 cefTRIAXone 2 gm In 50 Sodium Chloride 0.9% 50 ml @ 100 mls/hr IVPB Q24HR [facility] Rx#:[id number] Oral 360 240 Other: Voiding Method Toilet # Voids 6 1 - Labs CBC & Chem 7: 04/25/19 06:55 04/25/19 06:55 Labs: Abnormal Lab Results - Last 24 Hours (Table) 04/24/19 04/24/19 04/25/19 Range/Units 17:19 19:54 06:53 WBC (3.8-10.6) k/uL RBC (3.80-5.40) m/uL Hgb (11.4-16.0) gm/dL Hct (34.0-46.0) % RDW (11.5-15.5) % Plt Count (150-450) k/uL Neutrophils # (1.3-7.7) k/uL Sodium (137-145) mmol/L Chloride (98-107) mmol/L Glucose (74-99) mg/dL POC Glucose (mg/dL) 105 H 167 H 161 H (75-99) mg/dL Calcium (8.4-10.2) mg/dL Magnesium (1.6-2.3) mg/dL 04/25/19 04/25/19 Range/Units 06:55 06:55 WBC 11.4 H (3.8-10.6) k/uL RBC 3.45 L (3.80-5.40) m/uL Hgb 10.4 L (11.4-16.0) gm/dL Hct 31.9 L (34.0-46.0) % RDW 18.1 H (11.5-15.5) % Plt Count 101 L (150-450) k/uL Neutrophils # 7.9 H (1.3-7.7) k/uL Sodium 133 L (137-145) mmol/L Chloride 95 L (98-107) mmol/L Glucose 160 H (74-99) mg/dL POC Glucose (mg/dL) (75-99) mg/dL Calcium 7.5 L (8.4-10.2) mg/dL Magnesium 1.5 L (1.6-2.3) mg/dL Microbiology - Last 24 Hours (Table) 04/19/19 08:45 Blood Culture - Final Blood No Growth after 144 hours 04/23/19 16:04 Urine Culture - Final Urine,Clean Catch 04/23/19 14:05 Blood Culture - Preliminary Blood No Growth after 24 hours Assessment and Plan Plan: Assessment: 1. Acute kidney injury secondary to ATN secondary to hypotension, nonsteroidals and sepsis. Baseline creatinine is 1 and peaked at 2.11 this admission - 0.86 today. Mild left-sided hydronephrosis noted on kidney ultrasound. 2. Hyperkalemia secondary to acute kidney injury and metabolic acidosis. Resolved. Now hypokalemic from diuresis. 3. Metabolic acidosis secondary to acute kidney injury and IV fluids. Resolved. 4. E. coli bacteremia maintained on IV antibiotics. 5. Insulin-dependent diabetes mellitus. 6. Hypomagnesemia secondary to diuresis. Plan: Maintain Lasix 40 mg IV daily. Continue to monitor renal function and urine output. Stable to be discharged home from nephrology standpoint on Lasix 40 mg orally once daily and k-dur 10 meq daily. BMP, magnesium 2-3 days post discharge. Follow up outpatient in the next 2-3 weeks. 2 g IV magnesium today.
--- NOTE | 2019-04-25 13:05 | XR ---
EXAMINATION TYPE: XR chest 1V portable DATE OF EXAM: 04/25/2019 COMPARISON: Prior chest x-ray 04/24/2019 HISTORY: Hypoxemic respiratory failure TECHNIQUE: Single frontal view of the chest is obtained. FINDINGS: The heart is enlarged. Bibasilar density persists. Interstitium is increased. No pneumotho rax. IMPRESSION: Correlate for pulmonary venous hypertension and interstitial edema. Follow-up recommende d.
[2019-04-25 13:09] LABS: Glucose,Whole Blood 225 mg/dL (75-99)
[2019-04-25] MEDS: MAGNESIUM SULFATE-D5W PMX 1 GM in DEXTROSE/WATER 1 100ML.BAG IVPB SCH ×2 (13:16→15:14)
== END 2019-04-25 16:17 | disposition home or self-care (01) | DRG 871 ==
LOC: EC 11:31 → 2SICU 14:21 → 3NMEDONC 04-21 17:36
PROVIDERS: ADMIT Family Medicine; ATTEND Family Medicine
PROC: 0T7D7ZZ Dilation of Urethra, Via Natural or Artificial Opening (ICD-10-PCS; principal; 2019-04-18)
DX: A41.51 Sepsis due to Escherichia coli [E. coli] (principal); D65 Disseminated intravascular coagulation [defibrination syndrome]; K72.00 Acute and subacute hepatic failure without coma; N17.0 Acute kidney failure with tubular necrosis; R65.21 Severe sepsis with septic shock; E87.2 Acidosis; N13.6 Pyonephrosis; E11.65 Type 2 diabetes mellitus with hyperglycemia; E83.42 Hypomagnesemia; E83.51 Hypocalcemia; E87.5 Hyperkalemia; E87.70 Fluid overload, unspecified; K76.0 Fatty (change of) liver, not elsewhere classified; E55.9 Vitamin D deficiency, unspecified; E66.9 Obesity, unspecified; E86.0 Dehydration; E87.6 Hypokalemia; F17.200 Nicotine dependence, unspecified, uncomplicated; J70.2 Acute drug-induced interstitial lung disorders; T50.995A Adverse effect of other drugs, medicaments and biological substances, initial encounter; N35.92 Unspecified urethral stricture, female; T50.2X5A Adverse effect of carbonic-anhydrase inhibitors, benzothiadiazides and other diuretics, initial encounter; T39.395A Adverse effect of other nonsteroidal anti-inflammatory drugs [NSAID], initial encounter; R19.7 Diarrhea, unspecified; R33.9 Retention of urine, unspecified; Z79.84 Long term (current) use of oral hypoglycemic drugs; Z88.1 Allergy status to other antibiotic agents; Z68.39 Body mass index [BMI] 39.0-39.9, adult
CPT/HCPCS: 36415; 71045; 71046; 74176; 76705; 76770; 78226; 80048; 80053; 80074; 81001; 82009; 82140; 82150; 82247; 82248; 82306; 82550; 82553; 83036; 83605; 83615; 83690; 83735; 84075; 84132; 84450; 84460; 84484; 85025; 85027; 85610; 85730; 87040; 87077; 87086; 87186; 87324; 93005; 94640; 94760; 96365; 96368; 96375; 99291

== ENCOUNTER → 2019-04-29 | Outpatient (CLI) | payer SELFPAY ==
[2019-04-29 11:47] LABS: Anisocytosis Slight; Basophils # (A) 0.1 k/uL (0-0.2); Basophils % (A) 1 %; Eosinophils # (A) 0.1 k/uL (0-0.7); Eosinophils % (A) 1 %; HCT 37.8 % (34.0-46.0); Hypochromasia Slight; Lymphocytes # (A) 1.9 k/uL (1.0-4.8); Lymphocytes % (A) 24 %; MCHC 31.8 g/dL (31.0-37.0); MCV 94.1 fL (80.0-100.0); Mean Platelet Volume 9.2; Monocytes # (A) 0.3 k/uL (0-1.0); Monocytes % (A) 4 %; Neutrophils # (A) 5.4 k/uL (1.3-7.7); Neutrophils % (A) 68 %; RBC 4.01 m/uL (3.80-5.40); RDW 17.2 % (11.5-15.5); WBC 7.9 k/uL (3.8-10.6)
[2019-04-29 11:50] LABS: Platelet Count 248 k/uL (150-450)
[2019-04-29 19:12] LABS: African American GFR (CKD) 105.4 (60.0-200.0); Albumin 3.6 g/dL (3.80-4.90); Albumin/Globulin Ratio 1.24 (1.60-3.17); Anion Gap 12.4 mmol/L (4.00-12.00); Calcium 8.8 mg/dL (8.7-10.3); Carbon Dioxide 27.6 mmol/L (21.6-31.8); Globulin 2.9 g/dL (1.6-3.3); Magnesium 1.3 mg/dL (1.5-2.4); Non-African American GFR(CKD) 90.9 (60.0-200.0); Potassium 4.3 mmol/L (3.5-5.5); Total Bilirubin 1.9 mg/dL (0.3-1.2); Total Protein 6.5 g/dL (6.2-8.2)
== END | disposition home or self-care (01) ==
LOC: LABWHC1 11:25
PROVIDERS: ATTEND Family Medicine
DX: D72.829 Elevated white blood cell count, unspecified (principal); E83.42 Hypomagnesemia; R94.5 Abnormal results of liver function studies
CPT/HCPCS: 36415; 80053; 83735; 85025

== ENCOUNTER 2024-10-31 14:58 | Inpatient (IN) | payer OTHER ==
[~2024-10-31 14:58] MED LIST: HEPARIN SODIUM,PORCINE (1 ML) 2,500 UNIT in SODIUM CHLORIDE 0.9% 250 ML IRRIGATION PRN; HEPARIN SODIUM,PORCINE 10,000 UNIT in SODIUM CHLORIDE 0.9% 1,000 ML IRRIGATION PRN
[2024-10-31 15:44] LABS: Glucose,Whole Blood 152 mg/dL (70-110)
[2024-10-31] MEDS ORDERED: ASPIRIN 325 MG TAB PO STA (15:46)
[2024-10-31] MEDS ORDERED: ALPRAZolam 0.25 MG TAB PO PRN (15:46)
[2024-10-31] MEDS ORDERED: NITROGLYCERIN SL TABS 0.4 MG TAB SUBLINGUAL PRN ×2 (15:46→19:45)
[2024-10-31] MEDS ORDERED: ALPRAZolam 0.5 MG TAB PO PRN (15:46)
[2024-10-31] MEDS: ASPIRIN 81 MG PO STA (15:49)
[2024-10-31] MEDS: IV FLUID CONTINUATION 1,000 ML IV ONE (16:00)
[2024-10-31] MEDS: EMPTY BAG 1 BAG with SODIUM CHLORIDE 0.9% 1,000 ML IV ONE (16:30)
[2024-10-31] MEDS: LIDOCAINE 1% INJ 10MG/ML (20 ML MDV) SQ ONE (18:33)
[2024-10-31] MEDS: MIDAZOLAM 2 MG/2 ML VIAL IVP ONE ×2 (18:34→19:11)
[2024-10-31] MEDS: VERAPAMIL SYRINGE (5 MG/10 ML) INTRAARTER ONE (18:35)
[2024-10-31] MEDS: HEPARIN SODIUM 1,000 UN/ML (10ML VL) IVP ONE (18:36)
[2024-10-31] MEDS: fentaNYL (PF) 50 MCG/1 ML VIAL IVP ONE ×2 (18:39→19:05)
[2024-10-31] MEDS: NITROGLYCERIN SL TABS 0.4 MG TAB SUBLINGUAL ONE (19:08)
[2024-10-31] MEDS: TICAGRELOR 90 MG TAB PO ONE (19:08)
[2024-10-31] MEDS: NITROGLYCERIN 1000MCG/10ML SYRINGE INTRACORON ONE (19:14)
[2024-10-31] MEDS ORDERED: RX INFO: IV CONTRAST WAS GIVEN 1 EACH MISC MISCELLANE PRN (19:45)
[2024-10-31] MEDS ORDERED: MAG HYDROX/AL HYDROX/SIMETH 30 ML CUP PO PRN (19:45)
[2024-10-31] MEDS ORDERED: ZOLPIDEM 5 MG TAB PO PRN (19:45)
[2024-10-31] MEDS ORDERED: ATROPINE SULFATE 0.1 MG/ML 10ML SYRINGE IV PRN (19:45)
[2024-10-31] MEDS: HEPARIN SODIUM,PORCINE 10,000 UNIT in SODIUM CHLORIDE 0.9% 1,000 ML IRRIGATION ONE (19:47)
[2024-10-31] MEDS: HEPARIN SODIUM,PORCINE (1 ML) 2,500 UNIT in SODIUM CHLORIDE 0.9% 250 ML IRRIGATION ONE (19:47)
[2024-10-31] MEDS: IOPAMIDOL-370 100ML BTL INJ ONE (19:48)
--- NOTE | 2024-10-31 20:07 | P.PCN ---
Date of Procedure: 10/31/24 Operative Findings: PERCUTANEOUS CORONARY INTERVENTION Performing physician Phillip Austin M.D. Procedure Performed: 1. Successful stenting of the mid RCA using 4.5 x 33 mm Xience drug-eluting stent with an excellent angiographic results. 2. Successful stenting of the mid LAD using 3.5 x 18 mm Xience ZELALEM with an excellent angiographic results 3. Adjunctive use of IVUS and IFR 4. Ultrasound-guided access of the right radial artery Indication: Intermediate to severe disease involving the mid RCA and severe disease involving the mid LAD in this 49-year-old female patient who was admitted to the hospital with heart failure and she was diagnosed with cardiomyopathy and underwent a heart catheterization which revealed the above Approach: Right radial art Complications: None Level of Sedation: Moderate with a sedation length of 66 minutes Procedure Discussion: After obtaining informed consent the patient was brought to the cardiac Manager Infrastructure. The right radial artery was cannulated using micropuncture technique under ultrasound guidance a micropuncture wire passed easily then I placed a 6 Romanian 11 cm sheath at the right radial artery. I gave the patient 2 mg of verapamil intra-arterial and anticoagulation was initiated using heparin with continuous ACT monitoring and initially the patient was given 5000's of heparin intravenous with continuous ACT monitoring. Additional heparin was given throughout the procedure. Initially I decided to do an IFR of the RCA. After zeroing the Do bler wire and equalizing between the Dobler wire and guiding catheter I did engage the RCA using JR4 guiding catheter. After that I did wire the RCA using the Dobler wire. I did IFR and that came in to be at 0.87. At that point I decided to proceed with intervention on the RCA. I did IVUS which showed a diameter around 4 mm to 4.5 mm. Predilatation was performed using 3.5 mm balloon and subsequently I was able to deploy a 4.5 x 33 mm stent where the stent was positioned under fluoroscopy guidance and deployed under fluoroscopy guidance and postdilated using 4 mm noncompliant balloon with adjunctive use of guide liner. Final angiogram showed good angiographic results. Subsequently I decided to intervene on the LAD. Anticoagulation continued using the heparin IV. Subsequently I did engage the left main using JL 3.5 guiding catheter with I did wire the LAD using a run-through wire. IVUS was also performed and showed a diameter between 3 to 3.5 mm. Predilatation was performed using 3 mm NC balloon before I deployed 3.5 x 18 mm stent which was postdilated using 3.5 mm noncompliant balloon was final angiogram showing excellent angiographic results and the procedure was completed with no complication Postprocedure Management: 1. Dual antiplatelet therapy using aspirin and Brilinta for at least 6-month 2. Aggressive cholesterol control 3. Risk factors modification
[2024-10-31] MEDS: ATORVASTATIN 80 MG TAB PO STA (20:31)
[2024-10-31] MEDS: SODIUM CHLORIDE 0.9% 1,000 ML in EMPTY BAG 1 BAG IV SCH (20:31)
[2024-10-31] MEDS: INSULIN LISPRO (HumaLOG) 100 UNIT/ML 10 mL VL SQ SCH (20:45)
[2024-10-31 20:46] LABS: Glucose,Whole Blood 94 mg/dL (70-110)
[2024-10-31] MEDS: SACUBITRIL/VALSARTAN 24 MG-26 MG TABLET PO SCH (20:53)
[2024-10-31] MEDS: ACETAMINOPHEN TAB 325 MG TAB PO PRN (20:53)
[2024-11-01 05:49] LABS: Glucose,Whole Blood 158 mg/dL (70-110)
[2024-11-01 07:21] LABS: African American GFR (CKD) >90 (>60 ml/min/1.73 sqM); Non-African American GFR(CKD) >90 (>60 ml/min/1.73 sqM)
[2024-11-01] MEDS: DAPAGLIFLOZIN PROPANEDIOL 10 MG TABLET PO SCH (08:46)
[2024-11-01] MEDS: ASPIRIN 81 MG PO SCH (08:46)
[2024-11-01] MEDS: TICAGRELOR 90 MG TAB PO SCH (08:46)
[2024-11-01] MEDS: SPIRONOLACTONE 25 MG TAB PO SCH (08:47)
[2024-11-01 08:51] VITALS: RESP 17; TEMP 98
--- NOTE | 2024-11-01 08:58 | P.HPIM ---
History of Present Illness H&P Date: 11/01/24 Chief Complaint: Heart failure The patient is a 49-year-old white female who has underlying history of insulin- dependent diabetes who came in with signs of heart failure. Echocardiogram did show ejection fraction of 20-25% at [facility]. She ended up having a procedure and was transferred due to the coronary artery disease that was found. She is a 48-tngt-gbie smoker and does drink rather heavily for the last 5 to 6 years. Diabetes has been present for about 6 years. She states she drinks 2 mixed whiskey drinks typically daily after work. We had a long discussion regarding lifestyle improvement of refraining from alcohol and tobacco. She is now admitted for CAD and has had 2 stents. I definitely am not her PCP but I do see her at the local [facility] clinic. Review of Systems Constitutional: Denies chills, Denies fever Eyes: denies blurred vision, denies pain Ears, nose, mouth and throat: Denies headache, Denies sore throat Past Medical History Past Medical History: Diabetes Mellitus, Hyperlipidemia, Hypertension History of Any Multi-Drug Resistant Organisms: None Reported Past Surgical History: No Surgical Hx Reported Past Anesthesia/Blood Transfusion Reactions: No Reported Reaction Past Psychological History: Anxiety Smoking Status: Current every day smoker Past Alcohol Use History: Daily Past Drug Use History: None Reported Medications and Allergies Home Medications Medication Instructions Recorded Confirmed Type Crestor (Unknown Strength) 1 dose PO DIRECTED 10/31/24 10/31/24 History FLUoxetine HCL [PROzac] 40 mg PO DIRECTED 10/31/24 10/31/24 History Insulin Glargine (Lantus) [Lantus 40 unit SQ DIRECTED 10/31/24 10/31/24 History Vial] Lisinopril (Unknown Strength) 1 dose PO DIRECTED 10/31/24 10/31/24 History Metoprolol Succinate [Metoprolol 25 mg PO DIRECTED 10/31/24 10/31/24 History Succinate ER] Semaglutide [Ozempic] 1 mg SQ DIRECTED 10/31/24 10/31/24 History Allergies Allergy/AdvReac Type Severity Reaction Status Date / Time cephalexin [From Keflex] Allergy Rash/Hives Verified 10/31/24 20:57 Physical Exam Vitals: Vital Signs Temp Pulse Pulse Resp BP Pulse Ox 11/01/24 08:42 98 F 82 17 167/78 99 11/01/24 03:17 81 18 143/68 99 10/31/24 23:31 98.0 F 75 18 154/76 99 10/31/24 21:31 74 18 149/74 99 10/31/24 21:01 84 18 150/70 100 10/31/24 20:31 86 18 165/77 99 10/31/24 20:16 98.2 F 82 18 154/79 100 10/31/24 16:08 98.8 F 69 16 116/60 95 Intake and Output 10/31/24 11/01/24 11/01/24 22:59 06:59 14:59 Intake Total 612 Balance 612 Intake: IV 612 Invasive Line 1 10 Other: Voiding Method Toilet Toilet # Voids 1 1 Weight 71.668 kg 72.3 kg - Constitutional General appearance: no acute distress - EENT Eyes: EOMI - Neck Neck: no lymphadenopathy - Respiratory Respiratory: bilateral: diminished - Cardiovascular Rhythm: regular Heart sounds: normal: S1, S2 Abnormal Heart Sounds: no S3 Gallop - Gastrointestinal General gastrointestinal: soft, no tenderness - Psychiatric Psychiatric: A&O x's 3 Results CBC & Chem 7: 11/01/24 05:54 Labs: Abnormal Lab Results - Last 24 Hours (Table) 10/31/24 11/01/24 Range/Units 15:42 05:48 POC Glucose (mg/dL) 152 H 158 H (70-110) mg/dL Thrombosis Risk Factor Assmnt - Choose All That Apply Any of the Below Risk Factors Present?: Yes Each Factor Represents 1 point: Age 41-60 years, Obesity (BMI >25) Other Risk Factors: No Other congenital or acquired thrombophilia - If yes, enter type in comment: No Thrombosis Risk Factor Assessment Total Risk Factor Score: 2 Thrombosis Risk Factor Assessment Level: Low Risk Assessment and Plan (1) Alcohol abuse Current Visit: Yes Status: Acute Code(s): F10.10 - ALCOHOL ABUSE, UNCOMPLICATED SNOMED Code(s): 10488622 (2) CAD (coronary artery disease) Current Visit: Yes Status: Acute Code(s): I25.10 - ATHSCL HEART DISEASE OF [place] CORONARY ARTERY W/O ANG PCTRS SNOMED Code(s): 90817073 (3) Acute on chronic congestive heart failure Current Visit: Yes Status: Acute Code(s): I50.9 - HEART FAILURE, UNSPECIFIED SNOMED Code(s): 032291666 (4) Cigarette nicotine dependence Current Visit: Yes Status: Acute Code(s): F17.210 - NICOTINE DEPENDENCE, CIGARETTES, UNCOMPLICATED SNOMED Code(s): 76234025754876423 (5) Diabetes mellitus, new onset Current Visit: No Status: Acute Code(s): E11.9 - TYPE 2 DIABETES MELLITUS WITHOUT COMPLICATIONS SNOMED Code(s): 747882801 (6) Hepatic steatosis Current Visit: No Status: Acute Code(s): K76.0 - FATTY (CHANGE OF) LIVER, NOT ELSEWHERE CLASSIFIED SNOMED Code(s): 680086885 Plan: This post cardiac catheterization with stent. Reconcile home medications. Will DC when cleared by cardiology. Again a considerable amount of time was spent on lifestyle improvement
[2024-11-01] MEDS ORDERED: INSULIN GLARGINE (LANTUS) 100 UNIT/ML SYR SQ SCH ×3 (09:30→21:00)
[2024-11-01 11:27] LABS: Glucose,Whole Blood 243 mg/dL (70-110)
[2024-11-01 11:38] VITALS: BP 164/88; PULSE 80
--- NOTE | 2024-11-01 14:02 | P.PN ---
Subjective Progress Note Date: 11/01/24 This is a 49-year-old female initially presented to [facility] and was transferred to [facility] due to abnormal cardiac catheterization. Yesterday, patient underwent stenting of the RCA and LAD. She is on dual antiplatelet therapy with Brilinta and aspirin. Patient was also found to have cardiomyopathy with EF of 25 to 30% and has been started on appropriate heart failure medications. Patient denies chest pain, chest pressure or tightness. She does have some pain and tenderness to the right wrist. No sign of bleeding or hematoma. Patient denies shortness of breath. She is a smoker of 1 pack/day and has been counseled regarding smoking cessation. Physical examination: Gen: This is 49-year-old female appears to be in no acute distress. VS: reviewed LUNGS: Clear to auscultation. No wheezes or rhonchi. No intercostal retractions. HEART: Regular rate and rhythm. No murmur. ABDOMEN: Soft No tenderness. EXTREMITIES: No pedal edema. No calf tenderness. NEUROLOGICAL: Patient is awake, alert and oriented x3. Assessment: Ischemic cardiomyopathy with EF of 25 to 30% Coronary artery disease status post stent of the mid RCA and mid LAD Hypertension Diabetes Plan: Continue current cardiac medications: Aspirin 81 mg daily, atorvastatin 80 mg at bedtime, Brilinta 90 mg twice daily, spironolactone 25 mg daily, Entresto 24-26 mg 1 twice daily, resume metoprolol succinate 25 mg daily--prescriptions for patient's new cardiac medications have been sent to her pharmacy. Patient is cleared from cardiology perspective for discharge and may follow-up in the office with Dr. Austin in 1 to 2 weeks. Nurse practitioner note has been reviewed, I agree with documented findings and plan of care. Patient was seen and examined. Objective - Vital Signs Vital signs: Vital Signs Temp 98 F 11/01/24 08:42 Pulse 82 11/01/24 08:42 Resp 17 11/01/24 08:42 BP 167/78 11/01/24 08:42 Pulse Ox 99 11/01/24 08:42 FiO2 Intake & Output 10/31/24 11/01/24 11/01/24 18:59 06:59 18:59 Intake Total 600 12 240 Balance 600 12 240 Weight 71.668 kg 72.3 kg Intake: IV 600 12 Invasive Line 1 10 Oral 240 Other: Voiding Method Toilet Toilet # Voids 1 - Labs CBC & Chem 7: 11/01/24 05:54 Labs: Abnormal Lab Results - Last 24 Hours (Table) 10/31/24 11/01/24 Range/Units 15:42 05:48 POC Glucose (mg/dL) 152 H 158 H (70-110) mg/dL
[2024-11-01 14:17] VITALS: BMI 33.3
[2024-11-01 14:19] LABS: Glucose,Whole Blood 227 mg/dL (70-110)
--- NOTE | 2024-11-01 14:22 | P.DS ---
Providers Date of admission: 10/31/24 15:24 Expected date of discharge: 11/01/24 Attending physician: Anthony Guardado Consults: 10/31/24 19:44 Consult Physician Routine Consulting Provider: Cardiology Concepcion Consult Reason/Comments: Post Interventional patient Do you want consulting provider notified?: Already Contacted 10/31/24 19:46 Consult Physician Routine Consulting Provider: Cardiology Concepcion Consult Reason/Comments: Post Interventional Patient Do you want consulting provider notified?: Already Contacted Primary care physician: Anthony Guardado - Discharge Diagnosis(es) (1) Alcohol abuse Current Visit: Yes Status: Acute (2) CAD (coronary artery disease) Current Visit: Yes Status: Acute (3) Acute on chronic congestive heart failure Current Visit: Yes Status: Acute (4) Cigarette nicotine dependence Current Visit: Yes Status: Acute (5) Diabetes mellitus, new onset Current Visit: No Status: Acute (6) Hepatic steatosis Current Visit: No Status: Acute Hospital Course: This is a discharge summary 5-year-old white female who essentially was admitted to [facility] with acute congestive heart failure. Echocardiogram did show poor ejection fraction cardiac catheterization did reveal that she had critical coronary artery stenosis in the circumflex and LAD. The patient was transferred to [facility] for appropriate current coronary stenting. We had a long discussion regarding good blood sugar control and decreasing are becoming abstinent from tobacco and alcohol. The patient is discharged in stable condition and [facility]. I am technically not her primary care provider but have [facility] over the years. Patient Condition at Discharge: Stable Plan - Discharge Summary Discharge Rx Participant: No New Discharge Prescriptions: New Aspirin 81 mg PO DAILY tab Ticagrelor [Brilinta] 90 mg PO BID #180 tab Nitroglycerin Sl Tabs [Nitrostat] 0.4 mg SUBLINGUAL Q5M PRN #25 tab PRN Reason: Chest Pain Spironolactone [Aldactone] 25 mg PO DAILY #90 tab Sacubitril/Valsartan [Entresto 24 mg-26 mg Tablet] 1 each PO BID #180 tab Atorvastatin [Lipitor] 80 mg PO HS #90 tab Changed Metoprolol Succinate [Metoprolol Succinate ER] 25 mg PO DAILY #90 tab Discontinued Rosuvastatin [Crestor] 20 mg PO HS Lisinopril-Hctz 20-25 mg [Zestoretic 20-25] 1 tab PO DAILY No Action FLUoxetine HCL [PROzac] 40 mg PO HS Semaglutide [Ozempic] 1 mg SQ DIRECTED Insulin Glargine (Lantus) [Lantus Vial] 40 unit SQ DIRECTED Discharge Medication List FLUoxetine HCL [PROzac] 40 mg PO HS 10/31/24 [History] Insulin Glargine (Lantus) [Lantus Vial] 40 unit SQ DIRECTED 10/31/24 [History] Semaglutide [Ozempic] 1 mg SQ DIRECTED 10/31/24 [History] Aspirin 81 mg PO DAILY tab 11/01/24 [Rx] Atorvastatin [Lipitor] 80 mg PO HS #90 tab 11/01/24 [Rx] Metoprolol Succinate [Metoprolol Succinate ER] 25 mg PO DAILY #90 tab 11/01/24 [Rx] Nitroglycerin Sl Tabs [Nitrostat] 0.4 mg SUBLINGUAL Q5M PRN #25 tab 11/01/24 [Rx] Sacubitril/Valsartan [Entresto 24 mg-26 mg Tablet] 1 each PO BID #180 tab 11/01/24 [Rx] Spironolactone [Aldactone] 25 mg PO DAILY #90 tab 11/01/24 [Rx] Ticagrelor [Brilinta] 90 mg PO BID #180 tab 11/01/24 [Rx] Follow up Appointment(s)/Referral(s): Phillip Austin MD [STAFF PHYSICIAN] - 1 Week
[2024-11-01] MEDS ORDERED: ATORVASTATIN 80 MG TAB PO SCH (21:00)
[2024-11-01] MEDS ORDERED: FLUoxetine HCL 20 MG CAP PO SCH (21:00)
--- NOTE | 2024-11-02 14:56 | CDI ---
Documentation Clarification Form Date: 11/02/2024 02:44:00 PM From: Natali Silverman Admit Date: 10/31/2024 03:24:00 PM Patient Name: Klaudia Mays Visit Number: [id number] Discharge Date: 11/01/2024 03:53:00 PM ATTENTION: The Clinical Documentation Specialists (CDI) and [facility] Coding Staff appreciate your assistance in clarifying documentation. Please respond to the clarification below the line at the bottom and electronically sign. The CDI & [facility] Coding staff will review the response and follow-up if needed. Please note: Queries are made part of the Legal Health Record. If you have any questions, please contact the author of this message via ITS. Doctor/Provider: Anthony Guardado Your patient has the documented diagnosis of Acute on chronic CHF in the History and Physical and Discharge Summary 11/01/24. Additional information regarding the type of CHF is requested. History/Risk Factors: patient is a 49 year old white female with a history of insulin-dependent diabetes, hyperlipidemia, hypertension, anxiety, current every day smoker, and daily alcohol abuse. Came in with signs of heart failure. Clinical Indicators: patient presented to [facility], was found to have signs of heart failure. Underwent a procedure and was transferred to [facility] due to coronary artery disease and a need for intervention. Per the Echo report it showed poor ejection fraction. VS/Pulse OX: T 98.8, Pulse 69, RR 16, Blood Pressure 116/60, O2 95% on room air Echocardiogram Results: per the documentation Echo did show ejection fraction of 20-25% at [facility] Treatment: patient underwent PTCA with ZELALEM in the RCA and LAD, IFR was done on the RCA, and IVUS was used in both the RCA and LAD. Left Heart Cath with Coronary Artery Angiography. In your professional opinion, can you please clarify the type of CHF if known? [x ] Acute on Chronic Systolic Heart Failure (reduced EF) [ ] Acute on Chronic Diastolic Heart Failure (preserved EF) [ ] Acute on Chronic Heart Failure Systolic & Diastolic Heart Failure [ ] Other, please specify [ ] Unable to determine MTDD
[2024-11-03] MEDS ORDERED: NON FORMULARY DRUG (Semaglutide [Ozempic] 1 MG/0.75 ML Each) SQ SCH (09:00)
== END 2024-11-01 15:53 | disposition home or self-care (01) | DRG 321 ==
LOC: 3SCARD 15:24
PROVIDERS: ADMIT Family Medicine; ATTEND Family Medicine
DX: I11.0 Hypertensive heart disease with heart failure (principal); I50.23 Acute on chronic systolic (congestive) heart failure; E11.9 Type 2 diabetes mellitus without complications; J44.9 Chronic obstructive pulmonary disease, unspecified; F10.10 Alcohol abuse, uncomplicated; K76.0 Fatty (change of) liver, not elsewhere classified; E66.9 Obesity, unspecified; Z79.4 Long term (current) use of insulin; F17.210 Nicotine dependence, cigarettes, uncomplicated; I25.10 Atherosclerotic heart disease of native coronary artery without angina pectoris; I25.5 Ischemic cardiomyopathy; E78.5 Hyperlipidemia, unspecified; F41.9 Anxiety disorder, unspecified; Z68.33 Body mass index [BMI] 33.0-33.9, adult; Z79.899 Other long term (current) drug therapy; Z88.1 Allergy status to other antibiotic agents; Z71.41 Alcohol abuse counseling and surveillance of alcoholic; Z71.6 Tobacco abuse counseling
CPT/HCPCS: 82565; 92978; 92979; 93454; 93799

== ENCOUNTER 2024-11-06 07:30 | Inpatient (IN) | payer OTHER ==
[2024-11-06 07:58] LABS: Basophils % (A) 0 %; Eosinophils # (A) 0.1 k/uL (0-0.7); Eosinophils % (A) 1 %; HGB 13.7 gm/dL (11.4-16.0); Hypochromasia Marked; Lymphocytes # (A) 1.6 k/uL (1.0-4.8); Lymphocytes % (A) 20 %; MCH 29.8 pg (25.0-35.0); MCV 102.6 fL (80.0-100.0); Macrocytosis Slight; Mean Platelet Volume 9.7; Monocytes # (A) 0.4 k/uL (0-1.0); Monocytes % (A) 4 %; Neutrophils % (A) 73 %; Platelet Count 236 k/uL (150-450); RBC 4.59 m/uL (3.80-5.40); WBC 8.2 k/uL (3.8-10.6)
--- NOTE | 2024-11-06 08:04 | XR ---
EXAMINATION TYPE: XR chest 2V DATE OF EXAM: 11/06/2024 7:58 AM COMPARISON: 04/25/2019 CLINICAL INDICATION: Female, 49 years old with history of Chest Pain, TECHNIQUE: Single frontal view of the chest is obtained. FINDINGS: There is no focal air space opacity, pleural effusion, or pneumothorax seen. The cardiac silhouette size is within normal limits. The osseous structures are intact. IMPRESSION: No acute process. [facility], , 11/06/2024 8:02 AM
[2024-11-06 08:05] LABS: ALT 117 U/L (4-34); AST 117 U/L (14-36); African American GFR (CKD) >90 (>60 ml/min/1.73 sqM); Albumin 3.5 g/dL (3.5-5.0); Alkaline Phosphatase 246 U/L (38-126); Anion Gap 8 mmol/L; Blood Urea Nitrogen 11 mg/dL (7-17); Carbon Dioxide 27 mmol/L (22-30); Chloride 99 mmol/L (98-107); Glucose 176 mg/dL (74-99); Magnesium 1.6 mg/dL (1.6-2.3); Non-African American GFR(CKD) >90 (>60 ml/min/1.73 sqM); Potassium 4.9 mmol/L (3.5-5.1); Sodium 134 mmol/L (137-145); Total Protein 6.9 g/dL (6.3-8.2)
[2024-11-06 08:07] LABS: INR 1.2 (<1.2); Prothrombin Time 12.6 sec (10.0-12.5)
--- NOTE | 2024-11-06 08:12 | ED ---
General Adult HPI - General Chief complaint: Chest Pain Stated complaint: chest pain Time Seen by Provider: 11/06/24 07:32 Source: patient, family, RN notes reviewed Mode of arrival: ambulatory Limitations: no limitations - History of Present Illness Initial comments: Patient is a 49-year-old female present to the emergency department with concerns with chest discomfort. Onset of symptoms was for the past few days since she had a heart stent. Symptoms little bit worse today. Patient did have heart stent placed last week on Wednesday. Patient also had fluid buildup at that time. Patient is concerned that fluid buildup is occurring again. Patient chest discomfort is currently 4/10. Patient states discomfort feels like pressure or tightness. Patient has associated exertional dyspnea and leg edema. No calf pain. Patient has had some nausea and vomiting. - Related Data Home Medications Medication Instructions Recorded Confirmed FLUoxetine HCL [PROzac] 40 mg PO HS 10/31/24 11/06/24 Insulin Degludec [Tresiba] 40 units SQ HS 11/06/24 11/06/24 Nitroglycerin Sl Tabs [Nitrostat] 0.4 mg SL Q5M PRN 11/06/24 11/06/24 Sacubitril/Valsartan [Entresto 24 1 tab PO BID 11/06/24 11/06/24 mg-26 mg Tablet] Semaglutide [Ozempic] 2 mg SQ FR 11/06/24 11/06/24 Previous Rx's Medication Instructions Recorded Aspirin 81 mg PO DAILY tab 11/01/24 Atorvastatin [Lipitor] 80 mg PO HS #90 tab 11/01/24 Dapagliflozin Propanediol [Farxiga] 10 mg PO DAILY #30 tab 11/01/24 Metoprolol Succinate [Metoprolol 25 mg PO DAILY #90 tab 11/01/24 Succinate ER] Spironolactone [Aldactone] 25 mg PO DAILY #90 tab 11/01/24 Ticagrelor [Brilinta] 90 mg PO BID #180 tab 11/01/24 Allergies Allergy/AdvReac Type Severity Reaction Status Date / Time cephalexin [From Keflex] Allergy Rash/Hives Verified 11/06/24 10:02 Review of Systems ROS Statement: Those systems with pertinent positive or pertinent negative responses have been documented in the HPI. ROS Other: All systems not noted in ROS Statement are negative. Constitutional: Denies: fever Eyes: Denies: eye pain ENT: Denies: ear pain Respiratory: Reports: as per HPI Cardiovascular: Reports: as per HPI, chest pain, dyspnea on exertion, edema Endocrine: Reports: fatigue Gastrointestinal: Denies: abdominal pain Musculoskeletal: Denies: back pain Past Medical History Past Medical History: Diabetes Mellitus, Hyperlipidemia, Hypertension History of Any Multi-Drug Resistant Organisms: None Reported Past Surgical History: No Surgical Hx Reported, Heart Catheterization With Stent Past Anesthesia/Blood Transfusion Reactions: No Reported Reaction Past Psychological History: Anxiety Smoking Status: Current every day smoker Past Alcohol Use History: Daily Past Drug Use History: None Reported General Exam Limitations: no limitations General appearance: alert, in no apparent distress Head exam: Present: normocephalic Eye exam: Present: normal appearance Neck exam: Present: normal inspection Respiratory exam: Present: normal lung sounds bilaterally Cardiovascular Exam: Present: regular rate, normal rhythm Expanded Peripheral pulses: 2+: Radial (R), Radial (L), Posterior Tibialis (R), Posterior Tibialis (L) GI/Abdominal exam: Present: soft. Absent: tenderness Extremities exam: Present: pedal edema. Absent: calf tenderness Neurological exam: Present: alert Psychiatric exam: Present: normal affect, normal mood Skin exam: Present: normal color Course Vital Signs 11/06/24 11/06/24 07:34 09:26 Temperature 98 F 98.8 F Pulse Rate 89 80 Respiratory 20 16 Rate Blood Pressure 131/82 120/70 O2 Sat by Pulse 96 97 Oximetry EKG Findings - EKG Results: EKG: interpreted by ERMD (Right axis. Q wave V1 V2. Nonspecific T waves.) Medical Decision Making - Medical Decision Making Was pt. sent in by a medical professional or institution (, PA, PHYSICIAN ASST, urgent care, hospital, or retirement...) When possible be specific @ -No Did you speak to anyone other than the patient for history (EMS, parent, family, police, friend...)? What history was obtained from this source @ - is present and helps provide history including recent admission and concern for CHF Did you review nursing and triage notes (agree or disagree)? Why? @ -I reviewed and agree with nursing and triage notes Were old charts reviewed (outside hosp., previous admission, EMS record, old EK G, old radiological studies, urgent care reports/EKG's, retirement records)? Report findings @ -Previous admission reviewed including cardiac consult and heart catheterization Differential Diagnosis (chest pain, altered mental status, abdominal pain women, abdominal pain men, vaginal bleeding, weakness, fever, dyspnea, syncope, headache, dizziness, GI bleed, back pain, seizure, CVA, palpatations, mental health, musculoskeletal)? @ -Differential Chest Pain: Stable Angina, Unstable Angina, STEMI, NSTEMI Aortic Dissection, Pneumothorax, Musculoskeletal, Esophageal Spasm GERD, Cholecystitis, Pancreatitis, Zoster, this is not meant to be an all-inclusive list. EKG interpreted by me (3pts min.). @ -As above X-rays interpreted by me (1pt min.). @ -Chest x-ray reveals no acute abnormality CT interpreted by me (1pt min.). @ -None done U/S interpreted by me (1pt. min.). @ -None done What testing was considered but not performed or refused? (CT, X-rays, U/S, labs)? Why? @ -None What meds were considered but not given or refused? Why? @ -None Did you discuss the management of the patient with other professionals (professionals i.e. , PA, PHYSICIAN ASST, lab, RT, psych nurse, clinical social worker, commercial real estate associate, teacher, sales promotion officer, disability case manager)? Give summary @ -Case discussed with Dr. Gonzalez with cardiology who will consult. Case also discussed with Dr. Guardado who will admit Was smoking cessation discussed for >3mins.? @ -No Was critical care preformed (if so, how long)? @ -31 minutes critical care time Were there social determinants of health that impacted care today? How? (Homelessness, low income, unemployed, alcoholism, drug addiction, transportation, low edu. Level, literacy, decrease access to med. care, senior care, rehab)? @ -No Was there de-escalation of care discussed even if they declined (Discuss DNR or withdrawal of care, Hospice)? DNR status @ -No What co-morbidities impacted this encounter? (DM, HTN, Smoking, COPD, CAD, Cancer, CVA, ARF, Chemo, Hep., AIDS, mental health diagnosis, sleep apnea, morbid obesity)? @ -History of recent CHF and recent stent Was patient admitted / discharged? Hospital course, mention meds given and route, prescriptions, significant lab abnormalities, going to OR and other pertinent info. @ -Patient presents with chest discomfort and dyspnea, exertional. Patient has clinical concern for CHF. Troponin is elevated, unclear previous. We are attempting to get previous lab results. Patient reevaluated and updated. Patient will be admitted with cardiac consult. Admission orders written. Heparin started. Undiagnosed new problem with uncertain prognosis? @ -No Drug Therapy requiring intensive monitoring for toxicity (Heparin, Nitro, Insulin, Cardizem)? @ -Heparin drip Were any procedures done? @ -No Diagnosis/symptom? @ -Non-ST elevation myocardial infarction, CHF Acute, or Chronic, or Acute on Chronic? @ -Acute on chronic, acute on chronic Uncomplicated (without systemic symptoms) or Complicated (systemic symptoms)? @ -Default Side effects of treatment? @ -No Exacerbation, Progression, or Severe Exacerbation? @ -No Poses a threat to life or bodily function? How? (Chest pain, USA, NC, pneumonia, PE, COPD, DKA, ARF, appy, cholecystitis, CVA, Diverticulitis, Homicidal, Suicidal, threat to staff... and all critical care pts) @ -Threat to cardiac function - Lab Data Result diagrams: 11/06/24 07:46 11/06/24 07:46 Lab Results 11/06/24 11/06/24 11/06/24 Range/Units 07:46 07:46 07:46 WBC 8.2 (3.8-10.6) k/uL RBC 4.59 (3.80-5.40) m/uL Hgb 13.7 (11.4-16.0) gm/dL Hct 47.0 H (34.0-46.0) % MCV 102.6 H (80.0-100.0) fL MCH 29.8 (25.0-35.0) pg MCHC 29.0 L (31.0-37.0) g/dL RDW 14.0 (11.5-15.5) % Plt Count 236 (150-450) k/uL MPV 9.7 Neutrophils % 73 % Lymphocytes % 20 % Monocytes % 4 % Eosinophils % 1 % Basophils % 0 % Neutrophils # 6.0 (1.3-7.7) k/uL Lymphocytes # 1.6 (1.0-4.8) k/uL Monocytes # 0.4 (0-1.0) k/uL Eosinophils # 0.1 (0-0.7) k/uL Basophils # 0.0 (0-0.2) k/uL Hypochromasia Marked Macrocytosis Slight PT 12.6 H (10.0-12.5) sec INR 1.2 H (<1.2) APTT 23.0 (22.0-30.0) sec Sodium 134 L (137-145) mmol/L Potassium 4.9 (3.5-5.1) mmol/L Chloride 99 (98-107) mmol/L Carbon Dioxide 27 (22-30) mmol/L Anion Gap 8 mmol/L BUN 11 (7-17) mg/dL Creatinine 0.76 (0.52-1.04) mg/dL Est GFR (CKD-EPI)AfAm >90 (>60 ml/min/1.73 sqM) Est GFR (CKD-EPI)NonAf >90 (>60 ml/min/1.73 sqM) Glucose 176 H (74-99) mg/dL Calcium 9.0 (8.4-10.2) mg/dL Magnesium 1.6 (1.6-2.3) mg/dL Total Bilirubin 1.0 (0.2-1.3) mg/dL AST 117 H (14-36) U/L ALT 117 H (4-34) U/L Alkaline Phosphatase 246 H (38-126) U/L Troponin I (0.000-0.034) ng/mL NT-Pro-B Natriuret Pep pg/mL Total Protein 6.9 (6.3-8.2) g/dL Albumin 3.5 (3.5-5.0) g/dL 11/06/24 11/06/24 Range/Units 07:46 07:46 WBC (3.8-10.6) k/uL RBC (3.80-5.40) m/uL Hgb (11.4-16.0) gm/dL Hct (34.0-46.0) % MCV (80.0-100.0) fL MCH (25.0-35.0) pg MCHC (31.0-37.0) g/dL RDW (11.5-15.5) % Plt Count (150-450) k/uL MPV Neutrophils % % Lymphocytes % % Monocytes % % Eosinophils % % Basophils % % Neutrophils # (1.3-7.7) k/uL Lymphocytes # (1.0-4.8) k/uL Monocytes # (0-1.0) k/uL Eosinophils # (0-0.7) k/uL Basophils # (0-0.2) k/uL Hypochromasia Macrocytosis PT (10.0-12.5) sec INR (<1.2) APTT (22.0-30.0) sec Sodium (137-145) mmol/L Potassium (3.5-5.1) mmol/L Chloride (98-107) mmol/L Carbon Dioxide (22-30) mmol/L Anion Gap mmol/L BUN (7-17) mg/dL Creatinine (0.52-1.04) mg/dL Est GFR (CKD-EPI)AfAm (>60 ml/min/1.73 sqM) Est GFR (CKD-EPI)NonAf (>60 ml/min/1.73 sqM) Glucose (74-99) mg/dL Calcium (8.4-10.2) mg/dL Magnesium (1.6-2.3) mg/dL Total Bilirubin (0.2-1.3) mg/dL AST (14-36) U/L ALT (4-34) U/L Alkaline Phosphatase (38-126) U/L Troponin I 4.910 H* (0.000-0.034) ng/mL NT-Pro-B Natriuret Pep 3350 pg/mL Total Protein (6.3-8.2) g/dL Albumin (3.5-5.0) g/dL Disposition Clinical Impression: Acute non-ST elevation myocardial infarction (NSTEMI) Disposition: ADMITTED IP TO THIS HOSP Condition: Serious Is patient prescribed a controlled substance at d/c from ED?: No Referrals: Anthony Guardado MD [STAFF PHYSICIAN] - 1-2 days Time of Disposition: 10:15
[2024-11-06] MEDS ORDERED: HEPARIN SODIUM 1,000 UN/ML (10ML VL) IV PRN (08:34)
[2024-11-06] MEDS: NITROGLYCERIN OINT 1 INCH/GM PACKET TOPICAL STA (08:36)
[2024-11-06] MEDS: ASPIRIN 81 MG PO STA (08:36)
[2024-11-06] MEDS: HEPARIN SODIUM 1,000 UN/ML (10ML VL) IV ONE (09:27)
[2024-11-06] MEDS: HEPARIN SOD,PORK IN 0.45% NACL 25,000 UNIT in 0.45% NACL 1 250ML.BAG IV SCH (09:28)
[2024-11-06] MEDS ORDERED: NITROGLYCERIN SL TABS 0.4 MG TAB SUBLINGUAL PRN (10:16)
[2024-11-06] MEDS: FUROSEMIDE 10 MG/ML 4 ML VIAL IV STA (10:38)
[2024-11-06] MEDS: ISOSORBIDE MONONITRATE ER 30 MG TAB.ER.24H PO STA (11:30)
[2024-11-06] MEDS ORDERED: NITROGLYCERIN OINT 1 INCH/GM PACKET TOPICAL SCH (12:00)
--- NOTE | 2024-11-06 12:24 | P.CRDCN ---
History of Present Illness History of present illness: HISTORY OF PRESENT ILLNESS: This is a 49-year-old female with a past medical history significant for cardiomyopathy, coronary artery disease, hyperlipidemia, alcohol abuse, nicotine dependence. Patient has not yet established in the office with a attendance officer. We have been asked to see the patient in consultation for elevated troponins. Patient examined at the bedside in the emergency room. Patient was recently admitted to the hospital and underwent cardiac catheterization on 10/31/[address] Austin after she was admitted to the hospital with heart failure and cardiomyopathy. She underwent stenting of the mid RCA and mid LAD. The patient was discharged home in stable condition. The patient states since her discharge she has noticed she has been retaining fluid in her legs. She also states that yesterday she had an episode of chest pain in the middle of her chest. She d enied any radiation of the pain. She states that it felt like a tightness or squeezing sensation. She did receive nitro with no relief of the discomfort. She states since that time she has had no further episodes of chest pain or pressure. The patient was found to have elevated troponins of 4.9. She was started on IV heparin. Previous troponin levels from recent hospitalization are currently not available. DIAGNOSTICS: - EKG reveals sinus mechanism with T wave inversions inferiorly and also in V5V6, similar to previous EKG.. - Chest xray negative for acute process. - Laboratory data: WBC 8.2. Hemoglobin 13.7. Platelet count 236. Sodium 134. Potassium 4.9. BUN 11. Creatinine 0.76. AST 117. ALT 117. Troponin 4.910. 4.290. proBNP 3350. - Current home cardiac medications include Lipitor 80 mg at night, Brilinta 90 mg twice a day, Aldactone 25 mg daily, Entresto 24-26 mg twice a day, metoprolol succinate 25 mg daily, Farxiga 10 mg daily, aspirin 81 mg daily. REVIEW OF SYSTEMS: At the time of my exam: CONSTITUTIONAL: Denies fever or chills. HEENT: Denies blurred vision, vision changes, or eye pain. Denies hemoptysis CARDIOVASCULAR: Denies chest pain. Denies orthopnea. Denies PND. Denies palpitations RESPIRATORY: Denies shortness of breath. GASTROINTESTINAL: Denies abdominal pain. Denies nausea or vomiting. HEMATOLOGIC: Denies bleeding disorders. GENITOURINARY: Denies any blood in urine. SKIN: Denies pruitis. Denies rash. PHYSICAL EXAM: VITAL SIGNS: Reviewed. GENERAL: Well-developed in no acute distress. HEENT: Head is normocephalic. Pupils are equal, round. Sclerae anicteric. Mucous membranes of the mouth are moist. Neck supple. No JVD or thyromegaly LUNGS: Respirations even and unlabored. Lungs essentially clear to auscultation bilaterally. HEART: Regular rate and rhythm. S1 and S2 heard. ABDOMEN: Soft. Nondistended. Nontender. EXTREMITIES: Normal range of motion. No clubbing or cyanosis. Peripheral pulses intact. Bilateral lower extremity edema noted. NEUROLOGIC: Awake and alert. Oriented x 3. ASSESSMENT: Shortness of breath Acute on chronic heart failure with reduced EF, 25 to 30% NSTEMI versus residual elevated troponins from recent cardiac events Coronary artery disease with recent stenting of the mid RCA and LAD, 10/31/2024 Ischemic cardiomyopathy Hyperlipidemia History of alcohol abuse Elevated LFTs Nicotine dependence, patient smokes 1 pack/day Obesity: BMI 32.6 Diabetes PLAN: Obtain limited echo to assess LV function and assess for wall motion abnormalities Continue IV heparin Continue to trend troponins Resume home cardiac medications including Lipitor, Brilinta, Aldactone, Entresto, metoprolol, Farxiga, and aspirin Add Imdur 30 mg daily Begin IV Lasix 40 mg every 12 hours Daily weights, accurate intake and output, monitoring of kidney function Will obtain records from recent hospitalization at [facility] Abstinence from alcohol recommended Smoking cessation encouraged. Patient to be referred to [place] quit line upon discharge Further recommendations pending patient course Nurse practitioner note has been reviewed by physician. Signing provider agrees with the documented findings, assessment, and plan of care documented by DYE RANGE FEEDER as a scribe. Past Medical History Past Medical History: Diabetes Mellitus, Hyperlipidemia, Hypertension History of Any Multi-Drug Resistant Organisms: None Reported Past Surgical History: No Surgical Hx Reported, Heart Catheterization With Stent Past Anesthesia/Blood Transfusion Reactions: No Reported Reaction Past Psychological History: Anxiety Smoking Status: Current every day smoker Past Alcohol Use History: Daily Past Drug Use History: None Reported Medications and Allergies Home Medications Medication Instructions Recorded Confirmed Type FLUoxetine HCL [PROzac] 40 mg PO HS 10/31/24 11/06/24 History Aspirin 81 mg PO DAILY tab 11/01/24 11/06/24 Rx Atorvastatin [Lipitor] 80 mg PO HS #90 tab 11/01/24 11/06/24 Rx Dapagliflozin Propanediol [Farxiga] 10 mg PO DAILY #30 tab 11/01/24 11/06/24 Rx Metoprolol Succinate [Metoprolol 25 mg PO DAILY #90 tab 11/01/24 11/06/24 Rx Succinate ER] Spironolactone [Aldactone] 25 mg PO DAILY #90 tab 11/01/24 11/06/24 Rx Ticagrelor [Brilinta] 90 mg PO BID #180 tab 11/01/24 11/06/24 Rx Insulin Degludec [Tresiba] 40 units SQ HS 11/06/24 11/06/24 History Nitroglycerin Sl Tabs [Nitrostat] 0.4 mg SL Q5M PRN 11/06/24 11/06/24 History Sacubitril/Valsartan [Entresto 24 1 tab PO BID 11/06/24 11/06/24 History mg-26 mg Tablet] Semaglutide [Ozempic] 2 mg SQ FR 11/06/24 11/06/24 History Allergies Allergy/AdvReac Type Severity Reaction Status Date / Time cephalexin [From Keflex] Allergy Rash/Hives Verified 11/06/24 10:02 Physical Exam Vitals: Vital Signs Temp Pulse Resp BP Pulse Ox 11/06/24 12:03 97.9 F 81 16 121/74 97 11/06/24 09:26 98.8 F 80 16 120/70 97 11/06/24 07:34 98 F 89 20 131/82 96 Intake and Output 11/05/24 11/06/24 11/06/24 22:59 06:59 14:59 Other: Weight 70.76 kg Results 11/06/24 07:46 11/06/24 07:46 Cardiac Enzymes 11/06/24 11/06/24 11/06/24 Range/Units 07:46 07:46 10:31 AST 117 H (14-36) U/L Troponin I 4.910 H* 4.290 H* (0.000-0.034) ng/mL Coagulation 11/06/24 Range/Units 07:46 PT 12.6 H (10.0-12.5) sec APTT 23.0 (22.0-30.0) sec CBC 11/06/24 Range/Units 07:46 WBC 8.2 (3.8-10.6) k/uL RBC 4.59 (3.80-5.40) m/uL Hgb 13.7 (11.4-16.0) gm/dL Hct 47.0 H (34.0-46.0) % Plt Count 236 (150-450) k/uL Comprehensive Metabolic Panel 11/06/24 Range/Units 07:46 Sodium 134 L (137-145) mmol/L Potassium 4.9 (3.5-5.1) mmol/L Chloride 99 (98-107) mmol/L Carbon Dioxide 27 (22-30) mmol/L BUN 11 (7-17) mg/dL Creatinine 0.76 (0.52-1.04) mg/dL Glucose 176 H (74-99) mg/dL Calcium 9.0 (8.4-10.2) mg/dL AST 117 H (14-36) U/L ALT 117 H (4-34) U/L Alkaline Phosphatase 246 H (38-126) U/L Total Protein 6.9 (6.3-8.2) g/dL Albumin 3.5 (3.5-5.0) g/dL Current Medications Generic Name Dose Route Start Last Admin Trade Name Freq PRN Reason Stop Dose Admin Aspirin 81 mg 11/07/24 09:00 Aspirin 81 Mg PO DAILY [facility] Atorvastatin Calcium 80 mg 11/06/24 21:00 Atorvastatin 80 Mg Tab PO HS [facility] Dapagliflozin 10 mg 11/07/24 09:00 Dapagliflozin Propanediol 10 Mg Tablet PO DAILY [facility] Fluoxetine HCl 40 mg 11/06/24 21:00 Fluoxetine Hcl 20 Mg Cap PO HS [facility] Heparin Sodium (Porcine) 0 unit 11/06/24 08:34 Heparin Sodium 1,000 Un/Ml (10ml Vl) IV PER PROTOCOL PRN Low PTT Protocol Heparin Sodium/Sodium Chloride 250 mls @ 8.491 mls/hr 11/06/24 08:45 11/06/24 09:28 25,000 unit/ Sodium Chloride IV 12 units/kg/hr .Q24H DIMAS 8.491 mls/hr Administration Protocol 12 UNITS/KG/HR Insulin Glargine 40 unit 11/06/24 21:00 Insulin Glargine (Lantus) 100 Unit/Ml Syr SQ HS [facility] Metoprolol Succinate 25 mg 11/07/24 09:00 Metoprolol Succinate (Er) 25 Mg Tab.Er.24h PO DAILY [facility] Nitroglycerin 0.4 mg 11/06/24 10:16 Nitroglycerin Sl Tabs 0.4 Mg Tab SUBLINGUAL Q5M PRN Chest Pain Sacubitril/Valsartan 1 each 11/06/24 21:00 Sacubitril/Valsartan 24 Mg-26 Mg Tablet PO BID [facility] Spironolactone 25 mg 11/07/24 09:00 Spironolactone 25 Mg Tab PO DAILY [facility] Ticagrelor 90 mg 11/06/24 21:00 Ticagrelor 90 Mg Tab PO BID [facility] Intake and Output 11/05/24 11/06/24 11/06/24 22:59 06:59 14:59 Other: Weight 70.76 kg Patient Weight 11/07/24 06:59 Weight 70.76 kg 11/06/24 07:46 11/06/24 07:46
[2024-11-06 17:02] LABS: Glucose,Whole Blood 245 mg/dL (70-110)
[2024-11-06] MEDS: INSULIN LISPRO (HumaLOG) 100 UNIT/ML 10 mL VL SQ SCH (17:31)
[2024-11-06] MEDS: FLUoxetine HCL 20 MG CAP PO SCH (20:19)
[2024-11-06] MEDS: ATORVASTATIN 80 MG TAB PO SCH (20:19)
[2024-11-06] MEDS: SACUBITRIL/VALSARTAN 24 MG-26 MG TABLET PO SCH (20:20)
[2024-11-06] MEDS: TICAGRELOR 90 MG TAB PO SCH (20:20)
[2024-11-06] MEDS: FUROSEMIDE 10 MG/ML 4 ML VIAL IV SCH (20:27)
[2024-11-06] MEDS: ACETAMINOPHEN TAB 325 MG TAB PO PRN (20:52)
[2024-11-06 22:26] LABS: Glucose,Whole Blood 116 mg/dL (70-110)
[2024-11-06] MEDS: INSULIN GLARGINE (LANTUS) 100 UNIT/ML SYR SQ SCH (22:26)
[2024-11-07 08:20] LABS: Glucose,Whole Blood 128 mg/dL (70-110)
[2024-11-07] MEDS ORDERED: IPRATROPIUM-ALBUTEROL 3 ML NEB INHALATION PRN (08:37)
[2024-11-07] MEDS: ASPIRIN 81 MG PO SCH (08:47)
[2024-11-07] MEDS: ISOSORBIDE MONONITRATE ER 30 MG TAB.ER.24H PO SCH (08:48)
[2024-11-07] MEDS: DAPAGLIFLOZIN PROPANEDIOL 10 MG TABLET PO SCH (08:48)
[2024-11-07] MEDS: SPIRONOLACTONE 25 MG TAB PO SCH (08:49)
[2024-11-07] MEDS: METOPROLOL SUCCINATE (ER) 25 MG TAB.ER.24H PO SCH (08:49)
[2024-11-07] MEDS ORDERED: ALPRAZolam 0.5 MG TAB PO PRN (09:00)
[2024-11-07] MEDS ORDERED: NITROGLYCERIN SL TABS 0.4 MG TAB SUBLINGUAL PRN ×2 (09:00→14:30)
[2024-11-07] MEDS ORDERED: ASPIRIN 325 MG TAB PO SCH (09:00)
[2024-11-07] MEDS ORDERED: ALPRAZolam 0.25 MG TAB PO PRN (09:00)
--- NOTE | 2024-11-07 09:00 | P.HPIM ---
History of Present Illness H&P Date: 11/07/24 This is a 49-year-old female who was recently admitted to this hospital and underwent cardiac catheterization with stenting of the mid RCA and mid LAD. Patient states she had an episode of chest pain and feels she is retaining fluid in her legs so she came back to the emergency room. Troponins were elevated on admission. She was started on IV heparin. An echo has been ordered however is not back at time of dictation. Patient does have a history of tobacco abuse. Further medical history as noted below. Review of Systems Constitutional: Denies chills, Denies fever Cardiovascular: Reports chest pain, Reports edema, Denies dyspnea on exertion Respiratory: Denies cough, Denies dyspnea Gastrointestinal: Denies nausea, Denies vomiting Musculoskeletal: Denies arm numbness/tingling, Denies leg numbness/tingling Neurological: Denies headaches, Denies weakness Past Medical History Past Medical History: Diabetes Mellitus, Hyperlipidemia, Hypertension History of Any Multi-Drug Resistant Organisms: None Reported Past Surgical History: No Surgical Hx Reported, Heart Catheterization With Stent Past Anesthesia/Blood Transfusion Reactions: No Reported Reaction Past Psychological History: Anxiety Smoking Status: Current every day smoker Past Alcohol Use History: Daily Past Drug Use History: None Reported Medications and Allergies Home Medications Medication Instructions Recorded Confirmed Type FLUoxetine HCL [PROzac] 40 mg PO HS 10/31/24 11/06/24 History Aspirin 81 mg PO DAILY tab 11/01/24 11/06/24 Rx Atorvastatin [Lipitor] 80 mg PO HS #90 tab 11/01/24 11/06/24 Rx Dapagliflozin Propanediol [Farxiga] 10 mg PO DAILY #30 tab 11/01/24 11/06/24 Rx Metoprolol Succinate [Metoprolol 25 mg PO DAILY #90 tab 11/01/24 11/06/24 Rx Succinate ER] Spironolactone [Aldactone] 25 mg PO DAILY #90 tab 11/01/24 11/06/24 Rx Ticagrelor [Brilinta] 90 mg PO BID #180 tab 11/01/24 11/06/24 Rx Insulin Degludec [Tresiba] 40 units SQ HS 11/06/24 11/06/24 History Nitroglycerin Sl Tabs [Nitrostat] 0.4 mg SL Q5M PRN 11/06/24 11/06/24 History Sacubitril/Valsartan [Entresto 24 1 tab PO BID 11/06/24 11/06/24 History mg-26 mg Tablet] Semaglutide [Ozempic] 2 mg SQ FR 11/06/24 11/06/24 History Allergies Allergy/AdvReac Type Severity Reaction Status Date / Time cephalexin [From Keflex] Allergy Rash/Hives Verified 11/06/24 10:02 Physical Exam Vitals: Vital Signs Temp Pulse Resp BP Pulse Ox 11/07/24 08:45 80 18 128/63 99 11/07/24 06:11 78 18 128/63 97 11/07/24 01:00 86 17 110/59 98 11/06/24 20:24 89 18 106/64 97 11/06/24 17:40 98 F 92 16 130/80 96 11/06/24 12:03 97.9 F 81 16 121/74 97 11/06/24 09:26 98.8 F 80 16 120/70 97 - Constitutional General appearance: cooperative, no acute distress - EENT Eyes: PERRLA - Neck Neck: no lymphadenopathy, normal ROM, no rigidity - Respiratory Respiratory: bilateral: wheezing - Cardiovascular Heart sounds: normal: S1, S2 - Gastrointestinal General gastrointestinal: soft, no tenderness - Integumentary Integumentary: normal, normal turgor - Psychiatric Psychiatric: A&O x's 3 Results CBC & Chem 7: 11/06/24 07:46 11/06/24 07:46 Labs: Abnormal Lab Results - Last 24 Hours (Table) 11/06/24 11/06/24 11/06/24 Range/Units 10:31 14:29 14:29 APTT 43.3 H (22.0-30.0) sec POC Glucose (mg/dL) (70-110) mg/dL Troponin I 4.290 H* 3.790 H* (0.000-0.034) ng/mL 11/06/24 11/06/24 11/07/24 Range/Units 17:00 22:25 08:18 APTT (22.0-30.0) sec POC Glucose (mg/dL) 245 H 116 H 128 H (70-110) mg/dL Troponin I (0.000-0.034) ng/mL Assessment and Plan (1) Acute on chronic congestive heart failure Current Visit: No Status: Acute Code(s): I50.9 - HEART FAILURE, UNSPECIFIED SNOMED Code(s): 870804635 (2) Alcohol abuse Current Visit: No Status: Acute Code(s): F10.10 - ALCOHOL ABUSE, UNCOMPLICATED SNOMED Code(s): 76299946 (3) CAD (coronary artery disease) Current Visit: No Status: Acute Code(s): I25.10 - ATHSCL HEART DISEASE OF [place] CORONARY ARTERY W/O ANG PCTRS SNOMED Code(s): 33611014 (4) Cigarette nicotine dependence Current Visit: No Status: Acute Code(s): F17.210 - NICOTINE DEPENDENCE, CIGARETTES, UNCOMPLICATED SNOMED Code(s): 73838468939238794 (5) Diabetes mellitus, new onset Current Visit: No Status: Acute Code(s): E11.9 - TYPE 2 DIABETES MELLITUS WITHOUT COMPLICATIONS SNOMED Code(s): 928939205 Plan: Check CBC and CMP in the morning. Await results from echo. Will order breathing treatments as needed Patient seen and evaluated by nurse practitioner, physician in agreement with plan.
[2024-11-07] MEDS: ATORVASTATIN 80 MG TAB PO STA (09:53)
[2024-11-07] MEDS: ASPIRIN 325 MG TAB PO STA (09:53)
[2024-11-07 10:16] LABS: Basophils % (A) 0 %; Eosinophils # (A) 0.1 k/uL (0-0.7); Eosinophils % (A) 1 %; HCT 43.7 % (34.0-46.0); HGB 12.8 gm/dL (11.4-16.0); Hypochromasia Marked; Lymphocytes # (A) 1.5 k/uL (1.0-4.8); Lymphocytes % (A) 29 %; MCH 29.8 pg (25.0-35.0); MCHC 29.3 g/dL (31.0-37.0); MCV 101.9 fL (80.0-100.0); Macrocytosis Slight; Mean Platelet Volume 9.5; Monocytes # (A) 0.2 k/uL (0-1.0); Monocytes % (A) 5 %; Neutrophils # (A) 3.4 k/uL (1.3-7.7); Neutrophils % (A) 63 %; Platelet Count 215 k/uL (150-450); RBC 4.29 m/uL (3.80-5.40); RDW 14.1 % (11.5-15.5); WBC 5.4 k/uL (3.8-10.6)
--- NOTE | 2024-11-07 10:26 | CA ---
Transthoracic Echo Report Name: Klaudia Mays Age: 49 Gender: F : 1975 Exam Date: 11/06/2024 18:05 Exam Location: [facility] Ht (in): 58 Wt (lb): 156 Ordering Physician: Rebecca Briscoe Attending/Referring Phys: [id number], Luis Felipe [facility] Worker Tasia Selby RDCS Procedure CPT: Indications: LV function, CHF, recent stenting Cardiac Hx: stents Technical Quality: Good Contrast 1: Total Dose (mL): Contrast 2: Total Dose (mL): MEASUREMENTS (Male / Female) Normal Values 2D ECHO LV Diastolic Diameter PLAX 5.2 cm 4.2 - 5.9 / 3.9 - 5.3 cm LV Systolic Diameter PLAX 4.7 cm IVS Diastolic Thickness 1.1 cm 0.6 - 1.0 / 0.6 - 0.9 cm LVPW Diastolic Thickness 0.9 cm 0.6 - 1.0 / 0.6 - 0.9 cm LV Relative Wall Thickness 0.4 RV Internal Dim ED PLAX 3.0 cm LA Systolic Diameter LX 3.3 cm 3.0 - 4.0 / 2.7 - 3.8 cm LV Diastolic Volume MOD 4C 107.4 cm??? LV Systolic Volume MOD 4C 75.5 cm??? LV Ejection Fraction MOD 4C 29.7 % LV Cardiac Index MOD 4C 1653.8 cm???/min???m??? LV Diastolic Length 4C 7.6 cm LV Systolic Length 4C 7.4 cm LV Diastolic Volume MOD 2C 93.6 cm??? LV Systolic Volume MOD 2C 68.1 cm??? LV Ejection Fraction MOD 2C 27.2 % LV Cardiac Index MOD 2C 1319.1 cm???/min???m??? LV Diastolic Length 2C 7.7 cm LV Systolic Length 2C 7.0 cm LA Volume 43.9 cm??? 18 - 58 / 22 - 52 cm??? LA Volume Index 25.3 cm???/m??? 16 - 28 cm???/m??? M-MODE Aortic Root Diameter MM 2.8 cm DOPPLER AV Peak Velocity 168.2 cm/s AV Peak Gradient 11.3 mmHg AV Mean Velocity 119.9 cm/s AV Mean Gradient 6.4 mmHg AV Velocity Time Integral 30.8 cm AI Peak Velocity 363.4 cm/s AI Peak Gradient 52.8 mmHg AI Pressure Half Time 851.6 ms LVOT Peak Velocity 100.1 cm/s LVOT Peak Gradient 4.0 mmHg LVOT Velocity Time Integral 17.2 cm MV Area PHT 6.1 cm??? Mitral E Point Velocity 120.3 cm/s Mitral A Point Velocity 112.2 cm/s Mitral E to A Ratio 1.1 MV Deceleration Time 125.2 ms TR Peak Velocity 229.5 cm/s TR Peak Gradient 21.1 mmHg Right Ventricular Systolic Press 35.9 mmHg FINDINGS Left Ventricle Left ventricular ejection fraction is estimated at 25-30 %. Atypical septal motion. Severe global left ventricular hypokinesis.left ventricular cavity size normal. Right Ventricle Normal right ventricular size and function. Mild pulmonary hypertension. Right Atrium Normal right atrial size. No right atrial thrombus or mass seen. No right atrial thrombus or mass seen. Left Atrium Normal left atrial size. No left atrial thrombus or mass present. Mitral Valve Structurally normal mitral valve. No evidence for mitral valve prolapse. Moderate mitral regurgitation. Aortic Valve Trileaflet aortic valve. Thickened aortic valve without stenosis. moderate aortic regurgitation. Tricuspid Valve Structurally normal tricuspid valve. Moderate tricuspid regurgitation. Pulmonic Valve Structurally normal pulmonic valve. Trace pulmonic regurgitation. Pericardium No pericardial effusion. Aorta Normal size aortic root and proximal ascending aorta. CONCLUSIONS 1. Severe impairment in the left ventricular systolic function 2. Moderate mitral, aortic and tricuspid regurgitation with mild pulmonary hypertension Previewed by: Dr. Lazaro Samuel MD (Electronically Signed) Final Date: 07 November 2024 10:25
[2024-11-07 10:29] LABS: INR 1.2 (<1.2); Partial Thromboplastin Time 44.2 sec (22.0-30.0); Prothrombin Time 12.6 sec (10.0-12.5)
[2024-11-07] MEDS: SODIUM CHLORIDE 0.9% 1,000 ML in EMPTY BAG 1 BAG IV SCH ×2 (11:08→15:26)
[2024-11-07 11:17] LABS: African American GFR (CKD) >90 (>60 ml/min/1.73 sqM); Anion Gap 8 mmol/L; Blood Urea Nitrogen 14 mg/dL (7-17); Calcium 8.5 mg/dL (8.4-10.2); Carbon Dioxide 29 mmol/L (22-30); Chloride 98 mmol/L (98-107); Glucose 132 mg/dL (74-99); Non-African American GFR(CKD) 82 (>60 ml/min/1.73 sqM); Potassium 3.8 mmol/L (3.5-5.1); Sodium 135 mmol/L (137-145)
[2024-11-07 12:02] LABS: Glucose,Whole Blood 262 mg/dL (70-110)
[2024-11-07] MEDS: HEPARIN SODIUM,PORCINE (1 ML) 2,500 UNIT in SODIUM CHLORIDE 0.9% 250 ML IRRIGATION PRN (13:20)
[2024-11-07] MEDS: HEPARIN SODIUM,PORCINE 10,000 UNIT in SODIUM CHLORIDE 0.9% 1,000 ML IRRIGATION PRN (13:20)
[2024-11-07] MEDS: MIDAZOLAM 2 MG/2 ML VIAL IVP ONE (13:25)
[2024-11-07] MEDS: LIDOCAINE 1% INJ 10MG/ML (20 ML MDV) SQ ONE (13:28)
[2024-11-07] MEDS: IV FLUID CONTINUATION 900 ML IV ONE (13:28)
--- NOTE | 2024-11-07 13:37 | P.PN ---
Subjective HISTORY OF PRESENT ILLNESS: This is a 49-year-old female with a past medical history significant for cardiomyopathy, coronary artery disease, hyperlipidemia, alcohol abuse, nicotine dependence. Patient has not yet established in the office with a building code administrator. We have been asked to see the patient in consultation for elevated troponins. Patient examined at the bedside in the emergency room. Patient was recently admitted to the hospital and underwent cardiac catheterization on 10/31/[address] Austin after she was admitted to the hospital with heart failure and cardiomyopathy. She underwent stenting of the mid RCA and mid LAD. The patient was discharged home in stable condition. The patient states since her discharge she has noticed she has been retaining fluid in her legs. She also states that yesterday she had an episode of chest pain in the middle of her chest. She denied any radiation of the pain. She states that it felt like a tightness or squeezing sensation. She did receive nitro with no relief of the discomfort. S he states since that time she has had no further episodes of chest pain or pressure. The patient was found to have elevated troponins of 4.9. She was started on IV heparin. Previous troponin levels from recent hospitalization are currently not available. DIAGNOSTICS: - EKG reveals sinus mechanism with T wave inversions inferiorly and also in V5V6, similar to previous EKG.. - Chest xray negative for acute process. - Laboratory data: WBC 8.2. Hemoglobin 13.7. Platelet count 236. Sodium 134. Potassium 4.9. BUN 11. Creatinine 0.76. AST 117. ALT 117. Troponin 4.910. 4.290. proBNP 3350. - Current home cardiac medications include Lipitor 80 mg at night, Brilinta 90 mg twice a day, Aldactone 25 mg daily, Entresto 24-26 mg twice a day, metoprolol succinate 25 mg daily, Farxiga 10 mg daily, aspirin 81 mg daily. 11/07/2024 Patient examined this morning in the emergency room. Patient currently denies chest pain or pressure. She denies shortness of breath. She reports improvement in her lower extremity edema. She remains on IV Lasix. Patient also remains on IV heparin for elevated troponins. Echocardiogram completed revealing ejection fraction 25 to 30% with atypical septal motion, severe global left ventricular hypokinesis, moderate mitral regurgitation, moderate aortic regurgitation, moderate tricuspid regurgitation, mild pulm hypertension PHYSICAL EXAM: VITAL SIGNS: Reviewed. GENERAL: Well-developed in no acute distress. HEENT: Head is normocephalic. Pupils are equal, round. Sclerae anicteric. Mucous membranes of the mouth are moist. Neck supple. No JVD or thyromegaly LUNGS: Respirations even and unlabored. Lungs with expiratory wheezing noted. HEART: Regular rate and rhythm. S1 and S2 heard. ABDOMEN: Soft. Nondistended. Nontender. EXTREMITIES: Normal range of motion. No clubbing or cyanosis. Peripheral pulses intact. Bilateral lower extremity edema noted. NEUROLOGIC: Awake and alert. Oriented x 3. ASSESSMENT: Shortness of breath Acute on chronic heart failure with reduced EF, 25 to 30% NSTEMI versus residual elevated troponins from recent cardiac events Coronary artery disease with recent stenting of the mid RCA and LAD, 10/31/2024 Ischemic cardiomyopathy Hyperlipidemia History of alcohol abuse Elevated LFTs Nicotine dependence, patient smokes 1 pack/day Obesity: BMI 32.6 Diabetes PLAN: Continue IV heparin Continue IV Lasix 40 mg every 12 hours Daily weights, accurate intake and output, and monitoring of kidney function Continue current cardiac medications including aspirin, atorvastatin, Farxiga, Imdur, metoprolol Entresto, Aldactone, and Brilinta Abstinence from alcohol recommended Smoking cessation encouraged. Patient to be referred to [place] quit line upon discharge Patient to undergo cardiac catheterization today with Dr. Austin Further recommendations pending patient course Nurse practitioner note has been reviewed by physician. Signing provider agrees with the documented findings, assessment, and plan of care documented by CLIENT SUPPORT ASSOCIATE as a scribe. Objective - Vital Signs Vital signs: Vital Signs Temp 98 F 11/06/24 17:40 Pulse 73 11/07/24 11:43 Resp 18 11/07/24 11:43 BP 109/66 11/07/24 11:43 Pulse Ox 99 11/07/24 11:43 FiO2 Intake & Output 11/06/24 11/07/24 11/07/24 18:59 06:59 18:59 Intake Total 235.06 Balance 235.06 Weight 70.76 kg Intake: Intake, IV Titration 235.06 Amount Heparin Sod,Pork in 0.45% 235.06 NaCl 25,000 unit In 0.45 % NaCl 1 250ml.bag @ 12 UNITS/KG/HR 8.491 mls/hr IV .Q24H DIMAS Rx#: [id number] - Labs CBC & Chem 7: 11/07/24 09:02 11/07/24 09:02 Labs: Abnormal Lab Results - Last 24 Hours (Table) 11/06/24 11/06/24 11/06/24 Range/Units 14:29 14:29 17:00 MCV (80.0-100.0) fL MCHC (31.0-37.0) g/dL PT (10.0-12.5) sec INR (<1.2) APTT 43.3 H (22.0-30.0) sec Sodium (137-145) mmol/L Glucose (74-99) mg/dL POC Glucose (mg/dL) 245 H (70-110) mg/dL Troponin I 3.790 H* (0.000-0.034) ng/mL 11/06/24 11/07/24 11/07/24 Range/Units 22:25 08:18 09:02 MCV (80.0-100.0) fL MCHC (31.0-37.0) g/dL PT (10.0-12.5) sec INR (<1.2) APTT (22.0-30.0) sec Sodium 135 L (137-145) mmol/L Glucose 132 H (74-99) mg/dL POC Glucose (mg/dL) 116 H 128 H (70-110) mg/dL Troponin I (0.000-0.034) ng/mL 11/07/24 11/07/24 11/07/24 Range/Units 09:02 09:02 12:00 MCV 101.9 H (80.0-100.0) fL MCHC 29.3 L (31.0-37.0) g/dL PT 12.6 H (10.0-12.5) sec INR 1.2 H (<1.2) APTT 44.2 H (22.0-30.0) sec Sodium (137-145) mmol/L Glucose (74-99) mg/dL POC Glucose (mg/dL) 262 H (70-110) mg/dL Troponin I (0.000-0.034) ng/mL
[2024-11-07] MEDS: HEPARIN SODIUM 1,000 UN/ML (10ML VL) IV ONE (13:45)
[2024-11-07] MEDS: IOPAMIDOL-370 100ML BTL INJ ONE ×2 (14:13→14:32)
[2024-11-07] MEDS: NITROGLYCERIN 1000MCG/10ML SYRINGE INTRACORON ONE (14:26)
[2024-11-07] MEDS ORDERED: ATROPINE SULFATE 0.1 MG/ML 10ML SYRINGE IV PRN (14:30)
[2024-11-07] MEDS ORDERED: RX INFO: IV CONTRAST WAS GIVEN 1 EACH MISC MISCELLANE PRN (14:30)
[2024-11-07] MEDS ORDERED: ZOLPIDEM 5 MG TAB PO PRN (14:30)
[2024-11-07] MEDS ORDERED: MAG HYDROX/AL HYDROX/SIMETH 30 ML CUP PO PRN (14:30)
[2024-11-07] MEDS: SODIUM CHLORIDE 0.9% 1,000 ML IV SCH (15:27)
[2024-11-07 16:09] LABS: Glucose,Whole Blood 102 mg/dL (70-110)
[2024-11-07 16:40] LABS: Chol/HDL Ratio 5.06 Ratio; LDL Cholesterol,Calculated 83.1 mg/dL (0.0-131.0)
[2024-11-07 20:26] LABS: Glucose,Whole Blood 212 mg/dL (70-110)
--- NOTE | 2024-11-07 20:29 | P.PCN ---
Date of Procedure: 11/07/24 Operative Findings: CARDIAC CATHETERIZATION AND PERCUTANEOUS CORONARY INTERVENTION PERFORMING PHYSICIAN: Phillip Austin MD, [facility] PROCEDURE PERFORMED: 1. Selective right and left coronary angiogram 2. Successful stenting of distal RCA using 4.0 x 33 mm Xience ZELALEM with an excellent angiographic results with balloon angioplasty of the PLV branch of the RCA 3. Adjunctive use of IVUS and IFR 4. Ultrasound-guided access of the right common femoral artery and selective right common femoral artery angiogram INDICATION: Acute non-ST elevation myocardial infarction COMPLICATION: None APPROACH: Right common femoral artery LEVEL OF SEDATION: Moderate with the sedation time off 80 minutes PROCEDURE DESCRIPTION: After obtaining informed consent the patient was brought to the cardiac Attacher. The right common femoral artery was cannulated using micropuncture technique under ultrasound guidance a micropuncture wire passed easily then I placed a 6 English 11 cm sheath at the right common femoral artery with selective right and left coronary angiogram performed using JR4 and JL 3.5 catheters. A fter that we did decide to do an IFR of the RCA and IFR of the left main. After zeroing the Dobler wire and equalizing between the Dobler wire and guiding catheter we did engage the RCA using JR4 guiding catheter and did advance the Dobler wire to the PDA branch of the RCA with IFR came in to be ischemic. After that I decided to do an IFR of the left main coronary artery with after zeroing the Dobler wire and equalized in between the Dobler wire and guiding catheter which was JL 3.5 guiding catheter we did IFR of the left main and that came to be nonischemic. I decided to intervene on the RCA. At that point anticoagulation was initiated using heparin with continuous ACT monitoring. Subsequently I did engage the RCA using JR4 guiding catheter. After that I did wire it using a 1 4 wire. IVUS was performed and showed a diameter between 3.5 to 4 mm. I kept the wire in the PDA branch and I wired the PLV branch of the RCA. IVUS of both branches were performed and showed diameter around 3.5 mm with I did balloon angioplasty of the PLV branch of the RCA and then I did balloon angioplasty of the PDA of RCA. Subsequently I did stent the distal RCA using 4.0 x 33 mm stent which was postdilated using 4 mm noncompliant balloon was final angiogram showing excellent angiographic results and the procedure was completed with no complication. SELECTIVE CORONARY ANGIOGRAM: The right coronary artery: Large-caliber vessel and a dominant vessel with patent stent in the midportion and intermediate to severe disease involving the distal portion documented to be flow-limiting by Doppler wire Left main: Has moderate disease documented to be nonflow limiting by Doppler wire The left circumflex: Moderate to large caliber vessel with no evidence of high-grade stenosis The left anterior descending artery: Large-caliber vessel with patent stent in the proximal to midportion CONCLUSION: 1. Patent stent in the mid LAD. 2. Intermediate disease involving the ostial LAD documented to be nonflow limiting by Doppler wire 3. Patent stent in the mid RCA. Intermediate to severe disease involving the distal RCA documented to be flow-limiting by Doppler wire. Did PCI of the distal RCA POSTPROCEDURE MANAGEMENT: 1. Dual antiplatelet therapy using aspirin and Brilinta for 12 month 2. Aggressive cholesterol control 3. Follow-up with the patient
[2024-11-08 04:19] VITALS: RESP 16
[2024-11-08 06:12] LABS: Glucose,Whole Blood 111 mg/dL (70-110)
[2024-11-08 08:12] LABS: HCT 44.5 % (34.0-46.0); HGB 12.8 gm/dL (11.4-16.0); Hypochromasia Marked; MCH 28.9 pg (25.0-35.0); MCHC 28.8 g/dL (31.0-37.0); MCV 100.4 fL (80.0-100.0); Macrocytosis Slight; Mean Platelet Volume 9.2; Platelet Count 203 k/uL (150-450); RBC 4.43 m/uL (3.80-5.40); RDW 14.4 % (11.5-15.5); WBC 6.3 k/uL (3.8-10.6)
[2024-11-08 08:26] VITALS: BP 124/71; PULSE 89; TEMP 98.6
[2024-11-08 08:33] LABS: ALT 124 U/L (4-34); AST 154 U/L (14-36); African American GFR (CKD) >90 (>60 ml/min/1.73 sqM); Albumin 3.5 g/dL (3.5-5.0); Alkaline Phosphatase 201 U/L (38-126); Anion Gap 10 mmol/L; Blood Urea Nitrogen 13 mg/dL (7-17); Calcium 8.2 mg/dL (8.4-10.2); Carbon Dioxide 28 mmol/L (22-30); Chloride 96 mmol/L (98-107); Glucose 132 mg/dL (74-99); Non-African American GFR(CKD) 84 (>60 ml/min/1.73 sqM); Potassium 3.9 mmol/L (3.5-5.1); Sodium 134 mmol/L (137-145); Total Bilirubin 1.1 mg/dL (0.2-1.3); Total Protein 6.8 g/dL (6.3-8.2)
--- NOTE | 2024-11-08 08:49 | P.DS ---
Providers Date of admission: 11/06/24 10:16 Attending physician: Anthony Guardado Consults: 11/06/24 10:16 Consult Physician Urgent Consulting Provider: Bryant Gonzalez Consult Reason/Comments: cp, chf, ?nstemi Do you want consulting provider notified?: Already Contacted 11/07/24 14:30 Consult Physician Routine Consulting Provider: [facility] Consult Reason/Comments: Post Interventional Patient Do you want consulting provider notified?: Already Contacted Primary care physician: Nayan Self Ochoa - Discharge Diagnosis(es) (1) Acute non-ST elevation myocardial infarction (NSTEMI) Current Visit: Yes Status: Acute (2) Acute on chronic congestive heart failure Current Visit: No Status: Acute (3) Alcohol abuse Current Visit: No Status: Acute (4) CAD (coronary artery disease) Current Visit: No Status: Acute (5) Cigarette nicotine dependence Current Visit: No Status: Acute (6) Diabetes mellitus, new onset Current Visit: No Status: Acute Hospital Course: The patient is a 49-year-old white female essentially had 2 stents placed last week. The patient continued to improve but 2 days ago had worsening edema and shortness of breath. The patient was readmitted found to have elevated troponin again. The patient had coronary angiogram with which showed distal lesion. The patient will be discharged after another stent to then follow-up with haydee forde. Again, I'm seeing the patient has courtesy. She is technically not my patient as I see her in the chair to clinic locally. The clinic is where she seeks her primary care at this time. Patient Condition at Discharge: Serious Plan - Discharge Summary Discharge Rx Participant: No New Discharge Prescriptions: Continue Aspirin 81 mg PO DAILY tab Ticagrelor [Brilinta] 90 mg PO BID #180 tab Metoprolol Succinate [Metoprolol Succinate ER] 25 mg PO DAILY #90 tab Dapagliflozin Propanediol [Farxiga] 10 mg PO DAILY #30 tab Sacubitril/Valsartan [Entresto 24 mg-26 mg Tablet] 1 tab PO BID FLUoxetine HCL [PROzac] 40 mg PO HS Spironolactone [Aldactone] 25 mg PO DAILY #90 tab Atorvastatin [Lipitor] 80 mg PO HS #90 tab Semaglutide [Ozempic] 2 mg SQ FR Insulin Degludec [Tresiba] 40 units SQ HS Nitroglycerin Sl Tabs [Nitrostat] 0.4 mg SL Q5M PRN PRN Reason: Chest Pain Discharge Medication List FLUoxetine HCL [PROzac] 40 mg PO HS 10/31/24 [History] Aspirin 81 mg PO DAILY tab 11/01/24 [Rx] Atorvastatin [Lipitor] 80 mg PO HS #90 tab 11/01/24 [Rx] Dapagliflozin Propanediol [Farxiga] 10 mg PO DAILY #30 tab 11/01/24 [Rx] Metoprolol Succinate [Metoprolol Succinate ER] 25 mg PO DAILY #90 tab 11/01/24 [Rx] Spironolactone [Aldactone] 25 mg PO DAILY #90 tab 11/01/24 [Rx] Ticagrelor [Brilinta] 90 mg PO BID #180 tab 11/01/24 [Rx] Insulin Degludec [Tresiba] 40 units SQ HS 11/06/24 [History] Nitroglycerin Sl Tabs [Nitrostat] 0.4 mg SL Q5M PRN 11/06/24 [History] Sacubitril/Valsartan [Entresto 24 mg-26 mg Tablet] 1 tab PO BID 11/06/24 [History] Semaglutide [Ozempic] 2 mg SQ FR 11/06/24 [History] Follow up Appointment(s)/Referral(s): Anthony Guardado MD [STAFF PHYSICIAN] - 1 Week (the patient is to be referred back to the [facility]'s clinic at this time)
[2024-11-08] MEDS ORDERED: BUMETANIDE 1 MG TAB PO SCH (10:00)
--- NOTE | 2024-11-08 12:54 | P.PN ---
Subjective HISTORY OF PRESENT ILLNESS: This is a 49-year-old female with a past medical history significant for cardiomyopathy, coronary artery disease, hyperlipidemia, alcohol abuse, nicotine dependence. Patient has not yet established in the office with a hourly caregiver. We have been asked to see the patient in consultation for elevated troponins. Patient examined at the bedside in the emergency room. Patient was recently admitted to the hospital and underwent cardiac catheterization on 10/31/[address] Austin after she was admitted to the hospital with heart failure and cardiomyopathy. She underwent stenting of the mid RCA and mid LAD. The patient was discharged home in stable condition. The patient states since her discharge she has noticed she has been retaining fluid in her legs. She also states that yesterday she had an episode of chest pain in the middle of her chest. She denied any radiation of the pain. She states that it felt like a tightness or squeezing sensation. She did receive nitro with no relief of the discomfort. S he states since that time she has had no further episodes of chest pain or pressure. The patient was found to have elevated troponins of 4.9. She was started on IV heparin. Previous troponin levels from recent hospitalization are currently not available. DIAGNOSTICS: - EKG reveals sinus mechanism with T wave inversions inferiorly and also in V5V6, similar to previous EKG.. - Chest xray negative for acute process. - Laboratory data: WBC 8.2. Hemoglobin 13.7. Platelet count 236. Sodium 134. Potassium 4.9. BUN 11. Creatinine 0.76. AST 117. ALT 117. Troponin 4.910. 4.290. proBNP 3350. - Current home cardiac medications include Lipitor 80 mg at night, Brilinta 90 mg twice a day, Aldactone 25 mg daily, Entresto 24-26 mg twice a day, metoprolol succinate 25 mg daily, Farxiga 10 mg daily, aspirin 81 mg daily. 11/07/2024 Patient examined this morning in the emergency room. Patient currently denies chest pain or pressure. She denies shortness of breath. She reports improvement in her lower extremity edema. She remains on IV Lasix. Patient also remains on IV heparin for elevated troponins. Echocardiogram completed revealing ejection fraction 25 to 30% with atypical septal motion, severe global left ventricular hypokinesis, moderate mitral regurgitation, moderate aortic regurgitation, moderate tricuspid regurgitation, mild pulm hypertension 11/08/2024 Patient underwent cardiac catheterization yesterday with Dr. Austin with stenting of the distal RCA and balloon angioplasty of the PLV branch of the RCA. Patient examined Lizzie at the bedside. She denies any chest pain or pressure. She denies any shortness of breath. Vital signs are stable. Right radial and right femoral cath site with pulse present. PHYSICAL EXAM: VITAL SIGNS: Reviewed. GENERAL: Well-developed in no acute distress. HEENT: Head is normocephalic. Pupils are equal, round. Sclerae anicteric. Mucous membranes of the mouth are moist. Neck supple. No JVD or thyromegaly LUNGS: Respirations even and unlabored. Lungs with expiratory wheezing noted. HEART: Regular rate and rhythm. S1 and S2 heard. ABDOMEN: Soft. Nondistended. Nontender. EXTREMITIES: Normal range of motion. No clubbing or cyanosis. Peripheral pulses intact. Bilateral lower extremity edema noted. NEUROLOGIC: Awake and alert. Oriented x 3. ASSESSMENT: Shortness of breath Acute on chronic heart failure with reduced EF, 25 to 30% NSTEMI status post cardiac catheterization as above Coronary artery disease with recent stenting of the mid RCA and LAD, 10/31/2024 Ischemic cardiomyopathy Hyperlipidemia History of alcohol abuse Elevated LFTs Nicotine dependence, patient smokes 1 pack/day Obesity: BMI 32.6 Diabetes PLAN: Continue current cardiac medications including aspirin, atorvastatin, Farxiga, Imdur, metoprolol Entresto, Aldactone, and Brilinta Add Bumex 1 mg daily Abstinence from alcohol recommended Smoking cessation encouraged. Patient to be referred to [place] quit line upon discharge Recommend patient be off work for 2 weeks Patient may be discharged home today from a cardiac standpoint Nurse practitioner note has been reviewed by physician. Signing provider agrees with the documented findings, assessment, and plan of care documented by HALL TENDER as a scribe. Objective - Vital Signs Vital signs: Vital Signs Temp 98.6 F 11/08/24 08:00 Pulse 89 11/08/24 08:00 Resp 16 11/08/24 08:00 BP 124/71 11/08/24 08:00 Pulse Ox 96 11/08/24 08:00 FiO2 Intake & Output 11/07/24 11/08/24 11/08/24 18:59 06:59 18:59 Intake Total 775.06 Output Total 1750 Balance 775.06 -1750 Weight 70.76 kg 65.4 kg Intake: IV 300 Intake, IV Titration 235.06 Amount Heparin Sod,Pork in 0.45% 235.06 NaCl 25,000 unit In 0.45 % NaCl 1 250ml.bag @ 12 UNITS/KG/HR 8.491 mls/hr IV .Q24H [facility] Rx#: [id number] Oral 240 Output: Urine 1750 Other: Voiding Method Bedpan Bedpan # Voids 1 1 # Bowel Movements 1 - Labs CBC & Chem 7: 11/08/24 07:38 11/08/24 07:38 Labs: Abnormal Lab Results - Last 24 Hours (Table) 11/07/24 11/07/24 11/08/24 Range/Units 09:02 20:24 06:09 MCV (80.0-100.0) fL MCHC (31.0-37.0) g/dL Sodium (137-145) mmol/L Chloride (98-107) mmol/L Glucose (74-99) mg/dL POC Glucose (mg/dL) 212 H 111 H (70-110) mg/dL Calcium (8.4-10.2) mg/dL AST (14-36) U/L ALT (4-34) U/L Alkaline Phosphatase (38-126) U/L HDL Cholesterol 25.90 L (40.00-60.00) mg/dL 11/08/24 11/08/24 Range/Units 07:38 07:38 MCV 100.4 H (80.0-100.0) fL MCHC 28.8 L (31.0-37.0) g/dL Sodium 134 L (137-145) mmol/L Chloride 96 L (98-107) mmol/L Glucose 132 H (74-99) mg/dL POC Glucose (mg/dL) (70-110) mg/dL Calcium 8.2 L (8.4-10.2) mg/dL AST 154 H (14-36) U/L ALT 124 H (4-34) U/L Alkaline Phosphatase 201 H (38-126) U/L HDL Cholesterol (40.00-60.00) mg/dL
[2024-11-08] MEDS ORDERED: ATORVASTATIN 80 MG TAB PO SCH (21:00)
== END 2024-11-08 10:44 | disposition home or self-care (01) | DRG 321 ==
LOC: EC 07:30 → 3SCARD 10:16 → OBSVTOIN 10:16 → 3SCARD 12:57
PROVIDERS: ADMIT Family Medicine; ATTEND Family Medicine
PROC: B2111ZZ Fluoroscopy of Multiple Coronary Arteries using Low Osmolar Contrast (ICD-10-PCS; principal; 2024-11-07 13:55)
PROC: 4A033BC Measurement of Arterial Pressure, Coronary, Percutaneous Approach (ICD-10-PCS; principal; 2024-11-07 13:55)
PROC: 027034Z Dilation of Coronary Artery, One Artery with Drug-eluting Intraluminal Device, Percutaneous Approach (ICD-10-PCS; principal; 2024-11-07 13:55)
PROC: 4A023N7 Measurement of Cardiac Sampling and Pressure, Left Heart, Percutaneous Approach (ICD-10-PCS; principal; 2024-11-07 13:55)
PROC: B240ZZ3 Ultrasonography of Single Coronary Artery, Intravascular (ICD-10-PCS; principal; 2024-11-07 13:55)
DX: I21.4 Non-ST elevation (NSTEMI) myocardial infarction (principal); I50.23 Acute on chronic systolic (congestive) heart failure; I11.0 Hypertensive heart disease with heart failure; E11.9 Type 2 diabetes mellitus without complications; F10.10 Alcohol abuse, uncomplicated; E66.9 Obesity, unspecified; Z79.4 Long term (current) use of insulin; E78.5 Hyperlipidemia, unspecified; Z71.41 Alcohol abuse counseling and surveillance of alcoholic; F17.210 Nicotine dependence, cigarettes, uncomplicated; F41.9 Anxiety disorder, unspecified; I25.10 Atherosclerotic heart disease of native coronary artery without angina pectoris; I25.5 Ischemic cardiomyopathy; Z68.32 Body mass index [BMI] 32.0-32.9, adult; Z79.82 Long term (current) use of aspirin; Z79.85 Long-term (current) use of injectable non-insulin antidiabetic drugs; Z79.02 Long term (current) use of antithrombotics/antiplatelets; Z79.84 Long term (current) use of oral hypoglycemic drugs; Z79.899 Other long term (current) drug therapy
CPT/HCPCS: 36415; 71046; 80048; 80053; 80061; 83735; 83880; 84484; 85025; 85027; 85610; 85730; 92921; 92978; 93005; 93306; 93458; 93799; 96365; 96366; 96367; 96375; 96376; 99291